=== PATIENT | female | born 1980 | race Caucasian/White ===

== ENCOUNTER → 2020-02-28 09:13 | Outpatient (BNVA) | payer OTHER, SELFPAY | PROVIDERS: Visit Provider Internal Medicine | DX: E06.3 Autoimmune thyroiditis (principal); E03.8 Other specified hypothyroidism; E55.9 Vitamin D deficiency, unspecified; Z79.899 Other long term (current) drug therapy | CPT/HCPCS: 99212 ==

== ENCOUNTER 2020-02-29 16:28 | Outpatient (REF) | payer OTHER, SELFPAY ==
[2020-02-29 17:57] LABS: Free T4 (Free Thyroxine) 1.07 ng/dL (0.71-1.85); Thyroid Stimulating Hormone 3.68 uIU/mL (0.32-4.0); Vitamin D 25-OH Total 15.9 ng/mL (>30)
== END 2020-02-29 16:29 | disposition home or self-care (01) ==
LOC: HO.LAB 16:28
PROVIDERS: PCP Internal Medicine; Visit Provider Internal Medicine
DX: E03.9 Hypothyroidism, unspecified (principal); E55.9 Vitamin D deficiency, unspecified
CPT/HCPCS: 82306; 84439; 84443

== ENCOUNTER 2020-04-02 09:39 | Outpatient (REF) | payer OTHER, SELFPAY ==
[2020-04-03 11:10] LABS: BV Int Neg Control Negative (Negative); BV Int Pos Control Positive (Positive)
[2020-04-05 06:40] LABS: CT PCR NOT DETECTED (Not Detect.); NG PCR NOT DETECTED (Not Detect.)
[2020-04-10 09:47] LABS: HPV mRNA E6/E7 rflx Not Detected (Not Detected)
== END 2020-04-02 09:40 | disposition home or self-care (01) ==
LOC: HO.LAB 09:39
PROVIDERS: Visit Provider Advanced Practice Midwife
DX: Z01.419 Encounter for gynecological examination (general) (routine) without abnormal findings (principal); N39.3 Stress incontinence (female) (male); N92.0 Excessive and frequent menstruation with regular cycle; Z87.42 Personal history of other diseases of the female genital tract; Z20.2 Contact with and (suspected) exposure to infections with a predominantly sexual mode of transmission; Z87.891 Personal history of nicotine dependence
CPT/HCPCS: 87480; 87491; 87510; 87591; 87624; 87625; 87660; 88141; 88142

== ENCOUNTER → 2020-04-07 10:30 | Outpatient (BNVA) | payer OTHER, SELFPAY | PROVIDERS: PCP Internal Medicine; Referring Provider Internal Medicine; Visit Provider Internal Medicine | DX: Z76.89 Persons encountering health services in other specified circumstances (principal) ==

== ENCOUNTER → 2020-05-02 08:25 | Outpatient (BNVA) | payer OTHER, SELFPAY | PROVIDERS: PCP Internal Medicine; Visit Provider Advanced Practice Midwife | DX: Z53.8 Procedure and treatment not carried out for other reasons (principal); N92.0 Excessive and frequent menstruation with regular cycle | CPT/HCPCS: 58300 ==

== ENCOUNTER 2020-05-15 10:46 | Outpatient (REF) | payer OTHER, SELFPAY ==
--- NOTE | 2020-05-15 | US_ITS ---
EXAMINATION: US PELVIS CLINICAL INFORMATION: Menorrhagia. COMPARISON: Pelvic ultrasound dated 01/07/2011 TECHNIQUE: Ultrasound of the pelvis is performed using both transabdominal and transvaginal transducers along with Doppler. Transvaginal imaging is performed due to inadequate visualization transabdominally. FINDINGS: Uterus: The uterus is anteverted and measures 9.2 x 3.5 x 5.2 cm. There are nabothian cysts. The double wall endometrial thickness is 10 mm. The uterus is smooth in contour and has normal myometrial echogenicity. No visible fibroid. Adnexa: Both ovaries are visualized. There is normal color flow to the adnexa. There is no ovarian torsion. There is no pelvic ascites or fluid collection. Right ovary measures 2.8 x 2.6 x 2.6 for a volume of 9.9 mL. There is a right ovarian simple cyst versus dominant follicle measuring 1.8 cm. Left ovary measures 3 x 2 x 1.9 cm for a volume of 6 mL. There is a left ovarian dominant follicle versus cyst measuring 2.2 cm. US/US pelvic complete IMPRESSION: 1. Sonographically unremarkable uterus and endometrium. 2. Right ovarian dominant follicle versus cyst measuring 1.8 cm. Left ovarian dominant follicle versus cyst measuring 2.2 cm.
--- NOTE | 2020-05-15 10:54 | US_ITS ---
EXAMINATION: US PELVIS CLINICAL INFORMATION: Menorrhagia. COMPARISON: Pelvic ultrasound dated 01/07/2011 TECHNIQUE: Ultrasound of the pelvis is performed using both transabdominal and transvaginal transducers along with Doppler. Transvaginal imaging is performed due to inadequate visualization transabdominally. FINDINGS: Uterus: The uterus is anteverted and measures 9.2 x 3.5 x 5.2 cm. There are nabothian cysts. The double wall endometrial thickness is 10 mm. The uterus is smooth in contour and has normal myometrial echogenicity. No visible fibroid. Adnexa: Both ovaries are visualized. There is normal color flow to the adnexa. There is no ovarian torsion. There is no pelvic ascites or fluid collection. Right ovary measures 2.8 x 2.6 x 2.6 for a volume of 9.9 mL. There is a right ovarian simple cyst versus dominant follicle measuring 1.8 cm. Left ovary measures 3 x 2 x 1.9 cm for a volume of 6 mL. There is a left ovarian dominant follicle versus cyst measuring 2.2 cm. US/US transvaginal IMPRESSION: 1. Sonographically unremarkable uterus and endometrium. 2. Right ovarian dominant follicle versus cyst measuring 1.8 cm. Left ovarian dominant follicle versus cyst measuring 2.2 cm.
== END 2020-05-15 10:47 | disposition home or self-care (01) ==
LOC: HO.US 10:46
PROVIDERS: PCP Internal Medicine; Visit Provider Advanced Practice Midwife
DX: N92.0 Excessive and frequent menstruation with regular cycle (principal)
CPT/HCPCS: 76830; 76856

== ENCOUNTER → 2020-05-21 11:29 | Outpatient (BNVA) | payer OTHER, SELFPAY | PROVIDERS: PCP Internal Medicine; Visit Provider Advanced Practice Midwife | DX: Z76.89 Persons encountering health services in other specified circumstances (principal) ==

== ENCOUNTER → 2020-06-02 09:17 | Outpatient (BNVA) | payer OTHER, SELFPAY | PROVIDERS: PCP Internal Medicine; Visit Provider Internal Medicine ==

== ENCOUNTER 2020-06-10 16:19 | Outpatient (REF) | payer OTHER, SELFPAY ==
--- NOTE | ~2020-06-10 | US_ITS ---
EXAMINATION: US THYROID CLINICAL INFORMATION: Hypothyroidism. COMPARISON: US thyroid soft tissues 10/06/2016. TECHNIQUE: Linear transducer grayscale and color Doppler examination with attention to the region of the thyroid. FINDINGS: SIZE: Measurements of the thyroid lobes and nodules are given in sagittal, anteroposterior and transverse dimensions respectively. The thyroid gland is enlarged. Right Thyroid Lobe: 5.7 x 2.4 x 2.2 cm, volume 15.7 mL. Previously 5.5 x 2.5 x 2.6 cm, volume 18.7 mL. Parenchyma: The gland echotexture is heterogeneous. Thyroid vascularity is normal. Left Thyroid Lobe: 5.5 x 2.5 x 2.1 cm, volume 15.1 mL. Previously 5.4 x 2.5 x 2.7 cm, volume 19.1 mL. Parenchyma: The gland echotexture is heterogeneous. Thyroid vascularity is normal. Isthmus: 1.2 cm in maximum AP dimension. Previously 0.8 cm. Nodules: No focal nodule is seen. NODES: No lymphadenopathy is seen in the tissue surrounding the thyroid gland. US/US thyroid IMPRESSION: Enlarged heterogeneous thyroid gland with normal vascularity. The thyroid gland is slightly decreased in size compared to September 2016 exam. No focal nodule or lymphadenopathy is seen.
[2020-06-10 17:15] LABS: Hematocrit 41.5 % (37-47); Hemoglobin 13.3 g/dl (12.0-16.0); Mean Corpuscular Hemoglobin 26.4 pg (27.0-33.0); Mean Corpuscular Volume 82.3 fL (80-98); Mean Platelet Volume 9.5 fL (9.4-12.3); Platelet Count 357 X10*3/uL (160-400); Red Blood Count 5.04 X10*6/uL (4.20-5.50); Red Cell Distribution Width 13.2 % (11.0-16.0); White Blood Count 10.1 X10*3/uL (4.8-10.8)
[2020-06-10 17:56] LABS: Free T4 (Free Thyroxine) 1.09 ng/dL (0.71-1.85); Thyroid Stimulating Hormone 3.99 uIU/mL (0.32-4.0); Vitamin D 25-OH Total 16.3 ng/mL (>30)
[2020-06-11 08:50] LABS: ~HepC Num1 0.09 S/CO (0.00-0.79); ~Hepatitis C Antibody Nonreactive (Nonreactive)
[2020-06-11 09:01] LABS: Syphilis Screen Nonreactive (Nonreactive)
[2020-06-11 09:52] LABS: HBsAGNum1 0.19 S/CO (0.00-0.99); HIV AB/AG Nonreactive (Nonreactive); HIV Num 1 0.06 S/CO (0.00-0.99); Hepatitis B Surface Antigen Negative (Negative)
== END 2020-06-10 16:20 | disposition home or self-care (01) ==
LOC: HO.US 16:19
PROVIDERS: Advanced Practice Midwife; PCP Internal Medicine; Visit Provider Internal Medicine
DX: Z01.419 Encounter for gynecological examination (general) (routine) without abnormal findings (principal); Z11.4 Encounter for screening for human immunodeficiency virus [HIV]; Z01.84 Encounter for antibody response examination; E03.9 Hypothyroidism, unspecified; Z20.2 Contact with and (suspected) exposure to infections with a predominantly sexual mode of transmission; E55.9 Vitamin D deficiency, unspecified
CPT/HCPCS: 36415; 76536; 82306; 84439; 84443; 85027; 86780; 86803; 87340; 87389

== ENCOUNTER → 2020-06-12 11:05 | Outpatient (BNVA) | payer OTHER, SELFPAY | PROVIDERS: Visit Provider Urology ==

== ENCOUNTER → 2020-07-07 09:33 | Outpatient (BNVA) | payer OTHER, SELFPAY | PROVIDERS: PCP Internal Medicine; Visit Provider Internal Medicine ==

== ENCOUNTER 2020-07-30 12:14 | Emergency (ER) | payer OTHER, SELFPAY ==
--- NOTE | ~2020-07-30 | US_ITS ---
EXAMINATION: US ABDOMEN LIMITED CLINICAL INFORMATION: Right upper quadrant epigastric pain. Rule out gallstones or cholecystitis. COMPARISON: CT of August 29, 2011 TECHNIQUE: Real-time imaging of the gallbladder. FINDINGS: GALLBLADDER: There was some tenderness to palpation with the transducer overlying the region of the gallbladder. There is some echogenic bile present. Gallbladder wall is not thickened and no fluid within the gallbladder wall is seen. No pericholecystic fluid is noted. COMMON BILE DUCT: Normal in caliber measuring 0.3 cm in diameter. US/US abdomen limited IMPRESSION: No specific ultrasound evidence of acute cholecystitis.
[2020-07-30 12:52] VITALS: BP 126/71; PULSE 82; RESP 16; TEMP 36.7; BMI 37.5
[2020-07-30 13:20] LABS: MANUAL DIFF FLAG NO
[2020-07-30 13:24] LABS: Basophils Percent Auto 0.5 % (0-2); Eosinophils Absolute Auto 0.3 X10*3/uL (0.0-0.4); Eosinophils Percent Auto 3.7 % (0-4); Hematocrit 42.7 % (37-47); Hemoglobin 13.6 g/dl (12.0-16.0); Imm Gran Abs Auto 0.03 X10*3/uL (0.00-0.03); Imm Gran Pct Auto 0.4 % (0.0-0.4); Lymphocytes Absolute Auto 2.7 X10*3/uL (1.2-4.9); Lymphocytes Percent Auto 31.7 % (20-40); Mean Corpuscular HGB Conc 31.9 g/dl (31.0-35.0); Mean Corpuscular Hemoglobin 26.4 pg (27.0-33.0); Mean Corpuscular Volume 82.8 fL (80-98); Mean Platelet Volume 9.4 fL (9.4-12.3); Monocytes Absolute Auto 0.5 X10*3/uL (0.1-1.2); Monocytes Percent Auto 5.9 % (2-11); Neutrophils Absolute Auto 4.9 X10*3/uL (2.0-8.3); Neutrophils Percent Auto 57.8 % (45-73); Platelet Count 314 X10*3/uL (160-400); Red Blood Count 5.16 X10*6/uL (4.20-5.50); Red Cell Distribution Width 12.9 % (11.0-16.0); White Blood Count 8.4 X10*3/uL (4.8-10.8)
[2020-07-30] MEDS: 0.9 % Sodium Chloride 1,000 ML 999 ML IV (13:41)
[2020-07-30] MEDS: Ketorolac Tromethamine 30 MG/ML VIAL IVPUSH (13:42)
[2020-07-30 13:53] LABS: Alanine Aminotransferase 24 U/L (0-31); Albumin Level 4.3 g/dL (3.5-5.0); Alkaline Phosphatase 85 U/L (39-117); Anion Gap 12 (12-20); Aspartate Amino Transferase 19 U/L (5-31); Bilirubin Total 0.5 mg/dL (0.0-1.0); Carbon Dioxide 26 mmol/L (22-29); Chloride 107 mmol/L (96-108); Creatinine Clr Calc Pharmacy 105.8; Estimated Glomerular Filt Rate > 60; Glucose Random 113 mg/dL (60-115); Lipase 14 U/L (8-78); Potassium 4.1 mmol/L (3.3-5.1); Sodium 141 mmol/L (135-145); Total Protein 7.1 g/dL (6.5-8.0)
[2020-07-30 14:43] LABS: Glucose Urine UA NEG (NEG); Leukocyte Esterase Urine NEG (NEG); Nitrite Urine NEG (NEG); Urine Blood TRACE (NEG); Urine Ketones NEG (NEG); Urine Protein NEG (NEG-TRACE)
[2020-07-30 14:45] LABS: Appearance Urine HAZY; Color Urine YELLOW
[2020-07-30 14:46] LABS: UPreg QC Valid YES; Urine Pregnancy NEGATIVE (NEGATIVE)
[2020-07-30 14:50] LABS: Mucus Urine 2+ /LPF; RBC Urine 0-2 /HPF (0); Squamous Epithelial Cell Urine 1+ /LPF; WBC Urine 0 /HPF (0-4)
--- NOTE | 2020-07-30 15:30 | ED_ITS ---
HPI - General Adult General Chief complaint: Abdominal Pain Stated complaint: abd pain Time Seen by Provider: 07/30/20 12:41 Source: patient Mode of arrival: ambulatory Limitations: no limitations History of Present Illness HPI narrative: 40-year-old female who presents emergency department for evaluation of an ?I am having bad acid reflux . The patient states that she has been having constant, abdominal pain x5 days. She points to her epigastric area when asked to localize the pain. She describes the pain as a twisting/burning sensation. The pain is worse immediately after eating food. She states the joslyn n is 8/10 at its worst. She states that she feels very bloated. She states that she has had a problem with constipation for many years and she has only had small bowel movements over the past several days. She denied fever, chills, chest pain, shortness of breath, blood per rectum, dark tarry stools. The patient states she did see her PCP and was started on omeprazole 40 mg once a day but this is not relieving her pain. Related Data Home Medications Medication Instructions Recorded Confirmed cholecalciferol (vitamin D3) 50 50 mcg PO DAILY 06/02/20 07/07/20 mcg (2,000 unit) capsule ergocalciferol (vitamin D2) 1,250 1,250 mcg PO QWEEK 06/02/20 07/07/20 mcg (50,000 unit) capsule cefdinir 300 mg capsule 300 mg PO Q12H 07/29/20 diclofenac sodium 1 % topical gel g TOPICAL 07/29/20 levonorgestrel 20 mcg/24 hours (6 0 device VAGINAL ONCE 07/29/20 yrs) 52 mg intrauterine device Previous Rx's Medication Instructions Recorded Synthroid 50 mcg tablet 50 mcg PO DAILY 90 Days #90 tab NS 02/07/20 albuterol sulfate 90 mcg/actuation 2 puff PO Q4H PRN 30 Days #8.5 g 02/20/20 aerosol inhaler nebulizers #1 ea 07/14/20 Allergies Allergy/AdvReac Type Severity Reaction Status Date / Time No Known Allergies Allergy Verified 07/29/20 16:17 [No Known Allergies*] Review of Systems Review of Systems: Yes all other systems are reviewed and are negative PMFSH Past Medical History PMFSH Narrative: The patient denies tobacco, alcohol and drug use. She is a former smoker stop smoking 5 years prior. Medical History Asthma Autoimmune thyroiditis Depression Fibromyalgia GERD (gastroesophageal reflux disease) [place]'s disease History of abnormal cervical Pap smear Hypothyroidism Menorrhagia with regular cycle Obesity (BMI 30-39.9) Vitamin D deficiency Surgical History History of tonsillectomy History of tubal ligation Family History Family History Mother Asthma Social History Social History Alcohol intake: never Smoking Status: Former smoker Packs Per Day: 1 Cigarettes Per Day: 20.0 Years Smoked: 5 Advance Directives: No Gender identity: female Physical Exam Vital Signs: Vital Signs: Last Vital Signs Temp 98.1 F 07/30/20 12:52 Pulse 82 07/30/20 12:52 Resp 16 07/30/20 12:52 BP 126/71 07/30/20 12:52 Body Mass Index 37.5 Const: General: cooperative and healthy appearing Orientation/consciousness: oriented to person and oriented to place Limitations: no limitations HENMT: Head: Yes normal to inspection, Yes normocephalic and Yes atraumatic Ears: external ears normal General nose exam: Normal external nose present Face and sinus: Yes normal facial exam Mouth: Normal oral and palatal mucosa present Throat: Yes posterior oropharynx normal Eyes: Periorbital: periorbital findings normal Eyelids: Yes eyelids normal Conjunctivae: conjunctivae normal Sclerae: sclerae normal Corneas: corneas normal Pupils: Equal, round and reactive pupils present Direct Ophthalmoscopy: normal light reflex Neck: Neck: Yes full ROM, Yes no lymphadenopathy, Yes no meningeal signs, Yes trachea midline and Yes supple Chest: Chest palpation & inspection: normal inspection of the chest and normal palpation of entire chest wall Resp: Effort & Inspection: normal respiratory effort and able to speak in complete sentences Auscultation: clear to auscultation bilaterally Cardio: Rate: regular rate Rhythm: regular rhythm Heart sounds: S1 normal heart sound present, S2 normal heart sound present and no murmurs GI: Inspection: Yes normal to inspection Palpation (GI): Soft to palpation, Tenderness to palpation present (GI) in the epigastrum (Moderate) and in the RUQ (Moderate, negative De Leon sign), no guarding, not rigid and No hepatosplenomegaly present : General: Yes no CVA tenderness Back/Spine/Pelvis: Back: no CVA tenderness Cervical Spine: normal cervical lordosis Thoracic/Lumbar Spine: thoracic and lumbar spine normal to inspection Skin: Lesions: no lesions Rashes: no rashes Wounds: no wounds Neuro: General: oriented to person, oriented to place and no meningeal signs Cranial nerves: Yes CN's II-XII intact bilaterally and Yes Equal, round and reactive pupils present Cognition (Neuro): normal cognition Motor exam (neuro): 5/5 motor strength present throughout Extrem: General: Yes normal to inspection and Yes full ROM Psych: Appearance: well kempt Mental Status: mental status grossly normal Speech and movement: Normal speech and movement present Affect: normal affect Attitude: cooperative Thought process: Normal thought process present Thought content: Normal thought content present Course Course Course Narrative: 40-year-old female who presents emergency department for evaluation of epigastric pain times 5 days. The patient did see her PCP and was started on Prilosec with no relief for pain. Patient has also been constipated and is well and small bowel movements over the last 3 days, she is feeling bloated. Physical examination did reveal right upper quadrant and midepigastric tenderness. I ordered a CBC, CMP, lipase, urine test, urinalysis and right upper quadrant ultrasound. Patient was also ordered to get Toradol 30 mg IV and normal saline IV x1 L. 1534: Patient's laboratory evaluation was unremarkable, urinalysis was negative, urine test was negative. Right upper quadrant ultrasound revealed no evidence of cholecystitis or gallstones. The patient's presentation is consistent with acute gastritis and I did discuss this with her. The patient was advised to continue taking Prilosec 40 mg once a day for 1 month. She was started on the following bowel regimen: Metamucil daily, Colace twice a day, Senokot x3 days if no bowel movements after 3 days. She was advised follow-up with doctor for re-evaluation and return if her symptoms get worse. Medical Decision Making Lab Data Result diagrams: 07/30/20 13:13 07/30/20 13:13 Labs: Lab Results 07/30/20 07/30/20 07/30/20 Range/Units 13:13 13:13 13:13 WBC 8.4 (4.8-10.8) X10*3/uL RBC 5.16 (4.20-5.50) X10*6/uL Hgb 13.6 (12.0-16.0) g/dl Hct 42.7 (37-47) % MCV 82.8 (80-98) fL MCH 26.4 L (27.0-33.0) pg MCHC 31.9 (31.0-35.0) g/dl RDW 12.9 (11.0-16.0) % Plt Count 314 (160-400) X10*3/uL MPV 9.4 (9.4-12.3) fL Immature Gran % (Auto) 0.4 (0.0-0.4) % Neut % (Auto) 57.8 (45-73) % Lymph % (Auto) 31.7 (20-40) % [place] % (Auto) 5.9 (2-11) % Eos % (Auto) 3.7 (0-4) % Baso % (Auto) 0.5 (0-2) % Lymph # (Auto) 2.7 (1.2-4.9) X10*3/uL [place] # (Auto) 0.5 (0.1-1.2) X10*3/uL Eos # (Auto) 0.3 (0.0-0.4) X10*3/uL Baso # (Auto) 0.0 (0.0-0.2) X10*3/uL Abs Immat Gran (auto) 0.03 (0.00-0.03) X10*3/uL Absolute Neuts (auto) 4.9 (2.0-8.3) X10*3/uL Absolute Nucleated RBC 0.000 (0.0-0.012) X10*3/uL Nucleated RBC % (auto) 0.0 (0.0-0.2) /100WBC Sodium 141 (135-145) mmol/L Potassium 4.1 (3.3-5.1) mmol/L Chloride 107 (96-108) mmol/L Carbon Dioxide 26 (22-29) mmol/L Anion Gap 12 (12-20) Creatinine 0.75 (0.5-1.4) mg/dL Estim Creat Clear Calc 105.8 Estimated GFR > 60 Random Glucose 113 (60-115) mg/dL Total Bilirubin 0.5 (0.0-1.0) mg/dL AST 19 (5-31) U/L ALT 24 (0-31) U/L Alkaline Phosphatase 85 (39-117) U/L Total Protein 7.1 (6.5-8.0) g/dL Albumin 4.3 (3.5-5.0) g/dL Lipase 14 (8-78) U/L Urine Color Urine Appearance Urine pH (5.0-8.0) Ur Specific [place] (1.005-1.025) Urine Protein (NEG-TRACE) MG/DL Urine Glucose (UA) (NEG) MG/DL Urine Ketones (NEG) MG/DL Urine Blood (NEG) Urine Nitrite (NEG) Ur Leukocyte Esterase (NEG) Urine RBC (0) /HPF Urine WBC (0-4) /HPF Ur Squamous Epith Cells /LPF Urine Bacteria /LPF Urine Mucus /LPF Urine Test (NEGATIVE) 07/30/20 07/30/20 Range/Units 14:29 14:29 WBC (4.8-10.8) X10*3/uL RBC (4.20-5.50) X10*6/uL Hgb (12.0-16.0) g/dl Hct (37-47) % MCV (80-98) fL MCH (27.0-33.0) pg MCHC (31.0-35.0) g/dl RDW (11.0-16.0) % Plt Count (160-400) X10*3/uL MPV (9.4-12.3) fL Immature Gran % (Auto) (0.0-0.4) % Neut % (Auto) (45-73) % Lymph % (Auto) (20-40) % [place] % (Auto) (2-11) % Eos % (Auto) (0-4) % Baso % (Auto) (0-2) % Lymph # (Auto) (1.2-4.9) X10*3/uL [place] # (Auto) (0.1-1.2) X10*3/uL Eos # (Auto) (0.0-0.4) X10*3/uL Baso # (Auto) (0.0-0.2) X10*3/uL Abs Immat Gran (auto) (0.00-0.03) X10*3/uL Absolute Neuts (auto) (2.0-8.3) X10*3/uL Absolute Nucleated RBC (0.0-0.012) X10*3/uL Nucleated RBC % (auto) (0.0-0.2) /100WBC Sodium (135-145) mmol/L Potassium (3.3-5.1) mmol/L Chloride (96-108) mmol/L Carbon Dioxide (22-29) mmol/L Anion Gap (12-20) Creatinine (0.5-1.4) mg/dL Estim Creat Clear Calc Estimated GFR Random Glucose (60-115) mg/dL Total Bilirubin (0.0-1.0) mg/dL AST (5-31) U/L ALT (0-31) U/L Alkaline Phosphatase (39-117) U/L Total Protein (6.5-8.0) g/dL Albumin (3.5-5.0) g/dL Lipase (8-78) U/L Urine Color YELLOW Urine Appearance HAZY Urine pH 6.0 (5.0-8.0) Ur Specific [place] 1.020 (1.005-1.025) Urine Protein NEG (NEG-TRACE) MG/DL Urine Glucose (UA) NEG (NEG) MG/DL Urine Ketones NEG (NEG) MG/DL Urine Blood TRACE (NEG) Urine Nitrite NEG (NEG) Ur Leukocyte Esterase NEG (NEG) Urine RBC 0-2 (0) /HPF Urine WBC 0 (0-4) /HPF Ur Squamous Epith Cells 1+ /LPF Urine Bacteria NONE /LPF Urine Mucus 2+ /LPF Urine Test NEGATIVE (NEGATIVE) Discharge Plan Discharge Clinical Impression: Gastritis Qualifiers: Gastritis type: unspecified gastritis Chronicity: acute Gastritis bleeding: without bleeding Qualified Code(s): K29.00 - Acute gastritis without bleeding Constipation Qualifiers: Constipation type: unspecified constipation type Qualified Code(s): K59.00 - Constipation, unspecified Patient Disposition: Home, Self-Care Instructions: Gastritis (ED), Constipation (ED) Additional Instructions: Your blood work was normal. The ultrasound of your gallbladder revealed no gallstones and no evidence of an inflamed gallbladder. Your symptoms and physical findings are consistent with inflammation of your stomach (gastritis). Continue taking the Prilosec (omeprazole) 40 mg once a day. This medication will shut off the acid production your stomach and help your inflamed stomach heal. This will take 4-6 weeks to get better. I believe the bloated sensation is due to your constipation. I want you to take the following medications to help with your constipation: Metamucil powder or cookies/wafers once a day with 10 oz of water. Colace stool softener 1 pill twice a day If you do not have a bowel movement after for days take Senokot laxative 1 pill twice a day for 3 days. If you do not have a bowel movement after taking Senokot for 3 days then used a Fleet's enema. Take Tylenol (acetaminophen) 500 mg pills, 2 pills every 4 to 6 hours as needed for pain. Follow-up with your doctor in 2 days. Please return to the emergency department if your symptoms get worse or if you develop any symptoms that are concerning to you. Prescriptions: No Action levothyroxine [Synthroid] 50 mcg tablet 50 mcg PO DAILY 90 Days Qty: 90 RF: 1 albuterol sulfate 90 mcg/actuation HFA aerosol inhaler 2 puff PO Q4H PRN (Reason: bronchospasm) 30 Days Qty: 8.5 RF: 11 (DME) AeroEclipse II Nebulizer Misc See Rx Instructions .ROUTE .MEDSUPPLY Qty: 1 RF: 0 diclofenac sodium 1 % gel topical RF: 0 Mirena 20 mcg/24 hours (6 yrs) 52 mg intrauterine device 0 device vaginal ONCE RF: 0 cefdinir 300 mg capsule 300 mg PO Q12H RF: 0 ergocalciferol (vitamin D2) 1,250 mcg (50,000 unit) capsule 1,250 mcg PO QWEEK RF: 0 cholecalciferol (vitamin D3) 50 mcg (2,000 unit) capsule 50 mcg PO DAILY RF: 0
[2020-07-30 16:57] LABS: Blood Urea Nitrogen 3 mg/dL (9-16)
== END 2020-07-30 16:01 | disposition home or self-care (01) ==
PROVIDERS: Emergency Provider Emergency Medicine Emergency Medical Services; PCP Internal Medicine
DX: K29.00 Acute gastritis without bleeding (principal); K59.00 Constipation, unspecified; K21.9 Gastro-esophageal reflux disease without esophagitis; J45.909 Unspecified asthma, uncomplicated; F17.210 Nicotine dependence, cigarettes, uncomplicated
CPT/HCPCS: 36415; 76705; 80053; 81001; 81025; 83690; 85025; 96361; 96374; 99283; 99284; J1885

== ENCOUNTER → 2020-08-04 09:33 | Outpatient (BNVA) | payer OTHER, SELFPAY | PROVIDERS: PCP Internal Medicine; Visit Provider Internal Medicine ==

== ENCOUNTER → 2020-08-21 07:55 | Outpatient (BNVA) | payer OTHER, SELFPAY | PROVIDERS: PCP Internal Medicine; Visit Provider Physician Assistant ==

== ENCOUNTER → 2020-09-24 12:23 | Outpatient (BNVA) | payer OTHER, SELFPAY | PROVIDERS: Referring Provider Internal Medicine; Visit Provider Physician Assistant | DX: K59.09 Other constipation (principal); K21.9 Gastro-esophageal reflux disease without esophagitis | CPT/HCPCS: 99212 ==

== ENCOUNTER → 2020-12-25 10:58 | Outpatient (BNVA) | payer OTHER, SELFPAY | PROVIDERS: PCP Internal Medicine; Visit Provider Physician Assistant ==

== ENCOUNTER → 2021-02-09 10:34 | Outpatient (BNVA) | payer OTHER, SELFPAY | PROVIDERS: Visit Provider Internal Medicine ==

== ENCOUNTER 2021-02-23 15:49 | Outpatient (REF) | payer OTHER, SELFPAY ==
[2021-02-23 17:37] LABS: Free T4 (Free Thyroxine) 1.06 ng/dL (0.71-1.85); Thyroid Stimulating Hormone 5.76 uIU/mL (0.32-4.0); Vitamin D 25-OH Total 13.5 ng/mL (>30)
== END 2021-02-23 15:50 | disposition home or self-care (01) ==
LOC: HO.LAB 15:49
PROVIDERS: PCP Internal Medicine; Visit Provider Internal Medicine
DX: E03.9 Hypothyroidism, unspecified (principal); E55.9 Vitamin D deficiency, unspecified
CPT/HCPCS: 36415; 82306; 84439; 84443

== ENCOUNTER 2021-03-02 10:40 | Outpatient (REF) | payer OTHER, SELFPAY ==
--- NOTE | ~2021-03-02 | XR_ITS ---
EXAMINATION: XR KNEE, RIGHT CLINICAL INFORMATION: Medial right knee pain. COMPARISON: None TECHNIQUE: Four views of the right knee including upright frontal and lateral views. FINDINGS: The bony alignment is intact. The cortices are intact. Articular margins, joint space appear unremarkable. No evidence of any osteophyte formation or joint effusion. Soft tissues are unremarkable. XR/XR knee RT 4V IMPRESSION: Unremarkable radiographic appearance of the right knee.
== END 2021-03-02 10:41 | disposition home or self-care (01) ==
LOC: HO.XRAY 10:40
PROVIDERS: PCP Internal Medicine; Visit Provider Internal Medicine
DX: M25.561 Pain in right knee (principal)
CPT/HCPCS: 73564

== ENCOUNTER 2021-03-12 19:48 | Emergency (ER) | payer OTHER, SELFPAY ==
--- NOTE | ~2021-03-12 | US_ITS ---
EXAMINATION: US VENOUS ULTRASOUND WITH DOPPLER LOWER EXTREMITY, RIGHT CLINICAL INFORMATION: Pain COMPARISON: None TECHNIQUE: Ultrasound of the deep veins is performed from the hip to the calf with compression sonography and color and pulse Doppler assessment. Spectral analysis with color-flow imaging is performed. FINDINGS: No evidence of thrombus. Patient cannot tolerate compression in the mid to distal femoral vein region but there is no evidence of a filling defect. There is Doppler flow. If the patient's symptoms persist, followup ultrasound in 5 days 7 days might be of value to exclude proximal propagation from a non-visualized calf vein. US/US venous duplex LE RT IMPRESSION: Mildly limited exam as described above. No suspicion for DVT on the imaging submitted right lower extremity
[2021-03-12 21:22] VITALS: BP 135/64; PULSE 73; RESP 18; TEMP 36.7; O2SAT 98; BMI 37.6
[2021-03-13 01:39] VITALS: BP 115/67; PULSE 78; RESP 18; TEMP 36.9; O2SAT 100
--- NOTE | 2021-03-13 02:07 | ED_ITS ---
HPI - General Adult General Chief complaint: General Medical Stated complaint: R/O DVT Time Seen by Provider: 03/13/21 02:07 Source: patient Mode of arrival: ambulatory Limitations: no limitations History of Present Illness HPI narrative: Patient with 3 weeks of pain to knee and leg. Saw her doctor, xray was negative. Today she went to [facility] and they wanted her to get an ultrasound to rule out DVT. Patient feels increased swelling to her leg. Onset (ago): week(s) Location: lower extremity Severity: mild Pain Consistency: constant Related Data Home Medications Medication Instructions Recorded Confirmed ibuprofen 200 mg tablet 400 mg PO Q8H 03/02/21 03/02/21 Previous Rx's Medication Instructions Recorded albuterol sulfate 90 mcg/actuation 2 puff PO Q4H PRN 30 Days #8.5 g 02/20/20 aerosol inhaler nebulizers (AeroEclipse II #1 ea 08/11/20 Nebulizer) sennosides 8.6 mg tablet (senna) 8.6 mg PO BEDTIME 30 Days #30 tab 08/21/20 albuterol sulfate 2.5 mg (3 mL) INHALATION Q6H PRN 08/27/20 30 Days #360 ml loratadine 10 mg tablet (Allergy 10 mg PO DAILY PRN 90 Days #90 tab 08/28/20 Relief (loratadine)) pantoprazole 40 mg tablet,delayed 40 mg PO DAILY 30 Days #30 tab 09/24/20 release methylcellulose (laxative) 500 mg 500 mg PO BID #60 tab 12/25/20 tablet (Citrucel) ergocalciferol (vitamin D2) 1,250 1,250 mcg PO QWEEK 90 Days #13 cap 02/21/21 mcg (50,000 unit) capsule Synthroid 75 mcg tablet 75 mcg PO DAILY 30 Days #30 tab NS 02/24/21 (levothyroxine) fluocinolone acetonide oil 0.01 % 5 drp OTIC (EARS) BID 7 Days #20 ml 03/02/21 ear drops (DermOtic Oil) naproxen 500 mg tablet (Naprosyn) 500 mg PO BID #20 tab 03/13/21 Allergies Allergy/AdvReac Type Severity Reaction Status Date / Time No Known Allergies Allergy Verified 03/02/21 10:08 [No Known Allergies*] Review of Systems Constitutional: Constitutional: Reports no additional constitutional complaints Eyes: Eyes: Reports no additional eye complaints ENT: Denies dizziness Cardiovascular: Cardiovascular: Reports no additional cardiovascular complaints Respiratory: Respiratory: Reports as per HPI Gastrointestinal: Gastrointestinal: Reports no additional gastrointestinal complaints Genitourinary: Genitourinary: Reports no additional female genitourinary complaints Musculoskeletal: Musculoskeletal: Reports no additional musculoskeletal complaints Integumentary/Breasts: Skin/Breast: Denies rash Neurologic: Reports system reviewed and no additional complaints, except as documented, Denies dizziness and Denies Sensory deficit (Neuro) Psychiatric: Psychiatric: Denies anxiety [facility] Past Medical History Medical History Abdominal pain Acid reflux Allergic rhinitis Asthma Autoimmune thyroiditis Depression Fibromyalgia GERD (gastroesophageal reflux disease) Elmira's disease History of abnormal cervical Pap smear Hypothyroidism Menorrhagia with regular cycle Obesity (BMI 30-39.9) Right knee pain Vitamin D deficiency Surgical History History of tonsillectomy History of tubal ligation Family History Family History Mother Asthma Father AIDS Sister No problems noted. Brother No problems noted. Daughter No problems noted. Daughter No problems noted. Daughter No problems noted. Son No problems noted. Social History Social History Household Members: Spouse Housing: Apartment Alcohol intake: current Alcohol intake frequency: holidays/special occasions only Alcohol type: wine Patient Tobacco Use Status: Former Tobacco user Tobacco use type: Cigarette Years Smoked: 5 e-Cigarette/Vaping Use: Never Used Second Hand Smoke Exposure: No Advance Directives: No Advance Directives Information Provided: No Patient : No service: No Current occupational status: employed Current occupational exposures/hazards: No Gender identity: Female Physical Exam Vital Signs: Vital Signs: Last Vital Signs Temp 98.4 F 03/13/21 01:39 Pulse 78 03/13/21 01:39 Resp 18 03/13/21 01:39 BP 115/67 03/13/21 01:39 Pulse Ox 100 03/13/21 01:39 Body Mass Index 37.6 Const: Other: patient both angry and anxious, convinced there is something wrong with her knee General: healthy appearing Nutritional Appearance: average body habitus Orientation/consciousness: oriented to person and patient oriented x3 Limitations: no limitations HENMT: Head: Yes normal to inspection Ears: external ears normal General nose exam: Normal external nose present Mouth: Normal oral and palatal mucosa present and oropharynx normal Throat: Yes posterior oropharynx normal Eyes: General: appearance normal, both eyes and all related structures Neck: Other: supple Neck: Yes normal visual inspection Chest: Chest palpation & inspection: normal inspection of the chest Resp: Auscultation: clear to auscultation bilaterally Cardio: Jugular venous distension: no JVD Rate: regular rate Rhythm: regular rhythm Heart sounds: S1 normal heart sound present and S2 normal heart sound present GI: Inspection: Yes normal to inspection Palpation (GI): Soft to palpation, nontender and No hepatosplenomegaly present Auscultation: normal bowel sounds : General: Yes no CVA tenderness Back/Spine/Pelvis: Back: no CVA tenderness Skin: General skin exam: no rashes or lesions noted Neuro: General: oriented to person and patient oriented x3 Cranial nerves: Yes CN's II-XII intact bilaterally Motor exam (neuro): 5/5 motor strength present throughout Sensory Exam: No Sensory deficit (Neuro) Extrem: Other: Full range of motion, patient complained of pain, no effusion, no erythema General: Yes normal to inspection Psych: Appearance: grossly normal Course Reevaluation(s) Reevaluation #1: At this moment I don't see anything wrong with her knee with no effusion or erythema, the knee is not laxed, US today negative for DVT, xray a week ago showed no effusion or degenerative disease. will start on NSAIDs Time: 02:19 Medical Decision Making Imaging Data duplex right leg: Radiologist's impression: IMPRESSION: Mildly limited exam as described above. No suspicion for DVT on the imaging submitted right lower extremity Discharge Plan Discharge Clinical Impression: Right knee pain Qualifiers: Chronicity: acute Qualified Code(s): M25.561 - Pain in right knee Patient Disposition: Home, Self-Care Instructions: Knee Pain (ED) Prescriptions: New naproxen [Naprosyn] 500 mg tablet 500 mg PO BID Qty: 20 RF: 0 No Action albuterol sulfate 90 mcg/actuation HFA aerosol inhaler 2 puff PO Q4H PRN (Reason: bronchospasm) 30 Days Qty: 8.5 RF: 11 (DME) AeroEclipse II Nebulizer Misc See Rx Instructions .ROUTE .MEDSUPPLY Qty: 1 RF: 0 albuterol sulfate 2.5 mg /3 mL (0.083 %) solution for nebulization 2.5 mg inhalation Q6H PRN (Reason: bronchospasm) 30 Days Qty: 360 RF: 6 ergocalciferol (vitamin D2) 1,250 mcg (50,000 unit) capsule 1,250 mcg PO QWEEK 90 Days Qty: 13 RF: 1 levothyroxine [Synthroid] 75 mcg tablet 75 mcg PO DAILY 30 Days Qty: 30 RF: 3 loratadine [Allergy Relief (loratadine)] 10 mg tablet 10 mg PO DAILY PRN (Reason: allergy symptoms) 90 Days Qty: 90 RF: 3 ibuprofen 200 mg tablet 400 mg PO Q8H RF: 0 fluocinolone acetonide oil [DermOtic Oil] 0.01 % drops 5 drp otic (ears) BID 7 Days Qty: 20 RF: 1 pantoprazole 40 mg tablet,delayed release (DR/EC) 40 mg PO DAILY 30 Days Qty: 30 RF: 11 sennosides [senna] 8.6 mg tablet 8.6 mg PO BEDTIME 30 Days Qty: 30 RF: 2 Citrucel 500 mg tablet 500 mg PO BID Qty: 60 RF: 5 Referrals: Nenita Knott MD [Primary Care Provider] - 5 days
[2021-03-13] MEDS: Ketorolac Tromethamine 60 MG/2 ML VIAL IM (02:31)
== END 2021-03-13 02:35 | disposition home or self-care (01) ==
PROVIDERS: Emergency Provider Emergency Medicine; PCP Internal Medicine
DX: M25.561 Pain in right knee (principal)
CPT/HCPCS: 93971; 96372; 99284; J1885

== ENCOUNTER → 2021-03-27 14:49 | Outpatient (BNVA) | payer OTHER, SELFPAY | PROVIDERS: PCP Internal Medicine; Visit Provider Physician Assistant | DX: M23.91 Unspecified internal derangement of right knee (principal) | CPT/HCPCS: 99202 ==

== ENCOUNTER 2021-04-15 08:27 | Emergency (ER) | payer OTHER, SELFPAY ==
--- NOTE | ~2021-04-15 | XR_ITS ---
EXAMINATION: RIGHT KNEE 3 VIEWS RIGHT HIP 3 VIEWS CLINICAL INFORMATION: Pain status post fall COMPARISON: 03/02/2021 TECHNIQUE: As above nonweightbearing FINDINGS: Small to moderate size nonspecific joint effusion. No fracture. Joint spaces preserved. Tibial plateaus intact. No right hip abnormality. No dislocation. Pubic bones intact. Sacrum intact. XR/XR hip RT w PEL1V IMPRESSION: No fracture.
--- NOTE | ~2021-04-15 | XR_ITS ---
EXAMINATION: RIGHT KNEE 3 VIEWS RIGHT HIP 3 VIEWS CLINICAL INFORMATION: Pain status post fall COMPARISON: 03/02/2021 TECHNIQUE: As above nonweightbearing FINDINGS: Small to moderate size nonspecific joint effusion. No fracture. Joint spaces preserved. Tibial plateaus intact. No right hip abnormality. No dislocation. Pubic bones intact. Sacrum intact. XR/XR knee RT 3V IMPRESSION: No fracture.
--- NOTE | ~2021-04-15 | XR_ITS ---
EXAMINATION: XR SACRUM AND COCCYX CLINICAL INFORMATION: Pain status post fall COMPARISON: None TECHNIQUE: 2 views of the sacrum and 2 views of the coccyx were obtained. FINDINGS: There are no fractures. No bone, joint or soft tissue abnormality is demonstrated. XR/XR sacrum coccyx min 2V IMPRESSION: Unremarkable examination.
[2021-04-15 08:30] VITALS: BP 116/68; PULSE 86
[2021-04-15 08:31] VITALS: BP 129/70; PULSE 82; RESP 20; TEMP 36.1; O2SAT 99; BMI 37.5
--- NOTE | 2021-04-15 09:33 | ED_ITS ---
HPI - Fall General Chief Complaint: Fall Stated Complaint: R HIP/KNEE PAIN S/P SLIP AND FALL ON ICE Time Seen by Provider: 04/15/21 09:09 Source: patient Mode of arrival: ambulatory Limitations: no limitations History of Present Illness HPI Narrative: 41-year-old female with history of asthma, GERD, fibromyalgia, Elmira's disease here with reports of right knee pain, right hip pain and low back pain after a fall on the ice today. Patient tells me she went to take a step and it was icy causing her to fall on the right side and low back. There was no head strike or loss of consciousness. Of note the patient has had some chronic any pain for several months and has an MRI today 18:00. She tells me she felt the knee give out on her and twist today. This caused her to fall on the right hip and low back. Related Data Home Medications Medication Instructions Recorded Confirmed ibuprofen 200 mg tablet 400 mg PO Q8H 03/02/21 03/02/21 Previous Rx's Medication Instructions Recorded albuterol sulfate 90 mcg/actuation 2 puff PO Q4H PRN 30 Days #8.5 g 02/20/20 aerosol inhaler nebulizers (AeroEclipse II #1 ea 08/11/20 Nebulizer) sennosides 8.6 mg tablet (senna) 8.6 mg PO BEDTIME 30 Days #30 tab 08/21/20 albuterol sulfate 2.5 mg (3 mL) INHALATION Q6H PRN 08/27/20 30 Days #360 ml loratadine 10 mg tablet (Allergy 10 mg PO DAILY PRN 90 Days #90 tab 08/28/20 Relief (loratadine)) pantoprazole 40 mg tablet,delayed 40 mg PO DAILY 30 Days #30 tab 09/24/20 release methylcellulose (laxative) 500 mg 500 mg PO BID #60 tab 12/25/20 tablet (Citrucel) ergocalciferol (vitamin D2) 1,250 1,250 mcg PO QWEEK 90 Days #13 cap 02/21/21 mcg (50,000 unit) capsule Synthroid 75 mcg tablet 75 mcg PO DAILY 30 Days #30 tab NS 02/24/21 (levothyroxine) fluocinolone acetonide oil 0.01 % 5 drp OTIC (EARS) BID 7 Days #20 ml 03/02/21 ear drops (DermOtic Oil) naproxen 500 mg tablet (Naprosyn) 500 mg PO BID #20 tab 03/13/21 ibuprofen 800 mg tablet 800 mg PO TID PRN #90 tab 03/27/21 tramadol 50 mg tablet 50 mg PO Q6H PRN #8 tab 04/15/21 Allergies Allergy/AdvReac Type Severity Reaction Status Date / Time No Known Allergies Allergy Verified 03/02/21 10:08 [No Known Allergies*] Review of Systems Review of Systems: Yes all other systems are reviewed and are negative Constitutional: Constitutional: Reports no additional constitutional complaints, Denies body ache(s), Denies chills, Denies fever(s), Denies headache(s) and Denies weakness Eyes: Eyes: Reports no additional eye complaints and Denies change in vision ENT: Reports system reviewed and no additional complaints, except as documented, Denies dizziness, Denies headache(s), Denies nasal congestion, Denies nasal discharge and Denies neck pain Cardiovascular: Cardiovascular: Reports no additional cardiovascular complaints, Denies chest pain, Denies leg edema and Denies dyspnea Respiratory: Respiratory: Reports no additional respiratory complaints, Denies cough and Denies dyspnea Gastrointestinal: Gastrointestinal: Reports no additional gastrointestinal complaints, Denies abdominal pain, Denies diarrhea, Denies nausea and Denies vomiting Genitourinary: Genitourinary: Reports no additional female genitourinary complaints and Denies urinary incontinence Musculoskeletal: Musculoskeletal: Reports no additional musculoskeletal complaints, Reports back pain, Reports arthralgias, Denies joint swelling, Denies neck pain, Denies numbness and Denies tingling Integumentary/Breasts: Skin/Breast: Reports system reviewed and no additional complaints, except as docu and Denies rash Neurologic: Reports system reviewed and no additional complaints, except as documented, Denies Abnormal speech present, Denies dizziness, Denies headache(s), Denies numbness, Denies tingling and Denies weakness [facility] Past Medical History Attestation statement: The following information was validated with the patient. Source: old records reviewed and nursing notes reviewed Medical History Abdominal pain Acid reflux Allergic rhinitis Asthma Autoimmune thyroiditis Depression Fibromyalgia GERD (gastroesophageal reflux disease) Elmira's disease History of abnormal cervical Pap smear Hypothyroidism Menorrhagia with regular cycle Obesity (BMI 30-39.9) Right knee pain Vitamin D deficiency Surgical History History of tonsillectomy History of tubal ligation Family History Family History Mother Asthma Father AIDS Sister No problems noted. Brother No problems noted. Daughter No problems noted. Daughter No problems noted. Daughter No problems noted. Son No problems noted. Social History Social History Household Members: Spouse Housing: Apartment Alcohol intake: current Alcohol intake frequency: holidays/special occasions only Alcohol type: wine Patient Tobacco Use Status: Former Tobacco user Tobacco use type: Cigarette Years Smoked: 5 e-Cigarette/Vaping Use: Never Used Second Hand Smoke Exposure: No Advance Directives: No Advance Directives Information Provided: No service: No Current occupational status: employed Current occupation: [employer] Current occupational exposures/hazards: No Gender identity: Female Physical Exam Vital Signs: Vital Signs: Last Vital Signs Temp 97 F 04/15/21 08:31 Pulse 82 04/15/21 08:31 Resp 20 04/15/21 08:31 BP 129/70 04/15/21 08:31 Pulse Ox 99 04/15/21 08:31 BMI result Body Mass Index 37.5 Const: General: cooperative, healthy appearing, comfortable and no acute distress Orientation/consciousness: patient oriented x3 Limitations: no limitations HENMT: Head: Yes normal to inspection Ears: hearing grossly normal bilaterally General nose exam: Normal external nose present Face and sinus: Yes normal facial exam Mouth: Normal oral and palatal mucosa present Throat: Yes posterior oropharynx normal Eyes: General: appearance normal, both eyes and all related structures Pupils: Equal, round and reactive pupils present Neck: Neck: Yes normal visual inspection Chest: Chest palpation & inspection: normal inspection of the chest Resp: Effort & Inspection: normal respiratory effort Auscultation: clear to auscultation bilaterally Cardio: Rate: regular rate Rhythm: regular rhythm Peripheral pulses: Peripheral pulses 2+ throughout GI: Inspection: Yes normal to inspection Palpation (GI): Soft to palpation and nontender Auscultation: normal bowel sounds : General: Yes no CVA tenderness Back/Spine/Pelvis: Back: no CVA tenderness Thoracic/Lumbar Spine: thoracic and lumbar spine normal to inspection Coccyx: no swelling and Coccyx tenderness present Skin: General skin exam: no rashes or lesions noted Neuro: General: patient oriented x3, no focal motor deficits and normal sensation to monofilament Cranial nerves: Yes Equal, round and reactive pupi ls present Cognition (Neuro): normal cognition Speech: No Abnormal speech present Gait exam (Neuro): Normal gait present Motor exam (neuro): 5/5 motor strength present throughout Extrem: Other: Mild tenderness noted over the right lateral hip pain over the right femur with full range of motion and no shortening, rotation or deformity. No ecchymosis noted. There is tenderness to the entire anterior right knee with mild swelling as small abrasion. Patient is able to flex and extend the knee with no difficulty. There is a small joint effusion. Unable to appreciate any ligamental laxity due to tenderness on exam which limits testing. Neurovascularly intact distally. To the right volar wrist there is a small abrasion with full range of motion of the joint. General: Yes normal to inspection Course Course Course Narrative: 41-year-old female here with mechanical fall with acute on chronic right knee pain, right hip pain and low back pain. No head strike or loss of consciousness. Will check x-ray. 1000-x-ray show no bony abnormality. There is a small joint effusion to the right knee. Patient we placed an Rajinder wrap and given crutches for home. She has an outpatient appointment for an MRI of her knee for her chronic pain this afternoon. Recommend she keep the appointment. Did review rice. Reviewed worrisome signs and symptoms when to return to the emergency department. Comfortable discharge home. Procedures Procedure Narrative Procedure Narrative: rajinder wrap, crutches MDM - Fall Medical Records Attestation: I reviewed the patient's medical records. Lab Data Attestation: I reviewed the patient's lab results. Imaging Data right knee x-ray: Attestation: I personally reviewed and interpreted this imaging study as follows: Radiologist's impression: EXAMINATION: RIGHT KNEE 3 VIEWS RIGHT HIP 3 VIEWS CLINICAL INFORMATION: Pain status post fall? COMPARISON: 03/02/2021? TECHNIQUE: As above nonweightbearing? FINDINGS: Small to moderate size nonspecific joint effusion. No fracture. Joint spaces preserved. Tibial plateaus intact. No right hip abnormality. No dislocation. Pubic bones intact. Sacrum intact.? XR/XR knee RT 3V IMPRESSION: No fracture.? righ thip x-ray: Attestation: I personally reviewed and interpreted this imaging study as follows: Radiologist's impression: No right hip abnormality. No dislocation. Pubic bones intact. Sacrum intact.? sacrum/coccyx x-ray: Attestation: I personally reviewed and interpreted this imaging study as follows: Radiologist's impression: [address] [address] XRay Report Signed Patient: Mary Saavedra MR#: [id number] : 1980 Acct:[id number] Age/Sex: 41 / F ADM Date: 04/15/21 Loc: .ED Attending Dr: Ordering Physician: Lisa Lopez NP Date of Service: 04/15/21 Procedure(s): XR sacrum coccyx min 2V Accession Number(s): [id number] cc: Lisa Lopez NP~ EXAMINATION: XR SACRUM AND COCCYX CLINICAL INFORMATION: Pain status post fall COMPARISON: None TECHNIQUE: 2 views of the sacrum and 2 views of the coccyx were obtained. FINDINGS: There are no fractures. No bone, joint or soft tissue abnormality is demonstrated. XR/XR sacrum coccyx min 2V IMPRESSION: Unremarkable examination. Discharge Plan Discharge Clinical Impression: Right knee sprain, Contusion of hip, right, Back contusion Patient Disposition: Home, Self-Care Instructions: Knee Sprain (ED), Crutch Instructions (ED), How to Use an Elastic Bandage (ED), Contusion in Adults (ED), Hip Contusion (ED) Additional Instructions: Keep your appointment for MRI today at 6 pm Ice to the affected area Use the Rajinder wrap and crutches for comfort Prescriptions: New tramadol 50 mg tablet 50 mg PO Q6H PRN (Reason: pain) Qty: 8 RF: 0 No Action albuterol sulfate 90 mcg/actuation HFA aerosol inhaler 2 puff PO Q4H PRN (Reason: bronchospasm) 30 Days Qty: 8.5 RF: 11 (DME) AeroEclipse II Nebulizer Misc See Rx Instructions .ROUTE .MEDSUPPLY Qty: 1 RF: 0 albuterol sulfate 2.5 mg /3 mL (0.083 %) solution for nebulization 2.5 mg inhalation Q6H PRN (Reason: bronchospasm) 30 Days Qty: 360 RF: 6 ergocalciferol (vitamin D2) 1,250 mcg (50,000 unit) capsule 1,250 mcg PO QWEEK 90 Days Qty: 13 RF: 1 levothyroxine [Synthroid] 75 mcg tablet 75 mcg PO DAILY 30 Days Qty: 30 RF: 3 naproxen [Naprosyn] 500 mg tablet 500 mg PO BID Qty: 20 RF: 0 loratadine [Allergy Relief (loratadine)] 10 mg tablet 10 mg PO DAILY PRN (Reason: allergy symptoms) 90 Days Qty: 90 RF: 3 ibuprofen 200 mg tablet 400 mg PO Q8H RF: 0 fluocinolone acetonide oil [DermOtic Oil] 0.01 % drops 5 drp otic (ears) BID 7 Days Qty: 20 RF: 1 pantoprazole 40 mg tablet,delayed release (DR/EC) 40 mg PO DAILY 30 Days Qty: 30 RF: 11 sennosides [senna] 8.6 mg tablet 8.6 mg PO BEDTIME 30 Days Qty: 30 RF: 2 Citrucel 500 mg tablet 500 mg PO BID Qty: 60 RF: 5 ibuprofen 800 mg tablet 800 mg PO TID PRN (Reason: pain) Qty: 90 RF: 0 Interventions: ED Discharge Assessment Last Done: 04/15/21 10:25 Discharge Date/Time: 04/15/21 10:25
[2021-04-15] MEDS: Ketorolac Tromethamine 60 MG/2 ML VIAL IM (10:07)
== END 2021-04-15 10:25 | disposition home or self-care (01) ==
PROVIDERS: Emergency Provider Emergency Medicine Emergency Medical Services; PCP Internal Medicine
DX: S83.91XA Sprain of unspecified site of right knee, initial encounter (principal); S70.01XA Contusion of right hip, initial encounter; S30.0XXA Contusion of lower back and pelvis, initial encounter; M25.561 Pain in right knee; W00.0XXA Fall on same level due to ice and snow, initial encounter; Y93.29 Activity, other involving ice and snow; Y92.9 Unspecified place or not applicable; Y99.9 Unspecified external cause status; Z79.899 Other long term (current) drug therapy; Z87.891 Personal history of nicotine dependence
CPT/HCPCS: 72220; 73502; 73562; 96372; 99283; 99284; J1885

== ENCOUNTER 2021-04-16 18:43 | Outpatient (REF) | payer OTHER, SELFPAY ==
--- NOTE | ~2021-04-16 | MR_ITS ---
EXAMINATION: MR KNEE WITHOUT CONTRAST, RIGHT CLINICAL INFORMATION: Pain in right knee. Patient reports medial swelling, unable to bear weight, anterior medial pain with symptoms for 2 months and previous fall. COMPARISON: XR right knee 04/15/2021. TECHNIQUE: MRI of the knee without contrast was performed using routine sequences on a high-field scanner. There is some motion artifact on multiple sequences. FINDINGS: MENISCI: Medial Meniscus: Intact Lateral Meniscus: Intact LIGAMENTS: Cruciate: Intact Collateral: There is swelling and some disruption of fibers of the proximal medial collateral ligament with mild diffuse edema around ligament, consistent with a moderate grade sprain/partial tear. The lateral supporting structures are intact. EXTENSOR MECHANISM: Intact ARTICULAR CARTILAGE/BONE: Patellofemoral Compartment: Accounting for motion artifact, unremarkable. Medial Compartment: There are focal areas of mild cartilage thinning in the weightbearing medial compartment. Lateral Compartment: Normal JOINT FLUID AND BURSAE: Small joint effusion. MR/MR knee RT wo con IMPRESSION: 1. Moderate grade sprain/partial tear of the proximal medial collateral ligament. 2. Mild arthrosis in the weightbearing medial compartment. 3. Small joint effusion.
== END 2021-04-16 18:44 | disposition home or self-care (01) ==
LOC: HO.MRI 18:43
PROVIDERS: PCP Internal Medicine; Visit Provider Physician Assistant
DX: M25.561 Pain in right knee (principal); M25.361 Other instability, right knee; M23.91 Unspecified internal derangement of right knee
CPT/HCPCS: 73721

== ENCOUNTER 2021-04-21 14:02 | Outpatient (REF) | payer OTHER, SELFPAY ==
--- NOTE | ~2021-04-21 | XR_ITS ---
EXAMINATION: XR KNEE, RIGHT CLINICAL INFORMATION: Contusion COMPARISON: None TECHNIQUE: Four views of the right knee. FINDINGS: There is a small joint effusion. No acute fracture or dislocation. XR/XR knee RT 3V IMPRESSION: Small joint effusion. No acute fracture or dislocation is seen.
== END 2021-04-21 14:03 | disposition home or self-care (01) ==
LOC: HO.XRAY 14:02
PROVIDERS: PCP Internal Medicine; Visit Provider Nurse Practitioner Primary Care
DX: S83.91XD Sprain of unspecified site of right knee, subsequent encounter (principal); S80.01XD Contusion of right knee, subsequent encounter; M79.7 Fibromyalgia; M13.80 Other specified arthritis, unspecified site
CPT/HCPCS: 73562

== ENCOUNTER 2021-04-30 14:25 | Outpatient (REF) | payer OTHER, SELFPAY ==
--- NOTE | ~2021-04-30 | MM_ITS ---
EXAMINATION: MM SCREENING DIGITAL BREAST TOMOSYNTHESIS, BILATERAL CLINICAL INFORMATION: Screening. Asymptomatic. The lifetime risk of breast cancer based on the Tyrer-Cuzick Model is 6.8%. COMPARISON: Mammography: None TECHNIQUE: Digital breast tomosynthesis is performed in both the craniocaudal and mediolateral oblique views along with computer-aided detection (CAD). Synthesized 2D images are generated from the tomosynthesis. Right breast exaggerated craniocaudal view performed. FINDINGS: The breasts are heterogeneously dense, which may obscure small masses (ACR BI-RADS breast composition Category c). There are no significant masses, abnormal calcifications, or other abnormalities. MM/MM tomosynthesis screening BI IMPRESSION: No specific mammographic evidence to suggest malignancy. ASSESSMENT: BI-RADS 1: Negative RECOMMENDATION: Routine annual mammography screening. This patient's information was entered into a reminder system with a target due date for their next mammogram.
== END 2021-04-30 14:26 | disposition home or self-care (01) ==
LOC: HO.MAMMO 14:25
PROVIDERS: PCP Internal Medicine; Visit Provider Advanced Practice Midwife
DX: Z12.31 Encounter for screening mammogram for malignant neoplasm of breast (principal)
CPT/HCPCS: 77063; 77067

== ENCOUNTER 2021-05-08 15:32 | Outpatient (REF) | payer OTHER, SELFPAY ==
[2021-05-08 17:04] LABS: Alanine Aminotransferase 7 U/L (0-31); Albumin Level 4.1 g/dL (3.5-5.0); Alkaline Phosphatase 76 U/L (39-117); Anion Gap 9 (12-20); Aspartate Amino Transferase 9 U/L (5-31); Bilirubin Total 0.3 mg/dL (0.0-1.0); Blood Urea Nitrogen 14 mg/dL (9-16); Calcium 9.2 mg/dL (8.4-10.2); Carbon Dioxide 27 mmol/L (22-29); Chloride 109 mmol/L (96-108); Cholesterol 199 mg/dL; Estimated Glomerular Filt Rate > 60; Glucose Fasting 103 mg/dL (60-99); HDL Cholesterol 40 mg/dL; LDL Cholesterol Calculated 139 mg/dl; Potassium 3.9 mmol/L (3.3-5.1); Sodium 141 mmol/L (135-145); Total Protein 7.1 g/dL (6.5-8.0); Triglycerides 104 mg/dL
[2021-05-08 17:20] LABS: Thyroid Stimulating Hormone 3.41 uIU/mL (0.32-4.0)
== END 2021-05-08 15:33 | disposition home or self-care (01) ==
LOC: HO.LAB 15:32
PROVIDERS: PCP Internal Medicine; Visit Provider Internal Medicine
DX: E06.3 Autoimmune thyroiditis (principal); E78.5 Hyperlipidemia, unspecified; J45.30 Mild persistent asthma, uncomplicated
CPT/HCPCS: 36415; 80053; 80061; 84439; 84443

== ENCOUNTER 2021-06-09 17:00 | Outpatient (RCR) | payer OTHER, SELFPAY | END 2021-07-15 15:47 | disposition home or self-care (01) | LOC: HO.PT 17:00 | PROVIDERS: PCP Internal Medicine; Visit Provider Physician Assistant | DX: S83.411D Sprain of medial collateral ligament of right knee, subsequent encounter (principal) | CPT/HCPCS: 97035; 97110; 97116; 97162; 97530 ==

== ENCOUNTER 2021-07-11 09:11 | Outpatient (REF) | payer OTHER, SELFPAY ==
[2021-07-11 10:54] LABS: Free T4 (Free Thyroxine) 1.08 ng/dL (0.71-1.85); Thyroid Stimulating Hormone 2.36 uIU/mL (0.32-4.0)
== END 2021-07-11 09:12 | disposition home or self-care (01) ==
LOC: HO.LAB 09:11
PROVIDERS: PCP Internal Medicine; Visit Provider Internal Medicine
DX: E06.3 Autoimmune thyroiditis (principal)
CPT/HCPCS: 36415; 84439; 84443

== ENCOUNTER 2021-08-05 12:11 | Emergency (ER) | payer OTHER, SELFPAY ==
--- NOTE | 2021-08-05 | ECG_ITS ---
Test Reason : CP Blood Pressure : / mmHG Vent. Rate : 085 BPM Atrial Rate : 085 BPM P-R Int : 156 ms QRS Dur : 072 ms QT Int : 370 ms P-R-T Axes : 034 004 031 degrees QTc Int : 440 ms Normal sinus rhythm Nonspecific T wave abnormality Abnormal ECG When compared to the previous EKG of No significant changes seen Referred By: Generic ED Physician Electronically Signed By:Dave Porter
--- NOTE | 2021-08-05 15:15 | PC.NURSE ---
no response at this time
== END 2021-08-05 19:33 | disposition left against medical advice (07) ==
PROVIDERS: Emergency Provider Emergency Medicine; PCP Internal Medicine
DX: R07.89 Other chest pain (principal); M79.604 Pain in right leg
CPT/HCPCS: 93005; 99281; 99283

== ENCOUNTER → 2021-08-17 08:41 | Outpatient (BNVA) | payer OTHER, SELFPAY | PROVIDERS: PCP Internal Medicine; Visit Provider Internal Medicine | DX: Z13.89 Encounter for screening for other disorder (principal) ==

== ENCOUNTER 2021-10-06 06:06 | Outpatient (REF) | payer OTHER, SELFPAY ==
[2021-10-06 06:25] LABS: MANUAL DIFF FLAG NO
[2021-10-06 07:28] LABS: Basophils Absolute Auto 0.1 X10*3/uL (0.0-0.2); Basophils Percent Auto 0.5 % (0-2); Eosinophils Absolute Auto 0.4 X10*3/uL (0.0-0.4); Eosinophils Percent Auto 4.2 % (0-4); Hematocrit 39.9 % (37.0-47.0); Hemoglobin 12.6 g/dl (12.0-16.0); Imm Gran Abs Auto 0.06 X10*3/uL (0.00-0.03); Imm Gran Pct Auto 0.6 % (0.0-0.4); Lymphocytes Absolute Auto 3.7 X10*3/uL (1.2-4.9); Lymphocytes Percent Auto 38.1 % (20-40); Mean Corpuscular HGB Conc 31.6 g/dl (31.0-35.0); Mean Corpuscular Hemoglobin 26.1 pg (27.0-33.0); Mean Corpuscular Volume 82.6 fL (80.0-98.0); Mean Platelet Volume 9.5 fL (9.4-12.3); Monocytes Absolute Auto 0.7 X10*3/uL (0.1-1.2); Monocytes Percent Auto 7.3 % (2-11); Neutrophils Absolute Auto 4.7 x10*3/uL (2.0-8.3); Neutrophils Percent Auto 49.3 % (45-73); Platelet Count 347 X10*3/uL (160-400); Red Blood Count 4.83 X10*6/uL (4.20-5.50); Red Cell Distribution Width 13.4 % (11.0-16.0); White Blood Count 9.6 X10*3/uL (4.8-10.8)
[2021-10-06 08:03] LABS: Alanine Aminotransferase 13 U/L (0-31); Albumin Level 3.9 g/dL (3.5-5.0); Alkaline Phosphatase 76 U/L (39-117); Anion Gap 10 (12-20); Aspartate Amino Transferase 12 U/L (5-31); Bilirubin Total 0.5 mg/dL (0.0-1.0); Blood Urea Nitrogen 9 mg/dL (9-16); Calcium 8.7 mg/dL (8.4-10.2); Carbon Dioxide 25 mmol/L (22-29); Chloride 106 mmol/L (96-108); Estimated Glomerular Filt Rate > 60; Glucose Fasting 124 mg/dL (60-99); Potassium 4.3 mmol/L (3.3-5.1); Sodium 137 mmol/L (135-145); Total Protein 6.6 g/dL (6.5-8.0)
[2021-10-06 08:37] LABS: Free T4 (Free Thyroxine) 1.07 ng/dL (0.71-1.85); Thyroid Stimulating Hormone 4.19 uIU/mL (0.32-4.0); Vitamin D 25-OH Total 13.2 ng/mL (>30)
[2021-10-08 05:06] LABS: NT-proBNP 88 pg/mL
== END 2021-10-06 06:07 | disposition home or self-care (01) ==
LOC: HO.LAB 06:06
PROVIDERS: Internal Medicine; PCP Internal Medicine; Visit Provider Internal Medicine
DX: E03.9 Hypothyroidism, unspecified (principal); E55.9 Vitamin D deficiency, unspecified; R60.0 Localized edema
CPT/HCPCS: 36415; 80053; 82306; 83880; 84439; 84443; 85025

== ENCOUNTER 2022-03-08 11:02 | Outpatient (REF) | payer OTHER, SELFPAY ==
--- NOTE | ~2022-03-08 | XR_ITS ---
EXAMINATION: XR KNEE, LEFT CLINICAL INFORMATION: Left knee pain. COMPARISON: Left knee x-rays 04/28/2010. TECHNIQUE: Two views of the left knee. FINDINGS: Minimal degenerative changes seen with some very mild narrowing of the medial compartment. Lateral and patellofemoral compartments are maintained. No joint effusion, fracture or bony destructive lesion seen. XR/XR knee LT 2V IMPRESSION: Mild degenerative changes with narrowing of the medial compartment.
--- NOTE | 2022-03-08 11:08 | ECG_ITS ---
Test Reason : chest pain Blood Pressure : / mmHG Vent. Rate : 076 BPM Atrial Rate : 076 BPM P-R Int : 152 ms QRS Dur : 070 ms QT Int : 392 ms P-R-T Axes : 015 015 034 degrees QTc Int : 441 ms Normal sinus rhythm Normal ECG When compared with ECG of 05-AUG-2021 12:09, Nonspecific T wave abnormality, improved in Anterolateral leads Referred By: Nenita Harper Electronically Signed By:BASIL CRAWFORD MD
[2022-03-08 12:41] LABS: Thyroid Stimulating Hormone 4.47 uIU/mL (0.32-4.0)
[2022-03-08 13:06] LABS: Alanine Aminotransferase 10 U/L (0-31); Albumin Level 4.1 g/dL (3.5-5.0); Alkaline Phosphatase 79 U/L (39-117); Anion Gap 14 (12-20); Aspartate Amino Transferase 11 U/L (5-31); Bilirubin Total 0.4 mg/dL (0.0-1.0); Blood Urea Nitrogen 11 mg/dL (9-16); Carbon Dioxide 23 mmol/L (22-29); Chloride 107 mmol/L (96-108); Cholesterol 195 mg/dL; Estimated Glomerular Filt Rate > 60; Glucose Fasting 101 mg/dL (60-99); HDL Cholesterol 41 mg/dL; LDL Cholesterol Calculated 133 mg/dl; Magnesium 2.1 mg/dL (1.6-2.6); Potassium 4.2 mmol/L (3.3-5.1); Sodium 140 mmol/L (135-145); Total Protein 6.8 g/dL (6.5-8.0); Triglycerides 105 mg/dL
== END 2022-03-08 11:03 | disposition home or self-care (01) ==
LOC: HO.XRAY 11:02
PROVIDERS: PCP Internal Medicine; Visit Provider Internal Medicine
DX: Z00.00 Encounter for general adult medical examination without abnormal findings (principal); M25.562 Pain in left knee; R07.9 Chest pain, unspecified; E06.3 Autoimmune thyroiditis; R25.2 Cramp and spasm; E78.5 Hyperlipidemia, unspecified; R73.01 Impaired fasting glucose
CPT/HCPCS: 36415; 73560; 80053; 80061; 83735; 84443; 93005

== ENCOUNTER → 2022-05-21 14:27 | Outpatient (BNVA) | payer OTHER, SELFPAY | PROVIDERS: PCP Internal Medicine; Visit Provider Physician Assistant Surgical | DX: Z13.89 Encounter for screening for other disorder (principal) ==

== ENCOUNTER → 2022-05-26 15:03 | Outpatient (BNVA) | payer OTHER, SELFPAY | PROVIDERS: PCP Internal Medicine; Visit Provider Surgery | DX: E66.01 Morbid (severe) obesity due to excess calories (principal); Z68.41 Body mass index [BMI] 40.0-44.9, adult; K21.9 Gastro-esophageal reflux disease without esophagitis; J45.30 Mild persistent asthma, uncomplicated ==

== ENCOUNTER 2022-05-29 09:56 | Outpatient (REF) | payer OTHER, SELFPAY ==
--- NOTE | ~2022-05-29 | XR_ITS ---
EXAMINATION: XR CHEST 2 VIEWS CLINICAL INFORMATION: Morbid obesity. COMPARISON: Chest radiographs dated 05/24/2018. TECHNIQUE: Frontal and lateral views of the chest were obtained. FINDINGS: The heart, great vessels, pulmonary vasculature and mediastinum are normal. The lungs show no focal infiltrate, effusion or pneumothorax. There is no acute osseous abnormality. XR/XR chest 2V IMPRESSION: No active cardiopulmonary disease.
[2022-05-29 10:12] LABS: MANUAL DIFF FLAG NO
[2022-05-29 10:25] LABS: Basophils Absolute Auto 0.1 X10*3/uL (0.0-0.2); Basophils Percent Auto 0.6 % (0-2); Eosinophils Absolute Auto 0.3 X10*3/uL (0.0-0.4); Eosinophils Percent Auto 3.6 % (0-4); Hematocrit 41.4 % (37.0-47.0); Imm Gran Abs Auto 0.07 X10*3/uL (0.00-0.03); Imm Gran Pct Auto 0.8 % (0.0-0.4); Lymphocytes Absolute Auto 2.9 X10*3/uL (1.2-4.9); Lymphocytes Percent Auto 31.8 % (20-40); Mean Corpuscular HGB Conc 31.4 g/dl (31.0-35.0); Mean Corpuscular Hemoglobin 25.4 pg (27.0-33.0); Mean Platelet Volume 9.4 fL (9.4-12.3); Monocytes Absolute Auto 0.6 X10*3/uL (0.1-1.2); Monocytes Percent Auto 6.4 % (2-11); Neutrophils Absolute Auto 5.1 x10*3/uL (2.0-8.3); Neutrophils Percent Auto 56.8 % (45-73); Platelet Count 348 X10*3/uL (160-400); Red Blood Count 5.11 X10*6/uL (4.20-5.50); Red Cell Distribution Width 13.3 % (11.0-16.0); White Blood Count 9.1 X10*3/uL (4.8-10.8)
[2022-05-29 11:10] LABS: Estimated Average Glucose 120 mg/dL; Hemoglobin A1c % 5.8 %
[2022-05-29 12:35] LABS: Alanine Aminotransferase 8 U/L (0-31); Albumin Level 4.1 g/dL (3.5-5.0); Alkaline Phosphatase 78 U/L (39-117); Anion Gap 14 (12-20); Aspartate Amino Transferase 11 U/L (5-31); Bilirubin Total 0.6 mg/dL (0.0-1.0); Blood Urea Nitrogen 12 mg/dL (9-16); C Reactive Protein 1.07 mg/dL (< or = 0.50); Calcium 9.1 mg/dL (8.4-10.2); Carbon Dioxide 23 mmol/L (22-29); Chloride 107 mmol/L (96-108); Cholesterol 210 mg/dL; Estimated Glomerular Filt Rate > 60; Glucose Random 115 mg/dL (60-115); HDL Cholesterol 41 mg/dL; Iron 45 mcg/dL (30-160); LDL Cholesterol Calculated 152 mg/dl; Percent Iron Saturation 13 % (15-50); Potassium 4.4 mmol/L (3.3-5.1); Sodium 140 mmol/L (135-145); Total Iron Binding Capacity 341 mcg/dL (228-428); Total Protein 6.7 g/dL (6.5-8.0); Triglycerides 86 mg/dL; Unsaturated Iron Binding 296 ug/dL
[2022-05-29 13:04] LABS: Ferritin 23 ng/mL (10-250); Folate 12.2 ng/mL (> or = 4.0); Insulin 16 uU/mL (2-29); TSH reflex Free T4 4.05 uIU/mL (0.32-4.0); Vitamin B12 451 pg/mL (200-900); Vitamin D 25-OH Total 14.6 ng/mL (>30)
[2022-05-29 13:34] LABS: Free T4 (Free Thyroxine) 1.16 ng/dL (0.71-1.85)
[2022-05-31 15:44] LABS: Calcium (PTHI) 9.2 mg/dL (8.6-10.2); PTHI 70 pg/mL (16-77)
[2022-06-02 18:43] LABS: Zinc 81 mcg/dL (60-130)
[2022-06-02 22:52] LABS: Vitamin A 39 mcg/dL (38-98)
[2022-06-05 11:42] LABS: Vitamin B1 9 nmol/L (8-30)
== END 2022-05-29 09:57 | disposition home or self-care (01) ==
LOC: HO.LAB 09:56
PROVIDERS: PCP Internal Medicine; Visit Provider Surgery
DX: E66.01 Morbid (severe) obesity due to excess calories (principal); Z68.41 Body mass index [BMI] 40.0-44.9, adult; K21.9 Gastro-esophageal reflux disease without esophagitis; J45.30 Mild persistent asthma, uncomplicated
CPT/HCPCS: 36415; 71046; 80053; 80061; 82306; 82607; 82728; 82746; 83036; 83525; 83540; 83970; 84425; 84439; 84443; 84590; 84630; 85025; 86140

== ENCOUNTER → 2022-06-21 08:24 | Outpatient (BNVA) | payer OTHER, SELFPAY | PROVIDERS: PCP Internal Medicine; Visit Provider Surgery | DX: Z13.89 Encounter for screening for other disorder (principal) ==

== ENCOUNTER → 2022-06-25 15:44 | Outpatient (BNVA) | payer OTHER, SELFPAY | PROVIDERS: PCP Internal Medicine; Visit Provider Physician Assistant Surgical | DX: E66.01 Morbid (severe) obesity due to excess calories (principal); K21.9 Gastro-esophageal reflux disease without esophagitis; J45.30 Mild persistent asthma, uncomplicated; Z68.41 Body mass index [BMI] 40.0-44.9, adult; Z11.0 Encounter for screening for intestinal infectious diseases | CPT/HCPCS: 99211 ==

== ENCOUNTER 2022-06-25 18:16 | Outpatient (REF) | payer OTHER, SELFPAY ==
[2022-06-27 14:10] LABS: H Pylori Breath Test Negative (Negative)
== END 2022-06-25 18:17 | disposition home or self-care (01) ==
LOC: HO.LNP 18:16
PROVIDERS: Visit Provider Surgery
DX: E66.01 Morbid (severe) obesity due to excess calories (principal); Z68.41 Body mass index [BMI] 40.0-44.9, adult; J45.30 Mild persistent asthma, uncomplicated; K21.9 Gastro-esophageal reflux disease without esophagitis
CPT/HCPCS: 83013

== ENCOUNTER → 2022-06-30 12:17 | Outpatient (BNVA) | payer OTHER, SELFPAY | PROVIDERS: PCP Internal Medicine; Visit Provider Dietitian, Registered | DX: E66.01 Morbid (severe) obesity due to excess calories (principal); Z68.41 Body mass index [BMI] 40.0-44.9, adult | CPT/HCPCS: 97802 ==

== ENCOUNTER → 2022-07-01 12:00 | Outpatient (BNVA) | payer OTHER, SELFPAY | PROVIDERS: PCP Internal Medicine; Visit Provider Counselor Mental Health | DX: F33.0 Major depressive disorder, recurrent, mild (principal); E66.9 Obesity, unspecified | CPT/HCPCS: 90791 ==

== ENCOUNTER 2022-07-02 08:54 | Outpatient (REF) | payer OTHER, SELFPAY ==
--- NOTE | ~2022-07-02 | US_ITS ---
EXAMINATION: US COMPLETE ABDOMEN WITH LIVER ELASTOGRAPHY CLINICAL INFORMATION: Morbid to severe obesity due to excess calories. COMPARISON: None available. TECHNIQUE: Real-time imaging of the abdominal viscera. Noninvasive ultrasound liver fibrosis assessment is performed using Silvia ElastPQ point quantification shear wave elastography (2D-SWE) with a C5-2 MHz transducer. Multiple elastography samples are obtained. FINDINGS: PANCREAS: The pancreas is partially obscured by overlying gas. Visualized head and body of pancreas is homogeneous in echotexture. ABDOMINAL AORTA: The proximal, middle, and distal aortic segments are normal in caliber. INFERIOR VENA CAVA: Visualized portions are normal. LIVER: Normal. The liver demonstrates normal size, contour and increased echogenicity. No focal lesion or intrahepatic biliary duct dilatation. The right lobe measures 14.1 cm in length. The left lobe measures 9.3 cm in length. Portal flow is hepatopedal. Shear wave liver elastography median stiffness is 1.39 m/s (reference: normal median stiffness is 1.3 m/s or less). IQR/median stiffness to assess sampling precision is 0.17 (reference: good quality data set is IQR/median stiffness of 0.15 or less). GALLBLADDER: Normal. The gallbladder is physiologically distended without evidence of stones, sludge, polyps, wall thickening or pericholecystic fluid. COMMON BILE DUCT: Normal in caliber measuring 0.3 cm in diameter. RIGHT KIDNEY: Normal. No hydronephrosis. No renal calculi or focal parenchymal lesions. The kidney measures 10.7 cm in maximum dimension. LEFT KIDNEY: Normal. No hydronephrosis. No renal calculi or focal parenchymal lesions. The kidney measures 10.8 cm in maximum dimension. SPLEEN: Normal. The spleen measures 11.9 cm in maximum dimension. FREE FLUID: None. US/US abdomen comp w elastography IMPRESSION: 1. Mild hepatic steatosis without focal lesion. No intrahepatic ductal dilatation seen. Rest of the abdominal ultrasound is unremarkable. 2. Liver elastography: Median liver stiffness measures 1.39 m/s corresponding to high probability normal. REFERENCE: Society of Radiologists in Ultrasound Liver Stiffness Thresholds (2019): LIVER STIFFNESS THRESHOLDS: *Liver Stiffness equal or less than 1.3 m/s: High probability of being normal. *Liver Stiffness less than 1.7 m/s: In the absence of other known clinical signs, rules out compensated advanced chronic liver disease. *Liver Stiffness 1.7-2.1 m/s: Suggestive of compensated advanced chronic liver disease but need further test for confirmation. *Liver Stiffness over 2.1 m/s: Rules in compensated advanced chronic liver disease. *Liver Stiffness over 2.4 m/s: Suggestive of clinically significant portal hypertension. QUALITY OF DATA SET: *IQR/Median value equal or less than 0.15 implies a quality data set. *IQR/Median value over 0.15 implies a poor quality data set. SIGNIFICANT CHANGE FROM PRIOR EXAM: Significant change if liver stiffness measurement is 10% or greater from prior exam. OTHER CONSIDERATIONS: The stage of liver fibrosis may be overestimated in the setting of acute hepatitis, liver inflammation, elevated liver function tests, hepatic vascular congestion, obstructive cholestasis, non-fasting state, and infiltrative diseases such as amyloidosis and lymphoma. In some patients with NAFLD, the liver stiffness thresholds for compensated advanced chronic liver disease may be lower. In causes other than viral hepatitis and NAFLD, liver stiffness thresholds are not well established.
== END 2022-07-02 08:55 | disposition home or self-care (01) ==
LOC: HO.US 08:54
PROVIDERS: PCP Internal Medicine; Visit Provider Surgery
DX: Z01.818 Encounter for other preprocedural examination (principal); E66.9 Obesity, unspecified; Z68.41 Body mass index [BMI] 40.0-44.9, adult; J45.30 Mild persistent asthma, uncomplicated; K21.9 Gastro-esophageal reflux disease without esophagitis
CPT/HCPCS: 76705; 76981

== ENCOUNTER → 2022-07-19 08:13 | Outpatient (BNVA) | payer OTHER, SELFPAY | PROVIDERS: PCP Internal Medicine; Visit Provider Surgery ==

== ENCOUNTER → 2022-07-22 12:00 | Outpatient (BNVA) | payer OTHER, SELFPAY | PROVIDERS: PCP Internal Medicine; Visit Provider Counselor Mental Health ==

== ENCOUNTER 2022-09-15 14:05 | Outpatient (REF) | payer OTHER, SELFPAY ==
[2022-09-15 15:52] LABS: Hematocrit 41.2 % (37.0-47.0); Hemoglobin 13.2 g/dl (12.0-16.0); Mean Corpuscular Volume 81.1 fL (80.0-98.0); Mean Platelet Volume 9.8 fL (9.4-12.3); Platelet Count 386 X10*3/uL (160-400); Red Blood Count 5.08 X10*6/uL (4.20-5.50); Red Cell Distribution Width 13.3 % (11.0-16.0); White Blood Count 11.6 X10*3/uL (4.8-10.8)
[2022-09-15 16:08] LABS: Estimated Average Glucose 111 mg/dL; Hemoglobin A1c % 5.5 %
[2022-09-15 16:24] LABS: Anion Gap 12 (12-20); Blood Urea Nitrogen 12 mg/dL (9-16); Calcium 9.4 mg/dL (8.4-10.2); Carbon Dioxide 24 mmol/L (22-29); Chloride 108 mmol/L (96-108); Estimated Glomerular Filt Rate > 60; Glucose Random 91 mg/dL (60-115); Magnesium 2.1 mg/dL (1.6-2.6); Potassium 4.3 mmol/L (3.3-5.1); Sodium 140 mmol/L (135-145)
[2022-09-15 16:54] LABS: Vitamin B12 582 pg/mL (200-900)
== END 2022-09-15 14:06 | disposition home or self-care (01) ==
LOC: HO.LAB 14:05
PROVIDERS: Internal Medicine; PCP Physician Assistant; Visit Provider Physician Assistant
DX: R20.2 Paresthesia of skin (principal); R73.01 Impaired fasting glucose; E53.8 Deficiency of other specified B group vitamins; E03.9 Hypothyroidism, unspecified
CPT/HCPCS: 36415; 80048; 82607; 82746; 83036; 83735; 85027

== ENCOUNTER 2022-11-15 08:59 | Emergency (ER) | payer OTHER, SELFPAY ==
[2022-11-15] VITALS (7 sets, daily range): BP systolic 129–143; BP diastolic 65–81; PULSE 77–89; RESP 14–18; TEMP 36.7–36.9; O2SAT 96–98; BMI 41.1
--- NOTE | ~2022-11-15 | XR_ITS ---
EXAMINATION: XR CHEST CLINICAL INFORMATION: Reason for Exam sob COMPARISON: Chest radiograph 05/29/2022 TECHNIQUE: One view of the chest FINDINGS: Lines and tubes: EKG leads overlie the patient. Clear lungs. No pleural effusion. No pneumothorax. Unchanged cardiomediastinal silhouette. XR/XR chest 1V IMPRESSION: * Clear lungs.
--- NOTE | 2022-11-15 09:03 | ECG_ITS ---
Test Reason : cp Blood Pressure : / mmHG Vent. Rate : 092 BPM Atrial Rate : 092 BPM P-R Int : 150 ms QRS Dur : 070 ms QT Int : 366 ms P-R-T Axes : 044 012 022 degrees QTc Int : 452 ms Sinus rhythm with Fusion complexes Otherwise normal ECG When compared with ECG of 08-MAR-2022 11:26, Fusion complexes are now Present Referred By: Generic ED Physician Electronically Signed By:MOIRA TOTH MD
[2022-11-15 10:34] LABS: Basophils Percent Auto 0.3 % (0-2); Hematocrit 40.6 % (37.0-47.0); Monocytes Percent Auto 5.5 % (2-11); PLT CLUMP 1; SCAN SMEAR FLAG 1
[2022-11-15 10:36] LABS: Eosinophils Absolute Auto 0.4 X10*3/uL (0.0-0.4); Eosinophils Percent Auto 4.4 % (0-4); Hemoglobin 12.8 g/dl (12.0-16.0); Imm Gran Abs Auto 0.05 X10*3/uL (0.00-0.03); Imm Gran Pct Auto 0.5 % (0.0-0.4); Lymphocytes Percent Auto 31.2 % (20-40); MANUAL DIFF FLAG SCAN; Mean Corpuscular HGB Conc 31.5 g/dl (31.0-35.0); Mean Corpuscular Hemoglobin 25.2 pg (27.0-33.0); Mean Corpuscular Volume 80.1 fL (80.0-98.0); Monocytes Absolute Auto 0.5 X10*3/uL (0.1-1.2); Neutrophils Absolute Auto 5.6 x10*3/uL (2.0-8.3); Neutrophils Percent Auto 58.1 % (45-73); Red Blood Count 5.07 X10*6/uL (4.20-5.50); Red Cell Distribution Width 13.4 % (11.0-16.0)
[2022-11-15 10:55] LABS: Prothrombin Time 11.3 SEC (10.0-13.1)
--- NOTE | 2022-11-15 10:58 | PC.NURSE ---
pt axox4, respirations even and unlabored, VSS, NSR on monitor 85 bpm, pt c/o intermittent cp and palpitations onset 11/12/22. skin wpd. cap refill <3 secs. pt denies cp at this time; denies n/v/d. reports palpitations at this time. blood work drawn, awaiting primary eval, call pradhan within reach.
[2022-11-15 10:59] LABS: Platelet Count 267 X10*3/uL (160-400); SLIDE REVIEW VERIFIED; White Blood Count 9.7 X10*3/uL (4.8-10.8)
[2022-11-15 11:03] LABS: Troponin-I High Sensitivity < 2.7 ng/L (<3.5-17.0)
[2022-11-15 11:23] LABS: Anion Gap 10 (12-20); Blood Urea Nitrogen 12 mg/dL (9-16); Calcium 8.7 mg/dL (8.4-10.2); Carbon Dioxide 24 mmol/L (22-29); Chloride 111 mmol/L (96-108); Creatinine Clr Calc Pharmacy 130.1; Estimated Glomerular Filt Rate > 60; Glucose Random 120 mg/dL (60-115); Potassium 3.9 mmol/L (3.3-5.1); Sodium 141 mmol/L (135-145)
--- NOTE | 2022-11-15 11:34 | ED.CHESTPAIN ---
HPI - Chest Pain General Chief Complaint: Chest Pain Stated Complaint: Chest pain/Irregular heart beat Time Seen by Provider: 11/15/22 10:36 Source: patient Mode of arrival: ambulatory Limitations: no limitations History of Present Illness HPI narrative: patient is a 42-year-old female past medical history of obesity, GERD, asthma, Elmira's presenting with substernal chest pain for the past 3-4 days. Patient reports she developed a migraine on Tuesday which caused her intermittent blurry vision, no blurred vision at this time. Feels like her typical migraine. Patient reports taking Naprosyn to help but the migraine did not go away, mild improvement. Patient reports she then developed chest pain and palpitations, substernal non radiating percipitated by palpation. Patient reports they have been constant for the past few days. Patient reports dyspnea on exertion however not at rest. Patient reports recent travel to [place] 1 week ago. Patient reports her legs have been swollen for a while however usually swelling goes down and it has not gone down per patient. Patient reports 2 days of diarrhea. Patient reports fatigue, myalgias, malaise, soreness of the left upper extremity ( atraumatic). Patient denies fever, chills, nausea, vomiting, abd pain, numbness, tingling, vision changes Patient not on control, patient not on antibiotics, patient not on thinners. NIHSS 0 Related Data Previous Rx's Medication Instructions Recorded nebulizers (AeroEclipse II #1 ea 08/11/20 Nebulizer) loratadine 10 mg tablet (Allergy 10 mg PO DAILY PRN allergy 08/28/20 Relief (loratadine)) symptoms 90 days #90 tabs ergocalciferol (vitamin D2) 1,250 1,250 mcg PO QWEEK 90 days #13 caps 02/21/21 mcg (50,000 unit) capsule fluocinolone acetonide oil 0.01 % 5 drp otic (ears) BID 7 days #20 mL 03/02/21 ear drops (DermOtic Oil) acetaminophen 500 mg tablet 500 mg PO Q6H PRN pain #30 tabs 08/05/21 naproxen 500 mg tablet (Naprosyn) 500 mg PO BID #20 tabs 08/05/21 albuterol sulfate 2.5 mg/3 mL 2.5 mg (3 mL) inhalation Q6H PRN 01/07/22 (0.083 %) solution for nebulization bronchospasm 30 days #360 mL pantoprazole 40 mg tablet,delayed 40 mg PO DAILY 30 days #30 tabs 03/02/22 release Synthroid 88 mcg tablet 88 mcg PO DAILY 90 days #90 tabs 03/10/22 (levothyroxine) Ventolin HFA 90 mcg/actuation 2 puff inhalation Q6H PRN 04/12/22 aerosol inhaler (albuterol sulfate) shortness of breath or wheezing 30 days #8 grams cholecalciferol (vitamin D3) 125 125 mcg PO DAILY #30 caps 06/10/22 mcg (5,000 unit) capsule mecobalamin (vitamin B12) 1,000 1,000 mcg sublingual DAILY #30 tabs 06/10/22 mcg disintegrating tablet,sublingual albuterol sulfate 90 mcg/actuation 2 puff PO Q4H PRN bronchospasm 30 09/15/22 aerosol inhaler days #8.5 grams furosemide 20 mg tablet 20 mg PO DAILY 10 days #10 tabs 09/15/22 tizanidine 2 mg tablet 2 mg PO TID PRN muscle spasticity 09/15/22 7 days #21 tabs cefuroxime axetil 500 mg tablet 500 mg PO Q12H 5 days #10 tabs 09/17/22 phenazopyridine 100 mg tablet 100 mg PO TID PRN pain 6 doses #6 09/17/22 (Pyridium) tabs ropinirole 0.5 mg tablet 0.5 mg PO BEDTIME 30 days #30 tabs 10/07/22 diphenhydramine HCl 25 mg capsule 25 mg PO TID PRN allergic reaction 11/15/22 (Benadryl) #20 caps ketorolac 10 mg tablet 10 mg PO TID PRN pain 5 days #15 11/15/22 tabs metoclopramide HCl 10 mg tablet 10 mg PO Q6H PRN headache #20 tabs 11/15/22 (Reglan) Allergies Allergy/AdvReac Type Severity Reaction Status Date / Time No Known Allergies Allergy Verified 09/17/22 13:21 [No Known Allergies*] Review of Systems Review of Systems: Constitutional : No Weight loss, No Fever, No Chills, + Fatigue, + Malaise ENT/Mouth : No sore throat, No Rhinorrhea Eyes: No Eye Pain, No Swelling, No Redness +intermittent blurry vision Cardiovascular : + Chest Pain, + SOB, + Dyspnea on Exertion, No Orthopnea, + Edema, + Palpitations Respiratory : No Cough, No Sputum, No Wheezing Gastrointestinal : No Nausea, No Vomiting, + Diarrhea, No Constipation, No abdominal Pain, No Hematochezia, No Melena Genitourinary : No Dysuria, No Urinary Frequency, No Hematuria, Musculoskeletal : No joint pain, + Myalgias, No Joint Swelling Skin : No Skin Lesions, No rash Neuro : No Weakness, No Numbness, + Dizziness, + Headache Psych : No Anxiety/Panic, No Depression All other systems reviewed and are negative Yes all other systems are reviewed and are negative [facility] Past Medical History Attestation statement: The following information was validated with the patient. [facility] Narrative: family history of asthma in mother Source: old records reviewed and nursing notes reviewed Medical History Abdominal pain Acid reflux Allergic rhinitis Asthma Autoimmune thyroiditis Depression Fibromyalgia GERD (gastroesophageal reflux disease) Elmira's disease History of abnormal cervical Pap smear Hypothyroidism Leg edema Menorrhagia with regular cycle Obesity (BMI 30-39.9) Right knee pain Vitamin D deficiency Surgical History History of tonsillectomy History of tubal ligation Family History Family History Mother Asthma Father AIDS Sister No problems noted. Brother No problems noted. Daughter No problems noted. Daughter No problems noted. Daughter No problems noted. Son No problems noted. 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 Oriented X3.? No acute distress.? Head: Normocephalic, atraumatic, no step-offs or deformities. TTP of head diffusely Eyes: Pupils equal, round and reactive to light.?light sensitivity Neck: Normal inspection.? Neck supple.? Negative kernig and burdinski CVS: Normal heart rate and rhythm.? Pulses normal.? Respiratory: No respiratory distress.? Breath sounds normal.?TTP of anterior and left chest wall, no overlyingskin changes. Abdomen: Soft and nontender.? Skin: Skin warm and dry.? Normal skin color.? Normal skin turgor.? Extremities: +bl lower extremity edema 1+ non pitting. 2+ pulses bilaterally with cap refill less than 2 seconds.? No calf ttp, negative cristian. 5/5 strength to bilateral upper and lower extremities. no signs of neurovascular compromise or threatened limb. Neuro: Oriented X 3.? No motor deficit.? No sensory deficit. CN 2-12 intact . Normal finger to nose, ambulatory steady gait w/ normal coordination, negative romberg and pronator drift. NIHSS 0 Course Reevaluation(s) Reevaluation #1: CBC appears to be within normal limits. Chemistry no acute findings requiring emergent intervention. Troponin negative, EKG nonischemic, unlikely ACS. Heart score less than 3 no need for repeat troponin I do not suspect ACS. BNP within normal limits. likely dependent edema. Educated on proper diet, and fluid intake. Patient's D-dimer negative, patient PERC negative unlikely that this is a pulmonary embolism. Headache improving however did not go away with Toradol. Will order Tylenol, Reglan and Benadryl and re-evaluate patient. Time: 14:06 Reevaluation #2: Patient reports improvement however pain is not completely gone. Initially she states is a 10/10 now 5 per 6/10. CP not present. Plan DC w/ headache cocktail educated on proper use of meds. Patient feels good to go home neuro remains nonfocal. Educated patient on diagnosis and treatment plan, answered all question, patient verbalizes understanding. At this time patient will be discharged home, advised to return with new or worsening symptoms. Educated on worrisome signs and symptoms and when to return. At this time I feel comfortable discharge home. Time: 15:33 Medications Administered Discontinued Medications Generic Name Dose Route Start Last Admin Trade Name Patricia PRN Reason Stop Dose Admin Acetaminophen 650 mg 11/15/22 13:39 11/15/22 13:56 Acetaminophen 325 Mg Tablet PO 11/15/22 13:40 650 mg ONCE ONE Administration Diphenhydramine HCl 50 mg 11/15/22 13:39 11/15/22 13:56 Diphenhydramine Hcl 25 Mg Capsule PO 11/15/22 13:40 50 mg ONCE ONE Administration Ketorolac Tromethamine 30 mg 11/15/22 12:55 11/15/22 13:12 Ketorolac Tromethamine 15 Mg/Ml Vial IM 11/15/22 12:56 30 mg ONCE ONE Administration Metoclopramide HCl 10 mg 11/15/22 13:39 11/15/22 13:56 Metoclopramide Hcl 10 Mg Tablet PO 11/15/22 13:40 10 mg ONCE ONE Administration Medical Decision Making Medical Decision Making MDM Narrative: 42-year-old female presents with chest pain, headache and associated shortness of breath with an overwhelmingly positive review of systems. Physical exam pertinent for anterior chest wall tenderness and tenderness to palpation of the left arm. Tenderness to palpation of the head Diffusely. No visual changes at this time no meningeal sign. 1+ Nonpitting edema of the bilateral lower extremities with palpable 2+ pulses. Normal sensation distally. Neuro nonfocal, cerebellar intact. Likely musculoskeletal vs chostochndritis vs non cardiac related CP vs anxiety. Unlikely PE (PERC negative), pleural effusion, ACS, GERD, pneumonia, viral illness. Headache likely typical migraine versus migraine with aura versus tension headache versus cluster headache. Unlikely stroke, posterior stroke , meningitis, increased intracranial pressure, pseudo tumor cerebri, encephalitis, temporal arteritis. Vision changes likely migrane related unlikely acute closed angle glaucoma or wet macular degeneration. Plan: EKG, labs, imaging Differential Diagnosis Differential Diagnoses: The differential diagnosis associated with the presentation includes Likely musculoskeletal vs chostochndritis vs non cardiac related CP vs anxiety. Unlikely PE (PERC negative), pleural effusion, ACS, GERD, pneumonia, viral illness. Headache likely typical migraine versus migraine with aura versus tension headache versus cluster headache. Unlikely stroke, posterior stroke , meningitis, increased intracranial pressure, pseudo tumor cerebri, encephalitis, temporal arteritis. Vision changes likely migrane related unlikely acute closed angle glaucoma or wet macular degeneration. Admission/Observation Consideration of admission/observation: Escalation of care including admission/observation considered Possible Lab Data MDM Lab Attestation statement: I reviewed the patient's lab results. 11/15/22 10:26 11/15/22 11:00 Labs: Lab Results 11/15/22 11/15/22 11/15/22 Range/Units 10:11 10:26 10:26 WBC 9.7 (4.8-10.8) X10*3/uL RBC 5.07 (4.20-5.50) X10*6/uL Hgb 12.8 (12.0-16.0) g/dl Hct 40.6 (37.0-47.0) % MCV 80.1 (80.0-98.0) fL MCH 25.2 L (27.0-33.0) pg MCHC 31.5 (31.0-35.0) g/dl RDW 13.4 (11.0-16.0) % Plt Count 267 D (160-400) X10*3/uL MPV Not Reportable Immature Gran % (Auto) 0.5 H (0.0-0.4) % Neut % (Auto) 58.1 (45-73) % Lymph % (Auto) 31.2 (20-40) % Major % (Auto) 5.5 (2-11) % Eos % (Auto) 4.4 H (0-4) % Baso % (Auto) 0.3 (0-2) % Lymph # (Auto) 3.0 (1.2-4.9) X10*3/uL Major # (Auto) 0.5 (0.1-1.2) X10*3/uL Eos # (Auto) 0.4 (0.0-0.4) X10*3/uL Baso # (Auto) 0.0 (0.0-0.2) X10*3/uL Abs Immat Gran (auto) 0.05 H (0.00-0.03) X10*3/uL Absolute Neuts (auto) 5.6 (2.0-8.3) x10*3/uL Absolute Nucleated RBC 0.000 (0.0-0.012) X10*3/uL Nucleated RBC % (auto) 0.0 (0.0-0.2) /100WBC Smear Tech's Comments VERIFIED PT 11.3 (10.0-13.1) SEC INR 1.0 (0.9-1.1) D-Dimer High Sensitivty < 150 NG/ML Sodium (135-145) mmol/L Potassium (3.3-5.1) mmol/L Chloride (96-108) mmol/L Carbon Dioxide (22-29) mmol/L Anion Gap (12-20) BUN (9-16) mg/dL Creatinine (0.5-1.4) mg/dL Estim Creat Clear Calc Estimated GFR Random Glucose (60-115) mg/dL Calcium (8.4-10.2) mg/dL Troponin I High Sens (<3.5-17.0) ng/L B-Natriuretic Peptide 25 (<100) pg/mL 11/15/22 11/15/22 Range/Units 10:26 11:00 WBC (4.8-10.8) X10*3/uL RBC (4.20-5.50) X10*6/uL Hgb (12.0-16.0) g/dl Hct (37.0-47.0) % MCV (80.0-98.0) fL MCH (27.0-33.0) pg MCHC (31.0-35.0) g/dl RDW (11.0-16.0) % Plt Count (160-400) X10*3/uL MPV Immature Gran % (Auto) (0.0-0.4) % Neut % (Auto) (45-73) % Lymph % (Auto) (20-40) % Major % (Auto) (2-11) % Eos % (Auto) (0-4) % Baso % (Auto) (0-2) % Lymph # (Auto) (1.2-4.9) X10*3/uL Major # (Auto) (0.1-1.2) X10*3/uL Eos # (Auto) (0.0-0.4) X10*3/uL Baso # (Auto) (0.0-0.2) X10*3/uL Abs Immat Gran (auto) (0.00-0.03) X10*3/uL Absolute Neuts (auto) (2.0-8.3) x10*3/uL Absolute Nucleated RBC (0.0-0.012) X10*3/uL Nucleated RBC % (auto) (0.0-0.2) /100WBC Smear Tech's Comments PT (10.0-13.1) SEC INR (0.9-1.1) D-Dimer High Sensitivty NG/ML Sodium 141 (135-145) mmol/L Potassium 3.9 (3.3-5.1) mmol/L Chloride 111 H (96-108) mmol/L Carbon Dioxide 24 (22-29) mmol/L Anion Gap 10 L (12-20) BUN 12 (9-16) mg/dL Creatinine 0.63 (0.5-1.4) mg/dL Estim Creat Clear Calc 130.1 Estimated GFR > 60 Random Glucose 120 H (60-115) mg/dL Calcium 8.7 D (8.4-10.2) mg/dL Troponin I High Sens < 2.7 (<3.5-17.0) ng/L B-Natriuretic Peptide (<100) pg/mL Independent Interpretation I performed an independent interpretation of an: EKG ( Ventricular rate of 92, KS normal, QRS normal, QT / QTC normal. EKG was sinus rhythm with occasional fusion complexes, otherwise normal ECG no ST elevations or inversions concerning for acute ischemia.) Core Measures AMI core measures followed: Yes Measure exclusions: not indicated Critical Care Time Critical Care Time Critical Care Time: No Discharge Plan Discharge Clinical Impression: Chest pain, Shortness of breath, Headache Patient Disposition: Home, Self-Care Instructions: Chest Pain (DC), Acute Headache (ED), Shortness of Breath (ED) Additional Instructions: Take your medications as prescribed. If you were prescribed antibiotics today, it is important that you take your medication to their entirety, do not skip any doses, do not finish them early. Follow-up with your primary care provider this week. Follow-up with cardiology if needed. Return to the emergency department with new or worsening symptoms. Such as fevers, chills, chest pain, shortness of breath, nausea, vomiting, dizziness, headache, vision changes, lethargy In case of emergency call 911 Toradol has been sent to your pharmacy, you tolerated this well in the department. Please take this as prescribed do not take this with ibuprofen, or other NSAIDs, do not mix this with alcohol. Side effects of this medication including increased risk for bleeding and possible kidney injury. You should take Reglan and Benadryl together. Taking Reglan alone can lead to involuntary muscle spasms. Prescriptions: New ketorolac 10 mg tablet 10 mg PO TID PRN (Reason: pain) 5 Days Qty: 15 0RF diphenhydramine HCl [Benadryl] 25 mg capsule 25 mg PO TID PRN (Reason: allergic reaction) Qty: 20 0RF metoclopramide HCl [Reglan] 10 mg tablet 10 mg PO Q6H PRN (Reason: headache) Qty: 20 0RF No Action (DME) AeroEclipse II Nebulizer Misc See Rx Instructions .ROUTE .MEDSUPPLY Qty: 1 0RF Rx Instructions: As directed ergocalciferol (vitamin D2) 1,250 mcg (50,000 unit) capsule 1,250 mcg PO QWEEK 90 Days Qty: 13 1RF albuterol sulfate 2.5 mg /3 mL (0.083 %) solution for nebulization 2.5 mg inhalation Q6H PRN (Reason: bronchospasm) 30 Days Qty: 360 6RF levothyroxine [Synthroid] 88 mcg tablet 88 mcg PO DAILY 90 Days Qty: 90 1RF albuterol sulfate [Ventolin HFA] 90 mcg/actuation HFA aerosol inhaler 2 puff inhalation Q6H PRN (Reason: shortness of breath or wheezing) 30 Days Qty: 8 2RF cholecalciferol (vitamin D3) 125 mcg (5,000 unit) capsule 125 mcg PO DAILY Qty: 30 2RF mecobalamin (vitamin B12) 1,000 mcg tablet,disintegrating 1,000 mcg sublingual DAILY Qty: 30 1RF Rx Instructions: place tablet under tongue and allow to dissolve for at least30 secs before swallowing ropinirole 0.5 mg tablet 0.5 mg PO BEDTIME 30 Days Qty: 30 3RF Rx Instructions: administer 1-3 hours before bedtime loratadine [Allergy Relief (loratadine)] 10 mg tablet 10 mg PO DAILY PRN (Reason: allergy symptoms) 90 Days Qty: 90 3RF fluocinolone acetonide oil [DermOtic Oil] 0.01 % drops 5 drp otic (ears) BID 7 Days Qty: 20 1RF albuterol sulfate 90 mcg/actuation HFA aerosol inhaler 2 puff PO Q4H PRN (Reason: bronchospasm) 30 Days Qty: 8.5 11RF tizanidine 2 mg tablet 2 mg PO TID PRN (Reason: muscle spasticity) 7 Days Qty: 21 0RF furosemide 20 mg tablet 20 mg PO DAILY 10 Days Qty: 10 0RF pantoprazole 40 mg tablet,delayed release (DR/EC) 40 mg PO DAILY 30 Days Qty: 30 11RF naproxen [Naprosyn] 500 mg tablet 500 mg PO BID Qty: 20 0RF acetaminophen 500 mg tablet 500 mg PO Q6H PRN (Reason: pain) Qty: 30 0RF cefuroxime axetil 500 mg tablet 500 mg PO Q12H 5 Days Qty: 10 0RF phenazopyridine [Pyridium] 100 mg tablet 100 mg PO TID PRN (Reason: pain) Qty: 6 0RF Referrals: [facility] [place] Cardiovascular Services [Provider Group] - 1 week [facility] [place] Neuro/Sleep [Provider Group] - 1 week Nenita Knott MD [Primary Care Provider] - 2 days Stand Alone Forms: Work/School Release
[2022-11-15 12:01] LABS: D Dimer High Sensitivity < 150 NG/ML
[2022-11-15] MEDS: Ketorolac Tromethamine 15 MG/ML VIAL 30 MG IM (13:12)
[2022-11-15 13:24] LABS: B Type Natriuretic Peptide 25 pg/mL (<100)
[2022-11-15] MEDS: Acetaminophen 325 MG TABLET 650 MG PO (13:56)
[2022-11-15] MEDS: diphenhydrAMINE HCL 25 MG CAPSULE 50 MG PO (13:56)
[2022-11-15] MEDS: Metoclopramide HCl 10 MG TABLET PO (13:56)
--- NOTE | 2022-11-15 14:04 | PC.NURSE ---
pt reports palpitations have resolved; c/o NGUYEN; denies changes in vision. pt medicated per jun. pt resting in stretcher; lights dimmed; call pradhan within reach.
== END 2022-11-15 15:45 | disposition home or self-care (01) ==
PROVIDERS: Physician Assistant; Emergency Provider Emergency Medicine; PCP Internal Medicine
DX: R07.9 Chest pain, unspecified (principal); R51.9 Headache, unspecified; R06.02 Shortness of breath; R60.0 Localized edema; Z79.899 Other long term (current) drug therapy; Z87.891 Personal history of nicotine dependence
CPT/HCPCS: 36415; 71045; 80048; 83880; 84484; 85025; 85379; 85610; 93005; 96372; 99284; 99285; J1885

== ENCOUNTER → 2022-11-15 09:03 | Outpatient (BNV) | payer OTHER, SELFPAY | PROVIDERS: PCP Internal Medicine; Visit Provider Internal Medicine Cardiovascular Disease | DX: R07.9 Chest pain, unspecified (principal) | CPT/HCPCS: 93010 ==

== ENCOUNTER 2022-12-09 16:28 | Outpatient (AMB) | payer OTHER, SELFPAY ==
--- NOTE | 2022-12-09 16:31 | A.OFFPC_ITS ---
Vital Signs 12/09/22 16:32 Height 4 ft 11.5 in Weight 227 lb BMI 45.1 BP 110/80 Blood Pressure Location Lt brachial Position Sitting Pulse 90 Pulse Source Pulse Oximeter Pulse Oximetry (%) 95 Oxygen Delivery Method Room Air Intake Visit Reasons: [facility] [place] ED 11/15/22 due to chest pain Intake Note: Patient is here to follow-up after a visit the emergency department at [facility] [place] on 11/15/22 for Chest pain. 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 Accompanied by: Self / Same As Patient Allergies No Known Allergies [No Known Allergies*] Allergy (Verified 12/09/22 16:58) Medication List - Last Reconciled 12/09/22 by Nenita Harper MD acetaminophen 500 mg PO Q6H PRN albuterol sulfate 2.5 mg (3 mL) inhalation Q6H PRN 30 days albuterol sulfate 90 mcg/actuation 2 puffs PO Q4H PRN 30 days cholecalciferol (vitamin D3) 125 mcg PO DAILY fluocinolone acetonide oil 0.01% (DermOtic Oil) 5 drps otic (ears) BID 7 days furosemide 20 mg PO DAILY 10 days ketorolac 10 mg PO TID PRN 5 days loratadine (Allergy Relief (loratadine)) 10 mg PO DAILY PRN 90 days mecobalamin (vitamin B12) 1,000 mcg sublingual DAILY naproxen (Naprosyn) 500 mg PO BID nebulizers (AeroEclipse II Nebulizer) As directed pantoprazole 40 mg PO DAILY 30 days ropinirole 0.5 mg PO BEDTIME 30 days Synthroid (levothyroxine) 88 mcg PO DAILY 90 days NS tizanidine 2 mg PO TID PRN 7 days Ventolin HFA 90 mcg/actuation (albuterol sulfate) 2 puffs inhalation Q6H PRN 30 days NS Tobacco use date assessed: 09/15/22 Dental Screening Dental Screen Date: 12/09/22 Did you have a dental visit in the last 12 months?: No Did you have a dental problem in the last 6 months where you did not have access to dental care?: No Was dental information given to patient?: Yes HPI HPI Comments History of Present Illness Details This is a 42-year-old female with autoimmune thyroiditis, morbid obesity and chronic GERD that complains of palpitations that started about a month ago in which she had to go to ER last month to to this matter. EKG was within normal limits but I will order Holter monitor. Palpitations can happen at rest or on exertion. She denies chest pain. TSH will be checked for her autoimmune thyroiditis. GERD stable with PPIs. She is morbidly obese with a BMI of 45.1 and is thinking about all weight loss surgery but has not decided yet. [facility], [facility] Medical History (Updated 12/09/22 @ 17:03 by Nenita Harper MD) Abdominal pain Acid reflux Allergic rhinitis Asthma Autoimmune thyroiditis Depression Fibromyalgia GERD (gastroesophageal reflux disease) Elmira's disease History of abnormal cervical Pap smear Hypothyroidism Leg edema Menorrhagia with regular cycle Obesity (BMI 30-39.9) Right knee pain Vitamin D deficiency Surgical History History of tonsillectomy History of tubal ligation Family History Mother Asthma Father AIDS Sister No problems noted. Brother No problems noted. Daughter No problems noted. Daughter No problems noted. Daughter No problems noted. Son No problems noted. 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 Rudy Brasher, Isi Sahni, Jerry Hughes and colleagues, with an educational joseph from [employer]. Review of Systems Const All systems reviewed & are unremarkable except as noted in HPI and below Eyes Reports no additional complaints, Denies change in vision and Denies other visual disturbances Card Denies chest pain at rest, Denies chest pain with activity, Denies edema, Denies irregular heart rhythm, Denies claudication, Denies dyspnea, Denies dyspnea on exertion, Denies orthopnea, Denies paroxysmal nocturnal dyspnea and Denies slow heart rate Resp Denies cough, Denies dyspnea and Denies dyspnea on exertion GI Denies abdominal pain, Denies change in bowel habits, Denies excessive flatus, Denies nausea and Denies vomiting Denies urinary incontinence, Denies urinary hesitancy and Denies urinary urgency Musc Denies abnormal gait, Denies atrophy, Denies deformity and Denies limited range of motion Skin/Breast Denies bleeding lesions, Denies changing lesions and Denies rash Neuro Denies abnormal gait and Denies lack of coordination Physical exam (Primary Care) Vital Signs: Last Vital Signs Pulse 90 12/09/22 16:32 BP 110/80 12/09/22 16:32 Pulse Ox 95 12/09/22 16:32 Oxygen Delivery Method Room Air 12/09/22 16:32 BMI result Body Mass Index 45.1 Tobacco/Smoking Status: Tobacco use Status Tobacco use date assessed 09/15/22 12/09/22 16:31 Patient Tobacco Use Status Former Tobacco user 12/09/22 16:31 Tobacco use type Cigarette 12/09/22 16:31 e-Cigarette/Vaping Use Never Used 12/09/22 16:31 Thrive Assessment: Date of Thrive Assessment Date Thrive assessed 09/15/22 12/09/22 16:31 Eyes General: appearance normal, both eyes and all related structures Eyelids: Yes eyelids normal Conjunctivae: conjunctivae normal Neck Neck: Yes normal visual inspection and Yes supple Resp Effort & Inspection: normal respiratory effort Auscultation: clear to auscultation bilaterally Cardio Jugular venous distension: no JVD Rate: regular rate Rhythm: regular rhythm Heart sounds: S1 normal heart sound present and S2 normal heart sound present GI Inspection: Yes normal to inspection Palpation (GI): Soft to palpation and nontender Auscultation: normal bowel sounds Extrem General: Yes full ROM Assessment and Plan Assessment & Plan (1) Palpitations: Code(s): R00.2 - Palpitations Plan: Holter monitor ordered (2) Morbid obesity with BMI of 40.0-44.9, adult: Code(s): E66.01 - Morbid (severe) obesity due to excess calories; Z68.41 - Body mass index [BMI] 40.0-44.9, adult Plan: Consider weight loss surgery (3) Autoimmune thyroiditis: Code(s): E06.3 - Autoimmune thyroiditis Plan: Continue levothyroxine. Repeat TSH. (4) Chronic GERD: Code(s): K21.9 - Gastro-esophageal reflux disease without esophagitis Plan: Continue PPIs as needed Orders: Orders ECG holter monitor 48 hour 12/09/22 R00.2 - Palpitations [place] upper GI series 12/09/22 K21.9 - Gastro-esophageal reflux disease without esophagitis Thyroid Stimulating Hormone 12/09/22 E06.3 - Autoimmune thyroiditis Referrals Gastroenterology Referral K21.9 - Gastro-esophageal reflux disease without esophagitis Medications: New dicyclomine 20 mg PO TID 90 tabs 0RF 30 days Refilled Synthroid (levothyroxine) 88 mcg PO DAILY 90 tabs 1RF 90 days NS E06.3 - Autoimmune thyroiditis pantoprazole 40 mg PO DAILY 30 tabs 11RF 30 days K21.9 - Gastro-esophageal reflux disease without esophagitis naproxen (Naprosyn) 500 mg PO BID 20 tabs 0RF ketorolac 10 mg PO TID PRN 15 tabs 0RF pain 5 days furosemide 20 mg PO DAILY 10 tabs 0RF 10 days R20.2 - Paresthesia of skin cholecalciferol (vitamin D3) 125 mcg PO DAILY 30 caps 2RF E55.9 - Vitamin D deficiency, unspecified Coding Level of Care Code Est Pt Level 4 (50166) Diagnoses Palpitations R00.2 Morbid obesity with BMI of 40.0-44.9, adult E66.01; Z68.41 Autoimmune thyroiditis E06.3 Chronic GERD K21.9 Time Spent (min) 23
[2022-12-09 16:32] VITALS: BP 110/80; PULSE 90; O2SAT 95; BMI 45.1
== END 2022-12-09 17:21 | disposition home or self-care (01) ==
PROVIDERS: PCP Internal Medicine; Visit Provider Internal Medicine
DX: K21.9 Gastro-esophageal reflux disease without esophagitis (principal); E66.01 Morbid (severe) obesity due to excess calories; Z68.41 Body mass index [BMI] 40.0-44.9, adult; E06.3 Autoimmune thyroiditis; R00.2 Palpitations
CPT/HCPCS: 99214

== ENCOUNTER 2023-03-29 16:51 | Outpatient (AMB) | payer OTHER, SELFPAY ==
--- NOTE | 2023-03-29 16:52 | A.OFFPC_ITS ---
Vital Signs 03/29/23 16:53 Height 4 ft 11.5 in Weight 216 lb BMI 42.9 BP 112/80 Blood Pressure Location Lt brachial Position Sitting Intake Visit Reasons: dizzy spells Intake Note: Patient here for dizziness, nausea, headaches, fatigue, muscle spasms Neighborhood Aide Required: No Accompanied by: Spouse Allergies No Known Allergies [No Known Allergies*] Allergy (Verified 03/29/23 17:20) Medication List - Last Reconciled 03/29/23 by Nenita Harper MD albuterol sulfate 2.5 mg (3 mL) inhalation Q6H PRN 30 days albuterol sulfate 90 mcg/actuation 2 puffs PO Q4H PRN 30 days cholecalciferol (vitamin D3) 125 mcg PO DAILY mecobalamin (vitamin B12) 1,000 mcg sublingual DAILY nebulizers (AeroEclipse II Nebulizer) As directed Synthroid (levothyroxine) 88 mcg PO DAILY 90 days NS Ventolin HFA 90 mcg/actuation (albuterol sulfate) 2 puffs inhalation Q6H PRN 30 days NS Tobacco use date assessed: 09/15/22 Dental Screening Dental Screen Date: 03/29/23 Did you have a dental visit in the last 12 months?: Yes Did you have a dental problem in the last 6 months where you did not have access to dental care?: No Was dental information given to patient?: Patient has dentist HPI HPI Comments History of Present Illness Details This is a 43-year-old female with Elmira's disease and morbid obesity that complains of persistent headache associated with dizziness and nausea and blurry vision that started daily about 2 weeks ago. Will order MRI of the brain. She also complains of low back pain radiating to both legs and leg weakness more prominent in the left. She will start physical therapy She also feels fatigue and tired daily. She is morbidly obese with a BMI of 42.9 and has lost some 11 lb on her own. Declines weight loss surgery for now. He has Elmira's disease and TSH will be order. Accompanied by . She also complains of constipation and occasional blood in the stools. I will start her on senna as needed and refer her to Gastroenterology. [facility] Medical History (Updated 03/29/23 @ 17:37 by Nenita Harper MD) Leg edema Right knee pain Acid reflux Allergic rhinitis Abdominal pain Elmira's disease Menorrhagia with regular cycle Obesity (BMI 30-39.9) History of abnormal cervical Pap smear Asthma Fibromyalgia Depression GERD (gastroesophageal reflux disease) Hypothyroidism Vitamin D deficiency Autoimmune thyroiditis Surgical History History of tonsillectomy History of tubal ligation Family History Mother Asthma Father AIDS Sister No problems noted. Brother No problems noted. Daughter No problems noted. Daughter No problems noted. Daughter No problems noted. Son No problems noted. 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 Rudy Brasher, Isi Sahni, Jerry Hughes and colleagues, with an educational joseph from [email or web address]. Review of Systems Const All systems reviewed & are unremarkable except as noted in HPI and below Eyes Reports no additional complaints, Denies change in vision and Denies other visual disturbances Card Denies chest pain at rest, Denies chest pain with activity, Denies edema, Denies irregular heart rhythm, Denies claudication, Denies dyspnea, Denies dyspnea on exertion, Denies orthopnea, Denies paroxysmal nocturnal dyspnea and Denies slow heart rate Resp Denies cough, Denies dyspnea and Denies dyspnea on exertion GI Denies abdominal pain, Denies change in bowel habits, Denies excessive flatus, Denies nausea and Denies vomiting Denies urinary incontinence, Denies urinary hesitancy and Denies urinary urgency Musc Denies abnormal gait, Denies atrophy, Denies deformity and Denies limited range of motion Skin/Breast Denies bleeding lesions, Denies changing lesions and Denies rash Neuro Denies abnormal gait and Denies lack of coordination Physical exam (Primary Care) Vital Signs: Last Vital Signs BP 112/80 03/29/23 16:53 BMI result Body Mass Index 42.9 Tobacco/Smoking Status: Tobacco use Status Tobacco use date assessed 09/15/22 03/29/23 16:59 Patient Tobacco Use Status Former Tobacco user 03/29/23 16:59 Tobacco use type Cigarette 03/29/23 16:59 e-Cigarette/Vaping Use Never Used 03/29/23 16:59 Thrive Assessment: Date of Thrive Assessment Date Thrive assessed 09/15/22 03/29/23 16:59 Eyes General: appearance normal, both eyes and all related structures Eyelids: Yes eyelids normal Conjunctivae: conjunctivae normal Neck Neck: Yes normal visual inspection and Yes supple Resp Effort & Inspection: normal respiratory effort Auscultation: clear to auscultation bilaterally Cardio Jugular venous distension: no JVD Rate: regular rate Rhythm: regular rhythm Heart sounds: S1 normal heart sound present and S2 normal heart sound present Extrem General: Yes full ROM Office Procedures Flu Questionnaire Does the patient have a severe egg allergy?: No Immunizations flu vacc [id number] 6mos up(PF) 60 mcg(15 mcgx4)/0.5 mL IM syringe Performing Provider: Nenita Harper MD [facility] Documented (not given) by: HALEY Crenshaw on 03/29/23 17:45 Reason Not Given: Patient Refused Assessment and Plan Assessment & Plan (1) Lumbar radiculopathy: Code(s): M54.16 - Radiculopathy, lumbar region Plan: Start physical therapy. X-ray ordered. (2) Persistent headaches: Code(s): R51.9 - Headache, unspecified Plan: MRI of the brain ordered (3) Morbid obesity with BMI of 40.0-44.9, adult: Code(s): E66.01 - Morbid (severe) obesity due to excess calories; Z68.41 - Body mass index [BMI] 40.0-44.9, adult Plan: Continue diet and exercise. BMI goal is less than 30. (4) Elmira's disease: Code(s): E06.3 - Autoimmune thyroiditis Plan: Continue Synthroid. Monitor TSH. (5) Bloody stools: Code(s): K92.1 - Melena Plan: Referred to Gastroenterology. Orders: Orders Magnesium Today R25.2 - Cramp and spasm Complete Blood Count Auto Diff Today K62.5 - Hemorrhage of anus and rectum MR head/brain wo/w con Today R51.9 - Headache, unspecified Influenza [id number] Immunization Today Z23 - Encounter for immunization Comprehensive [place]. Panel Fast Today K59.00 - Constipation, unspecified Thyroid Stimulating Hormone Today E03.9 - Hypothyroidism, unspecified IRON PROFILE Today D64.9 - Anemia, unspecified Vitamin D 25-OH Total Today E55.9 - Vitamin D deficiency, unspecified Vitamin B12 and Folate Today E53.8 - Deficiency of other specified B group vitamins XR lumbar spine 2-3V Today M54.16 - Radiculopathy, lumbar region PT Evaluation and Treatment Today M54.16 - Radiculopathy, lumbar region Referrals Gastroenterology Referral K92.1 - Melena Ophthalmology Referral H53.8 - Other visual disturbances Medications: New meclizine 25 mg PO BID 7 days PRN 14 tabs 0RF dizziness sennosides (senna) 8.6 mg PO BEDTIME 30 days PRN 30 tabs 1RF constipation Coding Level of Care Code Est Pt Level 4 (02379) Diagnoses Lumbar radiculopathy M54.16 Persistent headaches R51.9 Morbid obesity with BMI of 40.0-44.9, adult E66.01; Z68.41 Elmira's disease E06.3 Bloody stools K92.1 Time Spent (min) 25
[2023-03-29 16:53] VITALS: BP 112/80; BMI 42.9
== END 2023-03-29 17:33 | disposition home or self-care (01) ==
PROVIDERS: PCP Internal Medicine; Visit Provider Internal Medicine
DX: M54.16 Radiculopathy, lumbar region (principal); E66.01 Morbid (severe) obesity due to excess calories; Z68.41 Body mass index [BMI] 40.0-44.9, adult; R51.9 Headache, unspecified; E06.3 Autoimmune thyroiditis; K92.1 Melena
CPT/HCPCS: 99214

== ENCOUNTER 2023-04-02 10:13 | Outpatient (REF) | payer OTHER, SELFPAY ==
[2023-04-02 10:32] LABS: MANUAL DIFF FLAG NO
[2023-04-02 11:13] LABS: Basophils Absolute Auto 0.1 X10*3/uL (0.0-0.2); Basophils Percent Auto 0.6 % (0-2); Eosinophils Absolute Auto 0.4 X10*3/uL (0.0-0.4); Eosinophils Percent Auto 4.9 % (0-4); Hemoglobin 12.9 g/dl (12.0-16.0); Imm Gran Abs Auto 0.05 X10*3/uL (0.00-0.03); Imm Gran Pct Auto 0.6 % (0.0-0.4); Lymphocytes Absolute Auto 3.1 X10*3/uL (1.2-4.9); Mean Corpuscular HGB Conc 31.5 g/dl (31.0-35.0); Mean Corpuscular Hemoglobin 25.6 pg (27.0-33.0); Mean Corpuscular Volume 81.3 fL (80.0-98.0); Mean Platelet Volume 9.7 fL (9.4-12.3); Monocytes Absolute Auto 0.6 X10*3/uL (0.1-1.2); Monocytes Percent Auto 6.2 % (2-11); Neutrophils Absolute Auto 4.9 x10*3/uL (2.0-8.3); Neutrophils Percent Auto 53.7 % (45-73); Platelet Count 369 X10*3/uL (160-400); Red Blood Count 5.04 X10*6/uL (4.20-5.50); Red Cell Distribution Width 13.7 % (11.0-16.0); White Blood Count 9.1 X10*3/uL (4.8-10.8)
[2023-04-02 11:47] LABS: Alanine Aminotransferase 15 U/L (0-31); Albumin Level 4.1 g/dL (3.5-5.0); Alkaline Phosphatase 68 U/L (39-117); Anion Gap 10 (12-20); Aspartate Amino Transferase 15 U/L (5-31); Bilirubin Total 0.5 mg/dL (0.0-1.0); Blood Urea Nitrogen 9 mg/dL (9-16); Calcium 9.2 mg/dL (8.4-10.2); Carbon Dioxide 26 mmol/L (22-29); Chloride 109 mmol/L (96-108); Estimated Glomerular Filt Rate > 60; Glucose Fasting 108 mg/dL (60-99); Iron 45 mcg/dL (30-160); Magnesium 2.2 mg/dL (1.6-2.6); Percent Iron Saturation 14 % (15-50); Potassium 4.2 mmol/L (3.3-5.1); Sodium 141 mmol/L (135-145); Total Iron Binding Capacity 317 mcg/dL (228-428); Total Protein 7.3 g/dL (6.5-8.0); Unsaturated Iron Binding 272 ug/dL
[2023-04-02 12:03] LABS: Thyroid Stimulating Hormone 2.28 uIU/mL (0.32-4.0); Vitamin D 25-OH Total 21.4 ng/mL (>30)
[2023-04-02 12:16] LABS: Folate 10.4 ng/mL (> or = 4.0); Vitamin B12 609 pg/mL (200-900)
== END 2023-04-02 10:14 | disposition home or self-care (01) ==
LOC: HO.LAB 10:13
PROVIDERS: PCP Internal Medicine; Visit Provider Internal Medicine
DX: R25.2 Cramp and spasm (principal); K62.5 Hemorrhage of anus and rectum; K59.00 Constipation, unspecified; E53.8 Deficiency of other specified B group vitamins; E06.3 Autoimmune thyroiditis; D64.9 Anemia, unspecified; E55.9 Vitamin D deficiency, unspecified; E03.9 Hypothyroidism, unspecified
CPT/HCPCS: 36415; 80053; 82306; 82607; 82746; 83540; 83735; 84443; 85025

== ENCOUNTER 2023-08-02 14:05 | Outpatient (AMB) | payer OTHER, SELFPAY ==
[2023-08-02 14:17] VITALS: BP 122/74; BMI 43.1
--- NOTE | 2023-08-02 14:17 | MHC.PC.OV ---
Vital Signs 08/02/23 14:17 Height 4 ft 11.5 in Weight 217 lb BMI 43.1 BP 122/74 Blood Pressure Location Rt brachial Position Sitting Intake Visit Reasons: knee, legs and chest pains Intake Note: Patient here for left leg pain, stiffness, dizziness Tax Compliance Representative Required: No Accompanied by: Self / Same As Patient Allergies No Known Allergies [No Known Allergies*] Allergy (Verified 08/02/23 14:37) Medication List - Last Reconciled 08/02/23 by Nenita Harper MD albuterol sulfate 2.5 mg (3 mL) inhalation Q6H PRN 30 days albuterol sulfate 90 mcg/actuation 2 puffs PO Q4H PRN 30 days cholecalciferol (vitamin D3) 125 mcg PO DAILY levothyroxine 75 mcg PO DAILY 90 days meclizine 25 mg PO BID PRN 7 days mecobalamin (vitamin B12) 1,000 mcg sublingual DAILY nebulizers (AeroEclipse II Nebulizer) As directed sennosides (senna) 8.6 mg PO BEDTIME PRN 30 days Ventolin HFA 90 mcg/actuation (albuterol sulfate) 2 puffs inhalation Q6H PRN 30 days NS Tobacco use date assessed: 08/02/23 Dental Screening Dental Screen Date: 08/02/23 Did you have a dental visit in the last 12 months?: Yes Did you have a dental problem in the last 6 months where you did not have access to dental care?: No Was dental information given to patient?: Patient has dentist HPI HPI Comments History of Present Illness Details This is a 43-year-old female with morbid obesity, chronic constipation, Elmira's disease and asthma that comes today complaining of left leg pain that started about 2 weeks ago. She also has some left knee pain. Denies previous trauma. She is morbidly obese with a BMI of 43.1 and wants to try Wegovy. Constipation stable with medications as needed. TSH will be ordered. She use rescue inhaler less than once a month for her asthma. No chest pain or shortness of breath. [facility] Medical History (Updated 08/02/23 @ 19:18 by Nenita Harper MD) Major depressive disorder, recurrent, mild Leg edema Right knee pain Acid reflux Allergic rhinitis Abdominal pain Elmira's disease Menorrhagia with regular cycle Obesity (BMI 30-39.9) History of abnormal cervical Pap smear Asthma Fibromyalgia Depression GERD (gastroesophageal reflux disease) Hypothyroidism Vitamin D deficiency Autoimmune thyroiditis Surgical History History of tonsillectomy History of tubal ligation Family History Mother Asthma Father AIDS Sister No problems noted. Brother No problems noted. Daughter No problems noted. Daughter No problems noted. Daughter No problems noted. Son No problems noted. 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 1. Little interest or pleasure in doing things: not at all 2. Feeling down, depressed, or hopeless: not at all 3. Trouble falling or staying asleep, or sleeping too much: not at all 4. Feeling tired or having little energy: not at all 5. Poor appetite or overeating: not at all 6. Feeling bad about yourself - or that you are a failure or have let yourself or your family down: not at all 7. Trouble concentrating on things, such as reading the newspaper or watching television: not at all 8. Moving or speaking so slowly that other people could have noticed. Or the opposite - being so fidgety or restless that you have been moving around a lot more than usual: not at all 9. Thoughts that you would be better off or of hurting yourself in some way: not at all Total score: 0 Depression Screening Interpretation: Negative Depression Screening Done: Yes 39316 - PHQ-9 Billing: Yes Source: Developed by Drs. Rudy Brasher, Jerry Quiñones and colleagues, with an educational joseph from [employer]. Thrive Questionnaire Date Thrive assessed: 08/02/23 I am a: Patient What is your living situation today?: I have a steady place to live Within the past 12 months, did the food you bought not last and you didn't have the money to get more?: Never true Within the past 12 months, did you worry whether your food would run out before you got money to buy more?: Never true Do you have trouble paying for medicines?: No Do you have trouble getting transportation to medical appointments?: No Do you have trouble paying your heating and electricity bill?: No Do you have trouble taking care of your child, family member or friend?: No Do you have trouble with day-to-day activities such as bathing, preparing meals, shopping, managing finances, etc.?: No Are you currently unemployed and looking for a job?: No Are you interested in more education?: No Please select the resources that you would like help with: None Currently or been in a relationship where the following occur: no concerns reported THRIVE Score: 0 AUDIT C Alcohol Use Questionnaire (AUDIT-C) 1. How often do you have a drink containing alcohol?: Never Total Score: 0 NHAN-7 AMB Questionnaire NAHN-7 Date NHAN - 7 assessed: 08/02/23 Feeling nervous, anxious, or on edge: 0 = Not at all Not being able to stop or control worryin = Not at all Worrying too much about different things: 0 = Not at all Trouble relaxin = Not at all Being so restless that it is hard to sit still: 0 = Not at all Becoming easily annoyed or irritable: 0 = Not at all Feeling afraid as if something awful might happen: 0 = Not at all Total NHAN-7 score (0-4 normal; 5-9 mild; 10-14 moderate; 15-21 severe): 0 Source: Developed by Drs. Rudy Brasher, Jerry Quioñnes and colleagues, with an educational joseph from [employer]. NHAN-7 Assessment Billing NHAN-7 Assessment Tool: NHAN-7 Assessment 29769 Review of Systems Const All systems reviewed & are unremarkable except as noted in HPI and below Eyes Reports no additional complaints, Denies change in vision and Denies other visual disturbances Card Denies chest pain at rest, Denies chest pain with activity, Denies edema, Denies irregular heart rhythm, Denies claudication, Denies dyspnea, Denies dyspnea on exertion, Denies orthopnea, Denies paroxysmal nocturnal dyspnea and Denies slow heart rate Resp Denies cough, Denies dyspnea and Denies dyspnea on exertion Physical exam (Primary Care) Vital Signs: Last Vital Signs BP 122/74 08/02/23 14:17 BMI result Body Mass Index 43.1 Tobacco/Smoking Status: Tobacco use Status Tobacco use date assessed 08/02/23 08/02/23 14:27 Patient Tobacco Use Status Former Tobacco user 08/02/23 14:27 Tobacco use type Cigarette 08/02/23 14:27 e-Cigarette/Vaping Use Never Used 08/02/23 14:27 PHQ-9: PHQ-9 Score PHQ-9: Total score 0 08/02/23 16:01 Depression Screening Interpretation: Negative Thrive Assessment: Date of Thrive Assessment Date Thrive assessed 08/02/23 08/02/23 14:27 Currently or been in a relationship where the following occur: no concerns reported Resp Effort & Inspection: normal respiratory effort Auscultation: clear to auscultation bilaterally Cardio Jugular venous distension: no JVD Rate: regular rate Rhythm: regular rhythm Heart sounds: S1 normal heart sound present and S2 normal heart sound present Extrem General: Yes full ROM Assessment and Plan Assessment & Plan (1) Morbid obesity with BMI of 40.0-44.9, adult: Code(s): E66.01 - Morbid (severe) obesity due to excess calories; Z68.41 - Body mass index [BMI] 40.0-44.9, adult Plan: Start diet and exercise. Start Wegovy. (2) Asthma: Code(s): J45.909 - Unspecified asthma, uncomplicated Qualifiers: Asthma severity: mild Asthma persistence: persistent Asthma complication type: uncomplicated Qualified Code(s): J45.30 - Mild persistent asthma, uncomplicated Plan: Use rescue inhaler as needed. (3) Elmira's disease: Code(s): E06.3 - Autoimmune thyroiditis Plan: Continue levothyroxine. Repeat TSH. (4) Chronic constipation: Comment: 40-year-old female chronic constipation, continue bowel regimen, Continue to maintain high-fiber diet, she may take senna Code(s): K59.09 - Other constipation Plan: Continue senna as needed. Orders: Orders US venous duplex LE LT Today M79.605 - Pain in left leg Vitamin D 25-OH Total Today E55.9 - Vitamin D deficiency, unspecified Lipid Panel Today E66.01 - Morbid (severe) obesity due to excess calories, Z68.41 - Body mass index [BMI] 40.0-44.9, adult XR knee LT 2V Today M25.562 - Pain in left knee Vitamin B12 and Folate Today E53.8 - Deficiency of other specified B group vitamins Comprehensive [place]. Panel Fast Today R73.01 - Impaired fasting glucose Thyroid Stimulating Hormone Today E06.3 - Autoimmune thyroiditis Medications: New semaglutide (weight loss) (Dary) administer weeks 1 through 4 of therapy 0.25 mg (0.5 mL) subcut QWEEK 2.5 mL 0RF 30 days E66.01 - Morbid (severe) obesity due to excess calories, Z68.41 - Body mass index [BMI] 40.0-44.9, adult Coding Level of Care Code Est Pt Level 4 (64871) Diagnoses Morbid obesity with BMI of 40.0-44.9, adult E66.01; Z68.41 Mild persistent asthma without complication J45.30 Asthma severity: mild Asthma persistence: persistent Asthma complication type: uncomplicated Elmira's disease E06.3 Chronic constipation K59.09 Additional Codes NHAN-7 Assessment Billing - NHAN-7 Assessment Tool: NHAN-7 Assessment 20572 ([id number]) Time Spent (min) 22
== END 2023-08-02 14:51 | disposition home or self-care (01) ==
PROVIDERS: PCP Internal Medicine; Visit Provider Internal Medicine
DX: J45.30 Mild persistent asthma, uncomplicated (principal); E66.01 Morbid (severe) obesity due to excess calories; Z68.41 Body mass index [BMI] 40.0-44.9, adult; E06.3 Autoimmune thyroiditis; K59.09 Other constipation
CPT/HCPCS: 99214

== ENCOUNTER 2023-08-02 15:18 | Outpatient (REF) | payer OTHER, SELFPAY ==
--- NOTE | ~2023-08-02 | US_ITS ---
EXAMINATION: US VENOUS ULTRASOUND WITH DOPPLER LOWER EXTREMITY, LEFT CLINICAL INFORMATION: Pain COMPARISON: None available. TECHNIQUE: Ultrasound of the deep veins is performed from the hip to the calf with compression sonography and color and pulse Doppler assessment. Spectral analysis with color-flow imaging is performed. FINDINGS: There is normal venous compression and respiratory variation and augmented flow. The visualized common femoral vein, superficial femoral vein, profunda femoral vein, popliteal vein, and the trifurcation region shows no evidence of deep venous thrombosis. There is no significant popliteal fossa cyst. US/US venous duplex LE LT IMPRESSION: No DVT demonstrated in the left lower extremity.
--- NOTE | ~2023-08-02 | XR_ITS ---
EXAMINATION: XR LUMBAR SPINE XR LEFT KNEE CLINICAL INFORMATION: Pain in left knee and lower back since . COMPARISON: Left knee 03/08/2022. TECHNIQUE: 3 views of the lumbar spine. 2 views of the left knee. FINDINGS: LEFT KNEE: Gaen-nu-enoqhhwm narrowing of the medial compartment. No significant joint effusion. Small medial marginal osteophytes. LUMBAR SPINE: Moderate multilevel lumbar spondylosis with mild loss of disc space height at L5-S1. Facet arthritis in the lower lumbar spine. XR/XR lumbar spine 2-3V IMPRESSION: 1. Kdft-ya-bskcctza degenerative changes left knee. 2. Moderate multilevel lumbar spondylosis with mild loss of disc space height at L5-S1.
--- NOTE | ~2023-08-02 | XR_ITS ---
EXAMINATION: XR LUMBAR SPINE XR LEFT KNEE CLINICAL INFORMATION: Pain in left knee and lower back since . COMPARISON: Left knee 03/08/2022. TECHNIQUE: 3 views of the lumbar spine. 2 views of the left knee. FINDINGS: LEFT KNEE: Xaae-xg-xvliynyr narrowing of the medial compartment. No significant joint effusion. Small medial marginal osteophytes. LUMBAR SPINE: Moderate multilevel lumbar spondylosis with mild loss of disc space height at L5-S1. Facet arthritis in the lower lumbar spine. XR/XR knee LT 2V IMPRESSION: 1. Zwto-wv-ynlwyclt degenerative changes left knee. 2. Moderate multilevel lumbar spondylosis with mild loss of disc space height at L5-S1.
== END 2023-08-02 15:19 | disposition home or self-care (01) ==
LOC: HO.US 15:18
PROVIDERS: PCP Internal Medicine; Visit Provider Internal Medicine
DX: M25.562 Pain in left knee (principal); M79.605 Pain in left leg; M54.16 Radiculopathy, lumbar region
CPT/HCPCS: 72100; 73560; 93971

== ENCOUNTER 2023-08-06 08:05 | Outpatient (REF) | payer OTHER, SELFPAY ==
[2023-08-06 09:40] LABS: Alanine Aminotransferase 9 U/L (0-31); Albumin Level 3.9 g/dL (3.5-5.0); Alkaline Phosphatase 68 U/L (39-117); Anion Gap 9 (12-20); Aspartate Amino Transferase 12 U/L (5-31); Bilirubin Total 0.4 mg/dL (0.0-1.0); Blood Urea Nitrogen 14 mg/dL (9-16); Calcium 8.9 mg/dL (8.4-10.2); Carbon Dioxide 25 mmol/L (22-29); Chloride 109 mmol/L (96-108); Cholesterol 188 mg/dL (<200); Estimated Glomerular Filt Rate > 60; Glucose Fasting 108 mg/dL (60-99); HDL Cholesterol 41 mg/dL (>40); LDL Cholesterol Calculated 134 mg/dL (<100); Sodium 139 mmol/L (135-145); Triglycerides 66 mg/dL (<150)
[2023-08-06 09:56] LABS: Thyroid Stimulating Hormone 2.17 uIU/mL (0.32-4.0); Vitamin D 25-OH Total 18.7 ng/mL (>30)
[2023-08-06 10:33] LABS: Folate 6.3 ng/mL (> or = 4.0); Vitamin B12 539 pg/mL (200-900)
== END 2023-08-06 08:06 | disposition home or self-care (01) ==
LOC: HO.LAB 08:05
PROVIDERS: PCP Internal Medicine; Visit Provider Internal Medicine
DX: E03.9 Hypothyroidism, unspecified (principal); R73.01 Impaired fasting glucose; E53.8 Deficiency of other specified B group vitamins; E55.9 Vitamin D deficiency, unspecified; E66.01 Morbid (severe) obesity due to excess calories; Z68.41 Body mass index [BMI] 40.0-44.9, adult
CPT/HCPCS: 36415; 80053; 80061; 82306; 82607; 82746; 84443

== ENCOUNTER 2023-08-29 08:13 | Outpatient (REF) | payer OTHER, SELFPAY | END 2023-08-29 08:14 | disposition home or self-care (01) | LOC: HO.HOSX 08:13 | PROVIDERS: Visit Provider Physician Assistant | DX: Z13.89 Encounter for screening for other disorder (principal) ==

== ENCOUNTER 2023-09-07 15:43 | Outpatient (AMB) | payer OTHER, SELFPAY ==
--- NOTE | 2023-09-07 15:45 | MHC.PC.OV ---
Vital Signs 09/07/23 15:46 Height 4 ft 11.5 in Weight 213 lb BMI 42.3 BP 120/80 Blood Pressure Location Lt brachial Position Sitting Intake Visit Reasons: nausea, vomiting diarrhea Intake Note: Patient here c/o nausea, vomiting, diarrhea, low back pain Director Of Clinical Applications Required: No Accompanied by: Self / Same As Patient Allergies No Known Allergies [No Known Allergies*] Allergy (Verified 09/07/23 15:54) Medication List - Last Reconciled 09/07/23 by Nenita Harper MD albuterol sulfate 2.5 mg (3 mL) inhalation Q6H PRN 30 days albuterol sulfate 90 mcg/actuation 2 puffs PO Q4H PRN 30 days cholecalciferol (vitamin D3) 50 mcg PO DAILY 90 days levothyroxine 75 mcg PO DAILY 90 days meclizine 25 mg PO BID PRN 7 days mecobalamin (vitamin B12) 1,000 mcg sublingual DAILY nebulizers (AeroEclipse II Nebulizer) As directed semaglutide (weight loss) (Wegovy) 0.25 mg (0.5 mL) subcut QWEEK 30 days sennosides (senna) 8.6 mg PO BEDTIME PRN 30 days Ventolin HFA 90 mcg/actuation (albuterol sulfate) 2 puffs inhalation Q6H PRN 30 days NS Tobacco use date assessed: 08/02/23 Dental Screening Dental Screen Date: 08/02/23 HPI HPI Comments History of Present Illness Details This is a 43-year-old female with morbid obesity, Elmira's disease and chronic constipation that comes today complaining of nausea, vomiting, abdominal pain and diarrhea that started yesterday. Everyone in her house the same symptoms. No chest pain or shortness of breath. That daughter that lives in another house had it 1st and feels markedly improved now. Most likely due to gastroenteritis that will improve on its own. Was advised to stay hydrated. She is morbidly obese with a BMI of 42.3 and is on Wegovy that I will increase the dose for next month. Last TSH was normal. Constipation has been stable with medications as needed. [facility] Medical History (Updated 09/07/23 @ 16:32 by Nenita Harper MD) Major depressive disorder, recurrent, mild Leg edema Right knee pain Acid reflux Allergic rhinitis Abdominal pain Elmira's disease Menorrhagia with regular cycle Obesity (BMI 30-39.9) History of abnormal cervical Pap smear Asthma Fibromyalgia Depression GERD (gastroesophageal reflux disease) Hypothyroidism Vitamin D deficiency Autoimmune thyroiditis Surgical History History of tonsillectomy History of tubal ligation Family History Mother Asthma Father AIDS Sister No problems noted. Brother No problems noted. Daughter No problems noted. Daughter No problems noted. Daughter No problems noted. Son No problems noted. 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 Rudy Brasher, Isi Sahni, Jerry Hughes and colleagues, with an educational joseph from [employer]. Review of Systems Const All systems reviewed & are unremarkable except as noted in HPI and below Reports no additional complaints Card Denies chest pain at rest, Denies chest pain with activity, Denies edema, Denies irregular heart rhythm, Denies claudication, Denies dyspnea, Denies dyspnea on exertion, Denies orthopnea, Denies paroxysmal nocturnal dyspnea and Denies slow heart rate Resp Denies cough, Denies dyspnea and Denies dyspnea on exertion GI Reports abdominal pain, Denies change in bowel habits, Denies excessive flatus, Reports diarrhea, Reports nausea and Reports vomiting Physical exam (Primary Care) Vital Signs: Last Vital Signs BP 120/80 09/07/23 15:46 BMI result Body Mass Index 42.3 Tobacco/Smoking Status: Tobacco use Status Tobacco use date assessed 08/02/23 09/07/23 15:51 Patient Tobacco Use Status Former Tobacco user 09/07/23 15:51 Tobacco use type Cigarette 09/07/23 15:51 e-Cigarette/Vaping Use Never Used 09/07/23 15:51 Thrive Assessment: Date of Thrive Assessment Date Thrive assessed 08/02/23 09/07/23 15:51 Resp Effort & Inspection: normal respiratory effort Auscultation: clear to auscultation bilaterally Cardio Jugular venous distension: no JVD Rate: regular rate Rhythm: regular rhythm Heart sounds: S1 normal heart sound present and S2 normal heart sound present GI Inspection: Yes normal to inspection Palpation (GI): Soft to palpation and nontender Auscultation: normal bowel sounds Extrem General: Yes full ROM Assessment and Plan Assessment & Plan (1) Viral gastroenteritis: Code(s): A08.4 - Viral intestinal infection, unspecified Plan: Stay hydrated. (2) Morbid obesity with BMI of 40.0-44.9, adult: Code(s): E66.01 - Morbid (severe) obesity due to excess calories; Z68.41 - Body mass index [BMI] 40.0-44.9, adult Plan: Continue Wegovy. (3) Chronic constipation: Comment: 40-year-old female chronic constipation, continue bowel regimen, Continue to maintain high-fiber diet, she may take senna Code(s): K59.09 - Other constipation Plan: Continue senna as needed. (4) Elmira's disease: Code(s): E06.3 - Autoimmune thyroiditis Plan: Continue levothyroxine. Orders: Orders Vitamin D 25-OH Total Today E55.9 - Vitamin D deficiency, unspecified Magnesium Today R25.2 - Cramp and spasm Thyroid Stimulating Hormone Today E06.3 - Autoimmune thyroiditis Complete Blood Count Auto Diff Today D64.9 - Anemia, unspecified IRON PROFILE Today D64.9 - Anemia, unspecified Vitamin B12 and Folate Today E53.8 - Deficiency of other specified B group vitamins Lipid Panel Today E66.01 - Morbid (severe) obesity due to excess calories, E78.5 - Hyperlipidemia, unspecified, Z68.41 - Body mass index [BMI] 40.0-44.9, adult Comprehensive [place]. Panel Fast Today E66.01 - Morbid (severe) obesity due to excess calories, Z68.41 - Body mass index [BMI] 40.0-44.9, adult Medications: New semaglutide (weight loss) (Wegovy) administer weeks 5 through 8 of therapy 0.5 mg (0.5 mL) subcut QWEEK 2 mL 0RF 4 weeks E66.01 - Morbid (severe) obesity due to excess calories, Z68.41 - Body mass index [BMI] 40.0-44.9, adult Discontinued semaglutide (weight loss) (Wegovy) administer weeks 1 through 4 of therapy Discontinued Reason: Patient Completed Course 0.25 mg (0.5 mL) subcut QWEEK 30 days 2.5 mL 0RF E66.01 - Morbid (severe) obesity due to excess calories, Z68.41 - Body mass index [BMI] 40.0-44.9, adult Coding Level of Care Code Est Pt Level 4 (88168) Diagnoses Viral gastroenteritis A08.4 Morbid obesity with BMI of 40.0-44.9, adult E66.01; Z68.41 Chronic constipation K59.09 Elmira's disease E06.3 Time Spent (min) 20
[2023-09-07 15:46] VITALS: BP 120/80; BMI 42.3
== END 2023-09-07 16:04 | disposition home or self-care (01) ==
PROVIDERS: PCP Internal Medicine; Visit Provider Internal Medicine
DX: A08.4 Viral intestinal infection, unspecified (principal); E66.01 Morbid (severe) obesity due to excess calories; Z68.41 Body mass index [BMI] 40.0-44.9, adult; K59.09 Other constipation; E06.3 Autoimmune thyroiditis
CPT/HCPCS: 99214

== ENCOUNTER 2023-09-20 14:19 | Outpatient (REF) | payer OTHER, SELFPAY ==
[2023-09-20 14:34] LABS: MANUAL DIFF FLAG NO
[2023-09-20 14:59] LABS: Basophils Absolute Auto 0.1 X10*3/uL (0.0-0.2); Basophils Percent Auto 0.5 % (0-2); Eosinophils Absolute Auto 0.5 X10*3/uL (0.0-0.4); Eosinophils Percent Auto 3.9 % (0-4); Hematocrit 40.1 % (37.0-47.0); Hemoglobin 12.8 g/dl (12.0-16.0); Imm Gran Abs Auto 0.05 X10*3/uL (0.00-0.03); Imm Gran Pct Auto 0.4 % (0.0-0.4); Lymphocytes Percent Auto 34.4 % (20-40); Mean Corpuscular HGB Conc 31.9 g/dl (31.0-35.0); Mean Corpuscular Hemoglobin 25.5 pg (27.0-33.0); Mean Corpuscular Volume 79.9 fL (80.0-98.0); Mean Platelet Volume 9.3 fL (9.4-12.3); Monocytes Absolute Auto 0.8 X10*3/uL (0.1-1.2); Monocytes Percent Auto 7.2 % (2-11); Neutrophils Absolute Auto 6.3 x10*3/uL (2.0-8.3); Neutrophils Percent Auto 53.6 % (45-73); Platelet Count 367 X10*3/uL (160-400); Red Blood Count 5.02 X10*6/uL (4.20-5.50); Red Cell Distribution Width 13.4 % (11.0-16.0); White Blood Count 11.7 X10*3/uL (4.8-10.8)
[2023-09-20 15:58] LABS: Iron 47 mcg/dL (30-160); Magnesium 2.1 mg/dL (1.6-2.6); Percent Iron Saturation 14 % (15-50); Total Iron Binding Capacity 338 mcg/dL (228-428); Unsaturated Iron Binding 291 ug/dL
[2023-09-20 16:01] LABS: Thyroid Stimulating Hormone 3.14 uIU/mL (0.32-4.0); Vitamin D 25-OH Total 23.7 ng/mL (>30)
[2023-09-20 16:18] LABS: Folate 9.2 ng/mL (> or = 4.0); Vitamin B12 373 pg/mL (200-900)
[2023-09-21 08:49] LABS: HBS Num1 0.58 mIU/mL (0-7.99); HBc Num1 0.12 S/CO (0.00-0.79); HBsAGNum1 0.84 S/CO (0.00-0.99); Hepatitis B Core Antibody Nonreactive (Nonreactive); Hepatitis B Surface Antigen Negative (Negative); ~Hepatitis B Surface Antibody NONREACTIVE (Nonreactive)
[2023-09-21 13:03] LABS: Rubeola IgG (Measles) >300.00 AU/mL
== END 2023-09-20 14:20 | disposition home or self-care (01) ==
LOC: HO.LAB 14:19
PROVIDERS: PCP Internal Medicine; Visit Provider Internal Medicine
DX: D64.9 Anemia, unspecified (principal); E53.8 Deficiency of other specified B group vitamins; E55.9 Vitamin D deficiency, unspecified; R25.2 Cramp and spasm; E06.3 Autoimmune thyroiditis
CPT/HCPCS: 36415; 82306; 82607; 82746; 83540; 83735; 84443; 85025; 86704; 86706; 86735; 86762; 86765; 86787; 87340

== ENCOUNTER 2024-01-05 09:12 | Outpatient (AMB) | payer OTHER, SELFPAY ==
--- NOTE | 2024-01-05 09:15 | A.OFFPC_ITS ---
Vital Signs 01/05/24 09:16 Height 4 ft 11.5 in Weight 212 lb BMI 42.1 BP 118/72 Blood Pressure Location Lt brachial Position Sitting Intake Visit Reasons: constipation, bleeding Director Validation Required: No Accompanied by: Self / Same As Patient Allergies No Known Allergies [No Known Allergies*] Allergy (Verified 01/05/24 09:23) Medication List - Last Reconciled 01/05/24 by Nenita Harper MD albuterol sulfate 2.5 mg (3 mL) inhalation Q6H PRN 30 days albuterol sulfate 90 mcg/actuation 2 puffs PO Q4H PRN 30 days cholecalciferol (vitamin D3) 50 mcg PO DAILY 90 days levothyroxine 75 mcg PO DAILY 90 days meclizine 25 mg PO BID PRN 7 days mecobalamin (vitamin B12) 1,000 mcg sublingual DAILY nebulizers (AeroEclipse II Nebulizer) As directed semaglutide (weight loss) (Wegovy) 1.7 mg (0.75 mL) subcut QWEEK 4 weeks sennosides (senna) 8.6 mg PO BEDTIME PRN 30 days Ventolin HFA 90 mcg/actuation (albuterol sulfate) 2 puffs inhalation Q6H PRN 30 days NS Tobacco use date assessed: 08/02/23 Dental Screening Dental Screen Date: 01/05/24 Did you have a dental visit in the last 12 months?: Yes Did you have a dental problem in the last 6 months where you did not have access to dental care?: No Was dental information given to patient?: Patient has dentist HPI HPI Comments History of Present Illness Details This is a 43-year-old female with morbid obesity and chronic idiopathic constipation as well as autoimmune thyroiditis that comes today accompanied by complaining of constipation associated with intermittent rectal bleeding that has been present for over a year. Has been referred to Gastroenterology in 2022 multiple times but was not able to make it. Will be refer again. She is morbidly obese with a BMI of 42.1 and is doing diet and exercise as well as Wegovy. She also has polyarthralgia most likely due to fibromyalgia and I will start her on duloxetine. Labs were order to rule out other causes of joint pain. No chest pain or shortness on breath. [facility] Medical History (Updated 01/05/24 @ 09:29 by Nenita Harper MD) Major depressive disorder, recurrent, mild Leg edema Right knee pain Acid reflux Allergic rhinitis Abdominal pain Elmira's disease Menorrhagia with regular cycle Obesity (BMI 30-39.9) History of abnormal cervical Pap smear Asthma Fibromyalgia Depression GERD (gastroesophageal reflux disease) Hypothyroidism Vitamin D deficiency Autoimmune thyroiditis Surgical History History of tonsillectomy History of tubal ligation Family History Mother Asthma Father AIDS Sister No problems noted. Brother No problems noted. Daughter No problems noted. Daughter No problems noted. Daughter No problems noted. Son No problems noted. 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 Rudy Brasher, Isi Sahni, Jerry Hughes and colleagues, with an educational joseph from [employer]. Review of Systems Const All systems reviewed & are unremarkable except as noted in HPI and below Card Denies chest pain at rest, Denies chest pain with activity, Denies edema, Denies irregular heart rhythm, Denies claudication, Denies dyspnea, Denies dyspnea on exertion, Denies orthopnea, Denies paroxysmal nocturnal dyspnea and Denies slow heart rate Resp Denies cough, Denies dyspnea and Denies dyspnea on exertion GI Denies abdominal pain, Denies change in bowel habits, Denies excessive flatus, Denies nausea and Denies vomiting Denies urinary incontinence, Denies urinary hesitancy and Denies urinary urgency Physical exam (Primary Care) Vital Signs: Last Vital Signs BP 118/72 01/05/24 09:16 BMI result Body Mass Index 42.1 BMI Assessment/Plan discussion: High BMI High, discussed plan: lifestyle, weight reduction, dietary and physical activity Tobacco/Smoking Status: Tobacco use Status Tobacco use date assessed 08/02/23 01/05/24 09:17 Patient Tobacco Use Status Former Tobacco user 01/05/24 09:17 Tobacco use type Cigarette 01/05/24 09:17 e-Cigarette/Vaping Use Never Used 01/05/24 09:17 Thrive Assessment: Date of Thrive Assessment Date Thrive assessed 08/02/23 01/05/24 09:17 Resp Effort & Inspection: normal respiratory effort Auscultation: clear to auscultation bilaterally Cardio Jugular venous distension: no JVD Rate: regular rate Rhythm: regular rhythm Heart sounds: S1 normal heart sound present and S2 normal heart sound present Extrem General: Yes full ROM Assessment and Plan Assessment & Plan (1) Chronic idiopathic constipation: Code(s): K59.04 - Chronic idiopathic constipation Plan: Start senna as needed. Referred to Gastroenterology. (2) Polyarthralgia: Code(s): M25.50 - Pain in unspecified joint Plan: Labs ordered. Referred to rheumatology. (3) Morbid obesity with BMI of 40.0-44.9, adult: Code(s): E66.01 - Morbid (severe) obesity due to excess calories; Z68.41 - Body mass index [BMI] 40.0-44.9, adult Plan: Increase Wegovy. Continue diet and exercise. BMI goal is less than 30. (4) Autoimmune thyroiditis: Code(s): E06.3 - Autoimmune thyroiditis Plan: Continue levothyroxine. Monitor TSH. Orders: Orders Vitamin B12 and Folate Today E53.8 - Deficiency of other specified B group vitamins Vitamin D 25-OH Total Today E55.9 - Vitamin D deficiency, unspecified Thyroid Stimulating Hormone Today E06.3 - Autoimmune thyroiditis Cyclic Citrullinated Peptide Today M25.50 - Pain in unspecified joint Rheumatoid Factor Today M25.50 - Pain in unspecified joint NENITA Reflex Titer and Pattern Today M25.50 - Pain in unspecified joint Complete Blood Count Auto Diff Today D64.9 - Anemia, unspecified IRON PROFILE Today D64.9 - Anemia, unspecified Referrals Gastroenterology Referral K59.04 - Chronic idiopathic constipation Rheumatology Referral M25.50 - Pain in unspecified joint Medications: New semaglutide (weight loss) (Wegovy) 2.4 mg (0.75 mL) subcut QWEEK 4 weeks 3 mL 3RF duloxetine 20 mg PO DAILY 90 days 90 caps 0RF M25.50 - Pain in unspecified joint Refilled sennosides (senna) 8.6 mg PO BEDTIME 30 days PRN 30 tabs 1RF constipation Discontinued semaglutide (weight loss) (Wegovy) administer weeks 13 through 16 of therapy Discontinued Reason: Patient Completed Course 1.7 mg (0.75 mL) subcut QWEEK 4 weeks 3 mL 0RF Coding Level of Care Code Est Pt Level 4 (46223) Complex EM visit Add On G2211 Diagnoses Chronic idiopathic constipation K59.04 Polyarthralgia M25.50 Morbid obesity with BMI of 40.0-44.9, adult E66.01; Z68.41 Autoimmune thyroiditis E06.3 Time Spent (min) 23
[2024-01-05 09:16] VITALS: BP 118/72; BMI 42.1
== END 2024-01-05 09:34 | disposition home or self-care (01) ==
PROVIDERS: PCP Internal Medicine; Visit Provider Internal Medicine
DX: K59.04 Chronic idiopathic constipation (principal); E66.01 Morbid (severe) obesity due to excess calories; Z68.41 Body mass index [BMI] 40.0-44.9, adult; E06.3 Autoimmune thyroiditis
CPT/HCPCS: 99214; G2211

== ENCOUNTER 2024-01-05 09:45 | Outpatient (REF) | payer OTHER, SELFPAY | END 2024-01-05 09:46 | disposition home or self-care (01) | LOC: HO.LAB 09:45 | PROVIDERS: PCP Internal Medicine; Visit Provider Internal Medicine | DX: Z13.89 Encounter for screening for other disorder (principal) ==

== ENCOUNTER 2024-01-06 07:37 | Outpatient (REF) | payer OTHER, SELFPAY ==
[2024-01-06 07:49] LABS: MANUAL DIFF FLAG NO
[2024-01-06 08:00] LABS: Basophils Percent Auto 0.3 % (0-2); Eosinophils Absolute Auto 0.5 X10*3/uL (0.0-0.4); Eosinophils Percent Auto 5.2 % (0-4); Hematocrit 40.7 % (37.0-47.0); Hemoglobin 13.2 g/dl (12.0-16.0); Imm Gran Abs Auto 0.06 X10*3/uL (0.00-0.03); Imm Gran Pct Auto 0.6 % (0.0-0.4); Lymphocytes Absolute Auto 3.4 X10*3/uL (1.2-4.9); Lymphocytes Percent Auto 33.5 % (20-40); Mean Corpuscular HGB Conc 32.4 g/dl (31.0-35.0); Mean Corpuscular Volume 80.1 fL (80.0-98.0); Mean Platelet Volume 8.9 fL (9.4-12.3); Monocytes Absolute Auto 0.6 X10*3/uL (0.1-1.2); Monocytes Percent Auto 6.3 % (2-11); Neutrophils Absolute Auto 5.5 x10*3/uL (2.0-8.3); Neutrophils Percent Auto 54.1 % (45-73); Platelet Count 309 X10*3/uL (160-400); Red Blood Count 5.08 X10*6/uL (4.20-5.50); Red Cell Distribution Width 13.6 % (11.0-16.0); White Blood Count 10.2 X10*3/uL (4.8-10.8)
[2024-01-06 08:25] LABS: Alanine Aminotransferase 9 U/L (0-31); Albumin Level 3.9 g/dL (3.5-5.0); Alkaline Phosphatase 66 U/L (39-117); Anion Gap 9 (12-20); Aspartate Amino Transferase 10 U/L (5-31); Bilirubin Total 0.4 mg/dL (0.0-1.0); Blood Urea Nitrogen 9 mg/dL (9-16); Calcium 8.9 mg/dL (8.4-10.2); Carbon Dioxide 25 mmol/L (22-29); Chloride 109 mmol/L (96-108); Cholesterol 204 mg/dL (<200); Estimated Glomerular Filt Rate > 60; Glucose Fasting 110 mg/dL (60-99); HDL Cholesterol 39 mg/dL (>40); Iron 37 mcg/dL (30-160); LDL Cholesterol Calculated 148 mg/dL (<100); Percent Iron Saturation 12 % (15-50); Potassium 4.1 mmol/L (3.3-5.1); Sodium 139 mmol/L (135-145); Total Iron Binding Capacity 312 mcg/dL (228-428); Triglycerides 88 mg/dL (<150); Unsaturated Iron Binding 275 ug/dL
[2024-01-06 08:31] LABS: Rheumatoid Factor < 13.0 IU/mL (<15.0)
[2024-01-06 08:45] LABS: Thyroid Stimulating Hormone 5.24 uIU/mL (0.32-4.0); Vitamin D 25-OH Total 33.5 ng/mL (>30)
[2024-01-06 08:52] LABS: Folate 14.5 ng/mL (> or = 4.0); Vitamin B12 531 pg/mL (200-900)
[2024-01-08 15:54] LABS: Anti Nuclear Antibody Screen NEGATIVE (NEGATIVE)
[2024-01-12 20:48] LABS: Cyclic Citrullinated Peptide <16 UNITS
== END 2024-01-06 07:38 | disposition home or self-care (01) ==
LOC: HO.LAB 07:37
PROVIDERS: PCP Internal Medicine; Visit Provider Internal Medicine
DX: M25.50 Pain in unspecified joint (principal); E53.8 Deficiency of other specified B group vitamins; E66.01 Morbid (severe) obesity due to excess calories; Z68.41 Body mass index [BMI] 40.0-44.9, adult; D64.9 Anemia, unspecified; E55.9 Vitamin D deficiency, unspecified; E06.3 Autoimmune thyroiditis; E78.5 Hyperlipidemia, unspecified
CPT/HCPCS: 36415; 80053; 80061; 82306; 82607; 82746; 83540; 84443; 85025; 86038; 86200; 86431

== ENCOUNTER 2024-03-02 08:55 | Outpatient (AMB) | payer OTHER, SELFPAY ==
[2024-03-02 09:04] VITALS: BP 120/70; PULSE 92; TEMP 35.5; BMI 39.3
--- NOTE | 2024-03-02 09:04 | A.OFFVIS_ITS ---
Vital Signs 03/02/24 09:04 Height 4 ft 11.5 in Weight 198 lb BMI 39.3 BP 120/70 Blood Pressure Location Lt brachial Position Sitting Pulse 92 Pulse Source Pulse Oximeter Temp 96 F L Temp Source Oral Intake Visit Reasons: Pain in unspecified joint/cm Intake Note: Patient presents today for polyarthralgia, she is a new patient who was internally referred by her PCP., Dr. Jenkins. She states joint pain is everywhere, mainly both knees. Accompanied by: Spouse Allergies No Known Allergies [No Known Allergies*] Allergy (Verified 03/02/24 09:06) Medication List - Last Reconciled 03/02/24 by Helena Perez MD albuterol sulfate 2.5 mg (3 mL) inhalation Q6H PRN 30 days albuterol sulfate 90 mcg/actuation 2 puffs PO Q4H PRN 30 days celecoxib (Celebrex) 200 mg PO BID 90 days cholecalciferol (vitamin D3) 50 mcg PO DAILY 90 days levothyroxine 88 mcg PO DAILY 90 days meclizine 25 mg PO BID PRN 7 days mecobalamin (vitamin B12) 1,000 mcg sublingual DAILY milnacipran 25 mg PO BID 90 days nebulizers (AeroEclipse II Nebulizer) As directed semaglutide (weight loss) (Wegovy) 1.7 mg (0.75 mL) subcut QWEEK 4 weeks sennosides (senna) 8.6 mg PO BEDTIME PRN 30 days Ventolin HFA 90 mcg/actuation (albuterol sulfate) 2 puffs inhalation Q6H PRN 30 days NS HPI Comments Details: Patient is a 44 y.o. female with Elmira's Thyroiditis (uncontrolled, TSH 5.24), Chronic back pain, Primary OA knees and fibromyalgia here today to establish care. Patient states that she has been having whole body pain for several years which has been worsening voer the past few months. Associated with intermittent muscle spasms at night. No prolonged AM stiffness. Sometimes with swelling to the LE, worse at the end of the day. Currently on wegovy to assist with weight loss [facility] Medical History (Updated 03/02/24 @ 09:35 by Helena Perez MD) Osteoarthritis involving multiple joints on both sides of body Major depressive disorder, recurrent, mild Leg edema Right knee pain Acid reflux Allergic rhinitis Abdominal pain Elmira's disease Menorrhagia with regular cycle Obesity (BMI 30-39.9) History of abnormal cervical Pap smear Asthma Fibromyalgia Depression GERD (gastroesophageal reflux disease) Hypothyroidism Vitamin D deficiency Autoimmune thyroiditis Surgical History History of tonsillectomy History of tubal ligation Family History Mother Asthma Father AIDS Sister No problems noted. Brother No problems noted. Daughter No problems noted. Daughter No problems noted. Daughter No problems noted. Son No problems noted. 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 Current occupational exposures/hazards: No Gender identity: Female Cognitive needs: No Hearing needs: No Vision needs: Yes (reading glasses) Female Reproductive History Menstrual Age of Menarche: 11 Review of Systems Const Details: Review of Systems Constitutional: Denies fever, chills, weight loss ENT: Denies vision changes, eye pain or eye redness, dental caries, dry mouth GI: Denies nausea, vomiting, diarrhea, abdominal pain, change in BM Pulm: Denies SOB, ELIZABETH, hemoptysis, wheezing Cards: Denies chest pain, palpitations Skin: Denies Raynaud's, rash, nail changes, photosensitivity, DIRECTOR OF CURRICULUM AND INSTRUCTION: Denies headaches, weakness, paresthesias, recurrent falls MSK: as per HPI All other systems reviewed and are unremarkable except noted above Physical Exam Vital Signs: Last Vital Signs Temp 96 F L 03/02/24 09:04 Pulse 92 03/02/24 09:04 BP 120/70 03/02/24 09:04 BMI result Body Mass Index 39.3 Physical Examination CONSTITUITIONAL Patient alert and cooperative. Well appearing and in no apparent painful distress HEENT Conjunctiva and sclera clear. ?Pupils equal round and reactive to light. ?No lymphadenopathy. ?Normal dentition. No oral or nasal ulcers noted. No evidence of discoid rash to the nahid of ears CHEST/RESPIRATORY SYSTEM Normal respiratory effort and able to speak in complete sentences. ?Clear to auscultation bilaterally. ?No crackles, rales, rhonchi, wheezes heard. CARDIAC SYSTEM Regular rate and rhythm. ?S1 and S2 heard no murmurs. ?Radial pulses intact bilaterally MSK Hands: ?Good pre owned sales consultant strength bilaterally - 5/5. ?No deformities noted. ?No synovitis noted to the MCPs, PIPs or DIPs. ?No tenderness to palpation of these joints. Wrists: ?Full range of motion at the wrists without pain. ?No tenderness to palpation or synovitis noted to the wrists. Elbows: Full range of motion without pain. No tenderness, weakness, swelling, increased warmth or erythema. Shoulders: Full range of motion without pain. No tenderness, weakness, swelling, increased warmth or erythema. Hips: Full range of motion without pain. Hip bursa: No tenderness to palpation Knees: ?Full range of motion. ?No tenderness, swelling, increased warmth or erythema.?Crepitations noted Ankles: Full range of motion. ?No tenderness, swelling, increased warmth or erythema.? Feet: ?Negative squeeze test. ?No tenderness to palpation or swelling of the MTPs. Tender points:??Tenderness to palpation of the neck, shoulders, chest, elbows, hips, buttocks or knees. SKIN Skin intact without rashes. Results Reviewed Results Reviewed: Laboratory Tests 09/27/18 09/20/23 01/06/24 12:00 14:33 07:47 WBC 11.7 H 10.2 RBC 5.02 5.08 Hgb 12.8 13.2 Hct 40.1 40.7 Plt Count 367 309 Sodium 139 Potassium 4.1 Chloride 109 H Carbon Dioxide 25 BUN 9 Creatinine 0.70 25-OH Vitamin D Total 23.7 L 33.5 TSH 3.14 5.24 H Rheumatoid Factor < 13.0 Cycl Citrul Peptide IgG <16 NENITA Screen NEGATIVE SS-A/Ro Antibody <1.0 SS-B/La Antibody <1.0 Sm (Grigsby) Antibody <1.0 SmRNP Antibodies <1.0 Anti-ds DNA (Crithidia) Negative Beta-2-GPI IgG Ab <9 Beta-2-GPI IgA Ab <9 Beta-2-GPI IgM Ab <9 Thyroid Peroxidase Ab 1744 H Anti-Cardiolipin IgG Ab <14 Anti-Cardiolipin IgM Ab <12 Complement C3 196 H Complement C4 48 Assessment & Plan Assessment & Plan (1) Fibromyalgia: Code(s): M79.7 - Fibromyalgia Category: Medical Plan: #Fibromyalgia Patient with fibromyalgia and continued pain. Has tried gabapentin in the past but did not tolerate it. Currently on duloxetine but not able to escalate therapy because of GI issues Will start milacipran 25mg, to take nightly for 2 weeks then increase to 50mg (two tablets) a day. Recommended consistency with exercise and stretching, stress reduction, and mindfulness (2) Osteoarthritis involving multiple joints on both sides of body: Code(s): M15.9 - Polyosteoarthritis, unspecified Category: Medical Plan: #OA OA of the bilateral knees as per XRs and exam Physical therapy ordered (3) Elmira's disease: Code(s): E06.3 - Autoimmune thyroiditis Category: Medical Plan: #[place]imotos Thyroiditis Elevated TSH on last check Uncontrolled thyroid disease can also contribute to joint and body pain Will refer to endocrinology Plan I spent 45 minutes reviewing the record and labs, seeing the patient, discussing the treatment plan and documenting in the medical record ? Orders: Orders Triiodothyronine T3 Free Today M25.50 - Pain in unspecified joint C Reactive Protein Today R73.02 - Impaired glucose tolerance (oral) Thyroglobulin Antibodies Today M25.50 - Pain in unspecified joint Thyroid Peroxidase Antibodies Today M25.50 - Pain in unspecified joint Thyroid Stimulating Hormone Today M25.50 - Pain in unspecified joint Free T4 (Free Thyroxine) Today M25.50 - Pain in unspecified joint XR hand wrist RT Today M15.9 - Polyosteoarthritis, unspecified XR hand wrist LT Today M15.9 - Polyosteoarthritis, unspecified PT Evaluation and Treatment Today M17.0 - Bilateral primary osteoarthritis of knee, M47.816 - Spondylosis without myelopathy or radiculopathy, lumbar region Complete Blood Count Auto Diff Today R73.02 - Impaired glucose tolerance (oral) Comprehensive Met. Panel Today R73.02 - Impaired glucose tolerance (oral) Erythrocyte Sedimentation Rate Today R73.02 - Impaired glucose tolerance (oral) Referrals Endocrinology Referral E06.3 - Autoimmune thyroiditis Medications: New celecoxib (Celebrex) 200 mg PO BID 180 caps 1RF 90 days M15.9 - Polyosteoarthritis, unspecified milnacipran 25 mg PO BID 180 tabs 1RF 90 days M79.7 - Fibromyalgia Discontinued duloxetine Discontinued Reason: Doctor's Order 20 mg PO DAILY 90 days 90 caps 0RF M25.50 - Pain in unspecified joint Coding Level of Care Code New Pt Level 4 (82789) Diagnoses Fibromyalgia M79.7 Osteoarthritis involving multiple joints on both sides of body M15.9 Elmira's disease E06.3
== END 2024-03-02 09:44 | disposition home or self-care (01) ==
PROVIDERS: PCP Internal Medicine; Visit Provider Student in an Organized Health Care Education/Training Program
DX: M79.7 Fibromyalgia (principal); M15.9 Polyosteoarthritis, unspecified; E06.3 Autoimmune thyroiditis
CPT/HCPCS: 99204

== ENCOUNTER → 2024-03-02 08:55 | Outpatient (BNVA) | payer OTHER, SELFPAY | PROVIDERS: PCP Internal Medicine; Visit Provider Student in an Organized Health Care Education/Training Program | DX: M79.7 Fibromyalgia (principal); M15.9 Polyosteoarthritis, unspecified; E06.3 Autoimmune thyroiditis | CPT/HCPCS: 99202 ==

== ENCOUNTER 2024-03-19 11:21 | Outpatient (REF) | payer OTHER, SELFPAY ==
--- NOTE | ~2024-03-19 | XR_ITS ---
EXAMINATION: XR HAND/WRIST, LEFT CLINICAL INFORMATION: M15.9 - Polyosteoarthritis, unspecified . Patient states swelling and pain in both hands and wrists, x1 year. COMPARISON: X-ray bilateral hands 09/27/2018. TECHNIQUE: PA, lateral, oblique, and scaphoid views of the left hand and wrist. FINDINGS: No fracture, dislocation, or suspicious bone lesion. Normal alignment of the right hand and wrist. Normal joint spaces. No erosions or periarticular osteopenia. Soft tissues demonstrate mild prominence overlying the dorsal MCPs. XR/XR hand wrist LT IMPRESSION: 1. Normal bony radiographs of the left hand and wrist. No arthritic changes identified. 2. Mild soft tissue prominence overlying the dorsal MCP's. Electronically signed by: Meek Simeon MD 03/29/2024 02:48 PM WILL
--- NOTE | ~2024-03-19 | XR_ITS ---
EXAMINATION: XR HAND/WRIST, RIGHT CLINICAL INFORMATION: M15.9 - Polyosteoarthritis, unspecified . Patient states swelling and pain in both hands and wrists, x1 year. COMPARISON: None available. TECHNIQUE: PA, lateral, oblique, and scaphoid views of the right hand and wrist. FINDINGS: No fracture, dislocation, or suspicious bone lesion. Normal alignment of the right hand and wrist. Normal joint spaces. No erosions or periarticular osteopenia. Soft tissues demonstrate mild prominence overlying the dorsal MCPs. XR/XR hand wrist RT IMPRESSION: 1. Normal bony radiographs of the right hand and wrist. No arthritic changes identified. 2. Mild soft tissue prominence overlying the dorsal MCP's. Electronically signed by: Meek Simeon MD 03/29/2024 02:47 PM WILL
[2024-03-19 12:37] LABS: MANUAL DIFF FLAG NO
[2024-03-19 13:09] LABS: Basophils Percent Auto 0.4 % (0-2); Eosinophils Absolute Auto 0.5 X10*3/uL (0.0-0.4); Eosinophils Percent Auto 4.3 % (0-4); Hemoglobin 12.8 g/dl (12.0-16.0); Imm Gran Abs Auto 0.09 X10*3/uL (0.00-0.03); Imm Gran Pct Auto 0.8 % (0.0-0.4); Lymphocytes Absolute Auto 3.4 X10*3/uL (1.2-4.9); Lymphocytes Percent Auto 29.7 % (20-40); Mean Corpuscular HGB Conc 32.8 g/dl (31.0-35.0); Mean Corpuscular Hemoglobin 26.7 pg (27.0-33.0); Mean Corpuscular Volume 81.3 fL (80.0-98.0); Mean Platelet Volume 9.3 fL (9.4-12.3); Monocytes Absolute Auto 0.7 X10*3/uL (0.1-1.2); Monocytes Percent Auto 6.4 % (2-11); Neutrophils Absolute Auto 6.6 x10*3/uL (2.0-8.3); Neutrophils Percent Auto 58.4 % (45-73); Platelet Count 328 X10*3/uL (160-400); Red Cell Distribution Width 13.3 % (11.0-16.0); White Blood Count 11.3 X10*3/uL (4.8-10.8)
[2024-03-19 13:11] LABS: Estimated Average Glucose 103 mg/dL; Hemoglobin A1C 108.6815 umol/L; Hemoglobin A1c % 5.2 % (<6.0); Total Hemoglobin (HGBA1C) 3216.1276 umol/L
[2024-03-19 13:51] LABS: Glucose Fasting 86 mg/dL (60-99)
[2024-03-19 14:00] LABS: Erythrocyte Sedimentation Rate 18 MM/HR (0-20)
[2024-03-19 14:05] LABS: Alanine Aminotransferase 12 U/L (0-31); Alkaline Phosphatase 74 U/L (39-117); Anion Gap 10 (12-20); Aspartate Amino Transferase 13 U/L (5-31); Bilirubin Total 0.3 mg/dL (0.0-1.0); Blood Urea Nitrogen 11 mg/dL (9-16); C Reactive Protein 1.09 mg/dL (< or = 0.50); Calcium 8.9 mg/dL (8.4-10.2); Carbon Dioxide 26 mmol/L (22-29); Chloride 106 mmol/L (96-108); Estimated Glomerular Filt Rate > 60; Glucose Random 86 mg/dL (60-115); Potassium 3.9 mmol/L (3.3-5.1); Sodium 138 mmol/L (135-145); Total Protein 7.1 g/dL (6.5-8.0)
[2024-03-19 14:11] LABS: Free T4 (Free Thyroxine) 0.98 ng/dL (0.71-1.85); Thyroid Stimulating Hormone 5.25 uIU/mL (0.32-4.0)
[2024-03-20 09:02] LABS: Immunoglobulin A 189 mg/dL (47-310)
[2024-03-21 10:47] LABS: Transglutaminase IgA <1.0
[2024-03-21 10:48] LABS: Thyroglobulin Antibodies 1; Thyroid Peroxidase Antibodies >900 (H)
== END 2024-03-19 11:22 | disposition home or self-care (01) ==
LOC: HO.LAB 11:21
PROVIDERS: PCP Internal Medicine; Referring Provider Student in an Organized Health Care Education/Training Program; Visit Provider Internal Medicine
DX: R19.4 Change in bowel habit (principal); M15.9 Polyosteoarthritis, unspecified; M25.50 Pain in unspecified joint; R73.02 Impaired glucose tolerance (oral); K21.9 Gastro-esophageal reflux disease without esophagitis; E03.9 Hypothyroidism, unspecified; K58.1 Irritable bowel syndrome with constipation
CPT/HCPCS: 36415; 73110; 73130; 80053; 82784; 82947; 83036; 84439; 84443; 84481; 85025; 85027; 85652; 86140; 86364; 86376; 86800; 99202

== ENCOUNTER 2024-03-19 11:21 | Outpatient (AMB) | payer OTHER, SELFPAY ==
[2024-03-19 11:23] VITALS: BP 129/66; PULSE 102; O2SAT 97; BMI 39.3
--- NOTE | 2024-03-19 11:23 | MHC.OFFVIS ---
Vital Signs 03/19/24 11:23 Height 4 ft 11.5 in Weight 198 lb BMI 39.3 BP 129/66 Blood Pressure Location Lt brachial Position Sitting Pulse 102 H Pulse Source Pulse Oximeter Pulse Oximetry (%) 97 Oxygen Delivery Method Room Air Intake Visit Reasons: CIC Intake Note: Pt presents to the office today for c/o acid reflux due to her health issues. Pt states she has acid reflex almost everyday. Pt denies she does have issues with constipation as well as diarrhea. Allergies No Known Allergies [No Known Allergies*] Allergy (Verified 03/19/24 11:27) HPI Comments Details: 44 y.o F who is here to follow up after 2 years for worsening GI complaints. Reports 2 major concerns: i) change in bowel habits and ii) reflux. i) Has had intermittent issues with fluctuating diarrhea and constipation but for the past 6 months since starting wegovy, symptoms have gotten worse. Reports being constipated more often than not. Has 2-3 BMs per week which are hard and has strain. BM is brown and sees blood on wiping. Sees blood each time she has strain which is 50% of the time. Also has bilateral abd pain and lower back pain which gets better after defecation. This is assoc with nausea whih also gets better. Has been taking senna 1 tab at bedtime and glycerin suppositories PRN. Used to take milk of mag but stopped due to awful taste and cramping. ii) Describes reflux as burning retrosternal pain with regurgitation. No dysphagia. Sx are worse in the evenings when she is laying down. Appetite is unchanged. Sx are present at least twice a week and managed with omeprazole 20 PRN. Also has to take tums for break through she is having a reflux episode. Taking wegovy 1.7mg, which was decreased from 2mg due to side effects. [facility] Medical History (Updated 03/19/24 @ 16:20 by Kizzy Lassiter MD) Osteoarthritis involving multiple joints on both sides of body Major depressive disorder, recurrent, mild Leg edema Right knee pain Acid reflux Allergic rhinitis Abdominal pain Elmira's disease Menorrhagia with regular cycle Obesity (BMI 30-39.9) History of abnormal cervical Pap smear Asthma Fibromyalgia Depression GERD (gastroesophageal reflux disease) Hypothyroidism Vitamin D deficiency Autoimmune thyroiditis Surgical History History of tonsillectomy History of tubal ligation Family History Mother Asthma Father AIDS Sister No problems noted. Brother No problems noted. Daughter No problems noted. Daughter No problems noted. Daughter No problems noted. Son No problems noted. 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 Current occupational exposures/hazards: No Gender identity: Female Cognitive needs: No Hearing needs: No Vision needs: Yes (reading glasses) Female Reproductive History Menstrual Age of Menarche: 11 Review of Systems Const All systems reviewed & are unremarkable except as noted in HPI and below Physical Exam Vital Signs: Last Vital Signs Pulse 102 H 03/19/24 11:23 BP 129/66 03/19/24 11:23 Pulse Ox 97 03/19/24 11:23 Oxygen Delivery Method Room Air 03/19/24 11:23 BMI result Body Mass Index 39.3 No apparent distress, with obesity Nonicteric Abdomen soft, nondistended Alert and oriented x3, normal gait Results Reviewed Results Reviewed: Labs reviewed - TSH high in Dec. Assessment & Plan Assessment & Plan (1) Acid reflux: Code(s): K21.9 - Gastro-esophageal reflux disease without esophagitis Category: Medical Qualifiers: Esophagitis presence: esophagitis presence not specified Qualified Code(s): K21.9 - Gastro-esophageal reflux disease without esophagitis (2) Change in bowel habit: Code(s): R19.4 - Change in bowel habit Category: Medical (3) Hypothyroidism: Code(s): E03.9 - Hypothyroidism, unspecified Category: Medical Qualifiers: Hypothyroidism type: unspecified Qualified Code(s): E03.9 - Hypothyroidism, unspecified (4) Irritable bowel syndrome with constipation: Code(s): K58.1 - Irritable bowel syndrome with constipation Category: Medical Plan 1. IBS-C/ change in bowel habits Overall presentation consistent with IBS-C with likely worsening from hypothyroid vs diet changes (low fiber high protein). Other ddx include celiac and IBD though less likely. Plan: - Labs as below - Add fiber 1 tsp in 8 oz water and then increase to 1 tbsp after a week - Miralax once-twice daily or titrate to effect - Elevate legs while having BM - Pt also encouraged to discuss levothyroxine dosing with PCP/account processor 2. GERD Risk factors include BMI and HH. Potentially some contribution by GLP-1 mediated delayed gastric emptying. Agree with decreasing to dose best tolerated. Plan: - Barium swallow ordered - Omeprazole 20mg once daily in evenings x 8 weeks - Wedge pillow Rxed - Also advised 10% TBW loss over 6 months to reinforce physiological antireflux barrier Follow up 2 months Orders: Orders Comprehensive Met. Panel Today R19.4 - Change in bowel habit Transglutaminase IgA Today R19.4 - Change in bowel habit Immunoglobulin A Today R19.4 - Change in bowel habit Calprotectin, Fecal Today R19.4 - Change in bowel habit C Reactive Protein Today R19.4 - Change in bowel habit FL barium swallow Today K21.9 - Gastro-esophageal reflux disease without esophagitis Medications: New [wedge pillow] Use it for nap time and over night sleep 1 ea 0RF omeprazole 20 mg PO DAILY 90 caps 0RF K21.9 - Gastro-esophageal reflux disease without esophagitis polyethylene glycol 3350 (Miralax) 17 grams PO DAILY 238 grams 1RF Coding Level of Care Code New Pt Level 4 (54194) Complex EM visit Add On G2211 Diagnoses Gastroesophageal reflux disease, unspecified whether esophagitis present K21.9 Esophagitis presence: esophagitis presence not specified Change in bowel habit R19.4 Hypothyroidism, unspecified type E03.9 Hypothyroidism type: unspecified Irritable bowel syndrome with constipation K58.1
== END 2024-03-19 13:16 | disposition home or self-care (01) ==
PROVIDERS: PCP Internal Medicine; Visit Provider Internal Medicine
DX: K21.9 Gastro-esophageal reflux disease without esophagitis (principal); R19.4 Change in bowel habit; E03.9 Hypothyroidism, unspecified; K58.1 Irritable bowel syndrome with constipation
CPT/HCPCS: 99204; G2211

== ENCOUNTER 2024-03-20 09:21 | Outpatient (AMB) | payer OTHER, SELFPAY ==
[2024-03-20 09:36] VITALS: BP 100/64; PULSE 55; BMI 43.1
--- NOTE | 2024-03-20 09:36 | A.OFFVIS_ITS ---
Vital Signs 03/20/24 09:36 Height 4 ft 11.5 in Weight 217 lb 2.485 oz BMI 43.1 BP 100/64 Blood Pressure Location Lt brachial Position Sitting Pulse 55 Pulse Source Pulse Oximeter Intake Visit Reasons: Autoimmune thyroiditis-confirmed Intake Note: patient present today for Autoimmune thyroiditis office visit. Microfilming Document Preparer Required: No Accompanied by: Self / Same As Patient Allergies No Known Allergies [No Known Allergies*] Allergy (Verified 03/20/24 09:40) Medication List - Last Reconciled 03/20/24 by Sharonda Martines MD albuterol sulfate 2.5 mg (3 mL) inhalation Q6H PRN 30 days albuterol sulfate 90 mcg/actuation 2 puffs PO Q4H PRN 30 days celecoxib (Celebrex) 200 mg PO BID 90 days cholecalciferol (vitamin D3) 50 mcg PO DAILY 90 days levothyroxine 88 mcg PO DAILY 90 days meclizine 25 mg PO BID PRN 7 days mecobalamin (vitamin B12) 1,000 mcg sublingual DAILY milnacipran 25 mg PO BID 90 days nebulizers (AeroEclipse II Nebulizer) As directed omeprazole 20 mg PO DAILY polyethylene glycol 3350 (Miralax) 17 grams PO DAILY semaglutide (weight loss) (Wegovy) 1.7 mg (0.75 mL) subcut QWEEK 4 weeks sennosides (senna) 8.6 mg PO BEDTIME PRN 30 days Ventolin HFA 90 mcg/actuation (albuterol sulfate) 2 puffs inhalation Q6H PRN 30 days NS [wedge pillow Use it for nap time and over night sleep ] HPI Comments Details: 44 YO Female with PMHx Elmira's disease with hypothyroidism who is seen in F/U for the same. She was previously followed by Dr. Carrillo , last visit 2021. She was first diagnosed with hypothyroidism many years ago and has been trialed on Levothyroxine, nature thyroid, armour thyroid and levoxyl. She was unable to tolerate all of these medications. After her initial visit with us she was started on Synthroid 50 mcg PO daily and then lolst to follow up and then reestablished care 2019. She had labs checked 09/27/18 with TSH of 5.57, FT4 of 0.92 and TPO antibodies positive at 1744. Labs were repeated after being on Synthroid 50 mcg PO daily and TSH was WNL. She did have thyroid US checked 06/10/2020 with no evidence of thyroid nodules. Images of this US were independently reviewed and this reveals a gland that is diffusely heterogenous and consistent with Elmira's disease. There are no true nodules visualized. Interval history Currenlty levothyroxine 88 mcg daily, taking it appropriately. Reporting abd pain for an hour after taking it. Most recent blood work from 03/19/2024 with TSH high at 5.25, free T4 0.98, free T3-3. Reporting fatigue, overall aches and pains getting evaluated by Rheum. Reports constipation. losing weight on Wegovy, todays weight seems to be erroneous as it was 198 lbs yesterday . Reports cold intolerance intermittenlty. Reports regular menses. She already has a tubal-ligation. Physical exam General: sitting comfortably in no acute distress HEENT: normocephalic/atraumatic, moist oral mucosa Neck: supple, symmetrical, no thyromegaly Cardiac: normal heart sounds Pulm: normal breath sounds B/L, no added breath sounds Abd: not distended, no tenderness Labs: Laboratory Tests 07/11/21 09:45 TSH 2.36 Free T4 1.08 Laboratory Tests 09/27/18 08/06/23 09/20/23 12:00 08:15 14:33 TSH 2.17 3.14 Free T4 Free T3 Thyroid Peroxidase Ab 1744 H 01/06/24 03/19/24 07:47 12:36 TSH 5.24 H 5.25 H Free T4 0.98 Free T3 3.0 Thyroid Peroxidase Ab US THYROID 2020 CLINICAL INFORMATION: Hypothyroidism. COMPARISON: US thyroid soft tissues 10/06/2016. TECHNIQUE: Linear transducer grayscale and color Doppler examination with attention to the region of the thyroid. FINDINGS: SIZE: Measurements of the thyroid lobes and nodules are given in sagittal, anteroposterior and transverse dimensions respectively. The thyroid gland is enlarged. Right Thyroid Lobe: 5.7 x 2.4 x 2.2 cm, volume 15.7 mL. Previously 5.5 x 2.5 x 2.6 cm, volume 18.7 mL. Parenchyma: The gland echotexture is heterogeneous. Thyroid vascularity is normal. Left Thyroid Lobe: 5.5 x 2.5 x 2.1 cm, volume 15.1 mL. Previously 5.4 x 2.5 x 2.7 cm, volume 19.1 mL. Parenchyma: The gland echotexture is heterogeneous. Thyroid vascularity is normal. Isthmus: 1.2 cm in maximum AP dimension. Previously 0.8 cm. Nodules: No focal nodule is seen. NODES: No lymphadenopathy is seen in the tissue surrounding the thyroid gland. US/US thyroid IMPRESSION: Enlarged heterogeneous thyroid gland with normal vascularity. The thyroid gland is slightly decreased in size compared to September 2016 exam. No focal nodule or lymphadenopathy is seen. [facility] Medical History (Updated 03/20/24 @ 10:11 by Sharonda Martines MD) Osteoarthritis involving multiple joints on both sides of body Major depressive disorder, recurrent, mild Leg edema Right knee pain Acid reflux Allergic rhinitis Abdominal pain Elmira's disease Menorrhagia with regular cycle Obesity (BMI 30-39.9) History of abnormal cervical Pap smear Asthma Fibromyalgia Depression GERD (gastroesophageal reflux disease) Hypothyroidism Vitamin D deficiency Autoimmune thyroiditis Surgical History History of tonsillectomy History of tubal ligation Family History Mother Asthma Father AIDS Sister No problems noted. Brother No problems noted. Daughter No problems noted. Daughter No problems noted. Daughter No problems noted. Son No problems noted. 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 Current occupational exposures/hazards: No Gender identity: Female Cognitive needs: No Hearing needs: No Vision needs: Yes (reading glasses) Female Reproductive History Menstrual Age of Menarche: 11 Physical Exam Vital Signs: Last Vital Signs Pulse 55 03/20/24 09:36 BP 100/64 03/20/24 09:36 BMI result Body Mass Index 43.1 Assessment & Plan Assessment & Plan (1) Hypothyroidism: Code(s): E03.9 - Hypothyroidism, unspecified Category: Medical Qualifiers: Hypothyroidism type: due to Elmira's thyroiditis Qualified Code(s): E06.3 - Autoimmune thyroiditis Plan: 44-year-old female coming in today for 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 Most recent blood work from 03/19/2024 showed TSH elevated at 5.25. Patient also reports symptoms consistent with elevated TSH. We will increase the dose to 100 mcg daily from 88 mcg daily. She reports abdominal pain after taking levothyroxine that resolves after an hour, she says she was tolerating the Synthroid better and was not getting abdominal pain with it. I will switch her to brand-name Synthroid. Plan: -increase dose Synthroid 100 mcg daily -ordered TSH, free T4 to be done in 6 weeks -follow up in 6 months Plan I spent 30 minutes in reviewing the record, seeing the patient and documenting in the medical record. Orders: Orders Thyroid Stimulating Hormone 6 Weeks E03.9 - Hypothyroidism, unspecified Free T4 (Free Thyroxine) 6 Weeks E03.9 - Hypothyroidism, unspecified Medications: New Synthroid (levothyroxine) brand name Synthroid only, medically necessary , substitution not allowed , gets abdominal pain from generic 100 mcg PO DAILY 30 tabs 6RF NS Discontinued levothyroxine Discontinued Reason: Patient Completed Course 88 mcg PO DAILY 90 days 90 tabs 1RF Patient Instructions: Increase thyroid medicine to 100 mcg daily, change to brand name Synthyroid Do blood work in 6 weeks , I will reach out with results I will see you back in 6 months Coding Level of Care Code Est Pt Level 4 (94474) Diagnoses 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
== END 2024-03-20 10:06 | disposition home or self-care (01) ==
PROVIDERS: PCP Internal Medicine; Visit Provider Student in an Organized Health Care Education/Training Program
DX: E06.3 Autoimmune thyroiditis (principal)
CPT/HCPCS: 99214

== ENCOUNTER → 2024-03-20 09:21 | Outpatient (BNVA) | payer OTHER, SELFPAY | PROVIDERS: PCP Internal Medicine; Visit Provider Student in an Organized Health Care Education/Training Program | DX: E06.3 Autoimmune thyroiditis (principal) | CPT/HCPCS: 99212 ==

== ENCOUNTER 2024-03-29 14:06 | Outpatient (AMB) | payer OTHER, SELFPAY ==
--- NOTE | 2024-03-29 14:13 | A.OFFPC_ITS ---
Vital Signs 03/29/24 14:14 Height 4 ft 11.5 in Weight 214 lb BMI 42.5 BP 112/70 Blood Pressure Location Lt brachial Position Sitting Intake Visit Reasons: Follow up weight Intake Note: Patient here for a follow up weight Occupational Medicine Physician Required: No Accompanied by: Self / Same As Patient Allergies No Known Allergies [No Known Allergies*] Allergy (Verified 03/29/24 14:26) Medication List - Last Reconciled 03/29/24 by Nenita Harper MD albuterol sulfate 2.5 mg (3 mL) inhalation Q6H PRN 30 days albuterol sulfate 90 mcg/actuation 2 puffs PO Q4H PRN 30 days celecoxib (Celebrex) 200 mg PO BID 90 days cholecalciferol (vitamin D3) 50 mcg PO DAILY 90 days meclizine 25 mg PO BID PRN 7 days mecobalamin (vitamin B12) 1,000 mcg sublingual DAILY milnacipran 25 mg PO BID 90 days nebulizers (AeroEclipse II Nebulizer) As directed omeprazole 20 mg PO DAILY polyethylene glycol 3350 (Miralax) 17 grams PO DAILY semaglutide (weight loss) (Wegovy) 1.7 mg (0.75 mL) subcut QWEEK 4 weeks sennosides (senna) 8.6 mg PO BEDTIME PRN 30 days Synthroid (levothyroxine) 100 mcg PO DAILY NS Ventolin HFA 90 mcg/actuation (albuterol sulfate) 2 puffs inhalation Q6H PRN 30 days NS [wedge pillow Use it for nap time and over night sleep ] Tobacco use date assessed: 08/02/23 Dental Screening Dental Screen Date: 01/05/24 HPI HPI Comments History of Present Illness Details The patient is a 44-year-old female presenting with multiple chronic conditions requiring ongoing management. She has a history of Elmira's Thy roiditis, for which she is currently prescribed Synthroid, adjusted from 88 mcg to 100 mcg due to a recent thyroid level measure in February showing a TSH of 5.25. She also has Fibromyalgia managed by her lead carpenter, Dr. Sharonda Martines. The patient reports using Celebrex as needed for pain associated with this condition. Additionally, she experiences Gastroesophageal Reflux Disease, for which she takes Omeprazole daily, as advised by her nut sheller machine operator, Dr. Maikol. Despite this treatment, she continues to experience significant heartburn. She also struggles with constipation for which she takes Miralax and BLAYNE as needed. For weight management, she has previously used Wegovy with varied dosages; she tolerated 1 mg but experienced diarrhea and soreness at the injection site with higher doses, leading to cessation of 2.4 mg and continuation at 1.7 mg pending insurance approval. The patient commenced at 217 pounds and noted a reduction to 214 pounds. [facility] Medical History Osteoarthritis involving multiple joints on both sides of body Major depressive disorder, recurrent, mild Leg edema Right knee pain Acid reflux Allergic rhinitis Abdominal pain Elmira's disease Menorrhagia with regular cycle Obesity (BMI 30-39.9) History of abnormal cervical Pap smear Asthma Fibromyalgia Depression GERD (gastroesophageal reflux disease) Hypothyroidism Vitamin D deficiency Autoimmune thyroiditis Surgical History History of tonsillectomy History of tubal ligation Family History Mother Asthma Father AIDS Sister No problems noted. Brother No problems noted. Daughter No problems noted. Daughter No problems noted. Daughter No problems noted. Son No problems noted. 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 Rudy Brasher, Isi Sahni, Jerry Hughes and colleagues, with an educational joseph from [employer]. Review of Systems Const Details: - Gastrointestinal: Reports heartburn, constipation, diarrhea Physical exam (Primary Care) Vital Signs: Last Vital Signs BP 112/70 03/29/24 14:14 BMI result Body Mass Index 42.5 BMI Assessment/Plan discussion: High BMI High, discussed plan: lifestyle, weight reduction, dietary and physical activity Tobacco/Smoking Status: Tobacco use Status Tobacco use date assessed 08/02/23 03/29/24 14:17 Patient Tobacco Use Status Former Tobacco user 03/29/24 14:17 Tobacco use type Cigarette 03/29/24 14:17 e-Cigarette/Vaping Use Never Used 03/29/24 14:17 Thrive Assessment: Date of Thrive Assessment Date Thrive assessed 08/02/23 03/29/24 14:17 Const Other: General: No confusion Head: Normal to inspection, Yes normocephalic and Yes atraumatic Neck: Normal visual inspection and Yes supple Respiratory: Normal respiratory effort, clear to auscultation bilaterally Cardiovascular: No jugular venous distension, regular rate, regular rhythm, S1 normal heart sound present and S2 normal heart sound present Extremities: Full ROM Office Procedures Flu Questionnaire Does the patient have a severe egg allergy?: No Immunizations Fluarix Triv [id number] (PF) 45 mcg (15 mcg x 3)/0.5 mL IM syringe Performing Provider: Nenita Harper MD [facility] Documented (not given) by: HALEY Crenshaw on 03/29/24 14:21 Reason Not Given: Patient Refused Coding Level of Care Code Est Pt Level 4 (33769) Complex EM visit Add On G2211 Diagnoses Morbid obesity with BMI of 40.0-44.9, adult E66.01; Z68.41 Chronic constipation K59.09 Acid reflux K21.9 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 Time Spent (min) 23 Assessment & Plan Assessment & Plan (1) Morbid obesity with BMI of 40.0-44.9, adult: Code(s): E66.01 - Morbid (severe) obesity due to excess calories; Z68.41 - Body mass index [BMI] 40.0-44.9, adult Category: Medical (2) Chronic constipation: Comment: 40-year-old female chronic constipation, continue bowel regimen, Continue to maintain high-fiber diet, she may take senna Code(s): K59.09 - Other constipation Category: Medical (3) Acid reflux: Comment: Dietary modifications, keep a food diary, avoid culprits, Prilosec 40 mg Nutrition referral sent Code(s): K21.9 - Gastro-esophageal reflux disease without esophagitis Category: Medical (4) Hypothyroidism: Code(s): E03.9 - Hypothyroidism, unspecified Category: Medical Qualifiers: Hypothyroidism type: due to Elmira's thyroiditis Qualified Code(s): E06.3 - Autoimmune thyroiditis Plan Wegovy 1. 7 mg sent and pending insurance approval. Monitor weight changes and side effects: - Depression: No current adjustments mentioned; assess mental health status regularly. Patient was informed and verbally consented to the use of an ambient scribe for clinic note documentation during this visit. We discussed the ongoing management of the patient's conditions, including the importance of taking Synthroid as prescribed and monitoring thyroid levels. We reviewed the side effects experienced with higher doses of Wegovy, emphasizing continued use at a tolerable dose while awaiting insurance approval. I advised on taking Omeprazole properly to manage reflux symptoms more effectively. The patient is to continue managing constipation and monitor for any potential exacerbation. I reinforced the importance of routine follow-ups with her specialists to ensure comprehensive care for her chronic conditions. Orders: Orders Influenza [id number] Immunization Today Z23 - Encounter for immunization Medications: Refilled semaglutide (weight loss) (Wegovy) administer weeks 13 through 16 of therapy 1.7 mg (0.75 mL) subcut QWEEK 4 weeks 3 mL 6RF Patient Instructions: - Continue Synthroid 100 mcg daily; reassess thyroid levels in six weeks. - Follow instructions on taking Omeprazole 30 minutes before breakfast daily. - Continue Celebrex as needed for fibromyalgia pain. - Use Miralax and BLAYNE as needed for constipation. - Monitor weight and symptoms; report any issues related to Wegovy use. - Follow up with nut sheller machine operator as scheduled. - Contact our office if any unexpected symptoms arise or conditions worsen.
[2024-03-29 14:14] VITALS: BP 112/70; BMI 42.5
== END 2024-03-29 14:36 | disposition home or self-care (01) ==
PROVIDERS: PCP Internal Medicine; Visit Provider Internal Medicine
DX: E66.01 Morbid (severe) obesity due to excess calories (principal); Z68.41 Body mass index [BMI] 40.0-44.9, adult; K59.09 Other constipation; K21.9 Gastro-esophageal reflux disease without esophagitis; E06.3 Autoimmune thyroiditis; Z23 Encounter for immunization

== ENCOUNTER → 2024-03-29 14:06 | Outpatient (BNVA) | payer OTHER, SELFPAY | PROVIDERS: PCP Internal Medicine; Visit Provider Internal Medicine | DX: E66.01 Morbid (severe) obesity due to excess calories (principal); Z68.41 Body mass index [BMI] 40.0-44.9, adult; K59.09 Other constipation; K21.9 Gastro-esophageal reflux disease without esophagitis; E06.3 Autoimmune thyroiditis | CPT/HCPCS: 90471; 99212 ==

== ENCOUNTER → 2024-05-23 13:33 | Outpatient (BNVA) | payer OTHER, SELFPAY | PROVIDERS: PCP Internal Medicine; Visit Provider Surgery ==

== ENCOUNTER 2024-06-08 08:13 | Outpatient (AMB) | payer OTHER, SELFPAY ==
--- OUTSIDE RECORDS SUMMARY | 2024-06-08 08:20 | XMS_ITS | Clinical Summary ---
Author Organization [facility] Facility Address [address] [place] [address] Care Team Providers Care Beauty Counselor Name Role Phone Nenita Knott MD Primary Care Provider [phone] Medications albuterol (2.5 MG/3ML) 0.083% nebulizer solution 3 (three) times a day Active ergocalciferol (VITAMIN D2) 1.25 MG (87599 UT) capsule 06/04/2020 Active ibuprofen (ADVIL,MOTRIN) 800 MG tablet Take 1 tablet by mouth 3 (three) times a day Active Synthroid 50 MCG tablet Take 50 mcg by mouth daily 05/20/2020 Active naproxen (NAPROSYN) 250 MG tablet Take 1 tablet by mouth 2 (two) times a day Active Family History Relation Status Comments Father Mother Alive Social History Tobacco Use Types Packs/Day Years Used Date Smoking Tobacco: Former Cigarettes Q uit: 12/20/2002 Comments Unknown Sex and Gender Information Value Date Recorded Sex Assigned at Not on file Legal Sex Female 4:57 PM EST Gender Identity Not on file Sexual Orientation Not on file Plan of Treatment Health Maintenance Due Date Last Done Comments Hepatitis B Vaccine (1 of 3 - 19+ 3-dose series) 02/08/1999 Influenza Vaccine (#1) 2023 Pneumococcal Vaccine: Pediat rics (0 to 5 Years) and At-Risk Patients (6 to 64 Years) Aged Out No longer eligi ble based on patient's age to complete this topic Insurance [facility] MEDICAID [facility] MEDICAID Care Teams Beauty Counselor Relationship Specialty Start Date End Date Nenita Knott MD [address] [place] [address] PCP - General 05/05/20
[2024-06-08 10:10] VITALS: BMI 41.7
--- NOTE | 2024-06-08 10:10 | MHC.OFFVISWM ---
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 Allergies No Known Allergies [No Known Allergies*] Allergy (Verified 06/08/24 10:13) Medication List - Last Reconciled 06/08/24 by Mukund York MD albuterol sulfate 2.5 mg (3 mL) inhalation Q6H PRN 30 days albuterol sulfate 90 mcg/actuation 2 puffs PO Q4H PRN 30 days celecoxib (Celebrex) 200 mg PO BID 90 days cholecalciferol (vitamin D3) 50 mcg PO DAILY 90 days meclizine 25 mg PO BID PRN 7 days mecobalamin (vitamin B12) 1,000 mcg sublingual DAILY milnacipran 25 mg PO BID 90 days nebulizers (AeroEclipse II Nebulizer) As directed omeprazole 20 mg PO DAILY polyethylene glycol 3350 (Miralax) 17 grams PO DAILY semaglutide (weight loss) (Wegovy) 1.7 mg (0.75 mL) subcut QWEEK 4 weeks sennosides (senna) 8.6 mg PO BEDTIME PRN 30 days Synthroid (levothyroxine) 100 mcg PO DAILY NS tirzepatide (weight loss) (Zepbound) 5 mg (0.5 mL) subcut QWEEK Ventolin HFA 90 mcg/actuation (albuterol sulfate) 2 puffs inhalation Q6H PRN 30 days NS [wedge pillow Use it for nap time and over night sleep ] HPI HPI 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 She did not make any progress in the 2 months in the program Was started on Zepbound by her PCP and has lost only 6.8lbs from July 2023 to now. The dose was increased to 7.5mg/wk but she did not tolerate it and she is presently at 5mg/week. [facility] Medical History Osteoarthritis involving multiple joints on both sides of body Major depressive disorder, recurrent, mild Leg edema Right knee pain Acid reflux Allergic rhinitis Abdominal pain Elmira's disease Menorrhagia with regular cycle Obesity (BMI 30-39.9) History of abnormal cervical Pap smear Asthma Fibromyalgia Depression GERD (gastroesophageal reflux disease) Hypothyroidism Vitamin D deficiency Autoimmune thyroiditis Surgical History History of tonsillectomy History of tubal ligation Family History Mother Asthma Father AIDS Sister No problems noted. Brother No problems noted. Daughter No problems noted. Daughter No problems noted. Daughter No problems noted. Son No problems noted. 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 Current occupational exposures/hazards: No Gender identity: Female Cognitive needs: No Hearing needs: No Vision needs: Yes (reading glasses) Female Reproductive History Menstrual Age of Menarche: 11 Physical Exam Vital Signs: BMI result Body Mass Index 41.7 Telehealth Telehealth Telehealth Platform: Telephone Location of provider rendering services: practice address Location of patient: address on file Patient Identification confirmed using: Name, : Yes Telehealth method: voice only Patient verbally consented to treatment: Yes Patient verbally consented to billing insurance company: Yes Patient informed of any privacy concerns related to visit: Yes Minutes spent on Phone/Video with Pt.: 30 Assessment & Plan Assessment & Plan (1) Morbid obesity with BMI of 40.0-44.9, adult: Code(s): E66.01 - Morbid (severe) obesity due to excess calories; Z68.41 - Body mass index [BMI] 40.0-44.9, adult Category: Medical Plan: 1. Please send me weight measurements with your body composition scale we discussed and send me weight measurements as soon as possible and then once a week. 2. Do aerobic exercise (outside walking, or treadmill, or elliptical or stationary bike) and do 150 minutes of aerobic exercise per week, or 22 minutes per day. 3. Continue the Zepbound. Use a calorie-counting misty to track your daily calories to create a calorie deficit with a target of consuming 5061-5727 calories per day. We discussed the potential side effects of Wegovy such as nausea, vomiting, abdominal pain, diarrhea and constipation and you will need to contact me if any of these symptoms occur or for any other new symptom you may experience 4. It is important of avoiding and for at least 18 months postoperatively and has been discussed at the infosession. 5. Goal is to lose at least 1.5-2lbs per week 6. Goal to lose at least 10% of your weight, which is about 21lbs. Minimum weight goal: 189lbs Medications: New tirzepatide (weight loss) (Zepbound) 5 mg (0.5 mL) subcut QWEEK 2 mL 0RF E66.01 - Morbid (severe) obesity due to excess calories, Z68.41 - Body mass index [BMI] 40.0-44.9, adult
== END 2024-06-09 10:18 | disposition home or self-care (01) ==
LOC: HO.HBS 08:13
PROVIDERS: PCP Internal Medicine; Visit Provider Surgery
DX: E66.813 Obesity, class 3 (principal); Z68.41 Body mass index [BMI] 40.0-44.9, adult
CPT/HCPCS: 99214

== ENCOUNTER 2024-06-08 09:16 | Outpatient (REF) | payer OTHER, SELFPAY ==
--- NOTE | ~2024-06-08 | FL_ITS ---
EXAMINATION: XR FLUOROSCOPY ESOPHAGRAM CLINICAL INFORMATION: GERD, epigastric pain. COMPARISON: None TECHNIQUE: Fluoroscopic air contrast esophagram examination was performed utilizing standard techniques with thin and thick barium and effervescent granules. Numerous spot images were obtained. Several fluoroscopic image hold cine sequences were also obtained. FINDINGS: UPPER GI SERIES: Lateral cine images of the oropharynx and hypopharynx demonstrate normal swallow mechanism with normal epiglottic inversion and soft palate elevation. No tracheal penetration, glottic or subglottic aspiration identified. No nasopharyngeal reflux present. Hypopharyngeal structures appear normal without evidence of mass or diverticulum. There was no significant cricopharyngeal achalasia. Dual and single contrast images of the esophagus demonstrate normal caliber, contour, and mucosal pattern. No evidence of stricture, mass, or ulcerations identified. Esophageal peristalsis was normal. No evidence of hiatus hernia identified. No significant gastroesophageal reflux was seen during the course of the examination and on reflux views. Dual contrast and single contrast images of the stomach demonstrated normal contour without evidence of mass, or ulceration. Diffuse prominence/thickening of the areae gastricae of the mucosa. Contrast freely passed into the gastric antrum and duodenal bulb without delay. Single and air-contrast images of the duodenal bulb demonstrate no abnormality. The duodenal sweep has a normal appearance, course, and mucosal fold appearance. FLUOROSCOPY TIME: 2 minutes, 22 seconds. Number of Spot Images:8 Number of cines obtained: 11 DOSE AREA PRODUCT: 2460 uGy-m2 (microgray-meter squared) FL/FL barium swallow with air IMPRESSION: 1. No definitive gastroesophageal reflux identified during the course of this examination. Normal appearing esophagus and GE junction. No hiatus hernia. 2. Thickened appearance of the areae gastricae of the stomach, likely in keeping with gastritis. Electronically signed by: Meek Simeon MD 06/08/2024 09:57 AM [facility]
--- OUTSIDE RECORDS SUMMARY | 2024-06-08 09:40 | XMS_ITS | Data Portability ---
Author Organization [facility], , [facility] Address [address] [place] [address] Care Team Providers Care Graphic Engineer Name Role Phone [facility] OTHER [facility] OTHER WANDY MORENO Primary Care Provider [phone] Assessment No assessment recorded. Plan of Treatment Reminders Order Date Submit Date Provider Last Modified By Organization Details Last Modified Time Details Appointments None recorded. Lab ESR, westergren 2012 013 [facility] (Lab), [address] [place] [address], [address], 4 13:20:10 C-reactive protein (CRP) 2012 013 [facility] (Lab), [address] [place] [address], [address], 4 13:20:10 thyroid stimulatin g hormone (TSH) 2012 013 [facility], [address] [place] [address], [address], 3 03:54:36 vitamin D,25-hydro xy 2012 013 [facility], [address] [place] [address], [address], 3 03:52:48 glucose - random 2012 013 [facility], [address] [place] [address], [address], 3 03:52:48 rapid strep A 2011 012 [facility], [address] [place] [address], [address], 3 03:37:23 culture, throat 2011 012 [facility], [address] [place] [address], [address], 3 03:36:59 thyroid stimulatin g hormone (TSH) 2010 011 [facility], [address] [place] [address], [address], 3 05:19:55 KYE 2010 011 [facility], [address] [place] [address], [address], 3 05:20:06 comprehens miguel metabolic panel 2010 011 [facility], [address] [place] [address], [address], 3 03:36:23 CBC 2010 011 [facility], [address] [place] [address], [address], 3 05:20:14 rheumatoid factor 2010 011 [facility], [address] [place] [address], [address], 3 05:20:21 Referral ENT referral - Had sleep study at [facility] 07/[address] Corral. Very bothered by waking up not being able to breath at night. Maria Isabel hanna Has had tonsilecto my. 2012 014 ada Dhillon, [address] [place] [address] Teofilo Riggs, [place], [address], 4 09:23:38 sleep medicine referral - Crowded airway. CO not being able to breathe at noc. Awakens gasping for air. Snoring.// June 7:30 pm 2012 013 [facility], [address] [place], [address], 3 03:52:48 endocrinol ogy referral - Hypothyroi dism. 2010 011 RACQUEL Barreto MD, [address] [facility] [place] [address] [place], [address], 3 05:31:39 Procedures None recorded. Surgeries None recorded. Imaging None recorded. Medication Orders levothyrox ine 100 mcg tablet 2012 013 [id number], [address] [place], [address], 3 17:00:33 Flovent HFA 44 mcg/actuat ion aerosol inhaler 2012 013 [id number], [address] [place], [address], 3 17:00:35 albuterol sulfate 2.5 mg/3 mL (0.083 %) solution for nebulizati on 2012 013 [id number], [address] [place], [address], 3 17:00:31 albuterol sulfate 2.5 mg/3 mL (0.083 %) solution for nebulizati on 2011 012 [place] [id number], [address] [place], [address], 3 03:37:01 Prilosec OTC 20 mg tablet,del ayed release 2011 012 [place] [id number], [address] [place], [address], 3 16:57:49 Flovent HFA 110 mcg/actuat ion aerosol inhaler 2010 011 RACQUEL Not available 3 05:20:54 albuterol sulfate HFA 90 mcg/actuat ion aerosol inhaler 2010 011 RACQUEL Not available 3 03:36:21 Patient TargetsNo targets recorded. Patient Instructions Encounter Date Encounter Id Patient Instructions Last Modified By Organization Details Last Modified Time 03/04/2011 [id number] asthma handout / teaching RACQUEL Not available 11/17/2012 05:30:04 Increase Flovent to 4 puffs twice a day of the? ? ?44 strength.? ? ? Then when gone, will increase to? ? ?110 strength.? ? ? FU in 2-3 wks to see how its working. Rec flu shot, but she declines today. Labs today. Consider rheum referral. FU 2 wks. Not available 03/06/2011 11:54:40 10/15/2011 [id number] No dysuria and UA WNL - so UTI seems to be resolved. She will cont wtih lots? ? ?of PO fluids and FU with urologist.? ? ? Overdue for labs - will get them today.? ? ? Needs PHA Not available 10/17/2011 08:52:52 01/21/2012 [id number] 1. pt felt wheeze, but lung exam WNL; will get nebulizer tx today; will start albuterol nebules every 6 hrs as needed. 2. saline garlges, saline nasal spray, tylenol prn for fever or pain, increase fluids, rest, avoid sick contacts, frequent hand washing; RTC if worse or persistent. Will send for throat culture. 3. will also start prilosec to use daily x 30 days and f/u with PCP in 2 wks. Return to clinic sooner if worse. yamila Not available 01/21/2012 17:06:56 05/08/2012 [id number] Get labs drawn today. Reschedule PHA. Consider 24 hr monitor for palpitations. Take a daily Vit D supplement of 2000 IU daily in the winter and 1000 IU daily in the summer.? ? ? Use OTC Vit D3. Will re-refer for sleep study.? ? ? Discussed that I referred her for this 1 1/2 yrs ago but she did not get it done.? ? ? She doesn't remember what happened but was moving at the time. Not available 05/08/2012 21:02:51 03/02/2013 [id number] Well Visit, Ages 18 to 65: Care Instructions saniya Not available 03/05/2013 08:16:27 My Health To Do List As we discussed and agreed upon at your visit please work on the following: Recheck TSH and consider adjusting med with goal of TSH close to 1 to see if that helps with wt mgmt.? ? ? She is very consistent about taking it. Call [phone] appt with Dr Maria for ENT eval.? ? ? Cound go back to sleep medicine for trial of c-pap. Schedule pap with [facility] [place] in 2013. Discussed fungal intertrigo and how to treat. Resume FLovent 2 puffs twice a day with spacer. Refuses flu shot. Follow up with rheum as planned.? ? ? Get labs drawn, wants to go to [facility].? ? ? Discussed that neurontin could be adjusted for more benefit. Not available 03/03/2013 07:43:20 Reason for Referral Hypothyroidism. Referring Physician: Wandy Moreno, Family Medicine, Encounter Date: 03/04/2011 Crowded airway. CO not being able to breathe at noc. Awakens gasping for air. Snoring.//June 7:30 pm Referring Physician: Wandy Moreno Family [facility], Encounter Date: 05/08/2012 Had sleep study at [facility] 07/[address] Corral. Very bothered by waking up not being able to breath at night. Eval recommended. Has had tonsilectomy. Referring Physician: Wandy Moreno [facility], Encounter Date: 03/02/2013 Results Created Date Observation Date Name Description Value Unit Range Abnormal Flag Note LastModifiedBy Organization Detail LastModifiedTime 01/21/20 12 01/21/2012 rapid strep A Result negati ve Not Available [address], [place], [address], 01/21/2012 16:22:06 03/04/20 11 03/04/2011 CBC WBC 10.5 K/?L 4.0-10 .0 high Not Available [address], [address], 03/04/2011 15:15:32 03/04/20 11 03/04/2011 CBC RBC 4.81 M/?L 3.93-5 .22 Not Available [address], [address], 03/04/2011 15:15:32 03/04/20 11 03/04/2011 CBC HGB 13.6 g/dL 11.2-1 5.7 Not Available [address], [address], 03/04/2011 15:15:32 03/04/20 11 03/04/2011 CBC HCT 40.4 % 34.1-4 4.9 Not Available [address], [address], 03/04/2011 15:15:32 03/04/20 11 03/04/2011 CBC MCV 84.0 ?L 79.4-9 4.8 Not Available [address], [address], 03/04/2011 15:15:32 03/04/20 11 03/04/2011 CBC MCH 28.3 pg 25.6-3 2.2 Not Available [address], [address], 03/04/2011 15:15:32 03/04/20 11 03/04/2011 CBC MCHC 33.7 g/dL 32.2-3 5.5 Not Available [address], [address], 03/04/2011 15:15:32 03/04/20 11 03/04/2011 CBC plt 351.0 K/?L 182.0- 369.0 Not Available [address], [address], 03/04/2011 15:15:32 03/04/20 11 03/04/2011 CBC MPV 10.1 9.4-12 .3 Not Available [address], [address], 03/04/2011 15:15:32 03/04/20 11 03/04/2011 CBC neut% 51.9 % 34.0-7 1.1 Not Available [address], [address], 03/04/2011 15:15:32 03/04/20 11 03/04/2011 CBC neut# 5.5 1.6-6. 1 Not Available [address], [address], 03/04/2011 15:15:32 03/04/20 11 03/04/2011 CBC lymph % 37.1 % 19.3-5 1.7 Not Available [address], [address], 03/04/2011 15:15:32 03/04/20 11 03/04/2011 CBC lymph # 3.9 K/?L 1.2-3. 7 high Not Available [address], [address], 03/04/2011 15:15:32 03/04/20 11 03/04/2011 CBC mono% 6.4 % 4.7-12 .5 Not Available [address], [address], 03/04/2011 15:15:32 03/04/20 11 03/04/2011 CBC mono# 0.7 0.2-0. 4 high Not Available [address], [address], 03/04/2011 15:15:32 03/04/20 11 03/04/2011 CBC eo% 4.2 % 0.7-5. 8 Not Available [address], [address], 03/04/2011 15:15:32 03/04/20 11 03/04/2011 CBC eo# 0.4 0.0-0. 4 high Not Available [address], [address], 03/04/2011 15:15:32 03/04/20 11 03/04/2011 CBC baso% 0.4 % 0.1-1. 2 Not Available [address], [address], 03/04/2011 15:15:32 03/04/20 11 03/04/2011 CBC baso# 0.0 0.0-0. 1 low Not Available [address], [address], 03/04/2011 15:15:32 03/04/20 11 03/04/2011 CBC RDW-CV 12.6 % 11.7-1 4.4 Not Available [address], [address], 03/04/2011 15:15:32 03/04/20 11 03/04/2011 compr ehens miguel metab olic panel glucose 87 mg/dL 70-100 Not Available [address], [address], 03/04/2011 15:57:12 03/04/20 11 03/04/2011 compr ehens miguel metab olic panel BUN 8 mg/dL 7-18 Not Available [address], [address], 03/04/2011 15:57:12 03/04/20 11 03/04/2011 compr ehens miguel metab olic panel creatinine 0.8 mg/dL 0.8-1. 3 Not Available [address], [address], 03/04/2011 15:57:12 03/04/20 11 03/04/2011 compr ehens miguel metab olic panel B/C 10.0 ratio Not Available [address], [address], 03/04/2011 15:57:12 03/04/20 11 03/04/2011 compr ehens miguel metab olic panel GFR 93.7 mL/mi n recom merlin d GFR by the natio nal kidne y found ation >60 mL/mi n/1.7 3m2 - jacinto l <60 mL/mi n/1.7 3m2 - chron ic kidne y disea se <15 mL/mi n/1.7 3m2 - kidne y failu re Not Available [address], [address], 03/04/2011 15:57:12 03/04/20 11 03/04/2011 compr ehens miguel metab olic panel GFR - if 107.8 mL/mi n for afric an ameri can patie nts: resul ts multi plied by 1.21 Not Available [address], [address], 03/04/2011 15:57:12 03/04/20 11 03/04/2011 compr ehens miguel metab olic panel sodium 142 mmol/ L 136-14 5 Not Available [address], [address], 03/04/2011 15:57:12 03/04/20 11 03/04/2011 compr ehens miguel metab olic panel potassium 4.5 mmol/ L 3.5-5. 1 Not Available [address], [address], 03/04/2011 15:57:12 03/04/20 11 03/04/2011 compr ehens miguel metab olic panel chloride 105 mmol/ L 96-107 Not Available [address], [address], 03/04/2011 15:57:12 03/04/20 11 03/04/2011 compr ehens miguel metab olic panel _anion gap 10.0 Not Available [address], [address], 03/04/2011 15:57:12 03/04/20 11 03/04/2011 compr ehens miguel metab olic panel CO2 27 mmol/ L 21-32 Not Available [address], [address], 03/04/2011 15:57:12 03/04/20 11 03/04/2011 compr ehens miguel metab olic panel calcium 9.4 mg/dL 8.5-10 .3 Not Available [address], [address], 03/04/2011 15:57:12 03/04/20 11 03/04/2011 compr ehens miguel metab olic panel total protein 7.7 g/dL 6.4-8. 2 Not Available [address], [address], 03/04/2011 15:57:12 03/04/20 11 03/04/2011 compr ehens miguel metab olic panel albumin 4.0 g/dL 3.4-5. 0 Not Available [address], [address], 03/04/2011 15:57:12 03/04/20 11 03/04/2011 compr ehens miguel metab olic panel globulin 3.7 g/dL Not Available [address], [address], 03/04/2011 15:57:12 03/04/20 11 03/04/2011 compr ehens miguel metab olic panel A/G 1.1 ratio 0.8-2. 0 Not Available [address], [address], 03/04/2011 15:57:12 03/04/20 11 03/04/2011 compr ehens miguel metab olic panel total bilirubin 0.30 mg/dL 0.00-1 .00 Not Available [address], [address], 03/04/2011 15:57:12 03/04/20 11 03/04/2011 compr ehens miguel metab olic panel AST 14 U/L 15-37 low Not Available [address], [address], 03/04/2011 15:57:12 03/04/20 11 03/04/2011 compr ehens miguel metab olic panel ALT 28 U/L 30-65 low Not Available [address], [address], 03/04/2011 15:57:12 03/04/20 11 03/04/2011 compr ehens miguel metab olic panel alk. phos. 103 U/L 50-136 Not Available [address], [address], 03/04/2011 15:57:12 03/04/20 11 03/04/2011 thyro id stimu latin g hormo ne (TSH) TSH 7.67 uIU/m L 0.50-6 .00 high the ameri can colle ge of endoc rinol ogy and ameri can thyro id assoc iatio n recom mend goal TSH value s betwe en 1.0-2 .5 mIU/m L. Not Available [address], [address], 03/04/2011 16:34:51 03/04/20 11 03/08/2011 rheum atoid facto r rheumatoid factor 9.9 IU/mL 0.0-16 .0 <16.0 IU/mL - negat miguel 16.0- 19.9 IU/mL - equiv ocal >20.0 IU/mL - posit miguel Not Available [address], [address], 03/08/2011 12:48:43 03/04/20 11 03/08/2011 KYE KYE screen 0.58 0.00-0 .39 positive KYE=s ample [facility] patte rn and titer . <0.4 -nega tive 0.40 - 1.10 -equi vocal >1.10 -posi tive Not Available [address], [address], 03/08/2011 12:48:44 03/04/20 11 03/09/2011 post scree n titer and patte rn KYE pattern NEGATI VE normal Not Available [facility] [address], [address], 03/09/2011 14:41:56 03/04/20 11 03/09/2011 post scree n titer and patte rn antinuclear antibodies <1:40 titer normal refer ence range <1:40 negat miguel 1:40- 1:80 low antib paula level >1:80 eleva yogesh antib paula level Not Available [facility] [address], [address], 03/09/2011 14:41:56 10/15/19 12 10/18/2011 thyro id stimu latin g hormo ne (TSH) TSH 3.22 uIU/m L 0.50-6 .00 the ameri can colle ge of endoc rinol ogy and ameri can thyro id assoc iatio n recom mend goal TSH value s betwe en 1.0-2 .5 mIU/m L. Not Available [address], [address], 10/18/2011 09:45:39 01/21/20 12 01/24/2012 cultu re, throa t culture, throat cultu re, throa t micro numbe r: [id number] test statu s: final speci men sourc e: throa t speci men quali ty: adequ ate resul t: no oroph aryng eal patho gens recov ered. Not Available [facility] [address], [address], 01/24/2012 15:45:07 05/08/19 13 05/09/2012 thyro id stimu latin g hormo ne (TSH) TSH 11.11 uIU/m L 0.50-6 .00 high the ameri can colle ge of endoc rinol ogy and ameri can thyro id assoc iatio n recom mend goal TSH value s betwe en 1.0-2 .5 mIU/m L. Not Available [address], [address], 05/09/2012 09:15:27 05/08/19 13 05/09/2012 gluco se glucose 85 mg/dL 70-100 Not Available [address], [address], 05/09/2012 09:33:44 05/08/19 13 05/23/2012 vitam in D,25- hydro xy vitamin D, 25-hydroxy, EIA 18.5 NG/mL 20.0-9 9.9 low thera py IS based on measu remen t of total 25-oh d, with level s less than 20 NG/mL indic ative of vitam in D defic iency . level s betwe en 20NG/ mL and 30 NG/mL sugge st insuf ficie ncy. optim al level s are great er than 30 NG/mL . Not Available [address], [address], 05/23/2012 15:19:20 12/02/19 13 12/01/2012 thyro id stimu latin g hormo ne (TSH) TSH 5.59 uIU/m L 0.50-6 .00 the ameri can colle ge of endoc rinol ogy and ameri can thyro id assoc iatio n recom mend goal TSH value s betwe en 1.0-2 .5 mIU/m L. Not Available [address], [address], 12/01/2012 15:12:50 12/02/19 13 12/19/2012 vitam in D,25- hydro xy vitamin D, 25-hydroxy, EIA 27.8 NG/mL 20.0-9 9.9 thera py IS based on measu remen t of total 25-oh d, with level s less than 20 NG/mL indic ative of vitam in D defic iency . level s betwe en 20NG/ mL and 30 NG/mL sugge st insuf ficie ncy. optim al level s are great er than 30 NG/mL . Not Available [address], [address], 12/19/2012 15:17:58 Result Notes None recorded. Problems Name Problem SNOMED Code Status Onset Date Resolution Date Notes Provider Name and Address Organization Details Recorded Time Obesity 160891474 Active Not Available [facility] 3 03:15:26 Kidney stone 11432409 Active Not Available [facility] 3 03:15:26 Extrinsic asthma with asthma attack Active Not Available [facility] 3 03:15:26 Urinary tract infectious disease 29602014 Completed 03/14/2013 Not Available [facility] 3 02:01:58 Fever 513980069 Completed 03/14/2013 Not Available [facility] 3 02:02:42 Generalize d anxiety disorder 67483268 Active Not Available [facility] 3 03:15:26 Acute pharyngiti s 360194025 Completed 03/14/2013 Not Available [facility] 3 02:01:18 Allergic 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 s 13158851 Active Wandy Moreno NP [address] [place] [address], [address] , [facility] 3 07:43:20 Vitamin D deficiency 22666118 Active Wandy Moreno NP [address] [place] [address], [phone] , [facility] 4 15:08:36 Respirator y finding 006197861 Completed 03/14/2013 Not Available [facility] 3 02:04:14 Common cold 00955569 Completed 03/14/2013 Not Available [facility] 3 02:00:30 Hand joint pain 594078383 Completed 03/14/2013 Not Available [facility] 3 02:02:43 Knee pain Completed 03/14/2013 Not Available [facility] 3 02:00:43 Low back pain 561300306 Active Not Available [facility] 3 03:15:26 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 Not Available [facility] 3 03:15:26 Primary fibromyalg ia syndrome 08754971 Active Wandy Moreno NP [address] [place] [address], [phone] , [facility] 3 07:43:20 Malaise and fatigue 961591725 Completed 03/14/2013 Not Available [facility] 3 02:00:21 Acquired hypothyroi dism 121009672 [facility] 5 11:41:43 Snoring 53232483 Active Wandy Moreno NP [address] [place] [address], [phone] , [facility] 3 07:43:20 Asthma 706269291 Active Wandy Moreno NP [address] [place] [address], [phone] , [facility] 3 07:43:20 Candidal intertrigo 983805818 Christiane Moreno NP [address] [place] [address], [address] , [facility] 3 07:43:20 Constipati on 49251761 Active Wandy Moreno NP [address] [place] [address], [phone] , [facility] 4 08:10:40 Problem Notes None recorded. Procedures Surgical History Date Name Laterality Status Provider Name and Address Organization Details Recorded Time 2 Nebulizer Tx completed Troy Camop MD [address] [place] [address], [phone], [facility] 01/21/2012 17:06:07 1 Asthma Control Test (12 + years old) completed Jenny Viera MA [facility] 03/04/2011 11:17:22 1 Asthma Control Test (12 + years old) completed Jenny Viera MA [facility] 08/20/2010 16:23:18 Tubal Ligation completed Not Available [facility] 03/11/2011 06:06:16 Imaging Results None recorded. Procedure Notes None recorded. Medical Equipment None Reported. Allergies No known drug allergies Medications Name Sig Start Date Stop Date Status Note LastModified by Organization Details LastModified Time cyclobenz aprine 10 mg tablet active take 1 tab 3 times daily Not Available Not Available Not Available albuterol sulfate 2.5 mg/3 mL (0.083 %) solution for nebulizat ion USE 1 VIAL VIA NEBULIZE R EVERY 6 HOURS 2012 active Not Available Not Available Not Avai lable prednison e 20 mg tablet Take 1 tablet twice a day by oral route for 5 days. 05/23 completed Not Available Not Available Not Available levothyro xine 100 mcg tablet TAKE ONE TABLET BY MOUTH EVERY DAY active Not Available Not Available No t Available famotidin e 20 mg tablet active take 1 tab twice daily Not Available Not Available Not Available paroxetin e 20 mg tablet active take 1 tab daily Not Available Not Available Not Available Neurontin 100 mg capsule Take 1 capsule twice a day by oral route. 2012 active started by rheumatTelma galvan for fibromya lgia Not Available Not Available Not Available ibuprofen 400 mg tablet active take 1 to 2 tabs by mouth 3 times daily. Not Available Not Available Not Available furosemid e 20 mg tablet active take 1 tab once daily for swelling prn Not Available Not Available Not Available albuterol 90 mcg/actua tion aerosol inhaler take 2 puffs every 4 hours as needed 2010 active Not Available Not Available Not Avai lable Levoxyl 112 mcg tablet Take 1 tablet every day by oral route in the morning. active Not Available Not Available No t Available albuterol sulfate HFA 90 mcg/actua tion aerosol inhaler Inhale 2 puffs every 4 hours by inhalati on route. 2010 active Not Available Not Available Not Avai lable Vitamin D2 1,250 mcg (50,000 unit) capsule Take 1 capsule every week by oral route. 2012 active Not Available Not Available Not Avai lable Percocet 5 mg-325 mg tablet Take 1 tablet every 6 hours by oral route as needed. 2010 active Not Available Not Available Not Avai lable Prilosec OTC 20 mg tablet,de layed release take 1 tab 30 minutes before breakfas t 2011 active Not Available Not Available Not Avai lable Flovent HFA 44 mcg/actua tion aerosol inhaler Inhale 2 puffs twice a day by inhalati on route. 2012 active Not Available Not Available Not Avai lable Flovent HFA 110 mcg/actua tion aerosol inhaler Inhale 2 puffs twice a day by inhalati on route. 2010 active Not Available Not Available Not Avai lable levothyro xine active take 1 tab daily ( 88mcg) Not Available Not Available Not Available naproxen active take 1 tab daily- 375 mg tab Not Available Not Available Not Available amitripty line active 100mg @ bedtime- Not Available Not Available Not Available Vitamin D3 50 mcg (2,000 unit) tablet take 1 tablet by mouth once daily 2012 active Not Available Not Available Not Avai lable Vitals Date Recorded Body weight Heart rate Oxygen saturation Oxygen saturation in Arterial blood by Pulse oximetry Systolic blood pressure Diastolic blood pressure Provider Name and Address Organization Details Last Updated DateTime 1 89781.4 44396 g 72 /min 99 % 99 % 116 mm[Hg] 78 mm[Hg] Jenny Viera [facility] 1 11:17:21 Date Recorded Body weight Heart rate Body height Body mass index (BMI) Systolic blood pressure Diastolic blood pressure Provider Name and Address Organization Details Last Updated DateTime 2 45133.3 17371 g 76 /min 153.035 cm 38.2 kg/m2 98 mm[Hg] 68 mm[Hg] Vidya Enriquez [facility] 2 13:49:51 Date Recorded Body height Body weight Body mass index (BMI) Body temperature Heart rate Systolic blood pressure Diastolic blood pressure Provider Name and Address Organization Details Last Updated DateTime 2 153.035 cm 51245.2 01272 g 38.8 kg/m2 99.1 [degF] 72 /min 114 mm[Hg] 70 mm[Hg] Kyara Cervantes CMA [facility] 2 16:19:57 Date Recorded Body weight Heart rate Systolic blood pressure Diastolic blood pressure Provider Name and Address Organization Details Last Updated DateTime 05/08/2012 96032.241 572 g 72 /min 122 mm[Hg] 82 mm[Hg] [facility] 05/08/2012 13:51:40 Date Recorded Body height Body mass index (BMI) Provider Name and Address Organization Details Last Updated DateTime 05/08/2012 154.94 cm 38.6 kg/m2 Wandy Moreno NP [address] [place] [address], [phone], [facility] 05/08/2012 14:12:25 Date Recorded Body height Body weight Body mass index (BMI) Heart rate Systolic blood pressure Diastolic blood pressure Provider Name and Address Organization Details Last Updated DateTime 3 153.035 cm 34473.2 1296 g 40.3 kg/m2 78 /min 108 mm[Hg] 68 mm[Hg] [facility] 3 15:57:36 Social History Question Answer Notes LastModified by Organizat ion Details LastModified Time Tobacco Smoking Status Former Smoker Not Available [facility] 03/11/2011 04:52:47 What Is Your Level Of Alcohol Consumption? Occasional Information not available 03/02/2013 What Is Your Level Of Caffeine Consumption? None Information not available 03/11/2011 How Much Tobacco Do You Chew? None Information not available 03/02/2013 What Type Of Diet Are You Following? 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 Unemployed At Home Information not available 03/02/2013 Live Alone Or With Others? With Others Children And Their Father Gerald Choe Information not available 05/04/2010 Patient Has Health Care Proxy Signed And In Chart No Information not available 03/11/2011 Marital Status Domestic Partner Information not available 03/11/2011 How Many Children Do You Have? 4 Information not available 03/11/2011 Sex: Unknown Functional Status None recorded. Mental Status None recorded. Family History Relationship Description Onset Age of this Age Resolved Age Notes LastModified by Organization Details LastModified Time Daughter Asthma [id number] Not available 12/04/2012 03:01:13 Mother Asthma [id number] Not available 12/04/2012 03:01:13 Sister Asthma [email or web address] [id number] Not available 12/04/2012 03:01:13 Medical History Condition Response Fibromyalgia Y Gynecological History Statement/Question Response Current Control Method Tubal Ligat ion Obstetrics History GPAL:G 0 P 0 0 0 0 Immunizations Vaccine Type Date Status Note Provider Nam e and Address Organization Details Recorded Time influenza, unspecified formulation 0 completed Not Available [facility] 03/10/2011 05:22:52 Past Encounters Encounter ID Performer Location Encounter Start Date Encounter Closed Date Diagnosis/Indication Diagnosis SNOMED-CT Code Diagnosis ICD10 Code Diagnosis Note [id number] CAROL [facility], OFFICE [address] [facility] [place] [address] 05/04/2010 09:09:44 05/07/2010 12:41:03 [id number] [facility], OFFICE [address] [facility] [place] [address] 05/18/2010 16:07:44 05/21/2010 13:34:23 [id number] CAROL C, OFFICE [address] [facility] [place] [address] 06/11/2010 16:12:16 06/16/2010 10:47:49 [id number] CAROL [facility], OFFICE [address] [facility] [place] [address] 07/03/2010 15:51:35 07/08/2010 12:20:13 [id number] CAROL C, OFFICE [address] [facility] [place] [address] 08/20/2010 15:59:02 08/25/2010 09:29:56 [id number] CAROL C, OFFICE 238 [facility] [place] [address] 12/08/2010 13:27:53 12/08/2010 14:03:17 [id number] CAROL C, OFFICE [address] [facility] [place] [address] 03/04/2011 10:26:38 03/04/2011 11:58:37 [id number] , [facility], OFFICE [address] [facility] [place] [address] 10/15/2011 13:41:41 10/15/2011 15:34:28 [id number] Wandy Moreno NP FP, [facility], OFFICE [address] [facility] [place] [address] 01/21/2012 16:06:08 01/21/2012 17:05:28 [id number] Wandy Moreno NP , [facility], OFFICE [address] [facility] [place] [address] 05/08/2012 13:44:13 05/08/2012 14:32:08 [id number] Esthercharly Barbosa FP, [facility], OFFICE [address] [facility] [place] [address] 03/02/2013 15:44:22 03/02/2013 17:00:19 Adult health examination [id number] see Risk Assessment and Lifestyle Change Counseling section above Counseling [id number] Primary fi bromyalgia syndrome [id number] Acquired hypothyroidism [id number] Snoring [id number] Asthma [id number] PERSIST ENT (Mild/Mod/ Severe) Based on the history, the ACT test score___, physical assesment and peak flow,, the patient's asthma is not in control.Se e orders for adjustment s in plan. A copy of the aftercare summary and the asthma action plan have been provided. The patient is in agreement with this plan. Allergic a sthma 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s [id number] Candidal intertrigo [id number] Health Concerns Section Related Observation LastModified by Organization Detai ls LastModified Time None Recorded Concern Status LastModified by Organization Details LastModified Time None Recorded Advance Directives Directive None Recorded Payers Encounter Date Sequence Insurance Name Policy Number Policy Jasso Covered Member ID Jasso Member ID Guarantor Name 03/04/2011 1 [facility] (MEDICAID HMO) [id number] Mary Jan Recio [id number] Mary Recio 10/15/2011 1 [facility] PL[facility] (MEDICAID HMO) [id number] Mary Jan Recio [id number] Mary Recio 01/21/2012 1 [facility] (MEDICAID HMO) [id number] Mary Jan Recio [id number] Mary Recio 05/08/2012 1 [facility] (MEDICAID HMO) [id number] Mary Jan Recio [id number] Mary Recio 03/02/2013 1 [facility] (MEDICAID HMO) [id number] Mary Jan Recio [id number] Mary Recio Notes Date Note Type Note Provider Name and Address Organization Details Recorded Time 03/04/2011 text/html Fibromyalgia bothering her a lot. Hands especially bothersome. Has made appt with commercial coordinator in [place]. Taking thyroid med daily - doesn't miss. Last TSH 04/2010. Wandy Moreno NP [address] [place] [address], [phone], [facility] 03/06/2011 11:55:20 10/15/2011 text/html Took 3d of cipro for UTI, then stopped because it caused dryness in her mouth. Now sx now cleared except for frequency. Has had ER visits at [facility] x3 for kidney stones - 06/2011, 07/2011, and earlier this month. Had CT during 2nd visit. Has referral to urologist at [facility]. Drinking a lot of water. No blood in urine. No flank pain. Girls home with her this summer. Recently bought a house. Wandy Moreno NP [address] [place] [address], [phone], [facility] 10/17/2011 08:53:14 01/21/2012 text/html Pt c/o chest congestion x 3 days, then started bad NGUYEN and burning sore throat today, dry, took ibuprofen, with odynophagia. Has hx of asthma, states her baseline is no flovent and albuterol twice a month if needed. Started wheezing today, has no albuterol nebules left. Has pro-air but did not use it today even if wheezing because her throat was too dry. No fever at home, not checked. Cough. No night symptoms. Sick contacts at home. Non-smoker. Has hx of GERD, not taking any famotidine. Troy Campo MD [address] [place], [phone], [facility] 01/21/2012 17:07:11 05/08/2012 text/html Frequently waked up at night feeling breathing blocked in throat. Here with partner who says she snores. Also having palpitations at rest - at night and when sitting. Lasts very briefly - 2-3 sec. Goes away with dep breath. Forgot about PHA appt last week which she missed. CO continuing to gain wt. Wandy Moreno NP [address] [place] [address], [phone], [facility] 05/08/2012 21:03:10 OBGyn Episode No OBEpisode recorded.
--- OUTSIDE RECORDS SUMMARY | 2024-06-08 09:40 | XMS_ITS | Clinical Summary ---
Author Organization [facility] Facility Address [address] [place] [address] Care Team Providers Care Carpet Weaver Name Role Phone Nenita Knott MD Primary Care Provider [phone] Medications albuterol (2.5 MG/3ML) 0.083% nebulizer solution 3 (three) times a day Active ergocalciferol (VITAMIN D2) 1.25 MG (12997 UT) capsule 06/04/2020 Active ibuprofen (ADVIL,MOTRIN) 800 [...] patient's age to complete this topic Insurance [facility] MEDICA[facility] Care Teams Carpet Weaver Relationship Specialty Start Date End Date Nenita Knott MD [address] [place] [address] PCP - General 05/05/20
== END 2024-06-08 09:17 | disposition home or self-care (01) ==
LOC: HO.XRAY 09:16
PROVIDERS: PCP Internal Medicine; Visit Provider Internal Medicine
DX: K21.9 Gastro-esophageal reflux disease without esophagitis (principal)
CPT/HCPCS: 74221

== ENCOUNTER → 2024-06-08 09:19 | Outpatient (BNV) | payer OTHER, SELFPAY | PROVIDERS: PCP Internal Medicine; Visit Provider Radiology Diagnostic Radiology | DX: K21.9 Gastro-esophageal reflux disease without esophagitis (principal); R10.13 Epigastric pain | CPT/HCPCS: 74221 ==

== ENCOUNTER 2024-09-04 09:27 | Outpatient (AMB) | payer OTHER, SELFPAY ==
--- NOTE | 2024-09-04 09:35 | A.OFFVIS_ITS ---
Vital Signs 09/04/24 09:44 Height 4 ft 11.5 in Weight 218 lb 7.649 oz BMI 43.4 BP 115/70 Blood Pressure Location Lt brachial Position Sitting Pulse 84 Pulse Source Pulse Oximeter Pulse Oximetry (%) 97 Oxygen Delivery Method Room Air Intake Visit Reasons: follow up Intake Note: Patient presents for Fibromyalgia follow up. Allergies No Known Allergies [No Known Allergies*] Allergy (Verified 09/04/24 09:41) Medication List - Last Reconciled 09/04/24 by Helena Perez MD albuterol sulfate 2.5 mg (3 mL) inhalation Q6H PRN 30 days albuterol sulfate 90 mcg/actuation 2 puffs PO Q4H PRN 30 days celecoxib (Celebrex) 200 mg PO BID 90 days cholecalciferol (vitamin D3) 50 mcg PO DAILY 90 days meclizine 25 mg PO BID PRN 7 days mecobalamin (vitamin B12) 1,000 mcg sublingual DAILY milnacipran 25 mg PO BID 90 days nebulizers (AeroEclipse II Nebulizer) As directed omeprazole 20 mg PO BID 90 days polyethylene glycol 3350 (Miralax) 17 grams PO DAILY sennosides (senna) 8.6 mg PO BEDTIME PRN 30 days Synthroid (levothyroxine) 100 mcg PO DAILY NS Ventolin HFA 90 mcg/actuation (albuterol sulfate) 2 puffs inhalation Q6H PRN 30 days NS [wedge pillow Use it for nap time and over night sleep ] HPI Comments Details: The patient is a 44-year-old female with Elmira's thyroiditis, chronic back pain, primary osteoarthritis of the knees and fibromyalgia here today for follow up Interval History: Patient last seen 03/02/2024 with me. At that time she was establishing care for her polyarticular osteoarthritis and fibromyalgia. At that visit there was low concern for any underlying autoimmune or autoinflammatory condition. She was recommended milnacipran instead of duloxetine and stretches Since the last visit, she tried the milnacipran but has not noticed any effect Still complains of whole body pain Has been trying to be consistent with the stretching and exercise Rheumatologic History: Initial history establishing care: Patient states that she has been having whole body pain for several years which has been worsening voer the past few months. Associated with intermittent muscle spasms at night. No prolonged AM stiffness. Sometimes with swelling to the LE, worse at the end of the day. Currently on wegovy to assist with weight loss Current Rheumatology Medication(s): Milnacipran 25mg po bid [facility] Medical History Osteoarthritis involving multiple joints on both sides of body Major depressive disorder, recurrent, mild Leg edema Right knee pain Acid reflux Allergic rhinitis Abdominal pain Elmira's disease Menorrhagia with regular cycle Obesity (BMI 30-39.9) History of abnormal cervical Pap smear Asthma Fibromyalgia Depression GERD (gastroesophageal reflux disease) Hypothyroidism Vitamin D deficiency Autoimmune thyroiditis Surgical History History of tonsillectomy History of tubal ligation Family History Mother Asthma Father AIDS Sister No problems noted. Brother No problems noted. Daughter No problems noted. Daughter No problems noted. Daughter No problems noted. Son No problems noted. 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 Current occupational exposures/hazards: No Gender identity: Female Cognitive needs: No Hearing needs: No Vision needs: Yes (reading glasses) Female Reproductive History Menstrual Age of Menarche: 11 Review of Systems Const Details: Review of Systems Constitutional: Denies fever, chills, weight loss ENT: Denies vision changes, eye pain or eye redness, dental caries, dry mouth GI: Denies nausea, vomiting, diarrhea, abdominal pain, change in BM Pulm: Denies SOB, ELIZABETH, hemoptysis, wheezing Cards: Denies chest pain, palpitations Skin: Denies Raynaud's, rash, nail changes, photosensitivity, ARCHITECTURAL INSPECTOR: Denies headaches, weakness, paresthesias, recurrent falls MSK: as per HPI All other systems reviewed and are unremarkable except noted above Physical Exam Vital Signs: BMI result Body Mass Index 43.4 Vital signs reviewed Physical Examination CONSTITUITIONAL Patient alert and cooperative. Well appearing and in no apparent painful distress Obese HEENT Conjunctiva and sclera clear. ?Pupils equal round and reactive to light. ?No lymphadenopathy. ? CHEST/RESPIRATORY SYSTEM Normal respiratory effort and able to speak in complete sentences. ?Clear to auscultation bilaterally. ?No crackles, rales, rhonchi, wheezes heard. CARDIAC SYSTEM Regular rate and rhythm. ?S1 and S2 heard no murmurs. ?Radial pulses intact bilaterally MSK Hands: ?Able to make a fist. No synovitis noted to the MCPs, PIPs or DIPs. ?No tenderness to palpation of these joints. No deformities noted. ? Wrists: ?Full range of motion at the wrists without pain. ?No tenderness to pa lpation or synovitis noted to the wrists. Elbows: Full range of motion without pain. No tenderness, weakness, swelling, increased warmth or erythema. Shoulders: Full range of active range of motion without pain. No tenderness, weakness, swelling, increased warmth or erythema. Knees: ?Full range of motion. ?No tenderness, swelling, increased warmth or erythema.?No effusion. Cerpitations felt bilaterally Ankles: Full range of motion. ?No tenderness, swelling, increased warmth or erythema.? Feet: ?Negative squeeze test. ?No tenderness to palpation or swelling of the MTPs. Tender points:?Tenderness to palpation of the bilateral trapezius, supraspinatus, greater trochanters, anterior costochondral junctions, bilateral gluteal areas, bilateral suboccipital muscle insertions SKIN Skin intact without rashes. Results Reviewed Results Reviewed: Laboratory Tests 09/27/18 09/20/23 01/06/24 12:00 14:33 07:47 WBC 11.7 H 10.2 RBC 5.02 5.08 Hgb 12.8 13.2 Hct 40.1 40.7 Plt Count 367 309 Sodium 139 Potassium 4.1 Chloride 109 H Carbon Dioxide 25 BUN 9 Creatinine 0.70 25-OH Vitamin D Total 23.7 L 33.5 TSH 3.14 5.24 H Rheumatoid Factor < 13.0 Cycl Citrul Peptide IgG <16 NENITA Screen NEGATIVE SS-A/Ro Antibody <1.0 SS-B/La Antibody <1.0 Sm (Grigsby) Antibody <1.0 SmRNP Antibodies <1.0 Anti-ds DNA (Crithidia) Negative Beta-2-GPI IgG Ab <9 Beta-2-GPI IgA Ab <9 Beta-2-GPI IgM Ab <9 Thyroid Peroxidase Ab 1744 H Anti-Cardiolipin IgG Ab <14 Anti-Cardiolipin IgM Ab <12 Complement C3 196 H Complement C4 48 Assessment & Plan Assessment & Plan (1) Fibromyalgia: Code(s): M79.7 - Fibromyalgia Category: Medical Plan: #Fibromyalgia Patient is a 44-year-old female with fibromyalgia here today for follow up. Co ntinues to have pain despite milnacipran. Has tried and failed gabapentin, pregabalin, amitriptyline, duloxetine, and now milnacipran. We will try buprenorphine patches Plan - Stop milnacipran - Start Buprenorphine patches 5mcg. Seven days on 7 days off - RTC 6 months (2) Osteoarthritis involving multiple joints on both sides of body: Code(s): M15.9 - Polyosteoarthritis, unspecified Category: Medical Plan: #OA Patient with confirmed bilateral knee osteoarthritis. Recommended steroid injection but patient deferred today (3) Elmira's disease: Code(s): E06.3 - Autoimmune thyroiditis Category: Medical Plan: #Hasimotos Thyroiditis Elevated TSH on last check Uncontrolled thyroid disease can also contribute to joint and body pain. Currently seeing endocrinology Plan I spent 32 minutes reviewing the record and labs, seeing the patient, discussing the treatment plan and documenting in the medical record ? Medications: New buprenorphine 5 mcg/hour 1 patch transdermal Q7D 4 ea 5RF M79.7 - Fibromyalgia Discontinued celecoxib (Celebrex) Discontinued Reason: Doctor's Order 200 mg PO BID 90 days 180 caps 1RF M15.9 - Polyosteoarthritis, unspecified milnacipran Discontinued Reason: Doctor's Order 25 mg PO BID 90 days 180 tabs 1RF M79.7 - Fibromyalgia Coding Level of Care Code Est Pt Level 4 (09874) Diagnoses Fibromyalgia M79.7 Osteoarthritis involving multiple joints on both sides of body M15.9 Elmira's disease E06.3
[2024-09-04 09:44] VITALS: BP 115/70; PULSE 84; O2SAT 97; BMI 43.4
--- OUTSIDE RECORDS SUMMARY | 2024-09-04 10:05 | XMS_ITS | Clinical Summary ---
Author Organization [facility] Facility Address [address] [place] [id number] Care Team Providers Care Painting Supervisor Name Role Phone Nenita Knott MD Primary Care Provider [phone] Medications albuterol (2.5 MG/3ML) 0.083% nebulizer solution 3 (three) times a day Active ergocalciferol (VITAMIN D2) 1.25 MG (05703 UT) capsule 06/04/2020 Active ibuprofen (ADVIL,MOTRIN) 800 [...] - 19+ 3-dose series) 02/08/1999 Influenza Vaccine (Season Ended) 2024 Pneumococcal Vaccine: Peds ( 0 to 5 Years) and At-Risk Patients (6 to 49 Years) Aged Out No longer eligible b ased on patient's age to complete this topic Insurance [facility] Medicaid [facility] Medicaid Care Teams Painting Supervisor Relationship Specialty Start Date End Date Nenita Knott MD [address] [place] [address] PCP - General 05/05/20
--- OUTSIDE RECORDS SUMMARY | 2024-09-04 10:05 | XMS_ITS | Data Portability ---
Author Organization [facility], , [facility] Address [address] [place] [address] Care Team Providers Care Bead Builder Name Role Phone [facility] OTHER [phone] [facility] OTHER Assessment No assessment recorded. Plan of Treatment Reminders Order Date Submit Date Provider Last Modified By Organization Details Last Modified Time Details Appointments None recorded. Lab ESR, westergren 2012 013 [facility] (Lab), [address] [place], [address], 4 13:20:10 C-reactive protein (CRP) 2012 013 [facility] (Lab), [address] [place], [address], 4 13:20:10 thyroid stimulatin g hormone (TSH) 2012 013 [facility], [address] [place] [address], [address], 3 03:54:36 vitamin D,25-hydro xy 2012 013 [facility], [address] [place], [address], 3 03:52:48 glucose - random 2012 013 [facility], [address] [place] [address], [address], 3 03:52:48 rapid strep A 2011 012 [facility], [address] [place] [address], [address], 3 03:37:23 culture, throat 2011 012 [facility], [address] [place] [address], [address], 3 03:36:59 thyroid stimulatin g hormone (TSH) 2010 011 [facility], [address] [place] [address], [address], 3 05:19:55 KYE 2010 011 [facility], [address] [place] [address], [address], 3 05:20:06 comprehens miguel metabolic panel 2010 011 [facility], [address] [place] [address], [address], 3 03:36:23 CBC 2010 011 [facility], [address] [place] [address], [address], 3 05:20:14 rheumatoid factor 2010 011 [facility], [address] [place] [address], [address], 3 05:20:21 Referral ENT referral - Had sleep study at [facility] 07/[address] Corral. Very bothered by waking up not being able to breath at night. Maria Isabel hanna Has had tonsilecto my. 2012 [address] Teofilo Riggs, [place], [address], 4 09:23:38 sleep medicine referral - Crowded airway. CO not being able to breathe at noc. Awakens gasping for air. Snoring.// June 7:30 pm 2012 013 [facility], [address] [place], [address], 3 03:52:48 endocrinol ogy referral - Hypothyroi dism. 2010 011 RACQUEL Barreto MD, [address] [facility] [address] [place], [address], 3 05:31:39 Procedures None recorded. Surgeries None recorded. Imaging None recorded. Medication Orders levothyrox ine 100 mcg tablet 2012 013 [id number], [address] [place], [address], 3 17:00:33 Flovent HFA 44 mcg/actuat ion aerosol inhaler 2012 013 [id number], [address] [place], [address], 3 17:00:35 albuterol sulfate 2.5 mg/3 mL (0.083 %) solution for nebulizati on 2012 013 [id number], [address] [place], [address], 3 17:00:31 albuterol sulfate 2.5 mg/3 mL (0.083 %) solution for nebulizati on 2011 012 [facility]AN [id number], [address] [place], [address], 3 03:37:01 Prilosec OTC 20 mg tablet,del ayed release 2011 012 [place] [address] [id number], [address] [place], [address], 3 16:57:49 Flovent HFA 110 mcg/actuat ion aerosol inhaler 2010 011 RACQUEL Not available 3 05:20:54 albuterol sulfate HFA 90 mcg/actuat ion aerosol inhaler 2010 011 RACQUEL Not available 3 03:36:21 Patient TargetsNo targets recorded. Patient Instructions Encounter Date Encounter Id Patient Instructions Last Modified By Organization Details Last Modified Time 03/04/2011 [id number] asthma handout / teaching RACQUEL Not available [...] 2 wks. Not available 03/06/2011 11:54:40 10/15/2011 [id number] No dysuria and UA WNL - so UTI seems to be resolved. She will cont wtih lots? ? ?of PO fluids and FU with urologist.? ? ? Overdue for labs - will get them today.? ? ? Needs PHA Not available 10/17/2011 08:52:52 01/21/2012 [id number] 1. pt felt wheeze, but lung exam [...] worse. yamila Not available 01/21/2012 17:06:56 05/08/2012 [id number] Get labs drawn today. Reschedule PHA. Consider [...] the time. Not available 05/08/2012 21:02:51 03/02/2013 [id number] Well Visit, Ages 18 to 65: Care Instructions saniya Not available 03/05/2013 08:16:27 My Health To Do List As we discussed and agreed upon at your visit please work on the following: Recheck TSH and consider adjusting med with goal of TSH close to 1 to see if that helps with wt mgmt.? ? ? She is very consistent about taking it. Call [phone] with Dr Maria for ENT eval.? ? ? Cound go back to sleep medicine for trial of c-pap. Schedule pap with [facility] in [place] in 2013. Discussed fungal intertrigo and how to treat. Resume FLovent 2 puffs twice a day with spacer. Refuses flu shot. Follow up with rheum as planned.? ? ? Get labs drawn, wants to go to [facility].? ? ? Discussed that neurontin could be adjusted for more benefit. Not available 03/03/2013 07:43:20 Reason for Referral Hypothyroidism. Referring Physician: Caitie Estrada, Family Medicine, Encounter Date: 03/04/2011 Crowded airway. CO not being able to breathe at noc. Awakens gasping for air. Snoring.//June 7:30 pm Referring Physician: Caitie Estrada, Family Medicine, Encounter Date: 05/08/2012 [facility] Corral. Very bothered by waking up not being able to breath at night. Eval recommended. Has had tonsilectomy. Referring Physician: Caitie Estrada Family Medicine, Encounter Date: 03/02/2013 Results Created Date Observation Date Name Description Value Unit Range Abnormal Flag Note LastModifiedBy Organization Detail LastModifiedTime 01/21/20 12 01/21/2012 rapid strep A Result negati ve Not Available [address], [place], [address], 01/21/2012 16:22:06 03/04/20 11 03/04/2011 CBC WBC 10.5 K/?L 4.0-10 .0 high Not Available [address], [address], 03/04/2011 15:15:32 03/04/20 11 03/04/2011 CBC RBC 4.81 M/?L 3.93-5 .22 Not Available [address], [address], 03/04/2011 15:15:32 03/04/20 11 03/04/2011 CBC HGB 13.6 g/dL 11.2-1 5.7 Not Available [address], [address], 03/04/2011 15:15:32 03/04/20 11 03/04/2011 CBC HCT 40.4 % 34.1-4 4.9 Not Available [address], [address], 03/04/2011 15:15:32 03/04/20 11 03/04/2011 CBC MCV 84.0 ?L 79.4-9 4.8 Not Available [address], [address], 03/04/2011 15:15:32 03/04/20 11 03/04/2011 CBC MCH 28.3 pg 25.6-3 2.2 Not Available [address], [address], 03/04/2011 15:15:32 03/04/20 11 03/04/2011 CBC MCHC 33.7 g/dL 32.2-3 5.5 Not Available [address], [address], 03/04/2011 15:15:32 03/04/20 11 03/04/2011 CBC plt 351.0 K/?L 182.0- 369.0 Not Available [address], [address], 03/04/2011 15:15:32 03/04/20 11 03/04/2011 CBC MPV 10.1 9.4-12 .3 Not Available [address], [address], 03/04/2011 15:15:32 03/04/20 11 03/04/2011 CBC neut% 51.9 % 34.0-7 1.1 Not Available [address], [address], 03/04/2011 15:15:32 03/04/20 11 03/04/2011 CBC neut# 5.5 1.6-6. 1 Not Available [address], [address], 03/04/2011 15:15:32 03/04/20 11 03/04/2011 CBC lymph % 37.1 % 19.3-5 1.7 Not Available [address], [address], 03/04/2011 15:15:32 03/04/20 11 03/04/2011 CBC lymph # 3.9 K/?L 1.2-3. 7 high Not Available [address], [address], 03/04/2011 15:15:32 03/04/20 11 03/04/2011 CBC mono% 6.4 % 4.7-12 .5 Not Available [address], [address], 03/04/2011 15:15:32 03/04/20 11 03/04/2011 CBC mono# 0.7 0.2-0. 4 high Not Available [address], [address], 03/04/2011 15:15:32 03/04/20 11 03/04/2011 CBC eo% 4.2 % 0.7-5. 8 Not Available [address], [address], 03/04/2011 15:15:32 03/04/20 11 03/04/2011 CBC eo# 0.4 0.0-0. 4 high Not Available [address], [address], 03/04/2011 15:15:32 03/04/20 11 03/04/2011 CBC baso% 0.4 % 0.1-1. 2 Not Available [address], [address], 03/04/2011 15:15:32 03/04/20 11 03/04/2011 CBC baso# 0.0 0.0-0. 1 low Not Available [address], [address], 03/04/2011 15:15:32 03/04/20 11 03/04/2011 CBC RDW-CV 12.6 % 11.7-1 4.4 Not Available [address], [address], 03/04/2011 15:15:32 03/04/20 11 03/04/2011 compr ehens miguel metab olic panel glucose 87 mg/dL 70-100 Not Available [address], [address], 03/04/2011 15:57:12 03/04/20 11 03/04/2011 compr ehens miguel metab olic panel BUN 8 mg/dL 7-18 Not Available [address], [address], 03/04/2011 15:57:12 03/04/20 11 03/04/2011 compr ehens miguel metab olic panel creatinine 0.8 mg/dL 0.8-1. 3 Not Available [address], [address], 03/04/2011 15:57:12 03/04/20 11 03/04/2011 compr ehens miguel metab olic panel B/C 10.0 ratio Not Available [address], [address], 03/04/2011 15:57:12 03/04/20 11 03/04/2011 compr ehens miguel metab olic panel GFR 93.7 mL/mi n recom merlin d GFR by the natio nal kidne y found ation >60 mL/mi n/1.7 3m2 - jacinto l <60 mL/mi n/1.7 3m2 - chron ic kidne y disea se <15 mL/mi n/1.7 3m2 - kidne y failu re Not Available [address], [address], 03/04/2011 15:57:12 03/04/20 11 03/04/2011 compr ehens miguel metab olic panel GFR - if 107.8 mL/mi n for afric an ameri can patie nts: resul ts multi plied by 1.21 Not Available [address], [address], 03/04/2011 15:57:12 03/04/20 11 03/04/2011 compr ehens miguel metab olic panel sodium 142 mmol/ L 136-14 5 Not Available [address], [address], 03/04/2011 15:57:12 03/04/20 11 03/04/2011 compr ehens miguel metab olic panel potassium 4.5 mmol/ L 3.5-5. 1 Not Available [address], [address], 03/04/2011 15:57:12 03/04/20 11 03/04/2011 compr ehens miguel metab olic panel chloride 105 mmol/ L 96-107 Not Available [address], [address], 03/04/2011 15:57:12 03/04/20 11 03/04/2011 compr ehens miguel metab olic panel _anion gap 10.0 Not Available [address], [address], 03/04/2011 15:57:12 03/04/20 11 03/04/2011 compr ehens miguel metab olic panel CO2 27 mmol/ L 21-32 Not Available [address], [address], 03/04/2011 15:57:12 03/04/20 11 03/04/2011 compr ehens miguel metab olic panel calcium 9.4 mg/dL 8.5-10 .3 Not Available [address], [address], 03/04/2011 15:57:12 03/04/20 11 03/04/2011 compr ehens miguel metab olic panel total protein 7.7 g/dL 6.4-8. 2 Not Available [address], [address], 03/04/2011 15:57:12 03/04/20 11 03/04/2011 compr ehens miguel metab olic panel albumin 4.0 g/dL 3.4-5. 0 Not Available [address], [address], 03/04/2011 15:57:12 03/04/20 11 03/04/2011 compr ehens miguel metab olic panel globulin 3.7 g/dL Not Available [address], [address], 03/04/2011 15:57:12 03/04/20 11 03/04/2011 compr ehens miguel metab olic panel A/G 1.1 ratio 0.8-2. 0 Not Available [address], [address], 03/04/2011 15:57:12 03/04/20 11 03/04/2011 compr ehens miguel metab olic panel total bilirubin 0.30 mg/dL 0.00-1 .00 Not Available [address], [address], 03/04/2011 15:57:12 03/04/20 11 03/04/2011 compr ehens miguel metab olic panel AST 14 U/L 15-37 low Not Available [address], [address], 03/04/2011 15:57:12 03/04/20 11 03/04/2011 compr ehens miguel metab olic panel ALT 28 U/L 30-65 low Not Available [address], [address], 03/04/2011 15:57:12 03/04/20 11 03/04/2011 compr ehens miguel metab olic panel alk. phos. 103 U/L 50-136 Not Available [address], [address], 03/04/2011 15:57:12 03/04/20 11 03/04/2011 thyro id stimu latin g hormo ne (TSH) TSH 7.67 uIU/m L 0.50-6 .00 high the ameri can colle ge of endoc rinol ogy and ameri can thyro id assoc iatio n recom mend goal TSH value s betwe en 1.0-2 .5 mIU/m L. Not Available [address], [address], 03/04/2011 16:34:51 03/04/20 11 03/08/2011 rheum atoid facto r rheumatoid factor 9.9 IU/mL 0.0-16 .0 <16.0 IU/mL - negat miguel 16.0- 19.9 IU/mL - equiv ocal >20.0 IU/mL - posit miguel Not Available [address], [address], 03/08/2011 12:48:43 03/04/20 11 03/08/2011 KYE KYE screen 0.58 0.00-0 .39 positive KYE=s ample [facility] evan virgen and titer . <0.4 -nega tive 0.40 - 1.10 -equi vocal >1.10 -posi tive Not Available [address], [address], 03/08/2011 12:48:44 03/04/20 11 03/09/2011 post scree n titer and patte rn KYE pattern NEGATI VE normal Not Available [facility] [address], [address], 03/09/2011 14:41:56 03/04/20 11 03/09/2011 post scree n titer and mishelte rn antinuclear antibodies <1:40 titer normal refer ence range <1:40 negat miguel 1:40- 1:80 low antib paula level >1:80 eleva yogesh antib paula level Not Available [facility] [address], [address], 03/09/2011 14:41:56 10/15/19 12 10/18/2011 thyro id stimu latin g hormo ne (TSH) TSH 3.22 uIU/m L 0.50-6 .00 the ameri can colle ge of endoc rinol ogy and ameri can thyro id assoc iatio n recom mend goal TSH value s betwe en 1.0-2 .5 mIU/m L. Not Available [address], [address], 10/18/2011 09:45:39 01/21/20 12 01/24/2012 cultu re, throa t culture, throat cultu re, throa t micro numbe r: [id number] test statu s: final speci men sourc e: throa t speci men quali ty: adequ ate resul t: no oroph aryng eal patho gens recov ered. Not Available [facility] [address], [address], 01/24/2012 15:45:07 05/08/19 13 05/09/2012 thyro id stimu latin g hormo ne (TSH) TSH 11.11 uIU/m L 0.50-6 .00 high the ameri can colle ge of endoc rinol ogy and ameri can thyro id assoc iatio n recom mend goal TSH value s betwe en 1.0-2 .5 mIU/m L. Not Available [address], [address], 05/09/2012 09:15:27 05/08/19 13 05/09/2012 gluco se glucose 85 mg/dL 70-100 Not Available [address], [address], 05/09/2012 09:33:44 05/08/19 13 05/23/2012 vitam in [...] er than 30 NG/mL . Not Available [address], [address], 05/23/2012 15:19:20 12/02/19 13 12/01/2012 thyro id stimu latin g hormo ne (TSH) TSH 5.59 uIU/m L 0.50-6 .00 the ameri can colle ge of endoc rinol ogy and ameri can thyro id assoc iatio n recom mend goal TSH value s betwe en 1.0-2 .5 mIU/m L. Not Available [address], [address], 12/01/2012 15:12:50 12/02/19 13 12/19/2012 vitam in [...] er than 30 NG/mL . Not Available [address], [address], 12/19/2012 15:17:58 Result Notes None recorded. Problems Name Problem SNOMED Code Status Onset Date Resolution Date Notes Provider Name and Address Organization Details Recorded Time Obesity 324139766 Active Not Available [facility] 3 03:15:26 Kidney stone 15372943 Active Not Available [facility] 3 03:15:26 Extrinsic asthma with asthma attack Active Not Available [facility] 3 03:15:26 Urinary tract infectious disease 80059147 Completed 03/14/2013 Not Available [facility] 3 02:01:58 Fever 021307378 Completed 03/14/2013 Not Available [facility] 3 02:02:42 Generalize d anxiety disorder 70265699 Active Not Available [facility] 3 03:15:26 Acute pharyngiti s 557690685 Completed 03/14/2013 Not Available [facility] 3 02:01:18 Allergic 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 s 67314123 Active Caitie Estrada NP [address] [place] [address], [address] , [facility] 3 07:43:20 Vitamin D deficiency 57443874 Active Caitie Estrada NP [address] [place] [address], [address] , [facility] 4 15:08:36 Respirator y finding 511604064 Completed 03/14/2013 Not Available [facility] 3 02:04:14 Common cold 95290232 Completed 03/14/2013 Not Available [facility] 3 02:00:30 Pain of joint of hand 654383872 Completed 03/14/2013 Not Available [facility] 3 02:02:43 Knee pain Completed 03/14/2013 Not Available [facility] 3 02:00:43 Low back pain 885359957 Active Not Available [facility] 3 03:15:26 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 Not Available [facility] 3 03:15:26 Primary fibromyalg ia syndrome 19692752 Active Caitie Estrada NP [address] [place] [address], [address] , [facility] 3 07:43:20 Malaise and fatigue 332984981 Completed 03/14/2013 Not Available [facility] 3 02:00:21 Acquired hypothyroi dism 861083974 [facility] 5 11:41:43 Snoring 89204735 Active Caitie Estrada NP [address] [place] [address], [address] , [facility] 3 07:43:20 Asthma 332223599 Active Caitie Estrada NP [address] [place] [address], [address] , [facility] 3 07:43:20 Candidal intertrigo 439220118 Christiane Estrada NP [address] [place] [address], [address] , [facility] 3 07:43:20 Constipati on 05885814 Active Caitie Estrada NP [address] [place] [address], [address] , [facility] 4 08:10:40 Problem Notes None recorded. Procedures Surgical History Date Name Laterality Status Provider Name and Address Organization Details Recorded Time 2 Nebulizer Tx completed Troy Campo MD [address] [place] [address], [phone], [facility] 01/21/2012 17:06:07 1 Asthma Control Test (12 + years old) completed Jenny Viera MA [facility] 03/04/2011 11:17:22 1 Asthma Control Test (12 + years old) completed Jenny Viera MA [facility] 08/20/2010 16:23:18 Tubal Ligation completed Not Available [facility] 03/11/2011 06:06:16 Imaging Results None recorded. Procedure [...] Address Organization Details Last Updated DateTime 1 47868.4 47594 g 72 /min 99 % 99 % 116 mm[Hg] 78 mm[Hg] Jenny Viera [facility] 1 11:17:21 Date Recorded Body weight Heart rate Body height Body mass index (BMI) Systolic blood pressure Diastolic blood pressure Provider Name and Address Organization Details Last Updated DateTime 2 29299.3 01024 g 76 /min 153.035 cm 38.2 kg/m2 98 mm[Hg] 68 mm[Hg] Vidya Enriquez [facility] 2 13:49:51 Date Recorded Body height Body weight Body mass index (BMI) Body temperature Heart rate Systolic blood pressure Diastolic blood pressure Provider Name and Address Organization Details Last Updated DateTime 2 153.035 cm 55787.2 05594 g 38.8 kg/m2 99.1 [degF] 72 /min 114 mm[Hg] 70 mm[Hg] Kyara Cervantes CMA [facility] 2 16:19:57 Date Recorded Body weight Heart rate Systolic blood pressure Diastolic blood pressure Provider Name and Address Organization Details Last Updated DateTime 05/08/2012 49799.241 572 g 72 /min 122 mm[Hg] 82 mm[Hg] [facility] 05/08/2012 13:51:40 Date Recorded Body height Body mass index (BMI) Provider Name and Address Organization Details Last Updated DateTime 05/08/2012 154.94 cm 38.6 kg/m2 Caitie Estrada NP [address] [place] [address], [phone], [facility] 05/08/2012 14:12:25 Date Recorded Body height Body weight Body mass index (BMI) Heart rate Systolic blood pressure Diastolic blood pressure Provider Name and Address Organization Details Last Updated DateTime 3 153.035 cm 79869.2 1296 g 40.3 kg/m2 78 /min 108 mm[Hg] 68 mm[Hg] [facility] 3 15:57:36 Social History Question Answer Notes LastModified by [email or web address] Details LastModified Time Tobacco Smoking Status Former Smoker Not Available [facility] 03/11/2011 04:52:47 What Is Your Level Of Caffeine Consumption? None Information not available 03/11/2011 How Much Tobacco Do You Chew? None Information not available 03/02/2013 What Type Of Diet Are You Following? 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 With Others Children And Their Father Gerald Choe Information not available 05/04/2010 Patient Has Health Care Proxy Signed And In Chart No 17 Information not available 03/11/2011 Marital Status Domestic Partner Information not available 03/11/2011 How Many Children Do You Have? 4 Information not available 03/11/2011 Sex: Unknown Functional Status Question Answer Note LastModified by [employer] ion Details LastModified Time What is your level of alcohol consumption? Occasional Information not available 03/02/2013 What is your occupation? unemployed at home Information not available 03/02/2013 Mental Status None recorded. Family History Relationship Description Onset Age of this Age Resolved Age Notes LastModified by Organization Details LastModified Time Daughter Asthma [email or web address] [id number] Not available 12/04/2012 03:01:13 Mother Asthma [email or web address] [id number] Not available 12/04/2012 03:01:13 Sister Asthma [email or web address] [id number] Not available 12/04/2012 03:01:13 Medical History Condition Response Fibromyalgia Y Gynecological History Statement/Question Response Current Control Method Tubal Ligat ion Obstetrics History GPAL:G 0 P 0 0 0 0 Immunizations Vaccine Type Date Status Note Provider Nam e and Address Organization Details Recorded Time influenza, unspecified formulation 0 completed Not Available [facility] 03/10/2011 05:22:52 Past Encounters Encounter ID Performer Location Encounter Start Date Encounter Closed Date Diagnosis/Indication Diagnosis SNOMED-CT Code Diagnosis ICD10 Code Diagnosis Note [id number] DANNY Moyer, [facility], [address] [place] [address] 05/04/2010 09:09:44 05/07/2010 12:41:03 [id number] DANNY Moyer, [facility], [address] [place] [address] 05/18/2010 16:07:44 05/21/2010 13:34:23 [id number] DANNY Moyer, [facility], [address] [place] [address] 06/11/2010 16:12:16 06/16/2010 10:47:49 [id number] DANNY Moyer, [facility], [address] [facility] [place] [address] 07/03/2010 15:51:35 07/08/2010 12:20:13 [id number] DANNY Moyer, [facility], [address] [place] [address] 08/20/2010 15:59:02 08/25/2010 09:29:56 [id number] DANNY Moyer, [facility], [address] [facility] [place] [address] 12/08/2010 13:27:53 12/08/2010 14:03:17 [id number] Caitie Estrada NP FP, [facility], [address] [facility] [place] [address] 03/04/2011 10:26:38 03/04/2011 11:58:37 [id number] Troy Campo MD , [facility], [address] [facility] [place] [address] 10/15/2011 13:41:41 10/15/2011 15:34:28 [id number] Troy Campo MD , [facility], [address] [facility] [place] [address] 01/21/2012 16:06:08 01/21/2012 17:05:28 [id number] Troy Campo MD , [facility], [address] [facility] [place] [address] 05/08/2012 13:44:13 05/08/2012 14:32:08 [id number] Caitie Estrada NP , [facility], OFF[address] [facility] [place] [address] 03/02/2013 15:44:22 03/02/2013 17:00:19 Adult health examination 627790243 see Risk Assessment and Lifestyle Change Counseling section above Counseling [id number] Primary fi bromyalgia syndrome 89007360 Acquired hypothyroidism 522476736 Snoring 85864006 Asthma 878583196 PERSIST ENT (Mild/Mod/ Severe) Based on the history, the ACT test score___, physical assesment and peak flow,, the patient's asthma is not in control.Se e orders for adjustment s in plan. A copy of the aftercare summary and the asthma action plan have been provided. The patient is in agreement with this plan. Allergic a sthma 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s 34035494 Candidal intertrigo 541241772 Health Concerns Section Related Observation LastModified by Organization Detai ls LastModified Time None Recorded Concern Status LastModified by Organization Details LastModified Time None Recorded Advance Directives Directive None Recorded Payers Encounter Date Sequence Insurance Name Policy Number Policy Jasso Covered Member ID Jasso Member ID Guarantor Name 03/04/2011 1 [facility] NET PLAN (MEDICAID HMO) [id number] Mary M Recio [id number] Mary Recio 10/15/2011 1 [facility] PL[facility] (MEDICAID HMO) [id number] Mary M Recio [id number] Mary Recio 01/21/2012 1 [facility] (MEDICAID HMO) [id number] Mary M Recio [id number] Mary Recio 05/08/2012 1 [facility] PL[facility] (MEDICAID HMO) [id number] Mary M Recio [id number] Mary Recio 03/02/2013 1 [facility] (MEDICAID HMO) [id number] Mary M Recio [id number] Mary Recio Notes Date Note Type Note Provider Name and Address Organization Details Recorded Time 03/04/2011 text/html Fibromyalgia bothering her a lot. Hands especially bothersome. 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 Taking thyroid med daily - doesn't miss. Last TSH 04/2010. Caitie Estrada NP [address] [place], [phone], [facility] 03/06/2011 11:55:20 10/15/2011 text/html Took 3d of cipro for UTI, then stopped because it caused dryness in her mouth. Now sx now cleared except for frequency. Has had ER visits at [facility] x3 for kidney stones - 06/2011, 07/2011, and earlier this month. Had CT during 2nd visit. Has referral to urologist at [facility]. Drinking a lot of water. No blood in urine. No flank pain. Girls home with her this summer. Recently bought a house. Caitie Estrada NP [address] [place], [phone], [facility] 10/17/2011 08:53:14 01/21/2012 text/html Pt c/o chest [...] not taking any famotidine. Troy Campo MD [address] [place] [address], [phone], [facility] 01/21/2012 17:07:11 05/08/2012 text/html Frequently waked up at night feeling breathing blocked in throat. Here with partner who says she snores. Also having palpitations at rest - at night and when sitting. Lasts very briefly - 2-3 sec. Goes away with dep breath. Forgot about PHA appt last week which she missed. CO continuing to gain wt. Caitie Estrada NP [address] [place] [address], [phone], [facility] 05/08/2012 21:03:10 OBGyn Episode No OBEpisode recorded.
== END 2024-09-04 10:34 | disposition home or self-care (01) ==
LOC: HO.RHE 09:27
PROVIDERS: PCP Internal Medicine; Visit Provider Student in an Organized Health Care Education/Training Program
DX: M79.7 Fibromyalgia (principal); M15.9 Polyosteoarthritis, unspecified; E06.3 Autoimmune thyroiditis
CPT/HCPCS: 99214

== ENCOUNTER → 2024-09-04 09:27 | Outpatient (BNVA) | payer OTHER, SELFPAY | PROVIDERS: PCP Internal Medicine; Visit Provider Student in an Organized Health Care Education/Training Program | DX: M79.7 Fibromyalgia (principal); M15.9 Polyosteoarthritis, unspecified; E06.3 Autoimmune thyroiditis | CPT/HCPCS: 99212 ==

== ENCOUNTER 2024-09-10 09:24 | Outpatient (AMB) | payer OTHER, SELFPAY ==
--- NOTE | 2024-09-10 09:29 | A.OFFPC_ITS ---
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 Required: No Accompanied by: Self / Same As Patient Allergies No Known Allergies [No Known Allergies*] Allergy (Verified 09/10/24 09:41) Medication List - Last Reconciled 09/10/24 by Nenita Harper MD albuterol sulfate 2.5 mg (3 mL) inhalation Q6H PRN 30 days albuterol sulfate 90 mcg/actuation 2 puffs PO Q4H PRN 30 days buprenorphine 5 mcg/hour 1 patch transdermal Q7D cholecalciferol (vitamin D3) 50 mcg PO DAILY 90 days meclizine 25 mg PO BID PRN 7 days mecobalamin (vitamin B12) 1,000 mcg sublingual DAILY nebulizers (AeroEclipse II Nebulizer) As directed omeprazole 20 mg PO BID 90 days polyethylene glycol 3350 (Miralax) 17 grams PO DAILY sennosides (senna) 8.6 mg PO BEDTIME PRN 30 days Synthroid (levothyroxine) 100 mcg PO DAILY NS Ventolin HFA 90 mcg/actuation (albuterol sulfate) 2 puffs inhalation Q6H PRN 30 days NS [wedge pillow Use it for nap time and over night sleep ] Tobacco use date assessed: 09/10/24 Dental Screening Dental Screen Date: 09/10/24 Did you have a dental visit in the last 12 months?: No Did you have a dental problem in the last 6 months where you did not have access to dental care?: No Was dental information given to patient?: Patient has dentist HPI HPI Comments History of Present Illness Details The patient is a 44-year-old female presenting for a physical examination. She reports several ongoing health concerns, including difficulty managing asthma and recent knee pain. She experienced wheezing upon waking, consistent with her asthma history, but has not reported using additional or alternate medications beyond her inhaler. She mentioned a recent experience of knee pain, specifically in the left knee, hindering mobility. The patient denies any history of alcohol consumption and has stopped smoking. She recalls being prescribed and recently discontinuing Cymbalta due to stomach pain despite using omeprazole regularly for her gastritis. Furthermore, she reports ongoing constipation, managed with MiraLAX and Senna. The patient is socially involved with efforts to manage her weight; however, recent encounters with her weight management provider were challenging, as discussions centered around the recommendation for surgery, which she declined, preferring to continue with weight management injections. She acknowledges being somewhat depressed, which is supported by a PHQ-9 score of 6, and experiences anxiety. - Updated tetanus vaccine is not require d currently; last administered within the last 10 years. - Due for mammogram; last conducted appr oximately three years ago. - Last Pap smear performed in 2019; foll ow-up suggested within the year or next. - Recent emphasis on dietary improvement s and weight management. [facility] Medical History Osteoarthritis involving multiple joints on both sides of body Major depressive disorder, recurrent, mild Leg edema Right knee pain Acid reflux Allergic rhinitis Abdominal pain Elmira's disease Menorrhagia with regular cycle Obesity (BMI 30-39.9) History of abnormal cervical Pap smear Asthma Fibromyalgia Depression GERD (gastroesophageal reflux disease) Hypothyroidism Vitamin D deficiency Autoimmune thyroiditis Surgical History History of tonsillectomy History of tubal ligation Family History Mother Asthma Father AIDS Sister No problems noted. Brother No problems noted. Daughter No problems noted. Daughter No problems noted. Daughter No problems noted. Son No problems noted. 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 1. Little interest or pleasure in doing things: several days 2. Feeling down, depressed, or hopeless: not at all 3. Trouble falling or staying asleep, or sleeping too much: several days 4. Feeling tired or having little energy: several days 5. Poor appetite or overeating: several days 6. Feeling bad about yourself - or that you are a failure or have let yourself or your family down: not at all 7. Trouble concentrating on things, such as reading the newspaper or watching television: several days 8. Moving or speaking so slowly that other people could have noticed. Or the opposite - being so fidgety or restless that you have been moving around a lot more than usual: several days 9. Thoughts that you would be better off or of hurting yourself in some way: not at all Total score: 6 Depression Screening Interpretation: Positive Depression Screening Follow-up: Existing condition and Follow-up Visit Requested Depression Screening Done: Yes 11908 - PHQ-9 Billing: Yes Source: Developed by Drs. Rudy Brasher, Isi Sahni, Jerry Hughes and colleagues, with an educational joseph from [employer]. Thrive Questionnaire Date Thrive assessed: 09/10/24 I am a: Patient What is your living situation today?: I have a steady place to live Within the past 12 months, did the food you bought not last and you didn't have the money to get more?: Never true Within the past 12 months, did you worry whether your food would run out before you got money to buy more?: Sometimes True Do you have trouble paying for medicines?: No Do you have trouble getting transportation to medical appointments?: No Do you have trouble paying your heating and electricity bill?: Yes Do you have trouble taking care of your child, family member or friend?: No Do you have trouble with day-to-day activities such as bathing, preparing meals, shopping, managing finances, etc.?: I choose not to answer this question Are you currently unemployed and looking for a job?: No Are you interested in more education?: No Please select the resources that you would like help with: None Currently or been in a relationship where the following occur: No concerns reported THRIVE Score: 2 AUDIT C Alcohol Use Questionnaire (AUDIT-C) 1. How often do you have a drink containing alcohol?: Never Total Score: 0 Score Reviewed/Action Taken: No NHAN-7 AMB Questionnaire NHAN-7 Date NHAN - 7 assessed: 09/10/24 Feeling nervous, anxious, or on edge: 0 = Not at all Not being able to stop or control worryin = Several days Worrying too much about different things: 1 = Several days Trouble relaxin = Several days Being so restless that it is hard to sit still: 0 = Not at all Becoming easily annoyed or irritable: 0 = Not at all Feeling afraid as if something awful might happen: 0 = Not at all Total NHAN-7 score (0-4 normal; 5-9 mild; 10-14 moderate; 15-21 severe): 3 Source: Developed by Drs. Rudy Brasher, Isi Sahni, Jerry Hughes and colleagues, with an educational joseph from [employer]. NHAN-7 Assessment Billing NHAN-7 Assessment Tool: NHAN-7 Assessment 30007 Review of Systems Const All systems reviewed & are unremarkable except as noted in HPI and below Card Denies chest pain at rest, Denies chest pain with activity, Denies edema, Denies irregular heart rhythm, Denies claudication, Denies dyspnea, Denies dyspnea on exertion, Denies orthopnea, Denies paroxysmal nocturnal dyspnea and Denies slow heart rate Resp Denies cough, Denies dyspnea and Denies dyspnea on exertion GI Denies abdominal pain, Denies change in bowel habits, Denies excessive flatus, Denies nausea and Denies vomiting Physical exam (Primary Care) Vital Signs: Last Vital Signs BP 122/80 09/10/24 09:36 BMI result Body Mass Index 43.5 Tobacco/Smoking Status: Tobacco use Status Tobacco use date assessed 09/10/24 09/10/24 09:40 Patient Tobacco Use Status Former Tobacco user 09/10/24 09:31 Tobacco use type Cigarette 09/10/24 09:31 e-Cigarette/Vaping Use Never Used 09/10/24 09:31 PHQ-9: PHQ-9 Score PHQ-9: Total score 6 09/10/24 12:11 Depression Screening Interpretation: Positive Depression Screening Follow-up: Existing condition and Follow-up Visit Requested Thrive Assessment: Date of Thrive Assessment Date Thrive assessed 09/10/24 09/10/24 09:31 Currently or been in a relationship where the following occur: No concerns reported [facility] Head: Yes normal to inspection, Yes normocephalic and Yes atraumatic Ears: external ears normal Eyes General: appearance normal, both eyes and all related structures Eyelids: Yes eyelids normal Conjunctivae: conjunctivae normal Neck Neck: Yes normal visual inspection and Yes supple Resp Effort & Inspection: normal respiratory effort Auscultation: clear to auscultation bilaterally Cardio Jugular venous distension: no JVD Rate: regular rate Rhythm: regular rhythm Heart sounds: S1 normal heart sound present and S2 normal heart sound present GI Inspection: Yes normal to inspection Palpation (GI): Soft to palpation and nontender Auscultation: normal bowel sounds Skin General skin exam: no rashes or lesions noted Neuro General: no focal motor deficits Extrem General: Yes full ROM Psych Appearance: grossly normal Coding Level of Care Code Est Pt Level 3 (15878) Est Pt Prev Care 40-64y(48488) Diagnoses Physical exam Z00.00 Morbid obesity with BMI of 40.0-44.9, adult E66.01; Z68.41 Screening for cervical cancer Z12.4 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 Vitamin D deficiency E55.9 Additional Codes NHAN-7 Assessment Billing - NHAN-7 Assessment Tool: NHAN-7 Assessment 13092 ([id number]) PHQ-9 - 18044 - PHQ-9 Billing: Yes ([id number]) Time Spent (min) 33 Assessment & Plan Assessment & Plan (1) Physical exam: Code(s): Z00.00 - Encounter for general adult medical examination without abnormal findings Category: Medical (2) Morbid obesity with BMI of 40.0-44.9, adult: Code(s): E66.01 - Morbid (severe) obesity due to excess calories; Z68.41 - Body mass index [BMI] 40.0-44.9, adult Category: Medical (3) Screening for cervical cancer: Code(s): Z12.4 - Encounter for screening for malignant neoplasm of cervix Category: Medical (4) Hypothyroidism: Code(s): E03.9 - Hypothyroidism, unspecified Category: Medical Qualifiers: Hypothyroidism type: due to Elmira's thyroiditis Qualified Code(s): E06.3 - Autoimmune thyroiditis (5) Vitamin D deficiency: Code(s): E55.9 - Vitamin D deficiency, unspecified Category: Medical Plan The patient's asthma control will continue with as-needed inhaler use. Blood work to be conducted for thyroid function evaluation. 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 For depression and anxiety, follow up on mental health is adv ised to manage symptoms and evaluate need for therapy change, especially after ceasing Cymbalta. Preventative health measures include ordering a mammogram and addressing Pap smear timelines. Routine labs will also help understand her metabolic state, guiding further management. Patient was informed and verbally consented to the use of an ambient scribe for clinic note documentation during this visit. I reviewed the patient's asthma management and the symptomatic use of an inhaler. Discussion included the possible adjustment of medication based on symptom control and the interim follow-up if exacerbations persist. I explained the importance of thyroid monitoring considering her hormone replacement therapy. We delved into mental health, addressing dissatisfaction with prior antidepressants and discussing future adjustment if necessary. The rationale for upcoming blood work and scheduled mammogram was emphasized for comprehensive care. The patient was given the opportunity to raise concerns about weight management, and although she expressed frustration, I offered reassurance about the ongoing effort without surgery. Orders: Orders Vitamin D 25-OH Total Today E55.9 - Vitamin D deficiency, unspecified Vitamin B12 and Folate Today E53.8 - Deficiency of other specified B group vitamins Thyroid Stimulating Hormone Today E06.3 - Autoimmune thyroiditis Lipid Panel Today E78.5 - Hyperlipidemia, unspecified Comprehensive Cade. Panel Fast Today Z00.00 - Encounter for general adult medical examination without abnormal findings MM tomosynthesis screening BI Today Z12.31 - Encounter for screening mammogram for malignant neoplasm of breast Referrals BALLISTICS PROFESSOR Referral Z12.4 - Encounter for screening for malignant neoplasm of cervix Patient Instructions: - Continue using the inhaler as needed for asthma symptoms. - Return for fasting blood work to check various health markers. - Attend the scheduled mammogram and future Pap smear. - Follow dietary improvements and monitor weight management efforts. - Consider discussing knee pain with a specialist if it persists. - Monitor mood and anxiety; follow up if current symptoms worsen or require change in treatment plan. - Schedule a follow-up appointment as needed to review results and adjust care plan.
[2024-09-10 09:36] VITALS: BP 122/80; BMI 43.5
--- OUTSIDE RECORDS SUMMARY | 2024-09-10 09:41 | XMS_ITS | Clinical Summary ---
Author Organization [employer] Address [address] [place] [address] Care Team Providers Care Surveillance Observer Name Role Phone Unavailable Primary Care Provider Unavailabl e Encounters Date Type Department Care Team Description 06/28/2024 Outside Procedure [facility] [address], [place] [id number] Kiara Acuña, OD Presbyopia (Primary Dx) 06/27/2024 1:15 PM EST Office Visit [facility] [address], [place] [phone] Kiara Acuña, OD Myopia of both eyes (Primary Dx) from Last 3 Months Social History Tobacco Use Types Packs/Day Years Used Date Smoking Tobacco: Never Assessed Comments Unknown Sex and Gender Information Value Date Recorded Sex Assigned at Female 02/22/2022 10:15 AM EDT Legal Sex Female 10:15 AM EDT Gender Identity Female 06/27/2024 3:12 PM EST Sexual Orientation Don't know 06/27/2024 3: 12 PM EST Plan of Treatment Health Maintenance Due Date Last Done Comments Depression Screening 1980 HIV Screening 1980 Lipid Panel 1980 SDOH Screening 1980 Alcohol/Substance Use Screening 1992 Tobacco Screening 1992 Family Planning (PISQ) 02/08/1995 Hepatitis C Screening 02/08/1998 DTaP/Tdap/Td Vaccines (1 - Tdap) 02/08/1999 Hepatitis B Vaccines (1 of 3 - 19+ 3-dose series) 02/08/1999 Pneumococcal Vaccine: Pediat rics (0 to 5 Years) and At-Risk Patients (6 to 49) Years) (1 of 2 - PCV) 02/08/1999 Pap Smear 02/08/2001 Cervical Cancer Screening 02/08/2010 HPV/Cotest 02/08/2010 Mammogram 2020 COVID-19 Vaccine (2023-2 5 season) 2023 Influenza Vaccine (#1) 2023 01/23/2010 Zoster Vaccines (1 of 2) 02/08/2030 RSV Patients and Pa tients Aged 60 years or older (1 - 1-dose 75+ series) 02/08/2055 HIB Vaccines Aged Out No longer eligi ble based on patient's age to complete this topic HPV Vaccines Aged Out No longer eligi ble based on patient's age to complete this topic Hepatitis A Vaccines Aged Out No long er eligible based on patient's age to complete this topic IPV Vaccines Aged Out No longer eligi ble based on patient's age to complete this topic Meningococcal B Vaccine Aged Out No l onger eligible based on patient's age to complete this topic Meningococcal Vaccine Aged Out No la zachery eligible based on patient's age to complete this topic RSV under 20 months Aged Out No longe r eligible based on patient's age to complete this topic Rotavirus Vaccines Aged Out No longer eligible based on patient's age to complete this topic Insurance [facility] [place] [id number]
--- OUTSIDE RECORDS SUMMARY | 2024-09-10 09:41 | XMS_ITS | Data Portability ---
Author Organization [facility], , [facility] Address [address] [place] [address] Care Team Providers Care Budget Specialist Name Role Phone [facility] OTHER [facility] OTHER Assessment No assessment recorded. Plan of Treatment Reminders Order Date Submit Date Provider Last Modified By Organization Details Last Modified Time Details Appointments None recorded. Lab ESR, westergren 2012 013 [facility] (Lab), [address] [place], [address], 4 13:20:10 C-reactive protein (CRP) 2012 013 [facility] (Lab), [address] [place], [address], 4 13:20:10 thyroid stimulatin g hormone (TSH) 2012 013 [facility], [address] [place] [address], [address], 3 03:54:36 vitamin D,25-hydro xy 2012 013 [facility], [address] [place] [address], [address], 3 03:52:48 glucose - random 2012 013 [facility], [address] [place] [address], [address], 3 03:52:48 rapid strep A 2011 012 [facility], [address] [place] [address], [address], 3 03:37:23 culture, throat 2011 012 [facility], [address] [place] [address], [address], 3 03:36:59 thyroid stimulatin g hormone (TSH) 2010 011 [facility], [address] [place] [address], [address], 3 05:19:55 KYE 2010 011 [facility], [address] [place] [address], [address], 3 05:20:06 comprehens miguel metabolic panel 2010 011 [facility], [address] [place] [address], [address], 3 03:36:23 CBC 2010 011 [facility], [address] [place] [address], [address], 3 05:20:14 rheumatoid factor 2010 011 [facility], [address] [place] [address], [address], 3 05:20:21 Referral ENT referral - Had sleep study at [facility] 07/[address] Corral. Very bothered by waking up not being able to breath at night. Maria Isabel hanna Has had tonsilecto my. 2012 [address] Teof[address] Riggs, [place], [address], 4 09:23:38 sleep medicine referral - Crowded airway. CO not being able to breathe at noc. Awakens gasping for air. Snoring.// June 7:30 pm 2012 013 [facility], [address] [place], [address], 3 03:52:48 endocrinol ogy referral - Hypothyroi dism. 2010 011 RACQUEL Barreto MD, [address] [facility] [place] [address] [place], [address], 3 05:31:39 Procedures None recorded. Surgeries None recorded. Imaging None recorded. Medication Orders levothyrox ine 100 mcg tablet 2012 013 [id number], [address] [place], [address], 3 17:00:33 Flovent HFA 44 mcg/actuat ion aerosol inhaler 2012 013 [id number], [address] [place], [address], 3 17:00:35 albuterol sulfate 2.5 mg/3 mL (0.083 %) solution for nebulizati on 2012 013 [id number], [address] [place], [address], 3 17:00:31 albuterol sulfate 2.5 mg/3 mL (0.083 %) solution for nebulizati on 2011 012 [id number], [address] [place], [address], 3 03:37:01 Prilosec OTC 20 mg tablet,del ayed release 2011 012 [place] [address] [id number], [address] [place], [address], 3 16:57:49 Flovent HFA 110 mcg/actuat ion aerosol inhaler 2010 011 RACQUEL Not available 3 05:20:54 albuterol sulfate HFA 90 mcg/actuat ion aerosol inhaler 2010 011 RACQUEL Not available 3 03:36:21 Patient TargetsNo targets recorded. Patient Instructions Encounter Date Encounter Id Patient Instructions Last Modified By Organization Details Last Modified Time 03/04/2011 [id number] asthma handout / teaching RACQUEL Not available [...] 2 wks. Not available 03/06/2011 11:54:40 10/15/2011 [id number] No dysuria and UA WNL - so UTI seems to be resolved. She will cont wtih lots? ? ?of PO fluids and FU with urologist.? ? ? Overdue for labs - will get them today.? ? ? Needs PHA Not available 10/17/2011 08:52:52 01/21/2012 [id number] 1. pt felt wheeze, but lung exam [...] worse. yamila Not available 01/21/2012 17:06:56 05/08/2012 [id number] Get labs drawn today. Reschedule PHA. Consider [...] the time. Not available 05/08/2012 21:02:51 03/02/2013 [id number] Well Visit, Ages 18 to 65: Care Instructions saniya Not available 03/05/2013 08:16:27 My Health To Do List As we discussed and agreed upon at your visit please work on the following: Recheck TSH and consider adjusting med with goal of TSH close to 1 to see if that helps with wt mgmt.? ? ? She is very consistent about taking it. Call [phone] with Dr Maria for ENT eval.? ? ? Cound go back to sleep medicine for trial of c-pap. Schedule pap with [facility] [place] in 2013. Discussed fungal intertrigo and how to treat. Resume FLovent 2 puffs twice a day with spacer. Refuses flu shot. Follow up with rheum as planned.? ? ? Get labs drawn, wants to go [facility].? ? ? Discussed that neurontin could be adjusted for more benefit. Not available 03/03/2013 07:43:20 Reason for Referral Hypothyroidism. Referring Physician: Caitie Estrada, Family Medicine, Encounter Date: 03/04/2011 Crowded airway. CO not being able to breathe at noc. Awakens gasping for air. Snoring.//June 7:30 pm Referring Physician: Caitie Estrada, Family Medicine, Encounter Date: 05/08/2012 Had sleep [facility] at [facility]/[address] Corral. Very bothered by waking up not being able to breath at night. Eval recommended. Has had tonsilectomy. Referring Physician: Caitie Estrada Family Medicine, Encounter Date: 03/02/2013 Results Created Date Observation Date Name Description Value Unit Range Abnormal Flag Note LastModifiedBy Organization Detail LastModifiedTime 01/21/20 12 01/21/2012 rapid strep A Result negati ve Not Available [address], [place], [address], 01/21/2012 16:22:06 03/04/20 11 03/04/2011 CBC WBC 10.5 K/?L 4.0-10 .0 high Not Available [address], [address], 03/04/2011 15:15:32 03/04/20 11 03/04/2011 CBC RBC 4.81 M/?L 3.93-5 .22 Not Available [address], [address], 03/04/2011 15:15:32 03/04/20 11 03/04/2011 CBC HGB 13.6 g/dL 11.2-1 5.7 Not Available [address], [address], 03/04/2011 15:15:32 03/04/20 11 03/04/2011 CBC HCT 40.4 % 34.1-4 4.9 Not Available [address], [address], 03/04/2011 15:15:32 03/04/20 11 03/04/2011 CBC MCV 84.0 ?L 79.4-9 4.8 Not Available [address], [address], 03/04/2011 15:15:32 03/04/20 11 03/04/2011 CBC MCH 28.3 pg 25.6-3 2.2 Not Available [address], [address], 03/04/2011 15:15:32 03/04/20 11 03/04/2011 CBC MCHC 33.7 g/dL 32.2-3 5.5 Not Available [address], [address], 03/04/2011 15:15:32 03/04/20 11 03/04/2011 CBC plt 351.0 K/?L 182.0- 369.0 Not Available [address], [address], 03/04/2011 15:15:32 03/04/20 11 03/04/2011 CBC MPV 10.1 9.4-12 .3 Not Available [address], [address], 03/04/2011 15:15:32 03/04/20 11 03/04/2011 CBC neut% 51.9 % 34.0-7 1.1 Not Available [address], [address], 03/04/2011 15:15:32 03/04/20 11 03/04/2011 CBC neut# 5.5 1.6-6. 1 Not Available [address], [address], 03/04/2011 15:15:32 03/04/20 11 03/04/2011 CBC lymph % 37.1 % 19.3-5 1.7 Not Available [address], [address], 03/04/2011 15:15:32 03/04/20 11 03/04/2011 CBC lymph # 3.9 K/?L 1.2-3. 7 high Not Available [address], [address], 03/04/2011 15:15:32 03/04/20 11 03/04/2011 CBC mono% 6.4 % 4.7-12 .5 Not Available [address], [address], 03/04/2011 15:15:32 03/04/20 11 03/04/2011 CBC mono# 0.7 0.2-0. 4 high Not Available [address], [address], 03/04/2011 15:15:32 03/04/20 11 03/04/2011 CBC eo% 4.2 % 0.7-5. 8 Not Available [address], [address], 03/04/2011 15:15:32 03/04/20 11 03/04/2011 CBC eo# 0.4 0.0-0. 4 high Not Available [address], [address], 03/04/2011 15:15:32 03/04/20 11 03/04/2011 CBC baso% 0.4 % 0.1-1. 2 Not Available [address], [address], 03/04/2011 15:15:32 03/04/20 11 03/04/2011 CBC baso# 0.0 0.0-0. 1 low Not Available [address], [address], 03/04/2011 15:15:32 03/04/20 11 03/04/2011 CBC RDW-CV 12.6 % 11.7-1 4.4 Not Available [address], [address], 03/04/2011 15:15:32 03/04/20 11 03/04/2011 compr ehens miguel metab olic panel glucose 87 mg/dL 70-100 Not Available [address], [address], 03/04/2011 15:57:12 03/04/20 11 03/04/2011 compr ehens miguel metab olic panel BUN 8 mg/dL 7-18 Not Available [address], [address], 03/04/2011 15:57:12 03/04/20 11 03/04/2011 compr ehens miguel metab olic panel creatinine 0.8 mg/dL 0.8-1. 3 Not Available [address], [address], 03/04/2011 15:57:12 03/04/20 11 03/04/2011 compr ehens miguel metab olic panel B/C 10.0 ratio Not Available [address], [address], 03/04/2011 15:57:12 03/04/20 11 03/04/2011 compr ehens miguel metab olic panel GFR 93.7 mL/mi n recom merlin d GFR by the natio nal kidne y found ation >60 mL/mi n/1.7 3m2 - jacinto l <60 mL/mi n/1.7 3m2 - chron ic kidne y disea se <15 mL/mi n/1.7 3m2 - kidne y failu re Not Available [address], [address], 03/04/2011 15:57:12 03/04/20 11 03/04/2011 compr ehens miguel metab olic panel GFR - if 107.8 mL/mi n for afric an ameri can patie nts: resul ts multi plied by 1.21 Not Available [address], [address], 03/04/2011 15:57:12 03/04/20 11 03/04/2011 compr ehens miguel metab olic panel sodium 142 mmol/ L 136-14 5 Not Available [address], [address], 03/04/2011 15:57:12 03/04/20 11 03/04/2011 compr ehens miguel metab olic panel potassium 4.5 mmol/ L 3.5-5. 1 Not Available [address], [address], 03/04/2011 15:57:12 03/04/20 11 03/04/2011 compr ehens miguel metab olic panel chloride 105 mmol/ L 96-107 Not Available [address], [address], 03/04/2011 15:57:12 03/04/20 11 03/04/2011 compr ehens miguel metab olic panel _anion gap 10.0 Not Available [address], [address], 03/04/2011 15:57:12 03/04/20 11 03/04/2011 compr ehens miguel metab olic panel CO2 27 mmol/ L 21-32 Not Available [address], [address], 03/04/2011 15:57:12 03/04/20 11 03/04/2011 compr ehens miguel metab olic panel calcium 9.4 mg/dL 8.5-10 .3 Not Available [address], [address], 03/04/2011 15:57:12 03/04/20 11 03/04/2011 compr ehens miguel metab olic panel total protein 7.7 g/dL 6.4-8. 2 Not Available [address], [address], 03/04/2011 15:57:12 03/04/20 11 03/04/2011 compr ehens miguel metab olic panel albumin 4.0 g/dL 3.4-5. 0 Not Available [address], [address], 03/04/2011 15:57:12 03/04/20 11 03/04/2011 compr ehens miguel metab olic panel globulin 3.7 g/dL Not Available [address], [address], 03/04/2011 15:57:12 03/04/20 11 03/04/2011 compr ehens miguel metab olic panel A/G 1.1 ratio 0.8-2. 0 Not Available [address], [address], 03/04/2011 15:57:12 03/04/20 11 03/04/2011 compr ehens miguel metab olic panel total bilirubin 0.30 mg/dL 0.00-1 .00 Not Available [address], [address], 03/04/2011 15:57:12 03/04/20 11 03/04/2011 compr ehens miguel metab olic panel AST 14 U/L 15-37 low Not Available [address], [address], 03/04/2011 15:57:12 03/04/20 11 03/04/2011 compr ehens miguel metab olic panel ALT 28 U/L 30-65 low Not Available [address], [address], 03/04/2011 15:57:12 03/04/20 11 03/04/2011 compr ehens miguel metab olic panel alk. phos. 103 U/L 50-136 Not Available [address], [address], 03/04/2011 15:57:12 03/04/20 11 03/04/2011 thyro id stimu latin g hormo ne (TSH) TSH 7.67 uIU/m L 0.50-6 .00 high the ameri can colle ge of endoc rinol ogy and ameri can thyro id assoc iatio n recom mend goal TSH value s betwe en 1.0-2 .5 mIU/m L. Not Available [address], [address], 03/04/2011 16:34:51 03/04/20 11 03/08/2011 rheum atoid facto r rheumatoid factor 9.9 IU/mL 0.0-16 .0 <16.0 IU/mL - negat miguel 16.0- 19.9 IU/mL - equiv ocal >20.0 IU/mL - posit miguel Not Available [address], [address], 03/08/2011 12:48:43 03/04/20 11 03/08/2011 KYE KYE screen 0.58 0.00-0 .39 positive KYE=s ample [facility] evan virgen and titer . <0.4 -nega tive 0.40 - 1.10 -equi vocal >1.10 -posi tive Not Available [address], [address], 03/08/2011 12:48:44 03/04/20 11 03/09/2011 post scree n titer and patte rn KYE pattern NEGATI VE normal Not Available [facility] [address], [address], 03/09/2011 14:41:56 03/04/20 11 03/09/2011 post scree n titer and mishelte rn antinuclear antibodies <1:40 titer normal refer ence range <1:40 negat miguel 1:40- 1:80 low antib paula level >1:80 eleva yogesh antib paula level Not Available [facility] [address], [address], 03/09/2011 14:41:56 10/15/19 12 10/18/2011 thyro id stimu latin g hormo ne (TSH) TSH 3.22 uIU/m L 0.50-6 .00 the ameri can colle ge of endoc rinol ogy and ameri can thyro id assoc iatio n recom mend goal TSH value s betwe en 1.0-2 .5 mIU/m L. Not Available [address], [address], 10/18/2011 09:45:39 01/21/20 12 01/24/2012 cultu re, throa t culture, throat cultu re, throa t micro numbe r: [id number] test statu s: final speci men sourc e: throa t speci men quali ty: adequ ate resul t: no oroph aryng eal patho gens recov ered. Not Available [facility] [address], [address], 01/24/2012 15:45:07 05/08/19 13 05/09/2012 thyro id stimu latin g hormo ne (TSH) TSH 11.11 uIU/m L 0.50-6 .00 high the ameri can colle ge of endoc rinol ogy and ameri can thyro id assoc iatio n recom mend goal TSH value s betwe en 1.0-2 .5 mIU/m L. Not Available [address], [address], 05/09/2012 09:15:27 05/08/19 13 05/09/2012 gluco se glucose 85 mg/dL 70-100 Not Available [address], [address], 05/09/2012 09:33:44 05/08/19 13 05/23/2012 vitam in [...] er than 30 NG/mL . Not Available [address], [address], 05/23/2012 15:19:20 12/02/19 13 12/01/2012 thyro id stimu latin g hormo ne (TSH) TSH 5.59 uIU/m L 0.50-6 .00 the ameri can colle ge of endoc rinol ogy and ameri can thyro id assoc iatio n recom mend goal TSH value s betwe en 1.0-2 .5 mIU/m L. Not Available [address], [address], 12/01/2012 15:12:50 12/02/19 13 12/19/2012 vitam in [...] er than 30 NG/mL . Not Available [address], [address], 12/19/2012 15:17:58 Result Notes None recorded. Problems Name Problem SNOMED Code Status Onset Date Resolution Date Notes Provider Name and Address Organization Details Recorded Time Obesity 046608427 Active Not Available [facility] 3 03:15:26 Kidney stone 35998156 Active Not Available [facility] 3 03:15:26 Extrinsic asthma with asthma attack Active Not Available [facility] 3 03:15:26 Urinary tract infectious disease 97568579 Completed 03/14/2013 Not Available [facility] 3 02:01:58 Fever 118626087 Completed 03/14/2013 Not Available [facility] 3 02:02:42 Generalize d anxiety disorder 17738633 Active Not Available [facility] 3 03:15:26 Acute pharyngiti s 568888827 Completed 03/14/2013 Not Available [facility] 3 02:01:18 Allergic 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 s 28164028 Active Caitie Estrada NP [address] [place] [address], [address] , [facility] 3 07:43:20 Vitamin D deficiency 36614310 Active Caitie Estrada NP [address] [place] [address], [address] , [facility] 4 15:08:36 Respirator y finding 897992370 Completed 03/14/2013 Not Available [facility] 3 02:04:14 Common cold 61167632 Completed 03/14/2013 Not Available [facility] 3 02:00:30 Pain of joint of hand 839715366 Completed 03/14/2013 Not Available [facility] 3 02:02:43 Knee pain Completed 03/14/2013 Not Available [facility] 3 02:00:43 Low back pain 368222583 Active Not Available [facility] 3 03:15:26 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 Not Available [facility] 3 03:15:26 Primary fibromyalg ia syndrome 33811680 Active Caitie Estrada NP [address] [place] [address], [address] , [facility] 3 07:43:20 Malaise and fatigue 158740972 Completed 03/14/2013 Not Available [facility] 3 02:00:21 Acquired hypothyroi dism 191143198 [facility] 5 11:41:43 Snoring 78871471 Active Caitie Estrada NP [address] [place] [address], [address] , [facility] 3 07:43:20 Asthma 872949693 Active Caitie Estrada NP [address] [place] [address], [address] , [facility] 3 07:43:20 Candidal intertrigo 921941410 Christiane Estrada NP [address] [place] [address], [address] , [facility] 3 07:43:20 Constipati on 40806935 Active Caitie Estrada NP [address] [place] [address], [address] , [facility] 4 08:10:40 Problem Notes None recorded. Procedures Surgical History Date Name Laterality Status Provider Name and Address Organization Details Recorded Time 2 Nebulizer Tx completed Troy Campo MD [address] [place] [address], [phone], [facility] 01/21/2012 17:06:07 1 Asthma Control Test (12 + years old) completed Jenny Viera MA [facility] 03/04/2011 11:17:22 1 Asthma Control Test (12 + years old) completed Jenny Viera MA [facility] 08/20/2010 16:23:18 Tubal Ligation completed Not Available [facility] 03/11/2011 06:06:16 Imaging Results None recorded. [...] Address Organization Details Last Updated DateTime 1 20110.4 05046 g 72 /min 99 % 99 % 116 mm[Hg] 78 mm[Hg] Jenny Viera [facility] 1 11:17:21 Date Recorded Body weight Heart rate Body height Body mass index (BMI) Systolic blood pressure Diastolic blood pressure Provider Name and Address Organization Details Last Updated DateTime 2 10308.3 77678 g 76 /min 153.035 cm 38.2 kg/m2 98 mm[Hg] 68 mm[Hg] Vidya Enriquez [facility] 2 13:49:51 Date Recorded Body height Body weight Body mass index (BMI) Body temperature Heart rate Systolic blood pressure Diastolic blood pressure Provider Name and Address Organization Details Last Updated DateTime 2 153.035 cm 10180.2 04028 g 38.8 kg/m2 99.1 [degF] 72 /min 114 mm[Hg] 70 mm[Hg] Kyara Cervantes CMA [facility] 2 16:19:57 Date Recorded Body weight Heart rate Systolic blood pressure Diastolic blood pressure Provider Name and Address Organization Details Last Updated DateTime 05/08/2012 09185.241 572 g 72 /min 122 mm[Hg] 82 mm[Hg] [facility] 05/08/2012 13:51:40 Date Recorded Body height Body mass index (BMI) Provider Name and Address Organization Details Last Updated DateTime 05/08/2012 154.94 cm 38.6 kg/m2 Caitie Estrada NP [address] [place] [address], [address], [facility] 05/08/2012 14:12:25 Date Recorded Body height Body weight Body mass index (BMI) Heart rate Systolic blood pressure Diastolic blood pressure Provider Name and Address Organization Details Last Updated DateTime 3 153.035 cm 87437.2 1296 g 40.3 kg/m2 78 /min 108 mm[Hg] 68 mm[Hg] [facility] 3 15:57:36 Social History Question Answer Notes LastModified by [employer] Details LastModified Time Tobacco Smoking Status Former Smoker Not Available [facility] 03/11/2011 04:52:47 What Is Your Level Of Caffeine Consumption? None Information not available 03/11/2011 How Much Tobacco Do You Chew? None Information not available 03/02/2013 What Type Of Diet Are You Following? REGULAR Information not available 03/11/2011 Education 11 [employer] Course Information no t available 05/04/2010 Live [...] Functional Status Question Answer Note LastModified by Pro[employer] ion Details LastModified Time What is your level of alcohol consumption? Occasional Information not available 03/02/2013 What is your occupation? unemployed at home Information not available 03/02/2013 Mental Status None recorded. Family History Relationship Description Onset Age of this Age Resolved Age Notes LastModified by Organization Details LastModified Time Daughter Asthma [email or web address] [id number] Not available 12/04/2012 03:01:13 Mother Asthma [email or web address] [id number] Not available 12/04/2012 03:01:13 Sister Asthma [email or web address] [id number] Not available 12/04/2012 03:01:13 Medical History Condition Response Fibromyalgia Y Gynecological History Statement/Question Response Current Control Method Tubal Ligat ion Obstetrics History GPAL:G 0 P 0 0 0 0 Immunizations Vaccine Type Date Status Note Provider Nam e and Address Organization Details Recorded Time influenza, unspecified formulation 0 completed Not Available [facility] 03/10/2011 05:22:52 Past Encounters Encounter ID Performer Location Encounter Start Date Encounter Closed Date Diagnosis/Indication Diagnosis SNOMED-CT Code Diagnosis ICD10 Code Diagnosis Note [id number] DANNY Moyer, [facility], [address] [place] [address] 05/04/2010 09:09:44 05/07/2010 12:41:03 [id number] DANNY Moyer, [facility], [address] [place] [address] 05/18/2010 16:07:44 05/21/2010 13:34:23 [id number] DANNY Moyer, [facility], [address] [place] [address] 06/11/2010 16:12:16 06/16/2010 10:47:49 [id number] DANNY Moyer, [facility], [address] [place] [address] 07/03/2010 15:51:35 07/08/2010 12:20:13 [id number] DANNY Moyer, [facility], [address] [place] [address] 08/20/2010 15:59:02 08/25/2010 09:29:56 [id number] DANNY Moyer, [facility], [address] [place] [address] 12/08/2010 13:27:53 12/08/2010 14:03:17 [id number] Caitie Estrada NP FP, [facility], [address] [place] [address] 03/04/2011 10:26:38 03/04/2011 11:58:37 [id number] Troy Campo MD , [facility], [address] [place] [address] 10/15/2011 13:41:41 10/15/2011 15:34:28 [id number] Troy Campo MD , [facility], [address] [place] [address] 01/21/2012 16:06:08 01/21/2012 17:05:28 [id number] Troy Campo MD , [facility], [address] [place] [address] 05/08/2012 13:44:13 05/08/2012 14:32:08 [id number] Caitie Estrada NP , [facility], OFF[address] [place] [address] 03/02/2013 15:44:22 03/02/2013 17:00:19 Adult health examination 157561795 see Risk Assessment and Lifestyle Change Counseling section above Counseling [id number] Primary fi bromyalgia syndrome 20410976 Acquired hypothyroidism 906870331 Snoring 53457357 Asthma 976639824 PERSIST ENT (Mild/Mod/ Severe) Based on the history, the ACT test score___, physical assesment and peak flow,, the patient's asthma is not in control.Se e orders for adjustment s in plan. A copy of the aftercare summary and the asthma action plan have been provided. The patient is in agreement with this plan. Allergic a sthma 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s 97325672 Candidal intertrigo [id number] Health Concerns Section Related Observation LastModified by Organization Detai ls LastModified Time None Recorded Concern Status LastModified by Organization Details LastModified Time None Recorded Advance Directives Directive None Recorded Payers Encounter Date Sequence Insurance Name Policy Number Policy Jasso Covered Member ID Jasso Member ID Guarantor Name 03/04/2011 1 [facility] PLAN (MEDICAID HMO) [id number] Mary M Recio [id number] Mary Recio 10/15/2011 1 [facility] PL[facility] (MEDICAID HMO) [id number] Mary M Recio [id number] Mary Recio 01/21/2012 1 [facility] PLAN (MEDICAID HMO) [id number] Mary M Recio [id number] Mary Recio 05/08/2012 1 [facility] PLAN (MEDICAID HMO) [id number] Mary M Recio [id number] Mary Recio 03/02/2013 1 [facility] PLAN (MEDICAID HMO) [id number] Mary M Recio [id number] Mary Recio Notes Date Note Type Note Provider Name and Address Organization Details Recorded Time 03/04/2011 text/html Fibromyalgia bothering her a lot. Hands especially bothersome. Has made appt with top trimmer in [place]. Taking thyroid med daily - doesn't miss. Last TSH 04/2010. Caitie Estrada NP [address] [place], [phone], [facility] 03/06/2011 11:55:20 10/15/2011 text/html Took 3d of cipro for UTI, then stopped because it caused dryness in her mouth. Now sx now cleared except for frequency. Has had ER visits at [facility] x3 for kidney stones - 06/2011, 07/2011, and earlier this month. Had CT during 2nd visit. Has referral to urologist at [facility]. Drinking a lot of water. No blood in urine. No flank pain. Girls home with her this summer. Recently bought a house. Caitie Estrada NP [address] [place], [phone], [facility] 10/17/2011 08:53:14 01/21/2012 text/html Pt c/o [...] not taking any famotidine. Troy Campo MD [address] [place] [address], [phone], [facility] 01/21/2012 17:07:11 05/08/2012 text/html Frequently waked up at night feeling breathing blocked in throat. Here with partner who says she snores. Also having palpitations at rest - at night and when sitting. Lasts very briefly - 2-3 sec. Goes away with dep breath. Forgot about [facility] appt last week which she missed. CO continuing to gain wt. Caitie Estrada NP [address] [place] [address], [phone], [facility] 05/08/2012 21:03:10 OBGyn Episode No OBEpisode recorded.
--- OUTSIDE RECORDS SUMMARY | 2024-09-10 09:42 | XMS_ITS | Clinical Summary ---
Author Organization [facility] Facility Address [address] [place] [id number] Care Team Providers Care Back End Architect Name Role Phone Nenita Knott MD Primary Care Provider [phone] Medications albuterol (2.5 MG/3ML) 0.083% nebulizer solution 3 (three) times a day Active ergocalciferol (VITAMIN D2) 1.25 MG (70688 UT) capsule 06/04/2020 Active ibuprofen (ADVIL,MOTRIN) 800 [...] patient's age to complete this topic Insurance [facility] Medicaid [facility] Medicaid Care Teams Back End Architect Relationship Specialty Start Date End Date Nenita Knott MD [address] [place] [address] PCP - General 05/05/20
== END 2024-09-10 09:57 | disposition home or self-care (01) ==
LOC: HO.HMCH 09:25
PROVIDERS: PCP Internal Medicine; Visit Provider Internal Medicine
DX: Z00.00 Encounter for general adult medical examination without abnormal findings (principal); E06.3 Autoimmune thyroiditis; E66.01 Morbid (severe) obesity due to excess calories; Z68.41 Body mass index [BMI] 40.0-44.9, adult; E55.9 Vitamin D deficiency, unspecified

== ENCOUNTER → 2024-09-10 09:24 | Outpatient (BNVA) | payer OTHER, SELFPAY | PROVIDERS: PCP Internal Medicine; Visit Provider Internal Medicine | DX: Z00.00 Encounter for general adult medical examination without abnormal findings (principal); E66.01 Morbid (severe) obesity due to excess calories; Z68.41 Body mass index [BMI] 40.0-44.9, adult; E06.3 Autoimmune thyroiditis; E55.9 Vitamin D deficiency, unspecified | CPT/HCPCS: 96127; 99212; 99396 ==

== ENCOUNTER 2024-09-18 07:57 | Outpatient (REF) | payer OTHER, SELFPAY ==
--- OUTSIDE RECORDS SUMMARY | 2024-09-18 08:01 | XMS_ITS | Data Portability ---
Author Organization [facility], , [facility] Address [address] [place] [address] Care Team Providers Care Facilities Supervisor Name Role Phone [facility] OTHER Assessment No assessment recorded. Plan of Treatment Reminders Order Date Submit Date Provider Last Modified By Organization Details Last Modified Time Details Appointments None recorded. Lab ESR, westergren 2012 013 [facility] (Lab), [address] [place], [address], 4 13:20:10 C-reactive protein (CRP) 2012 013 [facility] ([facility]), [address] [place], [address], 4 13:20:10 thyroid stimulatin g hormone (TSH) 2012 013 [facility], [address] [place] [address], [address], 3 03:54:36 vitamin D,25-hydro xy 2012 013 [facility], [address] [place] [address], [address], 3 03:52:48 glucose - random 2012 013 [facility], [address] [place] [address], [address], 3 03:52:48 rapid strep A 2011 012 [facility], [address] [place] [address], [address], 3 03:37:23 culture, throat 2011 012 [facility], [address] [place] [address], [address], 3 03:36:59 thyroid stimulatin g hormone (TSH) 2010 011 [facility], [address] [place] [address], [address], 3 05:19:55 KYE 2010 011 [facility], [address] [place] [address], [address], 3 05:20:06 comprehens miguel metabolic panel 2010 011 [facility], [address] [place] [address], [address], 3 03:36:23 CBC 2010 011 [facility], [address] [place] [address], [address], 3 05:20:14 rheumatoid factor 2010 011 [facility], [address] [place] [address], [address], 3 05:20:21 Referral ENT referral - Had sleep study at [facility] 07/[address] Corral. Very bothered by waking up not being able to breath at night. Maria Isabel hanna Has had tonsilecto my. 2012 [address] Teofilo Riggs, [place], [address], 4 09:23:38 sleep medicine referral - Crowded airway. CO not being able to breathe at noc. Awakens gasping for air. Snoring.// June 7:30 pm 2012 013 [facility], [address] [place], [address], 3 03:52:48 endocrinol ogy referral - Hypothyroi dism. 2010 011 RACQUEL Barreto MD, [address] [facility] [place], [address], 3 05:31:39 Procedures None recorded. Surgeries None recorded. Imaging None recorded. Medication Orders levothyrox ine 100 mcg tablet 2012 013 [id number], [address] [place], [address], 3 17:00:33 Flovent HFA 44 mcg/actuat ion aerosol inhaler 2012 013 [id number], [address] [place], [address], 3 17:00:35 albuterol sulfate 2.5 mg/3 mL (0.083 %) solution for nebulizati on 2012 013 [id number], [address] [place], [address], 3 17:00:31 albuterol sulfate 2.5 mg/3 mL (0.083 %) solution for nebulizati on 2011 012 [id number], [address] [place], [address], 3 03:37:01 Prilosec OTC 20 mg tablet,del ayed release 2011 012 [place] [address] [id number], [address] [place], [address], 3 16:57:49 Flovent HFA 110 mcg/actuat ion aerosol inhaler 2010 011 RACQUEL Not available 3 05:20:54 albuterol sulfate HFA 90 mcg/actuat ion aerosol inhaler 2010 011 RACQUEL Not available 3 03:36:21 Patient TargetsNo targets recorded. Patient Instructions Encounter Date Encounter Id Patient Instructions Last Modified By Organization Details Last Modified Time 03/04/2011 [id number] asthma handout / teaching RACQUEL Not available 11/17/2012 05:30:04 Increase Flovent to 4 puffs twice a day of the 44 strength. Then when gone, will increase to 110 strength. FU in 2-3 wks to see how its working. Rec flu shot, but she declines today. Labs today. Consider rheum referral. FU 2 wks. Not available 03/06/2011 11:54:40 10/15/2011 [id number] No dysuria and UA WNL - so UTI seems to be resolved. She will cont wtih lots of PO fluids and FU with urologist. Overdue for labs - will get them today. Needs PHA Not available 10/17/2011 08:52:52 01/21/2012 [id number] 1. pt felt wheeze, but lung exam [...] worse. [email or web address] Not available 01/21/2012 17:06:56 05/08/2012 [id number] Get labs drawn today. Reschedule PHA. Consider 24 hr monitor for palpitations. Take a daily Vit D supplement of 2000 IU daily in the winter and 1000 IU daily in the summer. Use OTC Vit D3. Will re-refer for sleep study. Discussed that I referred her for this 1 1/2 yrs ago but she did not get it done. She doesn't remember what happened but was moving at the time. Not available 05/08/2012 21:02:51 03/02/2013 [id number] Well Visit, Ages 18 to 65: Care Instructions [email or web address] Not available 03/05/2013 08:16:27 My Health To Do List As we discussed and agreed upon at your visit please work on the following: Recheck TSH and consider adjusting med with goal of TSH close to 1 to see if that helps with wt mgmt. She is very consistent about taking it. Call [phone] with Dr Maria for ENT eval. Cound go back to sleep medicine for trial of c-pap. Schedule pap with [facility] in [place] in 2013. Discussed fungal intertrigo and how to treat. Resume FLovent 2 puffs twice a day with spacer. Refuses flu shot. Follow up with rheum as planned. Get labs drawn, wants to go to [facility]. Discussed that neurontin could be adjusted for more benefit. Not available 03/03/2013 07:43:20 Reason for Referral Hypothyroidism. Referring Physician: Caitie Estrada, Family Medicine, Encounter Date: 03/04/2011 Crowded airway. CO not being able to breathe at noc. Awakens gasping for air. Snoring.//June 7:30 pm Referring Physician: Caitie Estrada Family Medicine, Encounter Date: 05/08/2012 Had sleep study at [facility] 07/[address] Corral. Very bothered by waking up not being able to breath at night. Eval recommended. Has had tonsilectomy. Referring Physician: Caitie Estrada [facility], Encounter Date: 03/02/2013 Results Created Date Observation Date Name Description Value Unit Range Abnormal Flag Note LastModifiedBy Organization Detail LastModifiedTime 01/21/20 12 01/21/2012 rapid strep A Result negati ve Not Available [address], [address], 01/21/2012 16:22:06 03/04/20 11 03/04/2011 CBC WBC 10.5 K/?L 4.0-10 .0 high Not Available [address], [address], 03/04/2011 15:15:32 03/04/20 11 03/04/2011 CBC RBC 4.81 M/?L 3.93-5 .22 Not Available [address], [address], 03/04/2011 15:15:32 03/04/20 11 03/04/2011 CBC HGB 13.6 g/dL 11.2-1 5.7 Not Available [address], [address], 03/04/2011 15:15:32 03/04/20 11 03/04/2011 CBC HCT 40.4 % 34.1-4 4.9 Not Available [address], [address], 03/04/2011 15:15:32 03/04/20 11 03/04/2011 CBC MCV 84.0 ?L 79.4-9 4.8 Not Available [address], [address], 03/04/2011 15:15:32 03/04/20 11 03/04/2011 CBC MCH 28.3 pg 25.6-3 2.2 Not Available [address], [address], 03/04/2011 15:15:32 03/04/20 11 03/04/2011 CBC MCHC 33.7 g/dL 32.2-3 5.5 Not Available [address], [address], 03/04/2011 15:15:32 03/04/20 11 03/04/2011 CBC plt 351.0 K/?L 182.0- 369.0 Not Available [address], [address], 03/04/2011 15:15:32 03/04/20 11 03/04/2011 CBC MPV 10.1 9.4-12 .3 Not Available [address], [address], 03/04/2011 15:15:32 03/04/20 11 03/04/2011 CBC neut% 51.9 % 34.0-7 1.1 Not Available [address], [address], 03/04/2011 15:15:32 03/04/20 11 03/04/2011 CBC neut# 5.5 1.6-6. 1 Not Available [address], [address], 03/04/2011 15:15:32 03/04/20 11 03/04/2011 CBC lymph % 37.1 % 19.3-5 1.7 Not Available [address], [address], 03/04/2011 15:15:32 03/04/20 11 03/04/2011 CBC lymph # 3.9 K/?L 1.2-3. 7 high Not Available [address], [address], 03/04/2011 15:15:32 03/04/20 11 03/04/2011 CBC mono% 6.4 % 4.7-12 .5 Not Available [address], [address], 03/04/2011 15:15:32 03/04/20 11 03/04/2011 CBC mono# 0.7 0.2-0. 4 high Not Available [address], [address], 03/04/2011 15:15:32 03/04/20 11 03/04/2011 CBC eo% 4.2 % 0.7-5. 8 Not Available [address], [address], 03/04/2011 15:15:32 03/04/20 11 03/04/2011 CBC eo# 0.4 0.0-0. 4 high Not Available [address], [address], 03/04/2011 15:15:32 03/04/20 11 03/04/2011 CBC baso% 0.4 % 0.1-1. 2 Not Available [address], [address], 03/04/2011 15:15:32 03/04/20 11 03/04/2011 CBC baso# 0.0 0.0-0. 1 low Not Available [address], [address], 03/04/2011 15:15:32 03/04/20 11 03/04/2011 CBC RDW-CV 12.6 % 11.7-1 4.4 Not Available [address], [address], 03/04/2011 15:15:32 03/04/20 11 03/04/2011 compr ehens miguel metab olic panel glucose 87 mg/dL 70-100 Not Available [address], [address], 03/04/2011 15:57:12 03/04/20 11 03/04/2011 compr ehens miguel metab olic panel BUN 8 mg/dL 7-18 Not Available [address], [address], 03/04/2011 15:57:12 03/04/20 11 03/04/2011 compr ehens miguel metab olic panel creatinine 0.8 mg/dL 0.8-1. 3 Not Available [address], [address], 03/04/2011 15:57:12 03/04/20 11 03/04/2011 compr ehens miguel metab olic panel B/C 10.0 ratio Not Available [address], [address], 03/04/2011 15:57:12 03/04/20 11 03/04/2011 compr ehens miguel metab olic panel GFR 93.7 mL/mi n recom merlin d GFR by the natio nal kidne y found ation >60 mL/mi n/1.7 3m2 - jacinto l <60 mL/mi n/1.7 3m2 - chron ic kidne y disea se <15 mL/mi n/1.7 3m2 - kidne y failu re Not Available [address], [address], 03/04/2011 15:57:12 03/04/20 11 03/04/2011 compr ehens miguel metab olic panel GFR - if 107.8 mL/mi n for afric an ameri can patie nts: resul ts multi plied by 1.21 Not Available [address], [address], 03/04/2011 15:57:12 03/04/20 11 03/04/2011 compr ehens miguel metab olic panel sodium 142 mmol/ L 136-14 5 Not Available [address], [address], 03/04/2011 15:57:12 03/04/20 11 03/04/2011 compr ehens miguel metab olic panel potassium 4.5 mmol/ L 3.5-5. 1 Not Available [address], [address], 03/04/2011 15:57:12 03/04/20 11 03/04/2011 compr ehens miguel metab olic panel chloride 105 mmol/ L 96-107 Not Available [address], [address], 03/04/2011 15:57:12 03/04/20 11 03/04/2011 compr ehens miguel metab olic panel _anion gap 10.0 Not Available [address], [address], 03/04/2011 15:57:12 03/04/20 11 03/04/2011 compr ehens miguel metab olic panel CO2 27 mmol/ L 21-32 Not Available [address], [address], 03/04/2011 15:57:12 03/04/20 11 03/04/2011 compr ehens miguel metab olic panel calcium 9.4 mg/dL 8.5-10 .3 Not Available [address], [address], 03/04/2011 15:57:12 03/04/20 11 03/04/2011 compr ehens miguel metab olic panel total protein 7.7 g/dL 6.4-8. 2 Not Available [address], [address], 03/04/2011 15:57:12 03/04/20 11 03/04/2011 compr ehens miguel metab olic panel albumin 4.0 g/dL 3.4-5. 0 Not Available [address], [address], 03/04/2011 15:57:12 03/04/20 11 03/04/2011 compr ehens miguel metab olic panel globulin 3.7 g/dL Not Available [address], [address], 03/04/2011 15:57:12 03/04/20 11 03/04/2011 compr ehens miguel metab olic panel A/G 1.1 ratio 0.8-2. 0 Not Available [address], [address], 03/04/2011 15:57:12 03/04/20 11 03/04/2011 compr ehens miguel metab olic panel total bilirubin 0.30 mg/dL 0.00-1 .00 Not Available [address], [address], 03/04/2011 15:57:12 03/04/20 11 03/04/2011 compr ehens miguel metab olic panel AST 14 U/L 15-37 low Not Available [address], [address], 03/04/2011 15:57:12 03/04/20 11 03/04/2011 compr ehens miguel metab olic panel ALT 28 U/L 30-65 low Not Available [address], [address], 03/04/2011 15:57:12 03/04/20 11 03/04/2011 compr ehens miguel metab olic panel alk. phos. 103 U/L 50-136 Not Available [address], [address], 03/04/2011 15:57:12 03/04/20 11 03/04/2011 thyro id stimu latin g hormo ne (TSH) TSH 7.67 uIU/m L 0.50-6 .00 high the ameri can colle ge of endoc rinol ogy and ameri can thyro id assoc iatio n recom mend goal TSH value s betwe en 1.0-2 .5 mIU/m L. Not Available [address], [address], 03/04/2011 16:34:51 03/04/20 11 03/08/2011 rheum atoid facto r rheumatoid factor 9.9 IU/mL 0.0-16 .0 <16.0 IU/mL - negat miguel 16.0- 19.9 IU/mL - equiv ocal >20.0 IU/mL - posit miguel Not Available [address], [address], 03/08/2011 12:48:43 03/04/20 11 03/08/2011 KYE KYE screen 0.58 0.00-0 .39 positive KYE=s ample [facility] to [facility] and titer . <0.4 -nega tive 0.40 - 1.10 -equi vocal >1.10 -posi tive Not Available [address], [address], 03/08/2011 12:48:44 03/04/20 11 03/09/2011 post scree n titer and patte rn YKE pattern NEGATI VE normal Not Available [facility] [address], [address], 03/09/2011 14:41:56 03/04/20 11 03/09/2011 post scree n titer and patte rn antinuclear antibodies <1:40 titer normal refer ence range <1:40 negat miguel 1:40- 1:80 low antib paula level >1:80 eleva yogesh antib paula level Not Available [facility] [address], [address], 03/09/2011 14:41:56 10/15/19 12 10/18/2011 thyro id stimu latin g hormo ne (TSH) TSH 3.22 uIU/m L 0.50-6 .00 the ameri can colle ge of endoc rinol ogy and ameri can thyro id assoc iatio n recom mend goal TSH value s betwe en 1.0-2 .5 mIU/m L. Not Available [address], [place], [address], 10/18/2011 09:45:39 01/21/20 12 01/24/2012 cultu re, throa t culture, throat cultu re, throa t micro numbe r: [id number] test statu s: final speci men sourc e: throa t speci men quali ty: adequ ate resul t: no oroph aryng eal patho gens recov ered. Not Available [facility] [address], [address], 01/24/2012 15:45:07 05/08/19 13 05/09/2012 thyro id stimu latin g hormo ne (TSH) TSH 11.11 uIU/m L 0.50-6 .00 high the ameri can colle ge of endoc rinol ogy and ameri can thyro id assoc iatio n recom mend goal TSH value s betwe en 1.0-2 .5 mIU/m L. Not Available [address], [address], 05/09/2012 09:15:27 05/08/19 13 05/09/2012 gluco se glucose 85 mg/dL 70-100 Not Available [address], [address], 05/09/2012 09:33:44 05/08/19 13 05/23/2012 vitam in [...] er than 30 NG/mL . Not Available [address], [address], 05/23/2012 15:19:20 12/02/19 13 12/01/2012 thyro id stimu latin g hormo ne (TSH) TSH 5.59 uIU/m L 0.50-6 .00 the ameri can colle ge of endoc rinol ogy and ameri can thyro id assoc iatio n recom mend goal TSH value s betwe en 1.0-2 .5 mIU/m L. Not Available [address], [address], 12/01/2012 15:12:50 12/02/19 13 12/19/2012 vitam in [...] er than 30 NG/mL . Not Available [address], [address], 12/19/2012 15:17:58 Result Notes None recorded. Problems Name Problem SNOMED Code Status Onset Date Resolution Date Notes Provider Name and Address Organization Details Recorded Time Obesity 227959054 Active Not Available [facility] 3 03:15:26 Kidney stone 36085714 Active Not Available [facility] 3 03:15:26 Extrinsic asthma with asthma attack Active Not Available [facility] 3 03:15:26 Urinary tract infectious disease 65742900 Completed 03/14/2013 Not Available [facility] 3 02:01:58 Fever 946076827 Completed 03/14/2013 Not Available [facility] 3 02:02:42 Generalize d anxiety disorder 23918482 Active Not Available [facility] 3 03:15:26 Acute pharyngiti s 200288263 Completed 03/14/2013 Not Available [facility] 3 02:01:18 Allergic 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 s 16011753 Active Caitie Estrada NP [address] [place] [address], [address] , [facility] 3 07:43:20 Vitamin D deficiency 14801393 Active Caitie Estrada NP [address] [place] [address], [address] , [facility] 4 15:08:36 Respirator y finding 462422488 Completed 03/14/2013 Not Available [facility] 3 02:04:14 Common cold 69834940 Completed 03/14/2013 Not Available [facility] 3 02:00:30 Pain of joint of hand 883076791 Completed 03/14/2013 Not Available [facility] 3 02:02:43 Knee pain Completed 03/14/2013 Not Available [facility] 3 02:00:43 Low back pain 915717658 Active Not Available [facility] 3 03:15:26 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 Not Available [facility] 3 03:15:26 Primary fibromyalg ia syndrome 47262304 Active Caitie Estrada NP [address] [place] [address], [address] , [facility] 3 07:43:20 Malaise and fatigue 544766358 Completed 03/14/2013 Not Available [facility] 3 02:00:21 Acquired hypothyroi dism 403606575 [facility] 11:41:43 Snoring 83309587 Active Caitie Estrada NP [address] [place] [address], [address] , [facility] 3 07:43:20 Asthma 582733142 Active Caitie Estrada NP [address] [place] [address], [address] , [facility] 3 07:43:20 Candidal intertrigo 805254958 Active Caitie Estrada NP [address] [place] [address], [address] , [facility] 3 07:43:20 Constipati on 95797302 Active Caitie Estrada NP [address] [place] [address], [address] , [facility] 4 08:10:40 Problem Notes None recorded. Procedures Surgical History Date Name Laterality Status Provider Name and Address Organization Details Recorded Time 2 Nebulizer Tx completed Troy Campo MD [address] [place] [address], [address], [facility] 01/21/2012 17:06:07 1 Asthma Control Test (12 + years old) completed Jenny Viera MA [facility] 03/04/2011 11:17:22 1 Asthma Control Test (12 + years old) completed Jenny Viera MA [facility] 08/20/2010 16:23:18 Tubal Ligation completed Not Available Count includes the [facility] 03/11/2011 06:06:16 Imaging Results None recorded. Procedure [...] Not Avai lable Vitals Date Recorded Body height Body mass index (BMI) Provider Name and Address Organization Details Last Updated DateTime 05/08/2012 154.94 cm 38.6 kg/m2 Caitie Estrada NP [address] [place] [address], [address], [facility] 05/08/2012 14:12:25 Date Recorded Body weight Heart rate Systolic And Diastolic Provider Name and Address Organization Details Last Updated DateTime 05/08/2012 63168.2415 72 g 72 /min 122/82 mm[Hg] [facility] 05/08/2012 13:51:40 Date Recorded Body weight Heart rate Body height Body mass index (BMI) Systolic And Diastolic Provider Name and Address Organization Details Last Updated DateTime 10/15/2011 49055.39 5936 g 76 /min 153.035 cm 38.2 kg/m2 98/68 mm[Hg] [facility] 10/15/2011 13:49:51 Date Recorded Body height Body weight Body mass index (BMI) Body temperature Heart rate Systolic And Diastolic Provider Name and Address Organization Details Last Updated DateTime 2 153.035 cm 10103.2 32345 g 38.8 kg/m2 99.1 [degF] 72 /min 114/70 mm[Hg] Kyara Cervantes [facility] 16:19:57 Date Recorded Body height Body weight Body mass index (BMI) Heart rate Systolic And Diastolic Provider Name and Address Organization Details Last Updated DateTime 03/02/2013 153.035 cm 97128.21 296 g 40.3 kg/m2 78 /min 108/68 mm[Hg] Vidya Enriquez [facility] 03/02/2013 15:57:36 Date Recorded Body weight Heart rate Oxygen saturation Oxygen saturation in Arterial blood by Pulse oximetry Systolic And Diastolic Provider Name and Address Organization Details Last Updated DateTime 1 34242.4 26504 g 72 /min 99 % 99 % 116/78 mm[Hg] Jenny Maximiliano [facility] 1 11:17:21 Social History Question Answer Notes LastModified by adsquare Details LastModified Time Tobacco Smoking Status Former Smoker Not Available [facility] 03/11/2011 04:52:47 What Is Your Level Of Caffeine Consumption? None Information not available 03/11/2011 How Much Tobacco Do You Chew? None Information not available 03/02/2013 What Type Of Diet Are You Following? REGULAR Information not available 03/11/2011 Education 11 [employer] Course Information no t available 05/04/2010 Live [...] Functional Status Question Answer Note LastModified by adsquare Details LastModified Time What is your level of alcohol consumption? Occasional Information not available 03/02/2013 What is your occupation? unemployed at home Information not available 03/02/2013 Mental Status None recorded. Family History Relationship Description Onset Age of this Age Resolved Age Notes LastModified by Organization Details LastModified Time Daughter Asthma [email or web address] [id number] Not available 12/04/2012 03:01:13 Mother Asthma [email or web address] available 12/04/2012 03:01:13 Sister Asthma [email or web address] Not available 12/04/2012 03:01:13 Medical History Condition Response Fibromyalgia Y Gynecological History Statement/Question Response Current Control Method Tubal Ligat ion Obstetrics History GPAL:G 0 P 0 0 0 0 Immunizations Vaccine Type Date Status Note Provider Nam e and Address Organization Details Recorded Time influenza, unspecified formulation 0 completed Not Available [facility] 03/10/2011 05:22:52 Past Encounters Encounter ID Performer Location Encounter Start Date Encounter Closed Date Diagnosis/Indication Diagnosis SNOMED-CT Code Diagnosis ICD10 Code Diagnosis Note [id number] DANNY Moyer, C, OFFICE [address] [place] [address] 05/04/2010 09:09:44 05/07/2010 12:41:03 [id number] DANNY Moyer, C, OFFICE [address] [place] [address] 05/18/2010 16:07:44 05/21/2010 13:34:23 [id number] DANNY Moyer, C, OFFICE [address] [place] [address] 06/11/2010 16:12:16 06/16/2010 10:47:49 [id number] DANNY Moyer, C, OFFICE [address] [place] [address] 07/03/2010 15:51:35 07/08/2010 12:20:13 [id number] DANNY Moyer, [facility], OFFICE [address] [place] [address] 08/20/2010 15:59:02 08/25/2010 09:29:56 [id number] DANNY Moyer, C, OFFICE [address] [place] [address] 12/08/2010 13:27:53 12/08/2010 14:03:17 [id number] DANNY Moyer, C, OFFICE [address] [place] [address] 03/04/2011 10:26:38 03/04/2011 11:58:37 [id number] MD CAROL Johnson, [facility], [address] [place] [address] 10/15/2011 13:41:41 10/15/2011 15:34:28 [id number] Troy Campo MD , [facility], OFFICE [address] [place] [address] 01/21/2012 16:06:08 01/21/2012 17:05:28 [id number] Troy Campo MD , [facility], OFFICE [address] [place] [phone] 05/08/2012 13:44:13 05/08/2012 14:32:08 [id number] Caitie Estrada NP , [facility], OFFICE [address] [place] [address] 03/02/2013 15:44:22 03/02/2013 17:00:19 Adult health examination 899066391 see Risk Assessment and Lifestyle Change Counseling section above Counseling [id number] Primary fi bromyalgia syndrome 86059831 Acquired hypothyroidism 095804423 Snoring 37240477 Asthma 286720601 PERSIST ENT (Mild/Mod/ Severe) Based on the history, the ACT test score___, physical assesment and peak flow,, the patient's asthma is not in control.Se e orders for adjustment s in plan. A copy of the aftercare summary and the asthma action plan have been provided. The patient is in agreement with this plan. Allergic a sthma 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s 32793809 Candidal intertrigo 326250503 Health Concerns Section Related Observation LastModified by Organization Detai ls LastModified Time None Recorded Concern Status LastModified by Organization Details LastModified Time None Recorded Advance Directives Directive None Recorded Payers Encounter Date Sequence Insurance Name Policy Number Policy Jasso Covered Member ID Jasso Member ID Guarantor Name 03/04/2011 1 [facility] Maker[employer] Row [facility] PL[facility] (MEDICAID HMO) [id number] Mary Jan Recio [id number] Mary Recio 10/15/2011 1 [employer] [facility] [employer] (MEDICAID HMO) [id number] Mary M Recio [id number] Mary Recio 01/21/2012 1 [employer] (MEDICAID HMO) [id number] Mary Jan Recio [id number] Mary Recio 05/08/2012 1 [employer] (MEDICAID HMO) [id number] Mary Jan Recio [id number] Mary Recio 03/02/2013 1 [employer] (MEDICAID HMO) [id number] Mary Jan Recio [id number] Mary Recio Notes Date Note Type Note Provider Name and Address Organization Details Recorded Time 03/04/2011 text/html Fibromyalgia bothering her a lot. Hands especially bothersome. 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 Taking thyroid med daily - doesn't miss. Last TSH 04/2010. Caitie Estrada NP [address] [place] [address], [phone], [facility] 03/06/2011 11:55:20 10/15/2011 text/html Took 3d of cipro for UTI, then stopped because it caused dryness in her mouth. Now sx now cleared except for frequency. Has had ER visits at [facility] x3 for kidney stones - 06/2011, 07/2011, and earlier this month. Had CT during 2nd visit. Has referral to urologist at [facility]. Drinking a lot of water. No blood in urine. No flank pain. Girls home with her this summer. Recently bought a house. Caitie Estrada NP [address] [place] [address], [phone], [facility] 10/17/2011 08:53:14 01/21/2012 text/html Pt c/o chest [...] taking any famotidine. Troy Campo MD [address] [place], [phone], [facility] 01/21/2012 17:07:11 05/08/2012 text/html Frequently waked up at night feeling breathing blocked in throat. Here with partner who says she snores. Also having palpitations at rest - at night and when sitting. Lasts very briefly - 2-3 sec. Goes away with dep breath. Forgot about PHA appt last week which she missed. CO continuing to gain wt. Caitie Estrada NP [address] [place] [address], [phone], [facility] 05/08/2012 21:03:10 OBGyn Episode No OBEpisode recorded.
[2024-09-18 09:47] LABS: Alanine Aminotransferase 15 U/L (0-31); Albumin Level 4.1 g/dL (3.5-5.0); Alkaline Phosphatase 72 U/L (39-117); Anion Gap 9 (12-20); Aspartate Amino Transferase 13 U/L (5-31); Bilirubin Total 0.4 mg/dL (0.0-1.0); Blood Urea Nitrogen 11 mg/dL (9-16); Calcium 8.8 mg/dL (8.4-10.2); Carbon Dioxide 26 mmol/L (22-29); Chloride 108 mmol/L (96-108); Cholesterol 183 mg/dL (<200); Estimated Glomerular Filt Rate > 60; Glucose Fasting 123 mg/dL (60-99); HDL Cholesterol 43 mg/dL (>40); LDL Cholesterol Calculated 124 mg/dL (<100); Potassium 3.9 mmol/L (3.3-5.1); Sodium 139 mmol/L (135-145); Total Protein 7.1 g/dL (6.5-8.0); Triglycerides 80 mg/dL (<150)
[2024-09-18 10:09] LABS: Thyroid Stimulating Hormone 4.06 uIU/mL (0.32-4.0); Vitamin D 25-OH Total 25.7 ng/mL (>30)
[2024-09-18 10:15] LABS: Folate 9.2 ng/mL (> or = 4.0); Vitamin B12 541 pg/mL (200-900)
== END 2024-09-18 07:58 | disposition home or self-care (01) ==
LOC: HO.LAB 07:57
PROVIDERS: Absent Provider Internal Medicine; PCP Internal Medicine; Referring Provider Student in an Organized Health Care Education/Training Program; Visit Provider Student in an Organized Health Care Education/Training Program
DX: Z00.00 Encounter for general adult medical examination without abnormal findings (principal); E06.3 Autoimmune thyroiditis; E78.5 Hyperlipidemia, unspecified; E53.8 Deficiency of other specified B group vitamins; E55.9 Vitamin D deficiency, unspecified
CPT/HCPCS: 36415; 80053; 80061; 82306; 82607; 82746; 84443; 99212

== ENCOUNTER 2024-09-18 11:23 | Outpatient (AMB) | payer OTHER, SELFPAY ==
[2024-09-18 11:26] VITALS: BP 120/74; PULSE 77; O2SAT 98; BMI 43.3
--- NOTE | 2024-09-18 11:26 | A.OFFVIS_ITS ---
Vital Signs 09/18/24 11:26 Height 4 ft 11.5 in Weight 218 lb BMI 43.3 BP 120/74 Blood Pressure Location Lt brachial Position Sitting Pulse 77 Pulse Source Pulse Oximeter Pulse Oximetry (%) 98 Oxygen Delivery Method Room Air Intake Visit Reasons: Thyroiditis Intake Note: Patient present today for Thyroiditis office visit. Education Rn Required: No Accompanied by: Self / Same As Patient Allergies No Known Allergies [No Known Allergies*] Allergy (Verified 09/18/24 11:29) Medication List - Last Reconciled 09/18/24 by Sharonda Martines MD albuterol sulfate 2.5 mg (3 mL) inhalation Q6H PRN 30 days albuterol sulfate 90 mcg/actuation 2 puffs PO Q4H PRN 30 days buprenorphine 5 mcg/hour 1 patch transdermal Q7D cholecalciferol (vitamin D3) 50 mcg PO DAILY 90 days meclizine 25 mg PO BID PRN 7 days mecobalamin (vitamin B12) 1,000 mcg sublingual DAILY nebulizers (AeroEclipse II Nebulizer) As directed omeprazole 20 mg PO BID 90 days polyethylene glycol 3350 (Miralax) 17 grams PO DAILY sennosides (senna) 8.6 mg PO BEDTIME PRN 30 days Synthroid (levothyroxine) 100 mcg PO DAILY NS Ventolin HFA 90 mcg/actuation (albuterol sulfate) 2 puffs inhalation Q6H PRN 30 days NS [wedge pillow Use it for nap time and over night sleep ] HPI Comments Details: 44 YO Female with PMHx Elmira's disease with hypothyroidism who is seen in F/U for the same. She was previously followed by Dr. Carrillo , last visit 2021. She was first diagnosed with hypothyroidism many years ago and has been trialed on Levothyroxine, nature thyroid, armour thyroid and levoxyl. She was unable to tolerate all of these medications. After her initial visit with us she was started on Synthroid 50 mcg PO daily and then lolst to follow up and then reestablished care 2019. She had labs checked 09/27/18 with TSH of 5.57, FT4 of 0.92 and TPO antibodies positive at 1744. Labs were repeated after being on Synthroid 50 mcg PO daily and TSH was WNL. She did have thyroid US checked 06/10/2020 with no evidence of thyroid nodules. Images of this US were independently reviewed and this reveals a gland that is diffusely heterogenous and consistent with Elmira's disease. There are no true nodules visualized. Interval history Currenlty on synthroid 100 mcg daily, missed it 2 times a week. She used to get palpitations and abd discomfort on levothyroxine generic Improved with brand name but still thinks the medication makes her more tired, costipation, foot swelling. Most recent blood work from 03/19/2024 with TSH high at 5.25, free T4 0.98, free T3-3. Reporting fatigue, overall aches and pains getting evaluated by Rheum. Reports constipation. losing weight on Wegovy, todays weight seems to be erroneous as it was 198 lbs yesterday . Reports cold intolerance intermittenlty. Reports regular menses. She already has a tubal-ligation. Physical exam General: sitting comfortably in no acute distress HEENT: normocephalic/atraumatic, moist oral mucosa Neck: supple, symmetrical, no thyromegaly Cardiac: normal heart sounds Pulm: normal breath sounds B/L, no added breath sounds Abd: not distended, no tenderness Extremities: No leg swelling Labs: Laboratory Tests 07/11/21 09:45 TSH 2.36 Free T4 1.08 Laboratory Tests 09/27/18 08/06/23 09/20/23 12:00 08:15 14:33 TSH 2.17 3.14 Free T4 Free T3 Thyroid Peroxidase Ab 1744 H 01/06/24 03/19/24 07:47 12:36 TSH 5.24 H 5.25 H Free T4 0.98 Free T3 3.0 Thyroid Peroxidase Ab Laboratory Tests 03/19/24 09/18/24 12:36 08:11 TSH 5.25 H 4.06 H US THYROID 2020 CLINICAL INFORMATION: Hypothyroidism. COMPARISON: US thyroid soft tissues 10/06/2016. TECHNIQUE: Linear transducer grayscale and color Doppler examination with attention to the region of the thyroid. FINDINGS: SIZE: Measurements of the thyroid lobes and nodules are given in sagittal, anteroposterior and transverse dimensions respectively. The thyroid gland is enlarged. Right Thyroid Lobe: 5.7 x 2.4 x 2.2 cm, volume 15.7 mL. Previously 5.5 x 2.5 x 2.6 cm, volume 18.7 mL. Parenchyma: The gland echotexture is heterogeneous. Thyroid vascularity is normal. Left Thyroid Lobe: 5.5 x 2.5 x 2.1 cm, volume 15.1 mL. Previously 5.4 x 2.5 x 2.7 cm, volume 19.1 mL. Parenchyma: The gland echotexture is heterogeneous. Thyroid vascularity is normal. Isthmus: 1.2 cm in maximum AP dimension. Previously 0.8 cm. Nodules: No focal nodule is seen. NODES: No lymphadenopathy is seen in the tissue surrounding the thyroid gland. US/US thyroid IMPRESSION: Enlarged heterogeneous thyroid gland with normal vascularity. The thyroid gland is slightly decreased in size compared to September 2016 exam. No focal nodule or lymphadenopathy is seen. [facility] Medical History Osteoarthritis involving multiple joints on both sides of body Major depressive disorder, recurrent, mild Leg edema Right knee pain Acid reflux Allergic rhinitis Abdominal pain Elmira's disease Menorrhagia with regular cycle Obesity (BMI 30-39.9) History of abnormal cervical Pap smear Asthma Fibromyalgia Depression GERD (gastroesophageal reflux disease) Hypothyroidism Vitamin D deficiency Autoimmune thyroiditis Surgical History History of tonsillectomy History of tubal ligation Family History Mother Asthma Father AIDS Sister No problems noted. Brother No problems noted. Daughter No problems noted. Daughter No problems noted. Daughter No problems noted. Son No problems noted. 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 Current occupational exposures/hazards: No Gender identity: Female Cognitive needs: No Hearing needs: No Vision needs: Yes (reading glasses) Female Reproductive History Menstrual Age of Menarche: 11 Physical Exam Vital Signs: Last Vital Signs Pulse 77 09/18/24 11:26 BP 120/74 09/18/24 11:26 Pulse Ox 98 09/18/24 11:26 Oxygen Delivery Method Room Air 09/18/24 11:26 BMI result Body Mass Index 43.3 Assessment & Plan Assessment & Plan (1) Hypothyroidism: Code(s): E03.9 - Hypothyroidism, unspecified Category: Medical Qualifiers: Hypothyroidism type: due to Elmira's thyroiditis Qualified Code(s): E06.3 - Autoimmune thyroiditis Plan: 44-year-old female coming in today for 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 Most recent blood work from 09/18/2024 showed TSH is still elevated at 4.06 patient reports that she has been missing her medication on some of the days at least twice a week and was off of it a few weeks ago for about a month. She is on brand-name Synthroid, as she was She reports abdominal pain after taking generic levothyroxine that resolves after an hour, she says she was tolerating the Synthroid better and was not getting abdominal pain with it. Mostly now she is missing the medication because she thinks she gets aches and pains, worsening constipation and leg swelling on the thyroid medication. I reassured the patient that some of the symptoms she is describing could be because of her other disorders and it sounds more like untreated hypothyroidism as opposed to side effect of the medication. Plan: -continue Synthroid 100 mcg daily -ordered TSH, free T4 to be done in 8 weeks with better compliance -follow up in 6 months Plan See above Orders: Orders Thyroid Stimulating Hormone 8 Weeks E06.3 - Autoimmune thyroiditis Free T4 (Free Thyroxine) 8 Weeks E06.3 - Autoimmune thyroiditis Medications: Refilled Synthroid (levothyroxine) brand name Synthroid only, medically necessary , substitution not allowed , gets abdominal pain from generic 100 mcg PO DAILY 30 tabs 10RF NS Patient Instructions: Do labs in 8 weeks Follow up in 6 months Coding Level of Care Code Est Pt Level 3 (22822) Diagnoses 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
== END 2024-09-18 11:50 | disposition home or self-care (01) ==
LOC: HO.ENCR 11:24
PROVIDERS: PCP Internal Medicine; Visit Provider Student in an Organized Health Care Education/Training Program
DX: E06.3 Autoimmune thyroiditis (principal)
CPT/HCPCS: 99213

== ENCOUNTER 2025-01-21 10:31 | Outpatient (AMB) | payer OTHER, SELFPAY ==
--- NOTE | 2025-01-21 10:45 | MHC.PC.OV ---
Vital Signs 01/21/25 10:47 Height 4 ft 11.5 in Weight 228 lb 2 oz BMI 45.3 BP 134/78 Blood Pressure Location Lt brachial Position Sitting Pulse 89 Pulse Source Pulse Oximeter Temp 97.3 F Temp Source Temporal Artery Scan Pulse Oximetry (%) 92 Oxygen Delivery Method Room Air Intake Visit Reasons: depression, thyroid Intake Note: Patient is here to follow up on Depression, Thyroid. First Responder Required: No Mortgage Analyst: Not Required per policy Accompanied by: Self / Same As Patient Allergies No Known Allergies (No Known Allergies*) Allergy (Verified 01/21/25 11:02) Medication List - Last Reconciled 01/21/25 by Nenita Harper MD albuterol sulfate 90 mcg/actuation 2 puffs PO Q4H PRN 30 days albuterol sulfate 2.5 mg (3 mL) inhalation Q6H PRN 30 days buprenorphine 5 mcg/hour 1 patch transdermal Q7D cholecalciferol (vitamin D3) 50 mcg PO DAILY 90 days levothyroxine 112 mcg PO DAILY 90 days meclizine 25 mg PO BID PRN 7 days mecobalamin (vitamin B12) 1,000 mcg sublingual DAILY nebulizers (AeroEclipse II Nebulizer) As directed omeprazole 20 mg PO BID 90 days polyethylene glycol 3350 (Miralax) 17 grams PO DAILY sennosides (senna) 8.6 mg PO BEDTIME PRN 30 days Ventolin HFA 90 mcg/actuation (albuterol sulfate) 2 puffs inhalation Q6H PRN 30 days NS [wedge pillow Use it for nap time and over night sleep ] Tobacco use date assessed: 01/21/25 Dental Screening Dental Screen Date: 09/10/24 HPI HPI Comments History of Present Illness Details The patient is a 44-year-old female presenting with a follow-up on her chronic conditions, including hypothyroidism, prediabetes, and fibromyalgia. The patient has a history of hypothyroidism and is currently on levothyroxine 112 mcg daily. Her thyroid levels were previously uncontrolled, necessitating a repeat test. She also has prediabetes, with previous blood sugar levels noted to be elevated. A repeat fasting blood sugar test is planned to monitor her glucose levels. The patient experiences constipation and uses MiraLAX and Senna, which were initially ineffective. She found relief with an online supplement that supports thyroid function. She reports symptoms of perimenopause, including fatigue and weight gain, despite efforts in diet and exercise. Previous attempts with [facility] for weight management were unsuccessful due to insurance issues. The patient has a history of sleep apnea, confirmed by a previous sleep study, and experiences episodes of apnea at night. A referral to sleep medicine is planned for further evaluation. She reports fibromyalgia with intermittent flare-ups, contributing to swelling in her hands and feet. She also experiences itching in her ears, which was temporarily relieved by ear drops. The patient experiences anxiety and mild depression, with a low PHQ-9 score. Bupropion was discussed as a potential treatment option to address both depression and weight management. [facility] Medical History (Updated 01/21/25 @ 11:22 by Nenita Harper MD) Major depressive disorder, recurrent, mild Morbid obesity with BMI of 40.0-44.9, adult Osteoarthritis involving multiple joints on both sides of body Leg edema Right knee pain Acid reflux Allergic rhinitis Abdominal pain Elmira's disease Menorrhagia with regular cycle Obesity (BMI 30-39.9) History of abnormal cervical Pap smear Asthma Fibromyalgia Depression GERD (gastroesophageal reflux disease) Hypothyroidism Vitamin D deficiency Autoimmune thyroiditis Surgical History History of tonsillectomy History of tubal ligation Family History Mother Asthma Father AIDS Sister No problems noted. Brother No problems noted. Daughter No problems noted. Daughter No problems noted. Daughter No problems noted. Son No problems noted. 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 1. Little interest or pleasure in doing things: several days 2. Feeling down, depressed, or hopeless: several days 3. Trouble falling or staying asleep, or sleeping too much: several days 4. Feeling tired or having little energy: several days 5. Poor appetite or overeating: several days 6. Feeling bad about yourself - or that you are a failure or have let yourself or your family down: not at all 7. Trouble concentrating on things, such as reading the newspaper or watching television: several days 8. Moving or speaking so slowly that other people could have noticed. Or the opposite - being so fidgety or restless that you have been moving around a lot more than usual: not at all 9. Thoughts that you would be better off or of hurting yourself in some way: not at all Total score: 6 Depression Screening Interpretation: Positive Depression Screening Follow-up: Existing condition and Follow-up Visit Requested Depression Screening Done: Yes [id number] - PHQ-9 Billing: Yes Source: Developed by Drs. Rudy Brasher, Isi Sahni, Jerry Hughes and colleagues, with an educational joseph from [employer]. Thrive Questionnaire Date Thrive assessed: 09/10/24 I am a: Patient What is your living situation today?: I have a steady place to live Within the past 12 months, did the food you bought not last and you didn't have the money to get more?: Never true Within the past 12 months, did you worry whether your food would run out before you got money to buy more?: Sometimes True Do you have trouble paying for medicines?: No Do you have trouble getting transportation to medical appointments?: No Do you have trouble paying your heating and electricity bill?: Yes Do you have trouble taking care of your child, family member or friend?: No Do you have trouble with day-to-day activities such as bathing, preparing meals, shopping, managing finances, etc.?: I choose not to answer this question Are you currently unemployed and looking for a job?: No Are you interested in more education?: No Please select the resources that you would like help with: None Currently or been in a relationship where the following occur: No concerns reported THRIVE Score: 2 NHAN-7 AMB Questionnaire NHAN-7 Date NHAN - 7 assessed: 01/21/25 Feeling nervous, anxious, or on edge: 2 = More than half the days Not being able to stop or control worryin = More than half the days Worrying too much about different things: 2 = More than half the days Trouble relaxin = More than half the days Being so restless that it is hard to sit still: 2 = More than half the days Becoming easily annoyed or irritable: 2 = More than half the days Feeling afraid as if something awful might happen: 2 = More than half the days Total NHAN-7 score (0-4 normal; 5-9 mild; 10-14 moderate; 15-21 severe): 14 Source: Developed by Drs. Rudy Brasher, Isi Sahni, Jerry Hughes and colleagues, with an educational joesph from [employer]. NHAN-7 Assessment Billing NHAN-7 Assessment Tool: NHAN-7 Assessment 90769 Review of Systems Const All systems reviewed & are unremarkable except as noted in HPI and below Card Denies chest pain at rest, Denies chest pain with activity, Denies edema, Denies irregular heart rhythm, Denies claudication, Denies dyspnea, Denies dyspnea on exertion, Denies orthopnea, Denies paroxysmal nocturnal dyspnea and Denies slow heart rate Resp Denies cough, Denies dyspnea and Denies dyspnea on exertion Physical exam (Primary Care) Vital Signs: Last Vital Signs Temp 97.3 F 01/21/25 10:47 Pulse 89 01/21/25 10:47 BP 134/78 01/21/25 10:47 Pulse Ox 92 01/21/25 10:47 Oxygen Delivery Method Room Air 01/21/25 10:47 BMI result Body Mass Index 45.3 BMI Assessment/Plan discussion: High BMI High, discussed plan: lifestyle, weight reduction, dietary and physical activity Tobacco/Smoking Status: Tobacco use Status Tobacco use date assessed 01/21/25 01/21/25 10:54 Patient Tobacco Use Status Former Tobacco user 01/21/25 10:54 Tobacco use type Cigarette 01/21/25 10:54 e-Cigarette/Vaping Use Never Used 01/21/25 10:54 PHQ-9: PHQ-9 Score PHQ-9: Total score 6 01/21/25 11:06 Depression Screening Interpretation: Positive Depression Screening Follow-up: Existing condition and Follow-up Visit Requested Thrive Assessment: Date of Thrive Assessment Date Thrive assessed 09/10/24 01/21/25 10:54 Currently or been in a relationship where the following occur: No concerns reported Resp Effort & Inspection: normal respiratory effort Auscultation: clear to auscultation bilaterally Cardio Jugular venous distension: no JVD Rate: regular rate Rhythm: regular rhythm Heart sounds: S1 normal heart sound present and S2 normal heart sound present Extrem General: Yes full ROM Coding Level of Care Code Est Pt Level 4 (22254) Complex EM visit Add On G2211 Diagnoses Morbid obesity with BMI of 45.0-49.9, adult E66.01; Z68.42 Elmira's disease E06.3 Impaired glucose tolerance R73.02 Ear itch L29.9 Major depressive disorder, recurrent, mild F33.0 NHAN (generalized anxiety disorder) F41.1 Chronic constipation K59.09 Additional Codes NHAN-7 Assessment Billing - NHAN-7 Assessment Tool: NHAN-7 Assessment 24770 ([id number]) PHQ-9 - 27527 - PHQ-9 Billing: Yes ([id number]) Time Spent (min) 24 Assessment & Plan Assessment & Plan (1) Morbid obesity with BMI of 45.0-49.9, adult: Code(s): E66.01 - Morbid (severe) obesity due to excess calories; Z68.42 - Body mass index [BMI] 45.0-49.9, adult Category: Medical (2) Elmira's disease: Code(s): E06.3 - Autoimmune thyroiditis Category: Medical (3) Impaired glucose tolerance: Code(s): R73.02 - Impaired glucose tolerance (oral) Category: Medical (4) Ear itch: Code(s): L29.9 - Pruritus, unspecified Category: Medical (5) Major depressive disorder, recurrent, mild: Code(s): F33.0 - Major depressive disorder, recurrent, mild Category: Medical (6) NHAN (generalized anxiety disorder): Code(s): F41.1 - Generalized anxiety disorder Category: Medical (7) Chronic constipation: Comment: 40-year-old female chronic constipation, continue bowel regimen, Continue to maintain high-fiber diet, she may take senna Code(s): K59.09 - Other constipation Category: Medical Plan Plan Patient was informed and verbally consented to the use of an ambient scribe for clinic note documentation during this visit. 1. Hypothyroidism, unspecified E03.9 The patient's thyroid levels were previously uncontrolled, necessitating a repeat test to ensure proper management of her hypothyroidism. 2. Prediabetes R73.03 A repeat fasting blood sugar test is planned to monitor her glucose levels and manage her prediabetes effectively. 3. Constipation, unspecified K59.00 The patient uses MiraLAX and Senna for constipation, and has found relief with an online supplement that supports thyroid function. 4. Sleep apnea, unspecified G47.30 A referral to sleep medicine is planned for further evaluation of her sleep apnea, which was confirmed by a previous sleep study. 5. Fibromyalgia M79.7 The patient experiences fibromyalgia with intermittent flare-ups, contributing to swelling in her hands and feet. 6. Anxiety disorder, unspecified F41.9 The patient experiences anxiety, and bupropion was discussed as a potential treatment option. 7. Depression, unspecified F32.A The patient experiences mild depression with a low PHQ-9 score, and bupropion was discussed as a potential treatment option to address both depression and weight management. 8. Pruritus, unspecified L29.9 The patient experiences itching in her ears, which was temporarily relieved by ear drops, and additional drops will be provided. Orders: Orders Vitamin B12 and Folate Today E53.8 - Deficiency of other specified B group vitamins Comprehensive Golden. Panel Fast Today R73.02 - Impaired glucose tolerance (oral) Vitamin D 25-OH Total Today E55.9 - Vitamin D deficiency, unspecified Thyroid Stimulating Hormone Today E06.3 - Autoimmune thyroiditis Referrals Sleep Medicine Referral G47.33 - Obstructive sleep apnea (adult) (pediatric) Medications: New bupropion HCl XL (Wellbutrin XL) 150 mg PO QAM 90 tabs 0RF 90 days tirzepatide (weight loss) (Zepbound) for 4 weeks 2.5 mg (0.5 mL) subcut QWEEK 2 mL 0RF 4 weeks E66.01 - Morbid (severe) obesity due to excess calories, Z68.41 - Body mass index [BMI] 40.0-44.9, adult fluocinolone acetonide oil 0.01% (DermOtic Oil) 5 drps otic (ear) left BID 20 mL 0RF 7 days Refilled Ventolin HFA 90 mcg/actuation (albuterol sulfate) 2 puffs inhalation Q6H PRN 8 grams 2RF shortness of breath or wheezing 30 days NS albuterol sulfate 90 mcg/actuation 2 puffs PO Q4H PRN 8.5 grams 11RF bronchospasm 30 days albuterol sulfate 2.5 mg (3 mL) inhalation Q6H PRN 360 mL 6RF bronchospasm 30 days
[2025-01-21 10:47] VITALS: BP 134/78; PULSE 89; TEMP 36.3; O2SAT 92; BMI 45.3
--- OUTSIDE RECORDS SUMMARY | 2025-01-21 11:47 | XMS_ITS | Clinical Summary ---
Author Organization [facility] Address [address] [place] [id number] Care Team Providers Care Coffee Weigher Name Role Phone Nenita Knott MD Primary Care Provider [phone] Medications albuterol (2.5 MG/3ML) 0.083% nebulizer solution 3 (three) times a day Active ergocalciferol (VITAMIN D2) 1.25 MG (07339 UT) capsule 06/04/2020 Active ibuprofen (ADVIL,MOTRIN) 800 [...] 19+ 3-dose series) 02/08/1999 Influenza Vaccine (#1) 2024 Pneumococcal Vaccine: Peds ( 0 to 5 Years) and At-Risk Patients (6 to 49 Years) Aged Out No longer eligible b ased on patient's age to complete this topic Insurance [facility] Medicaid [facility] Medicaid Care Teams Coffee Weigher Relationship Specialty Start Date End Date Nenita Knott MD [address] [place] [address] PCP - General 05/05/20
--- OUTSIDE RECORDS SUMMARY | 2025-01-21 11:47 | XMS_ITS | Clinical Summary ---
Author Organization [employer] Address [address] [facility] 7[address] [place] [address] Care Team Providers Care Public Health Informatician Name Role Phone Unavailable Primary Care Provider Unavailabl e Social History Tobacco Use Types Packs/Day Years [...] 1980 Lipid Panel 1980 SDOH Screening 1980 Disability Screening 1980 Alcohol/Substance Use Screening 1992 Tobacco Screening 1992 Family Planning (PISQ) 02/08/1995 HPV Vaccines (1 - 3-dose series) 02/08/1995 Hepatitis C Screening 02/08/1998 DTaP/Tdap/Td Vaccines (1 - Tdap) 02/08/1999 Hepatitis B Vaccines (1 of 3 - 19+ 3-dose series) 02/08/1999 Pneumococcal Vaccine: Pediat rics (0 to 5 Years) and At-Risk Patients (6 to 49) Years (1 of 2 - PCV) 02/08/1999 Pap Smear 02/08/2001 Cervical Cancer Screening 02/08/2010 HPV/Cotest 02/08/2010 Mammogram 2020 COVID-19 Vaccine (1 - 2023-2 5 season) 2024 Influenza Vaccine (#1) 2024 01/23/2010 Zoster Vaccines (1 of 2) 02/08/2030 [...] patient's age to complete this topic Insurance [facility] STANDARD
== END 2025-01-21 11:16 | disposition home or self-care (01) ==
LOC: HO.HMCH 10:32
PROVIDERS: PCP Internal Medicine; Visit Provider Internal Medicine
DX: E66.01 Morbid (severe) obesity due to excess calories (principal); Z68.42 Body mass index [BMI] 45.0-49.9, adult; E06.3 Autoimmune thyroiditis; R73.02 Impaired glucose tolerance (oral); L29.9 Pruritus, unspecified; F33.0 Major depressive disorder, recurrent, mild; F41.1 Generalized anxiety disorder; K59.09 Other constipation

== ENCOUNTER → 2025-01-21 10:31 | Outpatient (BNVA) | payer OTHER, SELFPAY | PROVIDERS: PCP Internal Medicine; Visit Provider Internal Medicine | DX: R73.03 Prediabetes (principal); E03.9 Hypothyroidism, unspecified; M79.7 Fibromyalgia; N95.8 Other specified menopausal and perimenopausal disorders; G47.30 Sleep apnea, unspecified; F41.9 Anxiety disorder, unspecified; E66.01 Morbid (severe) obesity due to excess calories; E06.3 Autoimmune thyroiditis; R73.02 Impaired glucose tolerance (oral); F33.0 Major depressive disorder, recurrent, mild; L29.9 Pruritus, unspecified; F41.1 Generalized anxiety disorder; K59.09 Other constipation; E53.8 Deficiency of other specified B group vitamins; E55.9 Vitamin D deficiency, unspecified; Z68.42 Body mass index [BMI] 45.0-49.9, adult; Z79.899 Other long term (current) drug therapy | CPT/HCPCS: 96127; 99212 ==

== ENCOUNTER 2025-01-28 10:57 | Outpatient (REF) | payer OTHER, SELFPAY ==
[2025-01-28 12:42] LABS: Alanine Aminotransferase 12 U/L (0-31); Albumin Level 4.2 g/dL (3.5-5.0); Alkaline Phosphatase 73 U/L (39-117); Anion Gap 9 (12-20); Aspartate Amino Transferase 14 U/L (5-31); Blood Urea Nitrogen 11 mg/dL (9-16); Calcium 8.7 mg/dL (8.4-10.2); Carbon Dioxide 27 mmol/L (22-29); Chloride 108 mmol/L (96-108); Estimated Glomerular Filt Rate > 60; Potassium 4.0 mmol/L (3.3-5.1); Sodium 140 mmol/L (135-145); Total Protein 7.2 g/dL (6.5-8.0)
[2025-01-28 13:04] LABS: Folate 7.7 ng/mL (> or = 4.0); Thyroid Stimulating Hormone 4.19 uIU/mL (0.32-4.0); Vitamin B12 578 pg/mL (200-900)
--- OUTSIDE RECORDS SUMMARY | 2025-01-28 13:18 | XMS_ITS | Clinical Summary ---
Author Organization [employer] Address [address] [facility] 7t [place] [address] Care Team Providers Care Log Rider Name Role Phone Unavailable Primary Care Provider [...] patient's age to complete this topic Insurance [facility] STANDARD
--- OUTSIDE RECORDS SUMMARY | 2025-01-28 13:18 | XMS_ITS | Clinical Summary ---
Author Organization [facility] Address [address] [place] [address] Care Team Providers Care Support Teacher Name Role Phone Nenita Knott MD Primary Care Provider [phone] Medications albuterol (2.5 MG/3ML) 0.083% nebulizer solution 3 (three) times a day Active ergocalciferol (VITAMIN D2) 1.25 MG (82079 UT) capsule 06/04/2020 Active ibuprofen (ADVIL,MOTRIN) 800 [...] patient's age to complete this topic Insurance [facility] Medicaid [facility] Medicaid Care Teams Support Teacher Relationship Specialty Start Date End Date Nenita Knott MD [address] [place] [address] PCP - General 05/05/20
== END 2025-01-28 10:58 | disposition home or self-care (01) ==
LOC: HO.LAB 10:57
PROVIDERS: PCP Internal Medicine; Visit Provider Internal Medicine
DX: E06.3 Autoimmune thyroiditis (principal); E53.8 Deficiency of other specified B group vitamins; R73.02 Impaired glucose tolerance (oral); E55.9 Vitamin D deficiency, unspecified
CPT/HCPCS: 36415; 80053; 82306; 82607; 82746; 84443

== ENCOUNTER 2025-01-30 10:02 | Outpatient (REF) | payer OTHER, SELFPAY ==
[2025-01-31 05:11] LABS: CT PCR NOT DETECTED (Not Detect.); NG PCR NOT DETECTED (Not Detect.)
[2025-01-31 05:12] LABS: Bacterial Vaginosis PCR NEGATIVE (Negative); Candida Group PCR NOT DETECTED (Not Detect); Candida glab krusei PCR NOT DETECTED (Not Detect); Trichomonas vaginalis PCR NOT DETECTED (Not Detect)
== END 2025-01-30 10:03 | disposition home or self-care (01) ==
LOC: HO.LAB 10:02
PROVIDERS: PCP Internal Medicine; Visit Provider Advanced Practice Midwife
DX: N92.0 Excessive and frequent menstruation with regular cycle (principal); R73.02 Impaired glucose tolerance (oral); N88.2 Stricture and stenosis of cervix uteri; N89.8 Other specified noninflammatory disorders of vagina; Z12.4 Encounter for screening for malignant neoplasm of cervix; Z12.39 Encounter for other screening for malignant neoplasm of breast; Z11.3 Encounter for screening for infections with a predominantly sexual mode of transmission
CPT/HCPCS: 81515; 87491; 87591; 99386

== ENCOUNTER 2025-01-30 10:02 | Outpatient (AMB) | payer OTHER, SELFPAY ==
--- NOTE | 2025-01-30 10:03 | A.OFFVIS_ITS ---
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 Maintenance Groundskeeper: Maintenance Groundskeeper Present (Adriane) Accompanied by: Self / Same As Patient Allergies No Known Allergies (No Known Allergies*) Allergy (Verified 01/30/25 10:32) Medication List - Last Reviewed 01/30/25 by Adriane Chester MA albuterol sulfate 90 mcg/actuation 2 puffs PO Q4H PRN 30 days albuterol sulfate 2.5 mg (3 mL) inhalation Q6H PRN 30 days bupropion HCl XL (Wellbutrin XL) 150 mg PO QAM 90 days cholecalciferol (vitamin D3) 50 mcg PO DAILY 90 days fluocinolone acetonide oil 0.01% (DermOtic Oil) 5 drps otic (ear) left BID 7 days levothyroxine (Levoxyl) 125 mcg PO DAILY 90 days meclizine 25 mg PO BID PRN 7 days mecobalamin (vitamin B12) 1,000 mcg sublingual DAILY nebulizers (AeroEclipse II Nebulizer) As directed omeprazole 20 mg PO BID 90 days polyethylene glycol 3350 (Miralax) 17 grams PO DAILY sennosides (senna) 8.6 mg PO BEDTIME PRN 30 days tirzepatide (weight loss) (Zepbound) 2.5 mg (0.5 mL) subcut QWEEK 4 weeks Ventolin HFA 90 mcg/actuation (albuterol sulfate) 2 puffs inhalation Q6H PRN 30 days NS [wedge pillow Use it for nap time and over night sleep ] Is last menstrual period known: Yes Last menstrual period: 01/25/25 Post menopausal: No Patient : No HPI HPI 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 She feels like she ne eds more support. She is awaiting prior approval for Ozempic now which she had success with before she did have success with weight loss in the past but gained it right back. Much of the visit was spent discussing the obstacles and the ways that she can be better supported to help her in her efforts to achieve better health discussed in light of her pre diabetes, awaiting recent lab work results that she will be following up with her primary about, and also the various aches and pains and constipation and muscle strains that she experiences both abdominally and in her legs and otherwise. Additionally she has very heavy periods she has 4 children delivered vaginally and there was an attempt to place a Mirena for menorrhagia 5 years ago but 2 experienced providers had difficulty because of her cervix structure (please see their note from Mirena attempt.) She has had a tubal ligation so she does not need control been she is not willing to go through that experience again to try again either. She wants to lose weight but does not want surgery. [facility] Medical History Major depressive disorder, recurrent, mild Morbid obesity with BMI of 40.0-44.9, adult Osteoarthritis involving multiple joints on both sides of body Leg edema Right knee pain Acid reflux Allergic rhinitis Abdominal pain Elmira's disease Menorrhagia with regular cycle Obesity (BMI 30-39.9) History of abnormal cervical Pap smear Asthma Fibromyalgia Depression GERD (gastroesophageal reflux disease) Hypothyroidism Vitamin D deficiency Autoimmune thyroiditis Surgical History History of tonsillectomy History of tubal ligation Family History Mother Asthma Father AIDS Sister No problems noted. Brother No problems noted. Daughter No problems noted. Daughter No problems noted. Daughter No problems noted. Son No problems noted. 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 Current occupational exposures/hazards: No Gender identity: Female Cognitive needs: No Hearing needs: No Vision needs: Yes (reading glasses) Female Reproductive History Menstrual Age of Menarche: 11 Duration of menses: 3-5 days Date of last menstrual period: 01/25/25 control method: none Total pregnancies: 4 Full term: 4 Date of last pap smear: 04/02/20 (negative pap smear, negative hpv ) Date of Mammogram: 04/30/21 (bi rad 1) Physical Exam Vital Signs: Last Vital Signs BP 126/74 01/30/25 10:12 BMI result Body Mass Index 44.7 Const General: healthy appearing, comfortable, no acute distress, well developed and alert Nutritional Appearance: average body habitus and obese Orientation/consciousness: patient oriented x3 Limitations: no limitations HEENT Head: Yes normocephalic Neck Neck: Yes normal visual inspection Chest Chest palpation & inspection: normal inspection of the chest Breast/axilla inspection: normal inspection of the breasts and normal inspection of the axillae Breast/axilla palpation: normal palpation of the breasts and normal palpation of the axillae Resp Effort & Inspection: normal respiratory effort GI Inspection: Yes normal to inspection, No Abdominal wall edema and No distended Palpation (GI): Soft to palpation and nontender Other: External exam within normal limits vagina is pink and moist cervix is appearing to be scarred at 06:00 and is extremely stenotic goalie closed barely admitting Cytobrush and Q-tips for testing. It is short thick firm closed mobile nontender adnexa nontender uterus difficult to palpate completely secondary to adipose good tone with Kegel. General: Yes bladder normal to palpation External Female Exam: normal external appearance and normal appearance of the urethra Speculum Exam - Vagina: normal appearance of the vagina, normal palpation and normal vaginal discharge Speculum Exam - Cervix: normal appearance of the cervix, normal palpation and nontender Bimanual exam- vagina & uterus: normal bimanual exam, normal palpation, uterine size normal, bladder normal to palpation, consistency normal, normal palpation, uterine mobility normal, uterine shape normal, No Cervical tenderness present, non-tender and no cervical motion tenderness Bimanual Exam- Adnexa, other: normal adnexae, no masses, normal and No adnexal tenderness Neuro General: patient oriented x3 Assessment & Plan Assessment & Plan (1) Menorrhagia with regular cycle: Code(s): N92.0 - Excessive and frequent menstruation with regular cycle Category: Medical (2) Impaired glucose tolerance: Code(s): R73.02 - Impaired glucose tolerance (oral) Category: Medical (3) Screening for cervical cancer: Code(s): Z12.4 - Encounter for screening for malignant neoplasm of cervix Category: Medical (4) Breast cancer screening: Code(s): Z12.39 - Encounter for other screening for malignant neoplasm of breast Category: Medical (5) Stenosis of cervix: Code(s): N88.2 - Stricture and stenosis of cervix uteri Category: Medical Plan Is a lengthy visit discussing patient's health concerns she has been having a difficult time with her weight lately she has tried over the years to lose weight she has been to the weight management program but her efforts met with slow change and it was not a good fit with the provider. She feels like she needs more support. She is awaiting prior approval for Ozempic now which she had success with before she did have success with weight loss in the past but gained it right back. Much of the visit was spent discussing the obstacles and the ways that she can be better supported to help her in her efforts to achieve better health discussed in light of her pre diabetes, awaiting recent lab work results that she will be following up with her primary about, and also the various aches and pains and constipation and muscle strains that she experiences both abdominally and in her legs and otherwise. Additionally she has very heavy periods she has 4 children delivered vaginally and there was an attempt to place a Mirena for menorrhagia 5 years ago but 2 experienced providers had difficulty because of her cervix structure (please see their note from Mirena attempt.) She has had a tubal ligation so she does not need control been she is not willing to go through that experience again to try again either. She wants to lose weight but does not want surgery. She says her had good luck for a while after his nutrition visit at endocrinology she herself also attends that office because of her thyroid. Suggested seeing the human relations manager there for more nutritional support to aid in her efforts with the Ozempic if she is able to get that. Additionally discussed avoidance of carbs in general increase vegetables in the diet. Also discussed increased water and activity she does have a treadmill and she does about 30 min utes today. For the heavy periods we will try norethindrone OCPs for 3 months and see if that makes a difference she is finishing her period now so this is a good time to start it today. Discussed all of her issues and history with weight loss efforts and other concerns as well in great detail. Orders: Orders Bacterial Vaginosis Panel Today N89.8 - Other specified noninflammatory disorders of vagina CT NG by PCR Vag/Cerv Today N89.8 - Other specified noninflammatory disorders of vagina, Z11.3 - Encounter for screening for infections with a predominantly sexual mode of transmission Pap Smear Today Z00.00 - Encounter for general adult medical examination without abnormal findings Medications: New norethindrone (contraceptive) 0.35 mg PO DAILY 84 tabs 3RF Coding Level of Care Code New Pt Prev Care 40-64y(20018) Diagnoses Menorrhagia with regular cycle N92.0 Impaired glucose tolerance R73.02 Screening for cervical cancer Z12.4 Breast cancer screening Z12.39 Stenosis of cervix N88.2
[2025-01-30 10:12] VITALS: BP 126/74; BMI 44.7
== END 2025-01-30 14:09 | disposition home or self-care (01) ==
LOC: HO.HWSM 10:02
PROVIDERS: PCP Internal Medicine; Visit Provider Advanced Practice Midwife
DX: Z01.419 Encounter for gynecological examination (general) (routine) without abnormal findings (principal); N92.0 Excessive and frequent menstruation with regular cycle; R73.02 Impaired glucose tolerance (oral); Z12.39 Encounter for other screening for malignant neoplasm of breast; N88.2 Stricture and stenosis of cervix uteri
CPT/HCPCS: 99386; 99459

== ENCOUNTER 2025-01-30 12:05 | Outpatient (REF) | payer OTHER, SELFPAY | END 2025-01-30 12:06 | disposition home or self-care (01) | LOC: HO.LNP 12:05 | PROVIDERS: Visit Provider Advanced Practice Midwife | DX: Z00.00 Encounter for general adult medical examination without abnormal findings (principal); Z11.51 Encounter for screening for human papillomavirus (HPV) | CPT/HCPCS: 87626; 88175 ==

== ENCOUNTER 2025-04-03 15:40 | Outpatient (AMB) | payer OTHER, SELFPAY ==
--- NOTE | 2025-04-03 15:47 | MHC.PC.OV ---
Vital Signs 04/03/25 15:48 Height 4 ft 11.5 in Weight 226 lb BMI 44.9 BP 130/78 Blood Pressure Location Rt brachial Position Sitting Pulse 84 Pulse Source Pulse Oximeter Pulse Oximetry (%) 98 Oxygen Delivery Method Room Air Intake Visit Reasons: bowel issues Certified Coding Specialist Required: No Accompanied by: Self / Same As Patient Allergies No Known Allergies (No Known Allergies*) Allergy (Verified 04/03/25 16:02) Medication List - Last Reconciled 04/03/25 by Nenita Harper MD albuterol sulfate 90 mcg/actuation 2 puffs PO Q4H PRN 30 days albuterol sulfate 2.5 mg (3 mL) inhalation Q6H PRN 30 days bupropion HCl XL (Wellbutrin XL) 150 mg PO QAM 90 days cholecalciferol (vitamin D3) 50 mcg PO DAILY 90 days fluocinolone acetonide oil 0.01% (DermOtic Oil) 5 drps otic (ear) left BID 7 days levothyroxine (Levoxyl) 125 mcg PO DAILY 90 days meclizine 25 mg PO BID PRN 7 days mecobalamin (vitamin B12) 1,000 mcg sublingual DAILY nebulizers (AeroEclipse II Nebulizer) As directed norethindrone (contraceptive) 0.35 mg PO DAILY omeprazole 20 mg PO BID 90 days polyethylene glycol 3350 (Miralax) 17 grams PO DAILY sennosides (senna) 8.6 mg PO BEDTIME PRN 30 days tirzepatide (weight loss) (Zepbound) 2.5 mg (0.5 mL) subcut QWEEK 4 weeks Ventolin HFA 90 mcg/actuation (albuterol sulfate) 2 puffs inhalation Q6H PRN 30 days NS [wedge pillow Use it for nap time and over night sleep ] Tobacco use date assessed: 01/21/25 Dental Screening Dental Screen Date: 09/10/24 HPI HPI Comments History of Present Illness Details The patient is a 45 year old female presenting with hemorrhoids, ear discomfort, and nerve pain. She reports having bleeding internal hemorrhoids. The bleeding was significant two days ago but has slowed down, occurring mainly when she pushes. She has tried uqfc-awj-[id number] treatments including stool softeners, witch mk pads, a cream, and castor oil. Declines rectal exam today and would like to be referred to someone that can surgically fix it. She also complains of intermittent ear infections that have not resolved, causing significant pruritus in both ears. Additionally, she experiences nerve pain in her arms, which she reports as very painful and is associated with fibromyalgia. She notes that her pain contributes to her depression. Will be started in gabapentin and patient was advised that it can cause sleepiness. The patient has a history of hypothyroidism, for which she takes levothyroxine 125 mcg. She was supposed to be seen by endocrinology, but her appointment was canceled. I advised her to call Endocrinology to make a new appointment. Her current medications include an inhaler, bupropion, vitamin D, vitamin B12, omeprazole, MiraLAX, and Senna. A prior prescription for gabapentin was not used. She is also morbidly obese with a BMI of 44.9 and was advised to do diet and exercise to reach BMI goal less than 30. [facility] Medical History (Updated 04/04/25 @ 03:55 by Nenita Harper MD) Morbid obesity with BMI of 40.0-44.9, adult Major depressive disorder, recurrent, mild Osteoarthritis involving multiple joints on both sides of body Leg edema Right knee pain Acid reflux Allergic rhinitis Abdominal pain Elmira's disease Menorrhagia with regular cycle Obesity (BMI 30-39.9) History of abnormal cervical Pap smear Asthma Fibromyalgia Depression GERD (gastroesophageal reflux disease) Hypothyroidism Vitamin D deficiency Autoimmune thyroiditis Surgical History History of tonsillectomy History of tubal ligation Family History Mother Asthma Father AIDS Sister No problems noted. Brother No problems noted. Daughter No problems noted. Daughter No problems noted. Daughter No problems noted. Son No problems noted. 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 Current occupational exposures/hazards: No Gender identity: Female Cognitive needs: No Hearing needs: No Vision needs: Yes (reading glasses) Female Reproductive History Menstrual Age of Menarche: 11 Questionnaire Thrive Questionnaire Date Thrive assessed: 09/10/24 I am a: Patient What is your living situation today?: I have a steady place to live Within the past 12 months, did the food you bought not last and you didn't have the money to get more?: Never true Within the past 12 months, did you worry whether your food would run out before you got money to buy more?: Sometimes True Do you have trouble paying for medicines?: No Do you have trouble getting transportation to medical appointments?: No Do you have trouble paying your heating and electricity bill?: Yes Do you have trouble taking care of your child, family member or friend?: No Do you have trouble with day-to-day activities such as bathing, preparing meals, shopping, managing finances, etc.?: I choose not to answer this question Are you currently unemployed and looking for a job?: No Are you interested in more education?: No Please select the resources that you would like help with: None Currently or been in a relationship where the following occur: No concerns reported THRIVE Score: 2 NHAN-7 AMB Questionnaire NHAN-7 Date NHAN - 7 assessed: 01/21/25 Source: Developed by Drs. Rudy Brasher, Isi Sahni, Jerry Hughes and colleagues, with an educational joseph from [employer]. Review of Systems Const All systems reviewed & are unremarkable except as noted in HPI and below Card Denies chest pain at rest, Denies chest pain with activity, Denies edema, Denies irregular heart rhythm, Denies claudication, Denies dyspnea, Denies dyspnea on exertion, Denies orthopnea, Denies paroxysmal nocturnal dyspnea and Denies slow heart rate Resp Denies cough, Denies dyspnea and Denies dyspnea on exertion GI Denies abdominal pain, Denies change in bowel habits, Denies excessive flatus, Denies nausea and Denies vomiting Denies urinary incontinence, Denies urinary hesitancy and Denies urinary urgency Musc Denies atrophy, Denies deformity and Denies limited range of motion Physical exam (Primary Care) Vital Signs: Last Vital Signs Pulse 84 04/03/25 15:48 BP 130/78 04/03/25 15:48 Pulse Ox 98 04/03/25 15:48 Oxygen Delivery Method Room Air 04/03/25 15:48 BMI result Body Mass Index 44.9 BMI Assessment/Plan discussion: High BMI High, discussed plan: lifestyle, weight reduction, dietary and physical activity Tobacco/Smoking Status: Tobacco use Status Tobacco use date assessed 01/21/25 04/03/25 15:54 Patient Tobacco Use Status Former Tobacco user 04/03/25 15:54 Tobacco use type Cigarette 04/03/25 15:54 e-Cigarette/Vaping Use Never Used 04/03/25 15:54 Thrive Assessment: Date of Thrive Assessment Date Thrive assessed 09/10/24 04/03/25 15:54 Currently or been in a relationship where the following occur: No concerns reported Resp Effort & Inspection: normal respiratory effort Auscultation: clear to auscultation bilaterally Cardio Jugular venous distension: no JVD Rate: regular rate Rhythm: regular rhythm Heart sounds: S1 normal heart sound present and S2 normal heart sound present Extrem General: Yes full ROM Coding Level of Care Code Est Pt Level 4 (66931) Diagnoses Ear itch L29.9 Fibromyalgia M79.7 Hemorrhoids K64.9 Major depressive disorder, recurrent, mild F33.0 Morbid obesity with BMI of 40.0-44.9, adult E66.01; Z68.41 Time Spent (min) 21 Assessment & Plan Assessment & Plan (1) Ear itch: Code(s): L29.9 - Pruritus, unspecified Category: Medical (2) Fibromyalgia: Code(s): M79.7 - Fibromyalgia Category: Medical (3) Hemorrhoids: Code(s): K64.9 - Unspecified hemorrhoids Category: Medical (4) Major depressive disorder, recurrent, mild: Code(s): F33.0 - Major depressive disorder, recurrent, mild Category: Medical (5) Morbid obesity with BMI of 40.0-44.9, adult: Code(s): E66.01 - Morbid (severe) obesity due to excess calories; Z68.41 - Body mass index [BMI] 40.0-44.9, adult Category: Medical Plan Plan 1. Internal Hemorrhoids The patient reports bleeding with bowel movements, which she believes is due to internal hemorrhoids. Given her symptoms and desire for specialist evaluation, a referral to General Surgery will be placed for further assessment and potential intervention. 2. Ear itch The patient complains of recurrent ear infections with significant pruritus. Physical exam did not show signs of an active infection, but ear drops will be prescribed for the itchiness. A referral to an ENT specialist will be made for further evaluation. 3. Neuropathic Pain/Fibromyalgia The patient reports significant nerve pain and fibromyalgia, particularly in her arms. Gabapentin will be initiated to manage the pain. Pregabalin was considered, but it will not be approved without a trial of gabapentin first, which the patient has not previously used. 4. Hypothyroidism The patient has a history of hypothyroidism and her endocrinology appointment was canceled. Thyroid labs will be ordered to monitor her condition until she can be seen by a specialist. 5. Morbid obesity Start diet and exercise to reach BMI goal less than 30. Orders: Orders Thyroid Stimulating Hormone 04/03/25 E06.3 - Autoimmune thyroiditis Referrals General Surgery Referral K64.9 - Unspecified hemorrhoids Ear/Nose/Throat Referral H92.09 - Otalgia, unspecified ear Medications: New hydrocortisone 2.5% (Proctosol HC) 1 appl MS BID-QID PRN 30 grams 0RF hemorrhoids 30 days fluocinolone acetonide oil 0.01% (DermOtic Oil) 5 drps otic (ears) BID 20 mL 0RF 7 days gabapentin 100 mg PO TID 90 caps 0RF 30 days
[2025-04-03 15:48] VITALS: BP 130/78; PULSE 84; O2SAT 98; BMI 44.9
--- OUTSIDE RECORDS SUMMARY | 2025-04-04 00:19 | XMS_ITS | Clinical Summary ---
Author Organization [facility] Facility Address [address] [place] [address] Care Team Providers Care Lens Examiner Name Role Phone Nenita Knott MD Primary Care Provider Medications albuterol (2.5 MG/3ML) 0.083% nebulizer solution 3 (three) times a day Active ergocalciferol (VITAMIN D2) 1.25 MG (68030 UT) capsule 06/04/2020 Active ibuprofen (ADVIL,MOTRIN) 800 [...] Years Used Date Smoking Tobacco: Former Cigarettes 0 Q uit: 12/20/2002 Comments Unknown Sex and [...] patient's age to complete this topic Insurance [facility] Medicaid [facility] Medicaid Care Teams Lens Examiner Relationship Specialty Start Date End Date Nenita Knott MD [address] [place] [address] PCP - General 05/05/20
--- OUTSIDE RECORDS SUMMARY | 2025-04-04 00:19 | XMS_ITS | Clinical Summary ---
Author Organization [employer] Address [address] [facility] 7t [place] [address] Care Team Providers Care Spinneret Person Name Role Phone Unavailable Primary Care Provider [...] Health Maintenance Due Date Last Done Comments CT Colonography 1980 Colonoscopy 1980 Colorectal Cancer Screening 1980 Depression Screening 1980 FIT DNA/Cologuard 1980 FIT 1980 FOBT 1980 HIV Screening 1980 Lipid Panel 1980 SDOH Screening 1980 Sigmoidoscopy 1980 Disability Screening 1980 Alcohol/Substance Use Screening [...] 02/08/2010 Mammogram 2020 COVID-19 Vaccine (1 - 2024-2 6 season) 2024 Influenza Vaccine (#1) 2024 01/23/2010 [...] patient's age to complete this topic Insurance [facility] STANDARD
== END 2025-04-03 16:18 | disposition home or self-care (01) ==
LOC: HO.HMCH 15:41
PROVIDERS: PCP Internal Medicine; Visit Provider Internal Medicine
DX: M79.7 Fibromyalgia (principal); E66.01 Morbid (severe) obesity due to excess calories; Z68.41 Body mass index [BMI] 40.0-44.9, adult; L29.9 Pruritus, unspecified; K64.9 Unspecified hemorrhoids; F33.0 Major depressive disorder, recurrent, mild

== ENCOUNTER → 2025-04-03 15:40 | Outpatient (BNVA) | payer OTHER, SELFPAY | PROVIDERS: PCP Internal Medicine; Visit Provider Internal Medicine | DX: L29.9 Pruritus, unspecified (principal); M79.7 Fibromyalgia; K64.9 Unspecified hemorrhoids; F33.0 Major depressive disorder, recurrent, mild; E66.01 Morbid (severe) obesity due to excess calories; Z68.41 Body mass index [BMI] 40.0-44.9, adult | CPT/HCPCS: 99212 ==